=== PATIENT | male | born 1945 | race Caucasian/White ===

== ENCOUNTER 2017-09-02 21:41 | Emergency (ER) | payer MEDICARE ==
[2017-09-02] MEDS ORDERED: NS 0.9% 1000 ML* 1,000 ML IV ONE (22:28)
[2017-09-02 23:07] LABS: Hematocrit 26 % (42-52); Hemoglobin 8.5 g/dl (14.0-18.0); Mean Corpuscular HGB Conc 33 g/dl (31-36); Mean Corpuscular Hemoglobin 30 pg (27-31); Mean Corpuscular Volume 89 fL (80-94); Mean Platelet Volume 7 um3 (7.4-10.4); Platelet Count 274 10^3/ul (150-450); Red Blood Count 2.88 10^6/ul (4.0-5.4); Red Cell Distribution Width 15 % (10.5-15); White Blood Count 11.2 10^3/ul (3.5-10.8)
[2017-09-02 23:21] LABS: EGFR Non-African American 50.1 (>60)
[2017-09-02 23:23] LABS: INR 0.96 (0.77-1.02)
[2017-09-02 23:31] LABS: Monocytes % 7 % (0-13)
--- NOTE | 2017-09-03 01:26 | ED ---
Ghanshyam Smith Nilda, scribed for Augustus King MD on 09/02/17 at 2218 . Adult Trauma - HPI Summary HPI Summary: This patient is a 72 year old M BIBA accompanied by family s/p unwitnessed episode of syncope in bathtub at about 2130. Pt states he was sitting on bathtub ledge, soaking his feet when he fell. Per , pt was unresponsive for a few seconds. Patient reports chronic back pain, rectal bleeding (before fall) , and chronic edema bilat. Pt denies constipation, dizziness, pain (besides back pain), and N/V. Patient denies previous similar episode and overheating in bath. Pain rated 2/10 in severity. PMHx includes hemorrhoids, asthma, and prostate issue. - History of Current Complaint Stated Complaint: FALL/RECTAL BLEEDING Time Seen by Provider: 09/02/17 21:54 Hx Obtained From: Patient, Family/Funeral Service Manager - Mechanism of Injury: Fall Ambulatory at the Scene: N/A Loss of Consciousness: brief (seconds) Onset/Duration: Started Minutes Ago, Still Present Current Severity: Mild Pain Intensity: 2 Pain Scale Used: 0-10 Numeric Location: Back Associated Signs & Symptoms: Positive: Other: - chronic back pain, rectal bleeding (before fall), and chronic edema bilat. Pt denies constipation, dizziness, pain (besides back pain), and N/V. - Allergy/Home Medications Allergies/Adverse Reactions: Allergies Allergy/AdvReac Type Severity Reaction Status Date / Time Erythromycin Allergy Diarrhea Verified 09/02/17 22:14 PMH/Surg Hx/FS Hx/Imm Hx Respiratory History: Reports: Hx Asthma GI History: Reports: Other GI Disorders - hemorrhoid Sensory History: Denies: Hx Legally Blind EENT History: Denies: Hx Deafness Infectious Disease History: Denies: Traveled Outside the [place] in Last 30 Days - Family History Known Family History: Positive: Hypertension, Diabetes - Social History Lives: With Family Review of Systems Positive: Other - unwitnessed fall Positive: Palpitations Positive: Other - rectal bleeding; negative constipation. Negative: Vomiting, Nausea Positive: Edema, Other - chronic back pain; denies other pain Neurological: Other - negative dizziness Positive: Syncope All Other Systems Reviewed And Are Negative: Yes Physical Exam - Summary Physical Exam Summary: VITAL SIGNS: Reviewed. GENERAL: Patient is a morbidly obese male who is lying comfortable in the stretcher. Patient is not in any acute respiratory distress. HEAD AND FACE: No signs of trauma. No ecchymosis, hematomas or skull depressions. No sinus tenderness. EYES: PERRLA, EOMI x 2, No injected conjunctiva, no nystagmus. EARS: Hearing grossly intact. Ear canals and tympanic membranes are within normal limits. MOUTH: Oropharynx within normal limits. NECK: Supple, trachea is midline, no adenopathy, no JVD, no carotid bruit, no c- spine tenderness, neck with full ROM. CHEST: Symmetric, no tenderness at palpation LUNGS: Clear to auscultation bilaterally. No wheezing or crackles. CVS: Regular rate and rhythm, S1 and S2 present, no murmurs or gallops appreciated. ABDOMEN: Soft, non-tender. Distended. No rebound no guarding, and no masses palpated. Bowel sounds are normal. RECTAL: external hemorrhoids; Dark blood out of his rectum consistent with hematochezia EXTREMITIES: FROM in all major joints, no cyanosis or clubbing. Edema 2+ bilat LE with chronic venous changes. NEURO: Alert and oriented x 3. No acute neurological deficits. Speech is normal and follows commands. SKIN: Dry and warm, somewhat pale Triage Information Reviewed: Yes Vital Signs Reviewed: Yes Diagnostics - Laboratory Result Diagrams: 09/02/17 22:55 09/02/17 22:55 Lab Statement: Any lab studies that have been ordered have been reviewed, and results considered in the medical decision making process. - CT Brain CT Interpretation Completed By: Radiologist - Old lacunar infarction and chronic appearing microangiopathic change. Dr. King reviewed this report. - EKG 2238 Cardiac Rate: NL EKG Rhythm: Sinus Rhythm - 84 bpm EKG Interpretation: Normal axis. Normal interval. No ischemic change. Re-Evaluation - Re-Evaluation First Eval Re-Evaluation Time: 23:20 Comment: Reviewed labs with pt. Second Eval Re-Evaluation Time: 00:30 Comment: On re-eval, pt was very reluctant and resistant to be transferred. Had to explain risk of leaving. Pt walked in ED with support of staff. Pt became symptomic, orthostatic, and almost passed out. Adult Trauma Course/Dx - Course Assessment/Plan: This pt is 72 y/o BIBA after syncopal episode and rectal bleed at home. On exam, hematochezia. No active bleeding. Pt found to have low H&H. Pt is hemodynamically stable. No gastro service at this time. Pt transfer to [facility]. [id number] Dr[address] Lopes (hospitalist [facility]) accepts pt for transfer to [facility]. Dx lower GI bleed. On re-eval, pt was very reluctant and resistant to be transferred. Had to explain risk of leaving. Pt walked in ED with support of staff. Pt became symptomic, orthostatic, and almost passed out. Pt ultimately agrees to transfer. - Diagnoses Provider Diagnoses: Lower GI bleed - Physician Notifications Discussed Care Of Patient With: Dr. Lopes - [facility] Physician Time Discussed With Above Provider: 23:50 Instructed by Provider To: Other - agrees to admit pt to [facility] Discharge - Discharge Plan Condition: Stable Disposition: TRANS HIGHER LVL OF CARE FAC Discharge Disposition Comment: Transfer to [facility] Referrals: Donte Hess MD [Primary Care Provider] - The documentation as recorded by the Ghanshyam langston Nilda accurately reflects the service I personally performed and the decisions made by me, Augustus King MD.
[2017-09-03 03:16] VITALS: BP 137/73
--- NOTE | 2017-09-03 08:18 | RAD ---
HISTORY: Head injury COMPARISONS: None TECHNIQUE: Multiple contiguous axial CT scans were obtained of the head without intravenous contrast. FINDINGS: HEMORRHAGE/INFARCT: There is no hemorrhage or acute infarct. MASSES/SHIFT: There is no mass or shift. EXTRA-AXIAL SPACES: There are no extra-axial fluid collections. SULCI AND VENTRICLES: The sulci and ventricles are normal in size and position for the patient's stated age. CEREBRUM: There is hypoattenuation of the periventricular and subcortical white matter. There are chronic lacunar infarcts of the quintero radiata bilaterally. BRAINSTEM: There are no focal parenchymal abnormalities. CEREBELLUM: There are no focal parenchymal abnormalities. VESSELS: The vessels are grossly normal. PARANASAL SINUSES: The paranasal sinuses are clear. ORBITS: The orbits are unremarkable. BONES AND SOFT TISSUE: Epidural inclusion cysts are noted along the scalp. OTHER: None IMPRESSION: NO ACUTE INTRACRANIAL PATHOLOGY. 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
== END 2017-09-03 03:18 | disposition short-term general hospital (02) ==
LOC: ED 21:41
DX: K92.2 Gastrointestinal hemorrhage, unspecified (principal); M54.9 Dorsalgia, unspecified; R00.2 Palpitations; R55 Syncope and collapse
CPT/HCPCS: 36415; 70450; 80053; 85025; 85610; 85730; 86850; 86900; 86901; 93005; 96360; 99285

== ENCOUNTER 2018-02-01 20:08 | Emergency (ER) | payer MEDICARE ==
[2018-02-01 21:36] LABS: ABS Basophils 0.1 10^3/ul (0-0.2); ABS Eosinophils 0.3 10^3/ul (0-0.6); ABS Lymphocytes 0.8 10^3/ul (1.0-4.8); ABS Monocytes 0.7 10^3/ul (0-0.8); ABS Neutrophils 3.5 10^3/ul (1.5-7.7); ABS Nucleated RBC 0 10^3/ul; Eosinophil % 5.4 % (0-6); Hematocrit 32 % (42-52); Hemoglobin 10.5 g/dl (14.0-18.0); Lymphocyte % 14.3 % (25-47); Mean Corpuscular HGB Conc 33 g/dl (31-36); Mean Corpuscular Hemoglobin 26 pg (27-31); Mean Corpuscular Volume 79 fL (80-94); Mean Platelet Volume 7.3 um3 (7.4-10.4); Nucleated Red Blood Cells % 0; Platelet Count 207 10^3/ul (150-450); Red Blood Count 4.01 10^6/ul (4.00-5.40); Red Cell Distribution Width 22 % (10.5-15); White Blood Count 5.4 10^3/ul (3.5-10.8)
[2018-02-01 21:43] LABS: INR 1.01 (0.77-1.02)
[2018-02-01] MEDS ORDERED: Hydrocortisone SUPP* 25 MG SUPP (2.5%) PR ONE (21:45)
[2018-02-01 22:58] VITALS: BP 112/72
--- NOTE | 2018-02-01 23:40 | ED ---
Raven Smith Gabriel, scribed for Moustapha Emanuel MD on 02/01/18 at 2118 . GI/ HPI - HPI Summary HPI Summary: This patient is a 72 year old M presenting [place] [facility] c/o rectal bleeding that occurred a few hours ago. Pt states he passed some stool and there was a small amount of blood in the toilet described as drops next to regular brown stool. This occurred 3 times today. The patient rates the pain 0/10 in severity. Patient denies weakness, fatigue, dizziness, rectal pain, and increased LE edema. Pts states he only has short term memory. There is brown stool on the LEs that may have dripped from the rectum but they are unsure if he has diarrhea. Hx diverticulosis w/ bleeding. Seen at [facility] given 11 pints of blood and had surgery to repair intestinal bleeding. Not on blood thinners. - History of Current Complaint Chief Complaint: EDGIBleed Time Seen by Provider: 02/01/18 21:15 Stated Complaint: RECTAL BLEEDING Hx Obtained From: Patient Onset/Duration: Started Hours Ago, Still Present Timing: Constant Severity: Moderate Current Severity: Moderate Pain Intensity: 0 Associated Signs and Symptoms: Positive: Negative - weakness, fatigue, dizziness , rectal pain, increased LE edema, - Allergy/Home Medications Allergies/Adverse Reactions: Allergies Allergy/AdvReac Type Severity Reaction Status Date / Time erythromycin base AdvReac Diarrhea Verified 02/01/18 20:26 PMH/Surg Hx/FS Hx/Imm Hx Endocrine/Hematology History: Denies: Hx Anticoagulant Therapy Cardiovascular History: Denies: Hx Deep Vein Thrombosis, Hx Myocardial Infarction Respiratory History: Reports: Hx Asthma Denies: Hx Chronic Bronchitis GI History: Reports: Hx Diverticulosis, Other GI Disorders - hemorrhoid Sensory History: Denies: Hx Legally Blind, Hx Deafness Opthamlomology History: Denies: Hx Legally Blind Neurological History: Denies: Hx Developmental Delay - Immunization History Date of Tetanus Vaccine: 2012 Date of Influenza Vaccine: unk Infectious Disease History: No Infectious Disease History: Denies: Traveled Outside the [place] in Last 30 Days - Family History Known Family History: Positive: Hypertension, Diabetes - Social History Alcohol Use: None Substance Use Type: Reports: None Smoking Status (MU): Never Smoked Tobacco Review of Systems Negative: Fatigue Positive: Diarrhea - possible , Other - rectal bleeding Musculoskeletal: Negative - rectal pain Negative: Edema - not increased from baseline Neurological: Negative - dizziness Negative: Weakness All Other Systems Reviewed And Are Negative: Yes Physical Exam - Summary Physical Exam Summary: Appearance: Well appearing, no pain distress Skin: chronic venous stasis changes that are warm to the touch in bilateral LE, states this is his baseline Head/face: normal Eyes: EOMI, LINDA, no conjunctival pallor ENT: normal Neck: supple, non-tender Respiratory: CTA, breath sounds present Cardiovascular: RRR, pulses symmetrical Abdomen: non-tender, soft Bowel Sounds: present Musculoskeletal: strength/ROM intact, bilateral LE edema Neuro: normal, sensory motor intact, A&Ox2, hx dementia Rectal: there is brown stool, there are 2 large inflamed areas of external hemorrhoids. Triage Information Reviewed: Yes Vital Signs On Initial Exam: Initial Vitals Temp Pulse Resp BP Pulse Ox 97.5 F 65 18 168/95 98 02/01/18 20:23 02/01/18 20:23 02/01/18 20:23 02/01/18 20:23 02/01/18 20:23 Vital Signs Reviewed: Yes Diagnostics - Vital Signs Vital Signs Temp Pulse Resp BP Pulse Ox 02/01/18 20:23 97.5 F 65 18 168/95 98 - Laboratory Lab Results: Lab Results 02/01/18 02/01/18 02/01/18 Range/Units 21:27 21:27 21:27 WBC 5.4 (3.5-10.8) 10^3/ul RBC 4.01 (4.00-5.40) 10^6/ul Hgb 10.5 L (14.0-18.0) g/dl Hct 32 L (42-52) % MCV 79 L (80-94) fL MCH 26 L (27-31) pg MCHC 33 (31-36) g/dl RDW 22 H (10.5-15) % Plt Count 207 (150-450) 10^3/ul MPV 7.3 L (7.4-10.4) um3 Neut % (Auto) 65.5 (38-83) % Lymph % (Auto) 14.3 L (25-47) % [place] % (Auto) 13.8 H (0-7) % Eos % (Auto) 5.4 (0-6) % Baso % (Auto) 1.0 (0-2) % Absolute Neuts (auto) 3.5 (1.5-7.7) 10^3/ul Absolute Lymphs (auto) 0.8 L (1.0-4.8) 10^3/ul Absolute Monos (auto) 0.7 (0-0.8) 10^3/ul Absolute Eos (auto) 0.3 (0-0.6) 10^3/ul Absolute Basos (auto) 0.1 (0-0.2) 10^3/ul Absolute Nucleated RBC 0 10^3/ul Nucleated RBC % 0 INR (Anticoag Therapy) 1.01 (0.77-1.02) APTT 34.6 (26.0-36.3) seconds Sodium 142 (135-145) mmol/L Potassium 4.2 (3.5-5.0) mmol/L Chloride 108 (101-111) mmol/L Carbon Dioxide 30 (22-32) mmol/L Anion Gap 4 (2-11) mmol/L BUN 34 H (6-24) mg/dL Creatinine 1.63 H (0.67-1.17) mg/dL Est GFR ( Amer) 54.1 (>60) Est GFR (Non-Af Amer) 42.0 (>60) BUN/Creatinine Ratio 20.9 H (8-20) Glucose 102 H (70-100) mg/dL Calcium 9.0 (8.6-10.3) mg/dL Total Bilirubin 0.30 (0.2-1.0) mg/dL AST 15 (13-39) U/L ALT 20 (7-52) U/L Alkaline Phosphatase 87 (34-104) U/L Total Protein 6.8 (6.4-8.9) g/dL Albumin 3.2 (3.2-5.2) g/dL Globulin 3.6 (2-4) g/dL Albumin/Globulin Ratio 0.9 L (1-3) Blood Type Antibody Screen 02/01/18 Range/Units 21:27 WBC (3.5-10.8) 10^3/ul RBC (4.00-5.40) 10^6/ul Hgb (14.0-18.0) g/dl Hct (42-52) % MCV (80-94) fL MCH (27-31) pg MCHC (31-36) g/dl RDW (10.5-15) % Plt Count (150-450) 10^3/ul MPV (7.4-10.4) um3 Neut % (Auto) (38-83) % Lymph % (Auto) (25-47) % [place] % (Auto) (0-7) % Eos % (Auto) (0-6) % Baso % (Auto) (0-2) % Absolute Neuts (auto) (1.5-7.7) 10^3/ul Absolute Lymphs (auto) (1.0-4.8) 10^3/ul Absolute Monos (auto) (0-0.8) 10^3/ul Absolute Eos (auto) (0-0.6) 10^3/ul Absolute Basos (auto) (0-0.2) 10^3/ul Absolute Nucleated RBC 10^3/ul Nucleated RBC % INR (Anticoag Therapy) (0.77-1.02) APTT (26.0-36.3) seconds Sodium (135-145) mmol/L Potassium (3.5-5.0) mmol/L Chloride (101-111) mmol/L Carbon Dioxide (22-32) mmol/L Anion Gap (2-11) mmol/L BUN (6-24) mg/dL Creatinine (0.67-1.17) mg/dL Est GFR ( Amer) (>60) Est GFR (Non-Af Amer) (>60) BUN/Creatinine Ratio (8-20) Glucose (70-100) mg/dL Calcium (8.6-10.3) mg/dL Total Bilirubin (0.2-1.0) mg/dL AST (13-39) U/L ALT (7-52) U/L Alkaline Phosphatase (34-104) U/L Total Protein (6.4-8.9) g/dL Albumin (3.2-5.2) g/dL Globulin (2-4) g/dL Albumin/Globulin Ratio (1-3) Blood Type O Positive Antibody Screen Negative Result Diagrams: 02/01/18 21:27 02/01/18 21:27 Lab Statement: Any lab studies that have been ordered have been reviewed, and results considered in the medical decision making process. - EKG 2102 Cardiac Rate: NL EKG Rhythm: Sinus Rhythm - at 68 BPM EKG Interpretation: nml axis, nml intervals, nml ST, GIGU Course/Dx - Course Course Of Treatment: Patient with a history of severe GI bleed from diverticulosis in the past. Today he has normal brown stool above a grossly inflamed, macerated external hemorrhoid. He has chronically uncontrolled hypertension and renal insufficiency. He is not actively bleeding here. A rectal suppository Anusol was placed. I gave them Proctofoam and Anusol suppositories to use at home as it may be difficult for the patient to self administer suppository. They will follow up closely with the primary care physician and GI if needed. They will return with significant bleeding. - Diagnoses Differential Diagnoses - Male: Other - Diverticular bleeding, external source bleeding like hemorrhoid, fissure Provider Diagnoses: Bleeding external hemorrhoids, Renal insufficiency Discharge - Sign-Out/Discharge Documenting (check all that apply): Discharge/Admit/Transfer - Discharge Plan Condition: Improved Disposition: HOME Prescriptions: Hydrocortisone/Pramoxine [Proctofoam Hc 1-1 %] 1 aer SC TID PRN #1 aer PRN Reason: hemorrhoid pain/bleeding Patient Education Materials: Hemorrhoids (ED) Referrals: Michael Webster MD [Primary Care Provider] - Additional Instructions: Return with heavy bleeding, uncontrolled pain, worse or other concerns as discussed. Call your doctor first thing in the morning to follow-up. - Billing Disposition and Condition Condition: STABLE Disposition: Home The documentation as recorded by the Raven langston Gabriel accurately reflects the service I personally performed and the decisions made by , Moustapha Emanuel MD.
== END 2018-02-01 22:57 | disposition home or self-care (01) ==
LOC: ED 20:08
DX: K64.4 Residual hemorrhoidal skin tags (principal); N28.9 Disorder of kidney and ureter, unspecified; I10 Essential (primary) hypertension; F03.90 Unspecified dementia, unspecified severity, without behavioral disturbance, psychotic disturbance, mood disturbance, and anxiety; Z87.19 Personal history of other diseases of the digestive system; Z88.3 Allergy status to other anti-infective agents
CPT/HCPCS: 36415; 80053; 85025; 85610; 85730; 86850; 86900; 86901; 93005; 99283; A9270-GY

== ENCOUNTER 2018-04-14 14:15 | Inpatient (IN) | payer MEDICARE ==
[2018-04-14] MEDS ORDERED: NS 0.9% 1000 ML* 1,000 ML IV ONE ×3 (14:23→16:48)
--- OUTSIDE RECORDS SUMMARY | 2018-04-14 14:23 | XMS REPORT ---
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 ([facility]) Isaiah Lopez PayID: [id number] [address] [place] [address] Commercial Expires: 2018 Policy Number: Today's Option Of Isaiah Lopez [id number] [place] PayID: [id number] [address] [address] [place] [address] Problems Date Description Provider Status Onset: 07/08/2007 Extrinsic asthma without status Margoth Thomason asthmaticus Jose,FACP Onset: 07/08/2007 Hyperlipidemia Margoth Thomason M.D.,FACP Onset: 07/08/2007 Benign essential hypertension Margoth Thomason M.D.,FACP Onset: 07/08/2007 Central sleep apnea syndrome Margoth Thomason M.D.,FACP Onset: 07/08/2007 Atopic dermatitis Margoth Thomason M.D.,FACP Onset: 10/06/2007 Mixed hyperlipidemia Margoth Thomason M.D.,FACP Onset: 04/12/2009 Impotence of organic origin Margoth Thomason.Juan Ramon,[facility] Family History Date Family Member(s) Problem(s) Comments Father Diabetes, Non Insulin Dependent Father due to Diabetes () - complications Father Depression Mother Arthritis, Rheumatoid Mother due to Heart Disease () First Sister Arthritis, Osteo Second Sister Arthritis, Osteo Social History Type Date Description Comments Marital Status Lives With Spouse 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 Cigarette Use Former Cigarette Smoker 1 Pack Daily for 3 yrs Cigarette Use Pack Years - 03 ETOH Use Rarely consumes alcohol Recreational Drug Use Denies Drug Use Smoking Patient is a former smoker Exercise Type/Frequency Exercises regularly Body blade Allergies, Adverse Reactions, Alerts Date Description Reaction Status Severity Comments 07/08/2007 Singulair active 07/08/2007 Foradil Aerolizer active 07/08/2007 Lisinopril active 02/13/2018 Erythromycin diarheea active 02/13/2018 Irbesartan active 02/13/2018 Amlodipine active Medications Medication Date Status Form Strength Qnty SIG Indications Ordering Provider Losartan 03/03/ Active Tablets 50mg 90tab 1 by mouth Wayne Ferguson Potassium 2018 s every day Estes, DO [facility] Chlorthalidone 02/13/ Active Tablets 25mg 30tab take 1 I10 Wayne Marty 2018 s tablet by Estes, mouth every DO [facility] day Metoprolol / Active Tablets ER 50mg take 2 Unknown Succinate ER 0000 24HR tablet po daily Tamsulosin HCL / Active Capsules 0.4mg 1 cap po Darlow, 0000 daily Michael Patricio MD Free And Easy / Active tamazight Unknown Wander Plus 0000 herbal 1 po daily Nan Bulverde / Active tamazight Unknown 0000 Herbal 1 po daily Vitamin C / Active Tablets 1000mg 1 by mouth Unknown 0000 every day Avapro 07/28/ Hx Tablets 300mg 90tab 1 po qam 401.1 Stephen 2008 Carolyn Mercer, 02/12/ M.D.,FACP 2017 Avapro 04/12/ Hx Tablets 150mg 90tab 1 po qd 401.1 Stephen 2008 Carolyn Mercer, 07/28/ MJayleen,FACP 2008 Kelly 10/06/ Hx Tablets 180mg 90tab qd prn 493.00 Stephen 2007 Carolyn Mercer, 02/12/ Jose,FACP 2018 Advair Diskus 07/08/ Hx Misc 250/50 3mon 1 puff bid Stephen Mercer, 02/12/ Jose,FACP 2018 Proventil HFA 07/08/ Hx Aerosol 108mcg/Ac 3mon 2 puff(S) Stephen Mercer, 02/12/ qid prn M.D.,FACP 2018 Niaspan 07/08/ Hx Tablets ER 500mg 90tab 1 qpm 272.4 Stephen Mercer, Jose,FACP 2008 Triamcinolone 07/08/ Hx Ointment 0.1% 60G qd prn 691.8 Stephen Acetonide Tori Mercer, 02/12/ Jose,FACP 2018 Zyrtec 06/16/ Hx Tablets 10mg 90tab qpm 493.00 Stephen Mercer, Jose,FACP 2007 Valsartan / Hx Tablets 160mg take 1 Unknown 0000 - tablet by 03/03/ once 2018 daily Vital Signs Date Vital Result Comment 03/16/2018 Height 74 inches 6'2" Weight 227.00 lb Heart Rate 54 /min BP Systolic Sitting 126 mmHg rue lg cuff BP Diastolic Sitting 70 mmHg rue lg cuff BP Systolic Standing 124 mmHg BP Diastolic Standing 70 mmHg Respiratory Rate 16 /min BMI (Body Mass Index) 29.1 kg/m2 Ejection Fraction 65% 01/23/2016 echo 02/13/2018 Height 74 inches 6'2" Weight 225.00 lb Heart Rate 64 /min BP Systolic 170 mmHg Rue reg cuff BP Diastolic 100 mmHg Rue reg cuff BP Systolic Sitting 190 mmHg Lue reg cuff BP Diastolic Sitting 110 mmHg Lue reg cuff BP Systolic Standing 180 mmHg Lue reg cuff BP Diastolic Standing 110 mmHg Lue reg cuff Respiratory Rate 16 /min BMI (Body Mass Index) 28.9 kg/m2 Ejection Fraction 65% date 01/23/16 ECHO 07/28/2009 Height 74 inches 6'2" Weight 283.00 lb Heart Rate 85 /min BP Systolic Sitting 161 mmHg BP Diastolic Sitting 95 mmHg Body Temperature 98.7 F BMI (Body Mass Index) 36.3 kg/m2 04/12/2009 Height 74 inches 6'2" Weight 282.00 lb Heart Rate 88 /min BP Systolic Sitting 168 mmHg BP Diastolic Sitting 84 mmHg BMI (Body Mass Index) 36.2 kg/m2 10/06/2007 Height 74 inches 6'2" Weight 271.00 lb Heart Rate 70 /min BP Systolic Sitting 160 mmHg BP Diastolic Sitting 96 mmHg Respiratory Rate 20 /min Body Temperature 98.0 F BMI (Body Mass Index) 34.8 kg/m2 07/08/2007 Height 74 inches 6'2" Weight 269.00 lb Heart Rate 80 /min BP Systolic Sitting 150 mmHg BP Diastolic Sitting 90 mmHg Respiratory Rate 20 /min BMI (Body Mass Index) 34.5 kg/m2 Results Test Date Test Result H/L Range Note Basic Metabolic Panel 03/02/2018 Sodium 140 mmol/L 135-145 Potassium 3.7 mmol/L 3.5-5.0 Chloride 104 mmol/L 101-111 Co2 Carbon Dioxide 30 mmol/L 22-32 Anion Gap 6 mmol/L 2-11 Glucose 86 mg/dL 70-100 Blood Urea Nitrogen 36 mg/dL High 6-24 Creatinine 1.25 mg/dL High 0.67-1.17 BUN/Creatinine Ratio 28.8 High 8-20 Calcium 9.1 mg/dL 8.6-10.3 Egfr Non- 57.1 >60 Egfr 69.1 >60 1 Throat-Beta Strept 08/25/2010 Throat-Beta Strep NF 2 Culture Lipid Profile 10/06/2007 Cholesterol/HDL Ratio 5.50 AVERAGE High 1-4.97 3 (Trig/Chol/HDL) Cholesterol 187 mg/dL Less Than 200 3, 4 Triglyceride 214 mg/dL High 40-200 3 High Density Lipoprotein 34 mg/dL Low 40-60 3, 5 Low Density Lipoprotein 110 mg/dL High Less Than 100 3, 6 Basic Metabolic Panel 10/06/2007 One Over Creatinine 0.83 3 Anion Gap 5.0 mmol/L 2-11 3, 7 BUN 23 mg/dL 6-24 3 Calcium 8.8 mg/dL 8.7-10.2 3 Chloride 106 mmol/L 101-111 3 Co2 (Carbon Dioxide) 28.0 mmol/L 22-32 3 Glucose 104 mg/dL 70-105 3 Potassium 3.9 mmol/L 3.5-5.0 3 Sodium 139 mmol/L 135-145 3 BUN/Creatinine Ratio 19.2 8-20 3 Creatinine 1.2 mg/dL 0.5-1.4 3 Liver Function Panel 10/06/2007 Albumin/Globulin Ratio 1.2 1-3 3 Albumin 3.9 GM/DL 3.2-5.2 3 Alkaline Phosphatase 72 U/L 39-117 3 Alt (SGPT) 25 U/L 17-63 3 Ast (Sgot) 29 U/L 12-42 3 Bilirubin Direct 0.1 mg/dL 0.1-0.5 3 Globulin 3.2 GM/DL 2-4 3 Indirect Bilirubin 0.7 mg/dL 0.1-0.75 3 Bilirubin Total 0.8 mg/dL 0.4-1.5 3 Total Protein 7.1 GM/DL 6.2-8.1 3 Laboratory test finding 10/06/2007 CPK (Creatine Kinase) 299 U/L High 0- 200 3 Basic Metabolic Panel 07/01/2007 One Over Creatinine 0.76 Anion Gap 4.0 mmol/L 2-11 8 BUN 20 mg/dL 6-24 Calcium 8.3 mg/dL Low 8.7-10.2 Chloride 104 mmol/L 101-111 Co2 (Carbon Dioxide) 28.0 mmol/L 22-32 Glucose 97 mg/dL 70-105 Potassium 4.0 mmol/L 3.5-5.0 Sodium 136 mmol/L 135-145 BUN/Creatinine Ratio 15.4 8-20 Creatinine 1.3 mg/dL 0.5-1.4 Laboratory test finding 07/01/2007 PSA Screening 2.26 NG/ML 0-4 9 Lipid Profile 07/01/2007 Cholesterol/HDL Ratio 5.56 AVERAGE High 1-4.97 (Trig/Chol/HDL) Cholesterol 200 mg/dL Less Than 200 10 Triglyceride 229 mg/dL High 40-200 High Density Lipoprotein 36 mg/dL Low 40-60 11 Low Density Lipoprotein 118 mg/dL High Less Than 100 12 1 Because ethnic data is not always readily available, this report includes an eGFR for both -Americans and non- Americans. The National Kidney Disease Education Program (NKDEP) does not endorse the use of the MDRD equation for patients that are not between the ages of 18 and 70, are , have extremes of body size, muscle mass, or nutritional status, or are non- or non-. According to the National Kidney Foundation, irrespective of diagnosis, the stage of the disease is based on the level of kidney function: Stage Description GFR(mL/min/1.73 m(2)) 1 Kidney damage with normal or decreased GFR 90 2 Kidney damage with mild decrease in GFR 60-89 3 Moderate decrease in GFR 30-59 4 Severe decrease in GFR 15-29 5 Kidney failure <15 (or dialysis) 2 NEGATIVE FOR GROUP A BETA STREPTOCOCCUS 3 PSA done in Jun. normal limitsPATIENT MAY HAVE RESULTS PER DOCTOR'S AUTHORIZATION. Questions regarding this report should be directed to your doctor. 4 Classification: Desirable . 5 Classification: Low . 6 CALCULATED LDL APPROXIMATES THE VALUE OF A DIRECT LDL MEASUREMENT. Classification: Near or above optimal . 7 Anion gap measurement may be of limited value in the presence of any alkalosis, especially in a combined acid base disorder. . 8 Anion gap measurement may be of limited value in the presence of any alkalosis, especially in a combined acid base disorder. . 9 * SERUM LEVELS OF PSA MEASURED USING THE [facility] [facility] ACCESS HYBRITECH IMMUNOASSAY SHOULD NOT BE INTERPRETED ABSOLUTE EVIDENCE OF THE PRESENCE OR ABSENCE OF DISEASE. THE PSA VALUE SHOULD BE USED IN CONJUNCTION WITH OTHER PERTINENT CLINICAL DIAGNOSTIC PROCEDURES. 10 Classification: Borderline High . 11 Classification: Low . 12 CALCULATED LDL APPROXIMATES THE VALUE OF A DIRECT LDL MEASUREMENT. Classification: Near or above optimal . 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 G47.30 I12.9 E66.8 I27.20 I11.9 Z91.14 R60.0 I35.0 Office Visit 10/04/2014 12:57p [facility] [place], [address] 707.19 [facility] Jose Office Visit 07/28/2009 9:20a DO Not Use Coverstitch Machine Operator AT Stephen Mercer, [address] 401.1 [place] Garcia,FACP 493.00 Office Visit 04/12/2009 2:00p DO Not Use Coverstitch Machine Operator AT [facility], [address] V70.0 [facility],FACP 493.00 272.2 401.1 V76.51 607.84 Office Visit 10/06/2007 8:40a DO Not Use Coverstitch Machine Operator AT [facility], [address] V70.0 [facility],FACP 272.2 493.00 Office Visit 07/08/2007 8:30a DO Not Use Coverstitch Machine Operator AT [facility], [address] 493.00 [facility],FACP 272.4 401.1 327.21 691.8 Plan of Care 03/16/2018 - Wayne Estes, DO FACCI11.9 Hypertensive heart disease without heart failureComments:Your blood pressure is great today and your home cuff correlates with ours. Continue your current regimen and please let Dr. Webster's office know if you need any refillsFollow up:PRNI10 Essential (primary) [id number] Chronic kidney disease, [id number] Sleep apnea, [id number] Nonrheumatic aortic (valve) stenosis
[2018-04-14 15:05] LABS: ABS Basophils 0 10^3/ul (0-0.2); ABS Eosinophils 0 10^3/ul (0-0.6); ABS Lymphocytes 0.4 10^3/ul (1.0-4.8); ABS Monocytes 0.7 10^3/ul (0-0.8); ABS Neutrophils 4.7 10^3/ul (1.5-7.7); ABS Nucleated RBC 0 10^3/ul; Eosinophil % 0.1 % (0-6); Hematocrit 35 % (42-52); Hemoglobin 11.7 g/dl (14.0-18.0); Lymphocyte % 6.3 % (25-47); Mean Corpuscular HGB Conc 34 g/dl (31-36); Mean Corpuscular Hemoglobin 29 pg (27-31); Mean Corpuscular Volume 86 fL (80-94); Mean Platelet Volume 7.1 um3 (7.4-10.4); Nucleated Red Blood Cells % 0; Platelet Count 139 10^3/ul (150-450); Red Blood Count 4.04 10^6/ul (4.00-5.40); Red Cell Distribution Width 18 % (10.5-15); White Blood Count 5.9 10^3/ul (3.5-10.8)
[2018-04-14 15:12] LABS: INR 1.03 (0.77-1.02)
--- NOTE | 2018-04-14 15:39 | RAD ---
INDICATION: Weakness COMPARISON: None TECHNIQUE: An AP portable view obtained at 1512 hours is submitted. FINDINGS: Bones/Soft Tissues: There are no acute bony findings. Cardiomediastinal: The cardiomediastinal silhouette is normal in size. There is uncoiling and tortuosity of the thoracic aorta. Lungs: There are no infiltrates. Pleura: There are no pleural effusions. Other: None IMPRESSION: NO ACTIVE DISEASE.
--- NOTE | 2018-04-14 15:41 | RAD ---
INDICATION: Weakness COMPARISON: CT brain 3 2017 TECHNIQUE: Noncontrast axial source images were acquired from the skull base to the vertex. FINDINGS: Ventricles/sulci: The ventricles and cisterns are normal in size and configuration for age. Brain parenchyma: There is no acute focal parenchymal finding, evidence of intracranial mass, or intracranial mass effect. There are microvascular ischemic changes involving the quintero radiata bilaterally appearing unchanged. There is mild diffuse decrease in attenuation the periventricular white matter consistent with chronic ischemia. Intracranial hemorrhage:None. Extra-axial spaces: There are no abnormal extra axial fluid collections or evidence of extra-axial mass. Calvarium: There is no calvarial fracture or other calvarial abnormality. Scalp: There are multiple scalp cutaneous nodules appearing unchanged. These can be managed evaluated clinically Paranasal sinuses/mastoid: The paranasal sinuses and mastoid air cells are clear. Other: None. IMPRESSION: CHRONIC MICROVASCULAR ISCHEMIC CHANGES. NO ACUTE FINDINGS. SCALP LESIONS, UNCHANGED. NO ACUTE INTRACRANIAL FINDINGS
[2018-04-14 16:48] LABS: Urine Appearance Cloudy; Urine Blood 3+ (Negative); Urine Color Yellow; Urine Ketones Trace (Negative); Urine Protein 1+(30 mg/dL) (Negative); Urine Red Blood Cell 3+(>10/hpf) (Absent); Urine Specific Gravity 1.019 (1.010-1.030); Urine Urobilinogen Negative (Negative); Urine White Blood Cell 1+(6-10/hpf) (Absent)
[2018-04-14] MEDS ORDERED: PROCHLORPERAZINE INJ 5 MG/ML 2 ML VIAL IV PRN (16:49)
--- NOTE | 2018-04-14 16:52 | ED ---
Complex/Multi-Sys Presentation - HPI Summary HPI Summary: Patient is a 73 y/o M w/ c/o general weakness and "overheating" onsetting last night and continued into this morning. Patient was going to eat breakfast when he collapsed. However, he did not experience LOC. Patient denies fever, chills, SOB, dizziness, light-headedness, any pain, palpitations, diarrhea, and blood in stool. He reports some increased frequency of urination. PMHx of HTN and lymphedema. Patient denies any changes in medication recently. On triage, nothing is noted to aggravate/alleviate Sx. Home medications and allergies reviewed. - History Of Current Complaint Chief Complaint: EDWeakness Time Seen by Provider: 04/14/18 14:23 Hx Obtained From: Patient Onset/Duration: Lasting Days - onset last night, Still Present Timing: Constant Severity Currently: None - pain is denied Aggravating Factor(s): nothing Alleviating Factor(s): nothing Associated Signs And Symptoms: Positive: Other - NEGATIVE: chills, light- headedness, palpitations, blood in stool POSITIVE: "overheating", fatigue, increased frequency of urination. Negative: Dizziness, SOB, Diarrhea, Fever - Allergies/Home Medications Allergies/Adverse Reactions: Allergies Allergy/AdvReac Type Severity Reaction Status Date / Time erythromycin base AdvReac Diarrhea Verified 04/14/18 14:23 Home Medications: Home Medications Chlorthalidone 25 mg PO DAILY 04/14/18 [History Confirmed 04/14/18] Losartan Potassium [Cozaar] 50 mg PO DAILY 04/14/18 [History Confirmed 04/14/18] Metoprolol Succinate 100 mg PO DAILY 04/14/18 [History Confirmed 04/14/18] Tamsulosin CAP* [Flomax CAP*] 1 cap PO DAILY 04/14/18 [History Confirmed ] PMH/Surg Hx/FS Hx/Imm Hx Endocrine/Hematology History: Denies: Hx Anticoagulant Therapy Cardiovascular History: Denies: Hx Deep Vein Thrombosis, Hx Myocardial Infarction Respiratory History: Reports: Hx Asthma Denies: Hx Chronic Bronchitis GI History: Reports: Hx Diverticulosis, Other GI Disorders - hemorrhoid Sensory History: Denies: Hx Legally Blind, Hx Deafness Opthamlomology History: Denies: Hx Legally Blind Neurological History: Denies: Hx Developmental Delay - Immunization History Date of Tetanus Vaccine: 2012 Date of Influenza Vaccine: unk Infectious Disease History: No Infectious Disease History: Denies: Traveled Outside the [place] in Last 30 Days - Family History Known Family History: Positive: Hypertension, Diabetes - Social History Alcohol Use: None Substance Use Type: Reports: None Smoking Status (MU): Former Smoker Review of Systems Positive: Fatigue - POSITIVE: "overheating", generalized weakness, , Other. Negative: Fever, Chills Negative: Palpitations Negative: Shortness Of Breath Negative: Diarrhea Positive: frequency - increased frequency of urination Neurological: Other - NEGATIVE: dizziness, light-headedness Negative: Syncope All Other Systems Reviewed And Are Negative: Yes Physical Exam - Summary Physical Exam Summary: Appearance: Well appearing, no pain distress; flat/detached affect Skin: warm, dry, reflects adequate perfusion; Static dermatitis. Head/face: normal Eyes: EOMI, LINDA ENT: normal Neck: supple, non-tender Respiratory: CTA, breath sounds present Cardiovascular: RRR, pulses symmetrical Abdomen: non-tender, soft Bowel Sounds: present Musculoskeletal: ROM intact; weakness in both legs, left greater than right with some effort against gravity; chronic edema in both legs. Neuro: normal, sensory motor intact, A&Ox3 Triage Information Reviewed: Yes Vital Signs On Initial Exam: Initial Vitals Temp Pulse Resp BP Pulse Ox 98.2 F 94 19 126/81 96 04/14/18 14:20 04/14/18 14:20 04/14/18 14:20 04/14/18 14:20 04/14/18 14:20 Vital Signs Reviewed: Yes Diagnostics - Vital Signs Vital Signs Temp Pulse Resp BP Pulse Ox 04/14/18 16:28 87 95 04/14/18 16:09 149/86 04/14/18 15:39 83 153/82 97 04/14/18 15:09 90 153/87 96 04/14/18 14:29 92 96 04/14/18 14:20 98.2 F 94 19 126/81 96 - Laboratory Lab Results: Lab Results 04/14/18 04/14/18 04/14/18 Range/Units 14:55 14:55 14:55 WBC 5.9 (3.5-10.8) 10^3/ul RBC 4.04 (4.00-5.40) 10^6/ul Hgb 11.7 L (14.0-18.0) g/dl Hct 35 L (42-52) % MCV 86 (80-94) fL MCH 29 (27-31) pg MCHC 34 (31-36) g/dl RDW 18 H (10.5-15) % Plt Count 139 L (150-450) 10^3/ul MPV 7.1 L (7.4-10.4) um3 Neut % (Auto) 80.6 (38-83) % Lymph % (Auto) 6.3 L (25-47) % [place] % (Auto) 12.3 H (0-7) % Eos % (Auto) 0.1 (0-6) % Baso % (Auto) 0.7 (0-2) % Absolute Neuts (auto) 4.7 (1.5-7.7) 10^3/ul Absolute Lymphs (auto) 0.4 L (1.0-4.8) 10^3/ul Absolute Monos (auto) 0.7 (0-0.8) 10^3/ul Absolute Eos (auto) 0 (0-0.6) 10^3/ul Absolute Basos (auto) 0 (0-0.2) 10^3/ul Absolute Nucleated RBC 0 10^3/ul Nucleated RBC % 0 INR (Anticoag Therapy) (0.77-1.02) Sodium 137 (135-145) mmol/L Potassium 3.3 L (3.5-5.0) mmol/L Chloride 101 (101-111) mmol/L Carbon Dioxide 29 (22-32) mmol/L Anion Gap 7 (2-11) mmol/L BUN 35 H (6-24) mg/dL Creatinine 1.40 H (0.67-1.17) mg/dL Est GFR ( Amer) 60.4 (>60) Est GFR (Non-Af Amer) 50.0 (>60) BUN/Creatinine Ratio 25.0 H (8-20) Glucose 113 H (70-100) mg/dL Lactic Acid 0.9 (0.5-2.0) mmol/L Calcium 8.8 (8.6-10.3) mg/dL Magnesium 1.8 L (1.9-2.7) mg/dL Total Bilirubin 1.10 H (0.2-1.0) mg/dL AST 145 H (13-39) U/L ALT 116 H (7-52) U/L Alkaline Phosphatase 76 (34-104) U/L Total Creatine Kinase 3472 H (10-223) U/L Troponin I 0.04 H* (<0.04) ng/mL C-Reactive Protein 43.03 H (<8.01) mg/L B-Natriuretic Peptide ( - 100) pg/mL Total Protein 7.2 (6.4-8.9) g/dL Albumin 3.5 (3.2-5.2) g/dL Globulin 3.7 (2-4) g/dL Albumin/Globulin Ratio 0.9 L (1-3) TSH 2.27 (0.34-5.60) mcIU/mL 04/14/18 04/14/18 Range/Units 14:55 14:55 WBC (3.5-10.8) 10^3/ul RBC (4.00-5.40) 10^6/ul Hgb (14.0-18.0) g/dl Hct (42-52) % MCV (80-94) fL MCH (27-31) pg MCHC (31-36) g/dl RDW (10.5-15) % Plt Count (150-450) 10^3/ul MPV (7.4-10.4) um3 Neut % (Auto) (38-83) % Lymph % (Auto) (25-47) % [place] % (Auto) (0-7) % Eos % (Auto) (0-6) % Baso % (Auto) (0-2) % Absolute Neuts (auto) (1.5-7.7) 10^3/ul Absolute Lymphs (auto) (1.0-4.8) 10^3/ul Absolute Monos (auto) (0-0.8) 10^3/ul Absolute Eos (auto) (0-0.6) 10^3/ul Absolute Basos (auto) (0-0.2) 10^3/ul Absolute Nucleated RBC 10^3/ul Nucleated RBC % INR (Anticoag Therapy) 1.03 H (0.77-1.02) Sodium (135-145) mmol/L Potassium (3.5-5.0) mmol/L Chloride (101-111) mmol/L Carbon Dioxide (22-32) mmol/L Anion Gap (2-11) mmol/L BUN (6-24) mg/dL Creatinine (0.67-1.17) mg/dL Est GFR ( Amer) (>60) Est GFR (Non-Af Amer) (>60) BUN/Creatinine Ratio (8-20) Glucose (70-100) mg/dL Lactic Acid (0.5-2.0) mmol/L Calcium (8.6-10.3) mg/dL Magnesium (1.9-2.7) mg/dL Total Bilirubin (0.2-1.0) mg/dL AST (13-39) U/L ALT (7-52) U/L Alkaline Phosphatase (34-104) U/L Total Creatine Kinase (10-223) U/L Troponin I (<0.04) ng/mL C-Reactive Protein (<8.01) mg/L B-Natriuretic Peptide 151 H ( - 100) pg/mL Total Protein (6.4-8.9) g/dL Albumin (3.2-5.2) g/dL Globulin (2-4) g/dL Albumin/Globulin Ratio (1-3) TSH (0.34-5.60) mcIU/mL Result Diagrams: 04/14/18 14:55 04/14/18 14:55 Lab Statement: Any lab studies that have been ordered have been reviewed, and results considered in the medical decision making process. - Radiology CXR Xray Interpretation: No Acute Changes Radiology Interpretation Completed By: Radiologist - no active disease; this report was reviewed by ED physician. - CT CT Head CT Interpretation: No Acute Changes CT Interpretation Completed By: Radiologist - chronic microvascular ischemic changes. no acute findings. scalp lesions, unchanged. no acute intracranial findings. this repotr was reviewed by ED physician. - EKG 1454 Cardiac Rate: NL - rate of 87 bpm EKG Rhythm: Sinus Rhythm ST Segment: Normal EKG Interpretation: normal axis Re-Evaluation - Re-Evaluation First Eval Re-Evaluation Time: 15:15 Comment: Discussed results of labs and tests with patient. He will be admitted to [facility] [place] further workup. Patient is agreeable with this plan. Complex Multi-Symp Course/Dx Course Of Treatment: Patient presents with generalized weakness largely in the legs without focal deficit. He has felt that he is "overheated". His legs will not support his weight at present. Patient has chronic renal insufficiency without change in the baseline creatinine today. He is hydrated here with some improvement. He was unable to urinate and a straight catheter specimen was obtained. His CPK is grossly elevated without him being on medications that could cause this. Large-volume IV fluids will be continued to be infused. He will be admitted through the hospitalist service. - Diagnoses Provider Diagnoses: Generalized weakness, Rhabdomyolysis, Chronic renal insufficiency - Physician Notifications Discussed Care Of Patient With: Marci Skinner Time Discussed With Above Provider: 15:17 Instructed by Provider To: Other - Discussed patient's case with Dr. Becerra at [phone]. Dr. Becerra agrees to admit to [facility]. - Critical Care Time Critical Care Time: 30-74 min - 30 minutes; CCT is EXCLUSIVE of separately billable procedures. Discharge - Sign-Out/Discharge Documenting (check all that apply): Patient Departure - admit - Discharge Plan Condition: Fair Disposition: ADMITTED TO [facility] - Billing Disposition and Condition Condition: FAIR Disposition: Admitted to [facility] - Attestation Statements Document Initiated by Scribe: Yes Documenting Scribe: Joon Crabtree Provider For Whom Yang is Documenting (Include Credential): Moustapha Emanuel MD Scribe Attestation: Joon Smith, scribed for Moustapha Emanuel MD on 04/14/18 at 1758. Scribe Documentation Reviewed: Yes Provider Attestation: The documentation as recorded by the Joon langston accurately reflects the service I personally performed and the decisions made by me, Moustapha Emanuel MD
[2018-04-14] MEDS ORDERED: NS 0.9% 1000 ML* 1,000 ML IV SCH (17:00)
[2018-04-14] MEDS ORDERED: Potassium Chlor TAB* 20 MEQ TAB.ER PO ONE (17:19)
[2018-04-14] MEDS ORDERED: Magnesium Sulfate 1 GM IV* 1 GM/100 ML BAG IV ONE (17:19)
--- NOTE | 2018-04-14 21:07 | HP ---
CC: Dr. Webster * HISTORY AND PHYSICAL: DATE OF ADMISSION: 04/14/18 TIME OF EVALUATION: 4:30 p.m. PRIMARY CARE PROVIDER: Dr. Webster. CHIEF COMPLAINT: "I am weak." HISTORY OF PRESENT ILLNESS: Mr. Lopez is a 73-year-old male with a past medical history of asthma, hypertension, hyperlipidemia, sleep apnea who presented to the emergency room with complaints of weakness. Of note is the fact that the patient is a very poor historian. He states he was in his usual state of health until yesterday. As per , during the day he was "fine." Last night, he started to feel weaker and have more difficulty walking, and this morning he was preparing breakfast and felt that his legs were very weak and he was able to sit down because he felt like his legs would give out on him. He denies fever, chills, cough, shortness of breath, chest pain, palpitations, nausea, vomiting, diarrhea, abdominal pain, or urinary symptoms. When asked if he had these symptoms before, the answers are not precise as the patient thinks he did not. The is not sure and the daughter thinks he did. PAST MEDICAL HISTORY: 1. Hyperlipidemia. 2. Hypertension. 3. Asthma. 4. Sleep apnea. 5. Aortic sclerosis. 6. Moderate to severe pulmonary hypertension. 7. CKD, stage 2 to 3. MEDICATIONS: His medication list includes: 1. Metoprolol succinate 100 mg p.o. daily. 2. Chlorthalidone 25 mg p.o. daily. 3. Tamsulosin 0.4 mg p.o. daily. 4. Losartan 50 mg p.o. daily. ALLERGIES: 1. SINGULAIR. 2. FORADIL. 3. LISINOPRIL. 4. ERYTHROMYCIN. 5. IRBESARTAN. 6. AMLODIPINE. FAMILY HISTORY: His father had diabetes and depression. Mother had rheumatoid arthritis and heart disease. SOCIAL HISTORY: The patient has a remote history of smoking for 3 years only. No history of alcohol or drug use. Surrogate decision maker is his daughter, Caroline Lopez; phone number is [phone]. REVIEW OF SYSTEMS: A 14-point review of systems was performed and all the pertinent negative and positive findings are in the HPI. PHYSICAL EXAMINATION GENERAL: The patient is a pleasant elderly male lying in the ED stretcher, in no acute distress. VITAL SIGNS: Temperature 98.2, heart rate is 93, respiratory rate is 19, oxygen saturation 98% on room air, blood pressure is 166/84. HEENT: Pupils are equal. Moist mucous membranes. CHEST: Breath sounds present bilaterally. No added sounds. CVS: Normal S1 and S2. Regular rate and rhythm with systolic murmur. ABDOMEN: Soft. Bowel sounds are present. EXTREMITIES: The patient has lower extremity lymphedema with chronic skin changes. NEURO: He is alert and oriented x3. He is able to move all 4 extremities but he has significant proximal weakness in bilateral lower extremities. He can lift his leg against gravity but with difficulty. He also has some degree of proximal weakness in his upper extremities, but not as marked as the lower extremities. LABORATORY AND IMAGING DATA: The patient had a CBC that showed WBC of 5.9, hemoglobin of 11.7, hematocrit of 35, platelets of 139,000 with 80% neutrophils. INR is 1.03. Chemistry showed a sodium of 137, potassium of 3.3, chloride of 101, bicarb of 29, BUN of 35, creatinine of 1.4, glucose of 113. Lactic acid of 0.9. Calcium 8.8. Magnesium of 1.8. LFTs show total bilirubin of 1.1, AST of 145, ALT of 116, alk phos of 76. CPK 3472. Troponin 0.04. CRP 43. BNP 151. TSH is 2.2. Chest x-ray showed no active disease. CT of the brain showed chronic microvascular ischemic changes with no acute findings. EKG done on 04/14/18 at 2:54 p.m. showed sinus rhythm at 87 beats per minute with no ST-T changes, no significant change when compared to his prior EKG from January 2018. ASSESSMENT AND PLAN: Mr. Lopez is a 73-year-old male with a past medical history of hypertension, hyperlipidemia, asthma, obstructive sleep apnea, aortic sclerosis, pulmonary hypertension that presented to the emergency room with complaints of weakness, found to have elevation of CPK suggestive of myositis. 1. Weakness. As described above, the patient is a poor historian but in discussing his case with Neurology, the patient apparently had an elevation of CPK many years ago. His proximal weakness with elevation of CPK suggests polymyositis but the story that he is giving of the sudden onset of weakness last night is not compatible with it. I am going to check an ESR, KEMI, Rosy-1 and acetylcholine receptor antibody. Consultation was requested with Dr. Patel for a possible EMG. The patient will also be seen in consultation by Physical Therapy. 2. Transaminitis. Etiology is unclear. The patient is not on statins. I am going to check a right upper quadrant ultrasound, hepatitis serology. As per daughter, the patient is taking some [place] herbal supplements and they will bring the medication, so we can check side effects and see if the transaminitis is related to it. 3. Hypertension. We will continue his metoprolol. Due to his creatinine elevation, I am going to hold his losartan and chlorthalidone. 4. Chronic kidney disease, stage 2 to 3. The patient's creatinine is 1.4, a little higher than it was in February but not that far from his baseline. We are going to monitor his renal function. 5. Hypokalemia/hypomagnesemia. We will replete. 6. DVT prophylaxis. The patient has a score of 3 on the DVT Prophylaxis Assessment Guide and he will be started on subcutaneous heparin. 7. Code status. The patient wishes to be a do not resuscitate and a MOLST form was filled up. TIME SPENT: Approximately 55 minutes were spent with patient and family interview, medical records review, physical examination to complete this admission; more than half of this time was spent [id number] with the patient and coordination of care. [id number] #: [id number] MTDD
[2018-04-14] MEDS: Heparin VIAL(*) 5000 UNITS/ML VIAL (FIVE THOUSAND) SUBCUT SCH (21:10)
[2018-04-15] MEDS: Acetaminophen TAB* 325 MG PO PRN ×2 (00:18→15:20)
[2018-04-15] MEDS: Heparin VIAL(*) 5000 UNITS/ML VIAL (FIVE THOUSAND) SUBCUT SCH ×3 (06:18→21:15)
[2018-04-15 06:41] LABS: ABS Basophils 0 10^3/ul (0-0.2); ABS Eosinophils 0.1 10^3/ul (0-0.6); ABS Lymphocytes 0.5 10^3/ul (1.0-4.8); ABS Monocytes 0.9 10^3/ul (0-0.8); ABS Neutrophils 3.8 10^3/ul (1.5-7.7); ABS Nucleated RBC 0 10^3/ul; Eosinophil % 2.3 % (0-6); Hematocrit 33 % (42-52); Lymphocyte % 9.3 % (25-47); Mean Corpuscular HGB Conc 34 g/dl (31-36); Mean Corpuscular Hemoglobin 29 pg (27-31); Mean Corpuscular Volume 87 fL (80-94); Mean Platelet Volume 7.6 um3 (7.4-10.4); Nucleated Red Blood Cells % 0; Platelet Count 125 10^3/ul (150-450); Red Blood Count 3.75 10^6/ul (4.00-5.40); Red Cell Distribution Width 18 % (10.5-15); White Blood Count 5.3 10^3/ul (3.5-10.8)
[2018-04-15 07:01] LABS: EGFR Non-African American 61.5 (>60)
--- NOTE | 2018-04-15 08:16 | RAD ---
INDICATION: Elevated liver enzymes COMPARISON: None TECHNIQUE: Longitudinal and transverse scans of the right upper quadrant were obtained. Doppler interrogation of the hepatic and portal venous system was performed. FINDINGS: Liver: There is hepatomegaly with hepatic steatosis. There are no masses . The liver measures 22 cm in cephalocaudal dimension. Vessels: There is normal hepatic and portal venous flow. Bile ducts: There is no evidence of intrahepatic or extrahepatic ductal dilatation. The common duct measures 0.5 cm. Gallbladder: There are multiple gallstones. There is no thickening gallbladder wall or pericholecystic fluid. Pancreas: Obscured by bowel gas Right kidney: The right kidney is normal in size and echogenicity. There are no masses or calculi. There is no evidence of hydronephrosis. The right kidney measures 10.2 x 6.2 x 5.2 cm. IVC and aorta: Obscured by bowel gas. Fluid: There is no ascites. Other: None. IMPRESSION: MILDLY LIMITED EXAMINATION DUE TO BOWEL GAS. CHOLELITHIASIS.
[2018-04-15] MEDS: Tamsulosin CAP* 0.4 MG PO SCH (09:21)
[2018-04-15] MEDS: Metoprolol Succinate XL TAB* 50 MG PO SCH (09:21)
[2018-04-15] MEDS ORDERED: Potassium Chlor TAB* 20 MEQ TAB.ER PO STA (09:46)
[2018-04-15] MEDS ORDERED: Perflutren Lipid Microsphere* 3 ML VIAL ONE (09:47)
[2018-04-15] MEDS ORDERED: Sodium Bicarbonate 8.4% IV* 150 MEQ in D5W 1000 ML BAG* 1,000 ML IVPB SCH (12:00)
--- NOTE | 2018-04-15 12:50 | RAD ---
INDICATION: Status post fall evaluate for deep venous thrombosis. COMPARISON: Comparison is made with a prior study from September 16, 2017. TECHNIQUE: Multiple real-time, color flow and Doppler tracings of both lower extremities were obtained. FINDINGS: The common femoral, femoral, profunda femoral and popliteal veins all demonstrate normal compressibility, augmentation with compression and phasic response with respiration. The posterior tibial and peroneal veins demonstrate normal compressibility and augmentation with compression. IMPRESSION: NO EVIDENCE FOR DEEP VENOUS THROMBOSIS.
--- NOTE | 2018-04-15 13:49 | ECHO ---
Patient: ROBERT SHELTON V [facility] Rec#: [id number] : 1945 Date: 04/15/2018 Age: 73y Height: 185 cm / 72.8 in Weight: 108 kg / 238.0 lbs Sex: M BSA: 2.31 Room#: 452 Admit Date#: 04/14/2018 Type: Inpatient Referring: Valdo Patel MD Reading: Oliva Garcia MD Radio Presenter: Miley Killian,RDCS,RDMS CC: Michael Webster MD Transthoracic Echocardiogram Indication: Cardiomyopathy BP: 119/68 HR: 77 Rhythm: NSR Findings History: HTN, HLD, AOV sclerosis, PHTN, CKD Technical Comments: The study quality is poor. Left Ventricle: The left ventricular chamber size is normal. Mild concentric left ventricular hypertrophy is observed. Global left ventricular wall motion and contractility are within normal limits. The left ventricle appears hyperdynamic. The estimated ejection fraction is 60-65%. There is no consistent Doppler evidence of clinically significant diastolic dysfunction. Left Atrium: The left atrium is mildly dilated.based on 2d chamber measurements, normal on volume index. Right Ventricle: The right ventricular chamber size and systolic function are within normal limits. Right Atrium: The right atrium is mildly dilated. Aortic Valve: The aortic valve structure is not well visualized. The aortic valve leaflets are mildly thickened. There is no evidence of aortic regurgitation. There is borderline aortic stenosis present. The mean gradient of the aortic valve is 9 mmHg. The aortic valve area, by peak velocities, is calculated at 2 cm2. Mitral Valve: The mitral valve leaflets are mildly thickened. There is no evidence of mitral regurgitation. There is no evidence of mitral stenosis. Tricuspid Valve: The tricuspid valve leaflets are normal. There is no evidence of tricuspid valve regurgitation. Unable to estimate the right ventricular systolic pressure. Pulmonic Valve: The pulmonic valve structure is not well visualized. Pericardium: There is no significant pericardial effusion. Aorta: There is mild dilatation of the ascending aorta. There is no dilatation of the aortic arch. The aortic root is not well visualized. Pulmonary Artery: The main pulmonary artery is not well visualized. Venous: The inferior vena cava is dilated. There is a greater than 50% respiratory change in the inferior vena cava dimension. Contrast: Definity was used to optimize study. Conclusions Mild concentric left ventricular hypertrophy is observed. Global left ventricular wall motion within normal limits and contractility appears hyperdynamic. The estimated ejection fraction is 60-65%. The right ventricular chamber size and systolic function are within normal limits. The aortic valve leaflets are mildly thickened. There is borderline aortic stenosis present. -The mean gradient of the aortic valve is 9 mmHg. -The aortic valve area, by peak velocities, is calculated at 2 cm2. -DI is 0.68 There is mild dilatation of the ascending aorta: 3.8 cm. Compared with prior study of 01/23/16, LV also described as hyperdynamic, mild LVOT obstuction noted, trace to mild MR and TR noted, PA pressure previously 60 mmHg. Measurements Name Value Normal Range RVIDd (AP) 2D 3 cm (0.9 - 2.6) RAd ISD 4CH 5.4 cm (3.4 - 4.9) RA (A4C)W 4.9 cm (2.9 - 4.6) IVSd (2D) 1.2 cm (0.6 - 1) LVPWd (2D) 1.2 cm (0.6 - 1) LVIDd (2D) 4.5 cm (3.6 - 5.4) LVIDs (2D) 3.3 cm - LV FS (2D) 25 % (25 - 45) Ascending Ao 3.8 cm (2.1 - 3.4) Aortic arch 3.3 cm (1.8 - 3.4) LAd ISD 4CH 6.2 cm (2.9 - 5.3) LA ISD 4CH W 4.3 cm (2.5 - 4.5) Name Value Normal Range LA ESV BP (A/L) index 23 ml/m2 - Name Value Normal Range MV E-wave Vmax 0.9 m/sec - MV deceleration time 243 msec - MV A-wave Vmax 0.7 m/sec - MV E:A ratio 1.2 ratio - LV septal e' Vmax 0.05 m/sec - LV lateral e' Vmax 0.06 m/sec - LV E:e' septal ratio 17 ratio - LV E:e' lateral ratio 13 ratio - Name Value Normal Range AV Vmax 2 m/sec - AV VTI 38 cm - AV peak gradient 16 mmHg - AV mean gradient 9 mmHg - LVOT diameter 2 cm - LVOT Vmax 1.3 m/sec - LVOT VTI 25 cm - LVOT peak gradient 7 mmHg - LVOT mean gradient 4 mmHg - DOI (VTI) 0.7 ratio - GALA (continuity Vmax) 2 cm2 - GALA (continuity VTI) 2.1 cm2 - Name Value Normal Range RAP 8 mmHg - IVC diameter 2.3 cm -
[2018-04-15] MEDS: Sodium Bicarbonate 8.4% IV* 150 MEQ in D5W 1000 ML BAG* 850 ML IVPB SCH (15:20)
--- NOTE | 2018-04-15 17:35 | CONS ---
NEUROLOGY CONSULTATION: DATE OF CONSULT: 04/15/18 LOCATION: He is an inpatient in room 452. REFERRING PROVIDER: Dr. Mcbride. PRIMARY CARE PROVIDER: Dr. Webster. CHIEF COMPLAINT: Fall, weakness, elevated creatine kinase. HISTORY OF PRESENT ILLNESS: Isaiah Lopez is a 73-year-old man, who presented to the emergency room yesterday after being unable to get up from the floor for about 6 hours. The history is from Mr. Lopez who has significant cognitive impairment, his who is present, and also one of the daughters who is present. I also spoke with Dr. Mcbride yesterday evening. His says that he has not had problems walking until yesterday. She said that he fell yesterday morning and was not able to get up. He refused to let her call an ambulance. He lay on the floor for about 6 hours. His called another daughter who is a nurse in another town apparently and she convinced her to call 911. When the ambulance got there, he had been on the floor about 6 hours. Most of this information comes from the daughter who is present. His tends to minimize any prior deficits. She says his walking was fine, but I spoke with the daughter outside the room and she says that she and her sister have felt that he might have Parkinson's disease because of his slow shuffling gait, which has been deteriorating for 6 months to a year. In addition, he clearly has memory impairment. His said that that has been since he was hospitalized with severe gastrointestinal bleeding last winter. He required multiple transfusions and abdominal surgery. He was in the intensive care unit , but was not on a respirator. She says since then his memory has been poor. In speaking with his daughter outside the room, she said that the memory has been declining even before that. She says it has probably been a couple of years. They are not aware of any falls prior to yesterday. He denies muscle pain. He has not noticed any rashes or itching. He said that he felt very hot yesterday and complained that to his which she corroborates. He did have a fever early this morning after he was admitted. He denies sore throat or cough. No recent sweats, but he has felt very hot the last day or so. He has not noticed any bug bites. PAST MEDICAL HISTORY: Notable for hypertension, hyperlipidemia, sleep apnea with refusal to use CPAP, chronic kidney disease, [id number] pulmonary hypertension, aortic sclerosis. He had lower GI bleeding from diverticular disease requiring surgery and transfusions less than a year ago. MEDICATIONS: At home consist of: 1. Metoprolol 100 mg p.o. daily. 2. Chlorthalidone 25 mg p.o. daily. 3. Tamsulosin 0.4 mg p.o. daily. 4. Losartan 50 mg p.o. daily. ALLERGIES: He is said to be allergic to AMLODIPINE, LISINOPRIL, ERYTHROMYCIN, IRBESARTAN, SINGULAIR. FAMILY HISTORY: There is no family history of muscular disorders. SOCIAL HISTORY: Lives with his . His daughter indicates that their mother has mental illness. He is an ex-smoker. He does not drink alcohol. REVIEW OF SYSTEMS: Negative for breathing problems, chest pain, or leg pain. He denies headaches or head injuries. He denies any change in vision. His weight has been stable to the best of his recollection. There is no history of diabetes. He has not been exposed to statins to the best of his or his 's knowledge. PHYSICAL EXAM: He is obese. 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 Heart rate varies between 80 to 100, blood pressure 119/68, respiratory rate 20. Oxygen saturation is 97% on room air. He has pretty severe distal lower extremity edema and chronic venous stasis changes. Heart is in a regular rhythm without murmurs. Lungs are clear bilaterally. I do not hear any cervical bruits. Oral mucosa is moist and atraumatic. I do not see any bruises on his back or buttocks. Head is atraumatic. Neurological Exam: Pupils react equally from 3 to 2 mm. Eye movements are normal. Facial musculature is notable for grade 2 hypomimia. Facial sensation to light touch is intact. Speech is soft, but clear. Palate and tongue appear normal. He is hard of hearing bilaterally. Fundi are normal bilaterally. Motor exam reveals paratonia, which is more severe in the legs than the arms. There is no cogwheeling or spasticity. Strength is notable for mild hip flexor weakness in the grade 4 to 4+ range. He has good strength otherwise proximally and distally in the upper extremities and distally in the lower extremities. There is no pain with pressure on his muscles. There are no skin rashes noted. Sensory exam is notable for stocking loss to light touch to the mid shins, loss of vibration in the toes as well. Reflexes are trace at the ankles, hyperactive at the knees particularly on the right. He has brisk biceps reflexes worse on the right than the left. Finger taps are clumsy bilaterally, worse on the right. There is no rest tremor. [id number] maneuver is clumsy bilaterally. Mental status finds him to be alert and oriented to person only. He is a very poor historian. Language is simple, but generally fluent. DIAGNOSTIC STUDIES/LAB DATA: Includes a CT scan of the brain, which I reviewed and reveals multiple hypodensities consistent with multiple small vessel infarctions. It is unchanged from a prior CAT scan, which was done here in October. Other laboratory data is notable for an elevated CPK at 3472 yesterday afternoon when he came in, 4084 early this morning. CRP elevated at 43.0, AST 145 and ALT 116. Creatinine was 1.4 yesterday when he came in, 1.17 this morning. His AST this morning is up a little at 183 and ALT at 120. CBC is notable for a normal white blood cell count at 5.3 this morning, absolute lymphocytes are down to 0.5, however. Sedimentation rate elevated to 56 on admission. Platelet count low at 139,000 when he came in, down to 125,000 this morning. Hemoglobin is stable at 11.0 this morning. TSH is normal at 2.27. Urinalysis is notable for 1+ protein, 3+ blood, 3+ red blood cells, 1+ white blood cells. Urine culture from yesterday has no growth. Influenza testing for A and B is negative. IMPRESSION AND PLAN: Impression is that of possible myositis, but I suspect more likely rhabdomyolysis from being on the ground for 6 hours. He seems to have a febrile illness of some form and a number of other laboratory abnormalities including a low platelet count and modestly elevated liver enzymes. The AST may be from muscle, but it seems a bit high and he did have an ultrasound of his liver, which showed enlargement of the liver and cholelithiasis. I went ahead and did EMG testing and nerve conduction testing earlier today. I did not find any evidence of active myopathy. 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 Recommend continuing hydration and monitoring renal function, which so far is improved since he came in. He may need further workup for infectious illness, particularly if he continues to spike temperatures. So far, there is no evidence of a urinary tract infection or pneumonia by chest x-ray. I have put in blood work for various etiologies that could be accompanied by myositis including Desmond-Madsen virus, influenza, and Cytomegalovirus. We will check a Lyme screen as well. I will discuss my impression with hospitalist service and may recommend Infectious Disease consultation as well if he continues to spike fevers. [id number]/[facility] #: [id number] RANDELL
--- NOTE | 2018-04-15 17:40 | PN ---
Subjective Date of Service: 04/15/18 Interval History: Pt seen and examined. Meds and labs reviewed. Daughter at bedside who clarified his history. She mentions that her sister is an RN and pt fell at home while ambulating from living room to the kitchen and fell down again in the kitchen and was down for about 5-6 hrs. CC: N/A ROS: Denied GONZALEZ/dizziness, F/C, N/V, CP, SOB, increased cough, sputum production , abd pain, diarrhea, constipation, dysuria, myalgias, arthralgias, throat pain , and new skin lesions. The rest of the 14 point ROS are unremarkable. PHYSICAL EXAM: GEN APPEARANCE: Awake, not in acute distress HEENT: NC/AT, PERRLA, moist oral mucosa, (-) throat erythema NECK: Soft, supple, (-) cervical LAD, (-)JVD HEART: S1S2 WNL, RRR, No MRG CHEST: CTA, BL, GAE, No W/R/R ABD: Soft, ND/NT, NABS 4x Q EXT: No C/C/BLLE edema +1 SKIN: Warm to touch PSYCH: No active psychosis, hallucinations, depression, SI/HI Objective Active Medications: Acetaminophen (Tylenol Tab*) 650 mg PO Q6H PRN PRN Reason: pain/fever Last Admin: 04/15/18 15:20 Dose: 650 mg Heparin Sodium (Porcine) (Heparin Vial(*)) 5,000 units SUBCUT Q8HR [facility] Last Admin: 04/15/18 15:20 Dose: 5,000 units Sodium Bicarbonate 150 meq/ (Dextrose) 1,000 mls @ 86.957 mls/hr IVPB .PER RATE [facility] Last Admin: 04/15/18 15:20 Dose: 86.957 mls/hr Metoprolol Succinate (Toprol Xl Tab*) 100 mg PO DAILY [facility] Last Admin: 04/15/18 09:21 Dose: 100 mg Prochlorperazine Edisylate (Compazine Inj*) 5 mg IV Q6H PRN PRN Reason: NAUSEA/VOMITING Tamsulosin HCl (Flomax Cap*) 0.4 mg PO DAILY [facility] Last Admin: 04/15/18 09:21 Dose: 0.4 mg Vital Signs - 8 hr 04/15/18 04/15/18 04/15/18 11:42 14:47 15:57 Temperature 98.4 F 100.0 F 98.2 F Pulse Rate 76 91 Respiratory 18 20 Rate Blood Pressure 126/78 116/60 (mmHg) O2 Sat by Pulse 94 97 Oximetry Oxygen Devices in Use Now: None Result Diagrams: 04/15/18 05:56 04/15/18 05:56 Additional Lab and Data: Lab Results 04/14/18 04/14/18 04/14/18 Range/Units 14:55 14:55 14:55 WBC 5.9 (3.5-10.8) 10^3/ul RBC 4.04 (4.00-5.40) 10^6/ul Hgb 11.7 L (14.0-18.0) g/dl Hct 35 L (42-52) % MCV 86 (80-94) fL MCH 29 (27-31) pg MCHC 34 (31-36) g/dl RDW 18 H (10.5-15) % Plt Count 139 L (150-450) 10^3/ul MPV 7.1 L (7.4-10.4) um3 Neut % (Auto) 80.6 (38-83) % Lymph % (Auto) 6.3 L (25-47) % [place]urel % (Auto) 12.3 H (0-7) % Eos % (Auto) 0.1 (0-6) % Baso % (Auto) 0.7 (0-2) % Absolute Neuts (auto) 4.7 (1.5-7.7) 10^3/ul Absolute Lymphs (auto) 0.4 L (1.0-4.8) 10^3/ul Absolute Monos (auto) 0.7 (0-0.8) 10^3/ul Absolute Eos (auto) 0 (0-0.6) 10^3/ul Absolute Basos (auto) 0 (0-0.2) 10^3/ul Absolute Nucleated RBC 0 10^3/ul Nucleated RBC % 0 INR (Anticoag Therapy) (0.77-1.02) Sodium 137 (135-145) mmol/L Potassium 3.3 L (3.5-5.0) mmol/L Chloride 101 (101-111) mmol/L Carbon Dioxide 29 (22-32) mmol/L Anion Gap 7 (2-11) mmol/L BUN 35 H (6-24) mg/dL Creatinine 1.40 H (0.67-1.17) mg/dL Est GFR ( Amer) 60.4 (>60) Est GFR (Non-Af Amer) 50.0 (>60) BUN/Creatinine Ratio 25.0 H (8-20) Glucose 113 H (70-100) mg/dL Lactic Acid 0.9 (0.5-2.0) mmol/L Calcium 8.8 (8.6-10.3) mg/dL Magnesium 1.8 L (1.9-2.7) mg/dL Total Bilirubin 1.10 H (0.2-1.0) mg/dL AST 145 H (13-39) U/L ALT 116 H (7-52) U/L Alkaline Phosphatase 76 (34-104) U/L Total Creatine Kinase 3472 H (10-223) U/L Troponin I 0.04 H* (<0.04) ng/mL C-Reactive Protein 43.03 H (<8.01) mg/L B-Natriuretic Peptide ( - 100) pg/mL Total Protein 7.2 (6.4-8.9) g/dL Albumin 3.5 (3.2-5.2) g/dL Globulin 3.7 (2-4) g/dL Albumin/Globulin Ratio 0.9 L (1-3) TSH 2.27 (0.34-5.60) mcIU/mL 04/14/18 04/14/18 Range/Units 14:55 14:55 WBC (3.5-10.8) 10^3/ul RBC (4.00-5.40) 10^6/ul Hgb (14.0-18.0) g/dl Hct (42-52) % MCV (80-94) fL MCH (27-31) pg MCHC (31-36) g/dl RDW (10.5-15) % Plt Count (150-450) 10^3/ul MPV (7.4-10.4) um3 Neut % (Auto) (38-83) % Lymph % (Auto) (25-47) % [place]urel % (Auto) (0-7) % Eos % (Auto) (0-6) % Baso % (Auto) (0-2) % Absolute Neuts (auto) (1.5-7.7) 10^3/ul Absolute Lymphs (auto) (1.0-4.8) 10^3/ul Absolute Monos (auto) (0-0.8) 10^3/ul Absolute Eos (auto) (0-0.6) 10^3/ul Absolute Basos (auto) (0-0.2) 10^3/ul Absolute Nucleated RBC 10^3/ul Nucleated RBC % INR (Anticoag Therapy) 1.03 H (0.77-1.02) Sodium (135-145) mmol/L Potassium (3.5-5.0) mmol/L Chloride (101-111) mmol/L Carbon Dioxide (22-32) mmol/L Anion Gap (2-11) mmol/L BUN (6-24) mg/dL Creatinine (0.67-1.17) mg/dL Est GFR ( Amer) (>60) Est GFR (Non-Af Amer) (>60) BUN/Creatinine Ratio (8-20) Glucose (70-100) mg/dL Lactic Acid (0.5-2.0) mmol/L Calcium (8.6-10.3) mg/dL Magnesium (1.9-2.7) mg/dL Total Bilirubin (0.2-1.0) mg/dL AST (13-39) U/L ALT (7-52) U/L Alkaline Phosphatase (34-104) U/L Total Creatine Kinase (10-223) U/L Troponin I (<0.04) ng/mL C-Reactive Protein (<8.01) mg/L B-Natriuretic Peptide 151 H ( - 100) pg/mL Total Protein (6.4-8.9) g/dL Albumin (3.2-5.2) g/dL Globulin (2-4) g/dL Albumin/Globulin Ratio (1-3) TSH (0.34-5.60) mcIU/mL Microbiology and Other Data: Microbiology 04/15/18 09:20 Influenza Types A,B Antigen - Final Nasal Specimen received for Influenza A/B Molecular testing 04/14/18 16:29 Urine Culture - Final Urine No Growth (<1,000 CFU/mL) Assess/Plan/Problems-Billing Assessment: - Patient Problems (1) Elevated CPK Current Visit: Yes Status: Acute Code(s): R74.8 - ABNORMAL LEVELS OF OTHER SERUM ENZYMES SNOMED Code(s): 315668648 Comment: -May be due to mild rhabdomyolysis given history provided by family -However, history of previous CPK elevation of unknown context prompted Neuro consultation for possible polymyositis---will await any further recommendations from Dr. aPtel (2) Elevated LFTs Current Visit: Yes Status: Acute Code(s): R94.5 - ABNORMAL RESULTS OF LIVER FUNCTION STUDIES SNOMED Code(s): 057108815 Comment: -Likely due to hepatic steatosis seen on imaging as well as myositis described above due to elevated CPKs -Will continue watchful waiting (3) HTN (hypertension) Current Visit: Yes Status: Acute Code(s): I10 - ESSENTIAL (PRIMARY) HYPERTENSION SNOMED Code(s): 33623654 Comment: -Well-controlled -Continue Metoprolol (4) CKD (chronic kidney disease) stage 2, GFR 60-89 ml/min Current Visit: Yes Status: Acute Code(s): N18.2 - CHRONIC KIDNEY DISEASE, STAGE 2 (MILD) SNOMED Code(s): 441739541 Comment: -Stable, TESHA improving -Continue watchful waiting (5) DVT prophylaxis Current Visit: Yes Status: Acute Code(s): FQO9453 - SNOMED Code(s): 092066094 Comment: -Continue Heparin SQ Status and Disposition: -Appreciate PT eval---will await if pt will have needs on D/C
--- NOTE | 2018-04-15 18:20 | RAD ---
INDICATION: Dementia. COMPARISON: Comparison is made with a prior CT of the brain from April 14, 2018. TECHNIQUE: Sagittal T1, axial T1, T2, susceptibility, FLAIR and diffusion weighted images were obtained. FINDINGS: The ventricles, cisterns and sulci are prominent consistent with diffuse atrophy. There are prominent areas of increased signal intensity on T2-weighted images present within the subcortical and periventricular white matter most consistent with severe chronic small vessel ischemic changes. In addition there appear to be old lacunar infarcts in the tripp on the right side and in the periventricular white matter bilaterally. There is a small area of restricted diffusion present in the subcortical white matter in the right parietal lobe most consistent with a acute to subacute infarct which measures 5 mm in size. There is a second small 5 mm area of restricted diffusion present in the posterior left parietal lobe in the subcortical white matter also most consistent with an acute to subacute infarct.. There is no evidence for acute hemorrhage. There are multiple areas of decreased signal intensity on the susceptibility weighted images likely representing old hemosiderin deposition. The paranasal sinuses appear clear. IMPRESSION: 1. SMALL BILATERAL ACUTE TO SUBACUTE INFARCTS SUGGESTIVE OF EMBOLIC INFARCTS. 2. ATROPHY AND FINDINGS CONSISTENT WITH SEVERE CHRONIC SMALL VESSEL ISCHEMIC CHANGES. 3. MULTIPLE OLD LACUNAR INFARCTS.
[2018-04-16 06:05] LABS: ABS Basophils 0 10^3/ul (0-0.2); ABS Eosinophils 0.2 10^3/ul (0-0.6); ABS Lymphocytes 0.5 10^3/ul (1.0-4.8); ABS Monocytes 0.7 10^3/ul (0-0.8); ABS Neutrophils 3.1 10^3/ul (1.5-7.7); ABS Nucleated RBC 0 10^3/ul; Eosinophil % 4.6 % (0-6); Hematocrit 33 % (42-52); Hemoglobin 11.2 g/dl (14.0-18.0); Lymphocyte % 11.2 % (25-47); Mean Corpuscular HGB Conc 34 g/dl (31-36); Mean Corpuscular Hemoglobin 29 pg (27-31); Mean Corpuscular Volume 86 fL (80-94); Mean Platelet Volume 7.5 um3 (7.4-10.4); Nucleated Red Blood Cells % 0.1; Platelet Count 121 10^3/ul (150-450); Red Blood Count 3.82 10^6/ul (4.00-5.40); Red Cell Distribution Width 17 % (10.5-15); White Blood Count 4.5 10^3/ul (3.5-10.8)
[2018-04-16] MEDS: Heparin VIAL(*) 5000 UNITS/ML VIAL (FIVE THOUSAND) SUBCUT SCH ×3 (06:19→21:13)
[2018-04-16 06:24] LABS: EGFR Non-African American 66.7 (>60)
[2018-04-16] MEDS: Metoprolol Succinate XL TAB* 50 MG PO SCH (07:38)
[2018-04-16] MEDS: Tamsulosin CAP* 0.4 MG PO SCH (07:39)
[2018-04-16] MEDS: Sodium Bicarbonate 8.4% IV* 150 MEQ in D5W 1000 ML BAG* 850 ML IVPB SCH (08:14)
--- NOTE | 2018-04-16 10:10 | PN ---
Subjective Date of Service: 04/16/18 Interval History: Patient reports he feels better today, continues to complain of fatigue. Per and daughter at the bedside they report he seem but better today. Discussed the MRI results and will await for neurology to confirm reading. The patient denies any weakness, speak difficulties, or numbness. No hx of afib. hx of prior stroke noted on CT scan this admission which patient was not aware of. he denies any rhinorrhea, nasal congestion, denies body aches, GONZALEZ. No abdominal pain, N/V/D. Reports good appetite. No fever or chills today Per the daughter her father has been declining the last few years and has had multiple falls at home. Objective Active Medications: Acetaminophen (Tylenol Tab*) 650 mg PO Q6H PRN PRN Reason: pain/fever Last Admin: 04/15/18 15:20 Dose: 650 mg Heparin Sodium (Porcine) (Heparin Vial(*)) 5,000 units SUBCUT Q8HR [facility] Last Admin: 04/16/18 06:19 Dose: 5,000 units Metoprolol Succinate (Toprol Xl Tab*) 100 mg PO DAILY [facility] Last Admin: 04/16/18 07:38 Dose: 100 mg Prochlorperazine Edisylate (Compazine Inj*) 5 mg IV Q6H PRN PRN Reason: NAUSEA/VOMITING Tamsulosin HCl (Flomax Cap*) 0.4 mg PO DAILY [facility] Last Admin: 04/16/18 07:39 Dose: 0.4 mg Vital Signs - 8 hr 04/16/18 04/16/18 03:55 07:21 Temperature 99.4 F 98.8 F Pulse Rate 82 85 Respiratory 20 18 Rate Blood Pressure 154/83 161/90 (mmHg) O2 Sat by Pulse 98 97 Oximetry Oxygen Devices in Use Now: None Appearance: A+O x3 in NAD Eyes: No Scleral Icterus, PERRLA Ears/Nose/Mouth/Throat: NL Teeth, Lips, Gums, Mucous Membranes Moist Neck: NL Appearance and Movements; NL JVP Respiratory: Symmetrical Chest Expansion and Respiratory Effort, Clear to Auscultation Cardiovascular: NL Sounds; No Murmurs; No JVD, RRR Abdominal: NL Sounds; No Tenderness; No Distention, - - obese Extremities: No Clubbing, Cyanosis, - - 1-2+ LE edema with vascular skin changes to LE's b/l Neurological: Alert and Oriented x 3, NL Sensation, NL Gait, NL Muscle Strength and Tone Lines/Tubes/Other Access: Clean, Dry and Intact Peripheral IV Nutrition: Taking PO's Result Diagrams: 04/16/18 05:45 04/16/18 05:45 Additional Lab and Data: Lab Results 04/14/18 04/14/18 04/14/18 Range/Units 14:55 14:55 14:55 WBC 5.9 (3.5-10.8) 10^3/ul RBC 4.04 (4.00-5.40) 10^6/ul Hgb 11.7 L (14.0-18.0) g/dl Hct 35 L (42-52) % MCV 86 (80-94) fL MCH 29 (27-31) pg MCHC 34 (31-36) g/dl RDW 18 H (10.5-15) % Plt Count 139 L (150-450) 10^3/ul MPV 7.1 L (7.4-10.4) um3 Neut % (Auto) 80.6 (38-83) % Lymph % (Auto) 6.3 L (25-47) % [place] % (Auto) 12.3 H (0-7) % Eos % (Auto) 0.1 (0-6) % Baso % (Auto) 0.7 (0-2) % Absolute Neuts (auto) 4.7 (1.5-7.7) 10^3/ul Absolute Lymphs (auto) 0.4 L (1.0-4.8) 10^3/ul Absolute Monos (auto) 0.7 (0-0.8) 10^3/ul Absolute Eos (auto) 0 (0-0.6) 10^3/ul Absolute Basos (auto) 0 (0-0.2) 10^3/ul Absolute Nucleated RBC 0 10^3/ul Nucleated RBC % 0 INR (Anticoag Therapy) (0.77-1.02) Sodium 137 (135-145) mmol/L Potassium 3.3 L (3.5-5.0) mmol/L Chloride 101 (101-111) mmol/L Carbon Dioxide 29 (22-32) mmol/L Anion Gap 7 (2-11) mmol/L BUN 35 H (6-24) mg/dL Creatinine 1.40 H (0.67-1.17) mg/dL Est GFR ( Amer) 60.4 (>60) Est GFR (Non-Af Amer) 50.0 (>60) BUN/Creatinine Ratio 25.0 H (8-20) Glucose 113 H (70-100) mg/dL Lactic Acid 0.9 (0.5-2.0) mmol/L Calcium 8.8 (8.6-10.3) mg/dL Magnesium 1.8 L (1.9-2.7) mg/dL Total Bilirubin 1.10 H (0.2-1.0) mg/dL AST 145 H (13-39) U/L ALT 116 H (7-52) U/L Alkaline Phosphatase 76 (34-104) U/L Total Creatine Kinase 3472 H (10-223) U/L Troponin I 0.04 H* (<0.04) ng/mL C-Reactive Protein 43.03 H (<8.01) mg/L B-Natriuretic Peptide ( - 100) pg/mL Total Protein 7.2 (6.4-8.9) g/dL Albumin 3.5 (3.2-5.2) g/dL Globulin 3.7 (2-4) g/dL Albumin/Globulin Ratio 0.9 L (1-3) TSH 2.27 (0.34-5.60) mcIU/mL 04/14/18 04/14/18 Range/Units 14:55 14:55 WBC (3.5-10.8) 10^3/ul RBC (4.00-5.40) 10^6/ul Hgb (14.0-18.0) g/dl Hct (42-52) % MCV (80-94) fL MCH (27-31) pg MCHC (31-36) g/dl RDW (10.5-15) % Plt Count (150-450) 10^3/ul MPV (7.4-10.4) um3 Neut % (Auto) (38-83) % Lymph % (Auto) (25-47) % [place] % (Auto) (0-7) % Eos % (Auto) (0-6) % Baso % (Auto) (0-2) % Absolute Neuts (auto) (1.5-7.7) 10^3/ul Absolute Lymphs (auto) (1.0-4.8) 10^3/ul Absolute Monos (auto) (0-0.8) 10^3/ul Absolute Eos (auto) (0-0.6) 10^3/ul Absolute Basos (auto) (0-0.2) 10^3/ul Absolute Nucleated RBC 10^3/ul Nucleated RBC % INR (Anticoag Therapy) 1.03 H (0.77-1.02) Sodium (135-145) mmol/L Potassium (3.5-5.0) mmol/L Chloride (101-111) mmol/L Carbon Dioxide (22-32) mmol/L Anion Gap (2-11) mmol/L BUN (6-24) mg/dL Creatinine (0.67-1.17) mg/dL Est GFR ( Amer) (>60) Est GFR (Non-Af Amer) (>60) BUN/Creatinine Ratio (8-20) Glucose (70-100) mg/dL Lactic Acid (0.5-2.0) mmol/L Calcium (8.6-10.3) mg/dL Magnesium (1.9-2.7) mg/dL Total Bilirubin (0.2-1.0) mg/dL AST (13-39) U/L ALT (7-52) U/L Alkaline Phosphatase (34-104) U/L Total Creatine Kinase (10-223) U/L Troponin I (<0.04) ng/mL C-Reactive Protein (<8.01) mg/L B-Natriuretic Peptide 151 H ( - 100) pg/mL Total Protein (6.4-8.9) g/dL Albumin (3.2-5.2) g/dL Globulin (2-4) g/dL Albumin/Globulin Ratio (1-3) TSH (0.34-5.60) mcIU/mL Microbiology and Other Data: Microbiology 04/15/18 09:20 Influenza Types A,B Antigen - Final Nasal Specimen received for Influenza A/B Molecular testing 04/14/18 16:29 Urine Culture - Final Urine No Growth (<1,000 CFU/mL) Assess/Plan/Problems-Billing Assessment: - Patient Problems (1) Weakness Comment: - fever of 102 on admission, some low grade temps the last 24 hours. Unclear etiology. Urine and blood cx no growth. Chest xray normal. No obvious signs of infection. Possible viral illness vs Rhabdo - MRI brain is showing possible acute to subacute suggestive of bilateral embolic infarcts with old lucunar infarcts - No noted ofcal deficits on exam. No noted afib on miriam monitoring. will discuss with neurology. (2) Elevated CPK Comment: -suspect secondary to rhabdomyolysis with family report of being down on the ground for many hours. -However, history of previous CPK elevation of unknown context prompted Neuro consultation for possible polymyositis--appreciate neurology consult Dr. Patel who thinks most likely this is rhabdo from being on the ground. EMG and nerve conduction testing was negative. (3) CKD (chronic kidney disease) stage 2, GFR 60-89 ml/min Comment: -Resolved with IVFs (4) Elevated LFTs Comment: - normal LFTS in January 2018. Per daughter he has been taking yi herbal supplements ? -Hepatic steatosis seen on imaging -Continue to monitor LFTs - stable - no change today (5) HTN (hypertension) Comment: -Well-controlled -Continue Metoprolol. Ok to restart losartan. Hold chlorthalidone (6) DVT prophylaxis Comment: -Continue Heparin SQ Status and Disposition: -Appreciate PT eval---will await if pt will have needs on D/C
[2018-04-16] MEDS: NS 0.9% 1000 ML* 1,000 ML IV SCH (14:56)
[2018-04-16] MEDS: Aspirin TAB* 325 MG PO SCH (16:51)
--- NOTE | 2018-04-16 17:29 | RAD ---
CPT II Codes: 3100F INDICATION: Cerebrovascular accident COMPARISON: None TECHNIQUE: Multiple lantigua scale, color and doppler tracings of the common, internal and external carotid and vertebral arteries were obtained. Stenosis estimations reflect velocity criteria that have been correlated to angiographic stenosis calculations based on the distal internal carotid diameter. Right carotid: There is no significant plaque within the right carotid bulb. The peak systolic velocity in the proximal right internal carotid artery is 73 cm/s and the maximum end-diastolic velocity is 25 cm/s. The peak systolic velocity in the distal common carotid artery is 86 cm/s and the maximum end-diastolic velocity is 19 cm/s. The internal to common carotid ratio is 0.85. This would be consistent with a less than 50% stenosis. Left carotid: There is mild intimal wall thickening of the common carotid artery and very mild plaque formation at the left carotid bulb. The peak systolic velocity in the proximal right internal carotid artery is 52cm/s and the maximum end-diastolic velocity is 21 cm/s. The peak systolic velocity in the distal common carotid artery is 81 cm/s and the maximum end-diastolic velocity is 24 cm/s. The internal to common carotid ratio is 0.63. This would be consistent with a less than 50% stenosis. Vertebrals: There is antegrade flow in both vertebral arteries. IMPRESSION: There is no sonographic evidence of hemodynamically significant stenosis in the bilateral carotid arteries.
--- NOTE | 2018-04-16 17:35 | CONS ---
NEUROLOGY FOLLOWUP NOTE: DATE OF FOLLOWUP: 04/16/18 LOCATION: He is an inpatient in room 452. HOSPITALIST: Nancy Elizabeth NP CHIEF COMPLAINT: Fall, elevated CPK. INTERVAL HISTORY: Since yesterday, Mr. Lopez is doing reasonably well according to his family. He feels he is doing well. He has not had any problems with abdominal pain. He ambulated with assistance today. Physical Therapy note indicates that he was able to ambulate with minimal assistance in a rolling walker 50 feet twice. Ambulation was described with short shuffling strides and increased lateral sway. MEDICATIONS: Reviewed and he is on: 1. Cozaar 50 mg p.o. q. day. 2. Heparin subcutaneous 5000 units q.8 hours. 3. Metoprolol XL 100 mg p.o. q. day. 4. Tamsulosin 0.4 mg p.o. q. day. PHYSICAL EXAM: He is well nourished and well hydrated. Temperature most recently 99.1, T-max was 100.0 yesterday afternoon. Blood pressure most recently 123/72, heart rate in the 80s and regular. Respiratory rate is 20, oxygen saturation is 97% on room air. He is alert and oriented to person and place. He has difficulty coming up with words at times. There is no asterixis. I did not attempt to walk him. DIAGNOSTIC STUDIES/LAB DATA: From today notable for CPK down to 2456, AST and ALT are both up at 188 and 140 respectively. Cytomegalovirus IgG and IgM are negative; Desmond-Madsen virus early antigen negative; hepatitis A, B and C studies are negative. MRI of the brain is reviewed. There is a fairly extensive subcortical chronic ischemic disease with multiple lacunar infarctions including both hemispheres and the tripp. There are 2 areas of increased diffusion, which are very tiny in the right parietal area. These are interpreted as showing acute to subacute infarcts suggestive of embolic infarcts. I reviewed the images and they seemed too tiny to be embolic and there is a questionable change on ADC mapping, but there certainly is extensive cerebrovascular disease. There is also a fairly extensive punctate hemosiderin deposition throughout the brain. 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 Given the hemosiderin deposits on his MRI, I think we should avoid anything stronger than aspirin for antiplatelet therapy. I would recommend getting a carotid ultrasound to see if there is any embolic source. Transthoracic echocardiogram did show any embolic source. I recommend the patient treating with aspirin and I explained the risks of bleeding as one possible adverse effect. I am not sure why his liver enzymes remain elevated. He may need a GI consultation. This I think would need to be considered particularly if they continued to rise. His CPK is coming down further supporting that he likely had rhabdomyolysis rather than myositis. He is going to need physical therapy and discharge planning to look at his ability and his 's ability to care for himself given his cognitive and mobility issues. His does not seem to have a good grasp on his disabilities in regards to his cognitive problems and risk of falling as she tends to minimize these symptoms during our discussions. [id number]/CPS #: [id number] RANDELL
[2018-04-17 03:41] LABS: Urine Appearance Clear; Urine Blood Negative (Negative); Urine Color Yellow; Urine Ketones Negative (Negative); Urine Protein Negative (Negative); Urine Specific Gravity 1.009 (1.010-1.030); Urine Urobilinogen Negative (Negative)
[2018-04-17] MEDS: NS 0.9% 1000 ML* 1,000 ML IV SCH (04:53)
[2018-04-17] MEDS: Heparin VIAL(*) 5000 UNITS/ML VIAL (FIVE THOUSAND) SUBCUT SCH ×3 (05:03→21:18)
[2018-04-17 07:22] LABS: ABS Basophils 0 10^3/ul (0-0.2); ABS Eosinophils 0.2 10^3/ul (0-0.6); ABS Lymphocytes 0.4 10^3/ul (1.0-4.8); ABS Monocytes 0.5 10^3/ul (0-0.8); ABS Neutrophils 2.5 10^3/ul (1.5-7.7); ABS Nucleated RBC 0 10^3/ul; Hematocrit 32 % (42-52); Hemoglobin 10.9 g/dl (14.0-18.0); Lymphocyte % 10.4 % (25-47); Mean Corpuscular HGB Conc 34 g/dl (31-36); Mean Corpuscular Hemoglobin 29 pg (27-31); Mean Corpuscular Volume 87 fL (80-94); Mean Platelet Volume 7.6 um3 (7.4-10.4); Nucleated Red Blood Cells % 0; Platelet Count 130 10^3/ul (150-450); Red Blood Count 3.73 10^6/ul (4.00-5.40); Red Cell Distribution Width 17 % (10.5-15); White Blood Count 3.6 10^3/ul (3.5-10.8)
[2018-04-17] MEDS: Tamsulosin CAP* 0.4 MG PO SCH (08:51)
[2018-04-17] MEDS: Metoprolol Succinate XL TAB* 50 MG PO SCH (08:51)
[2018-04-17] MEDS: Aspirin TAB* 325 MG PO SCH (08:51)
[2018-04-17] MEDS: Losartan TAB* 25 MG PO SCH (08:51)
--- NOTE | 2018-04-17 10:12 | PN ---
Subjective Date of Service: 04/17/18 Interval History: Patient reports he "wants to go home" - he ambulated around the unit with a walker today and reports he did well but felt "very winded". Per daughter at the bedside she reports he has not attempted stairs yet and will need to be able to do stairs prior to going home as there are stairs going into the home. He denies fever/chills. Reports good appetite. No abdominal pain/N/V/D. reports the pashto herb he has been taking for many years is astragulus. Denies any other new medications besides blood pressure meds. Objective Active Medications: Acetaminophen (Tylenol Tab*) 650 mg PO Q6H PRN PRN Reason: pain/fever Last Admin: 04/15/18 15:20 Dose: 650 mg Aspirin (Aspirin Tab*) 325 mg PO DAILY [facility] Last Admin: 04/17/18 08:51 Dose: 325 mg Heparin Sodium (Porcine) (Heparin Vial(*)) 5,000 units SUBCUT Q8HR [facility] Last Admin: 04/17/18 05:03 Dose: 5,000 units Sodium Chloride (Ns 0.9% 1000 Ml*) 1,000 mls @ 75 mls/hr IV PER RATE [facility] Last Admin: 04/17/18 04:53 Dose: 75 mls/hr Losartan Potassium (Cozaar Tab*) 50 mg PO DAILY [facility] Last Admin: 04/17/18 08:51 Dose: 50 mg Metoprolol Succinate (Toprol Xl Tab*) 100 mg PO DAILY [facility] Last Admin: 04/17/18 08:51 Dose: 100 mg Prochlorperazine Edisylate (Compazine Inj*) 5 mg IV Q6H PRN PRN Reason: NAUSEA/VOMITING Tamsulosin HCl (Flomax Cap*) 0.4 mg PO DAILY [facility] Last Admin: 04/17/18 08:51 Dose: 0.4 mg Vital Signs - 8 hr 04/17/18 04/17/18 04/17/18 03:32 07:45 08:00 Temperature 98.3 F 98.7 F Pulse Rate 76 75 Respiratory 20 18 18 Rate Blood Pressure 143/87 142/88 (mmHg) O2 Sat by Pulse 99 Oximetry Oxygen Devices in Use Now: None Appearance: 73 yo male A+O x3 in NAD Eyes: No Scleral Icterus, PERRLA Ears/Nose/Mouth/Throat: NL Teeth, Lips, Gums, Mucous Membranes Moist Respiratory: Symmetrical Chest Expansion and Respiratory Effort, Clear to Auscultation Cardiovascular: NL Sounds; No Murmurs; No JVD, RRR, - - 1-2+ LE edema with vascular skin color changes Abdominal: NL Sounds; No Tenderness; No Distention, - - obese Extremities: No Clubbing, Cyanosis Skin: No Nodules or Sclerosis Neurological: Alert and Oriented x 3, NL Sensation, NL Muscle Strength and Tone Lines/Tubes/Other Access: Clean, Dry and Intact Peripheral IV Nutrition: Taking PO's Result Diagrams: 04/17/18 06:59 04/17/18 06:59 Additional Lab and Data: Lab Results 04/14/18 04/14/18 04/14/18 Range/Units 14:55 14:55 14:55 WBC 5.9 (3.5-10.8) 10^3/ul RBC 4.04 (4.00-5.40) 10^6/ul Hgb 11.7 L (14.0-18.0) g/dl Hct 35 L (42-52) % MCV 86 (80-94) fL MCH 29 (27-31) pg MCHC 34 (31-36) g/dl RDW 18 H (10.5-15) % Plt Count 139 L (150-450) 10^3/ul MPV 7.1 L (7.4-10.4) um3 Neut % (Auto) 80.6 (38-83) % Lymph % (Auto) 6.3 L (25-47) % [place] % (Auto) 12.3 H (0-7) % Eos % (Auto) 0.1 (0-6) % Baso % (Auto) 0.7 (0-2) % Absolute Neuts (auto) 4.7 (1.5-7.7) 10^3/ul Absolute Lymphs (auto) 0.4 L (1.0-4.8) 10^3/ul Absolute Monos (auto) 0.7 (0-0.8) 10^3/ul Absolute Eos (auto) 0 (0-0.6) 10^3/ul Absolute Basos (auto) 0 (0-0.2) 10^3/ul Absolute Nucleated RBC 0 10^3/ul Nucleated RBC % 0 INR (Anticoag Therapy) (0.77-1.02) Sodium 137 (135-145) mmol/L Potassium 3.3 L (3.5-5.0) mmol/L Chloride 101 (101-111) mmol/L Carbon Dioxide 29 (22-32) mmol/L Anion Gap 7 (2-11) mmol/L BUN 35 H (6-24) mg/dL Creatinine 1.40 H (0.67-1.17) mg/dL Est GFR ( Amer) 60.4 (>60) Est GFR (Non-Af Amer) 50.0 (>60) BUN/Creatinine Ratio 25.0 H (8-20) Glucose 113 H (70-100) mg/dL Lactic Acid 0.9 (0.5-2.0) mmol/L Calcium 8.8 (8.6-10.3) mg/dL Magnesium 1.8 L (1.9-2.7) mg/dL Total Bilirubin 1.10 H (0.2-1.0) mg/dL AST 145 H (13-39) U/L ALT 116 H (7-52) U/L Alkaline Phosphatase 76 (34-104) U/L Total Creatine Kinase 3472 H (10-223) U/L Troponin I 0.04 H* (<0.04) ng/mL C-Reactive Protein 43.03 H (<8.01) mg/L B-Natriuretic Peptide ( - 100) pg/mL Total Protein 7.2 (6.4-8.9) g/dL Albumin 3.5 (3.2-5.2) g/dL Globulin 3.7 (2-4) g/dL Albumin/Globulin Ratio 0.9 L (1-3) TSH 2.27 (0.34-5.60) mcIU/mL 04/14/18 04/14/18 Range/Units 14:55 14:55 WBC (3.5-10.8) 10^3/ul RBC (4.00-5.40) 10^6/ul Hgb (14.0-18.0) g/dl Hct (42-52) % MCV (80-94) fL MCH (27-31) pg MCHC (31-36) g/dl RDW (10.5-15) % Plt Count (150-450) 10^3/ul MPV (7.4-10.4) um3 Neut % (Auto) (38-83) % Lymph % (Auto) (25-47) % [place] % (Auto) (0-7) % Eos % (Auto) (0-6) % Baso % (Auto) (0-2) % Absolute Neuts (auto) (1.5-7.7) 10^3/ul Absolute Lymphs (auto) (1.0-4.8) 10^3/ul Absolute Monos (auto) (0-0.8) 10^3/ul Absolute Eos (auto) (0-0.6) 10^3/ul Absolute Basos (auto) (0-0.2) 10^3/ul Absolute Nucleated RBC 10^3/ul Nucleated RBC % INR (Anticoag Therapy) 1.03 H (0.77-1.02) Sodium (135-145) mmol/L Potassium (3.5-5.0) mmol/L Chloride (101-111) mmol/L Carbon Dioxide (22-32) mmol/L Anion Gap (2-11) mmol/L BUN (6-24) mg/dL Creatinine (0.67-1.17) mg/dL Est GFR ( Amer) (>60) Est GFR (Non-Af Amer) (>60) BUN/Creatinine Ratio (8-20) Glucose (70-100) mg/dL Lactic Acid (0.5-2.0) mmol/L Calcium (8.6-10.3) mg/dL Magnesium (1.9-2.7) mg/dL Total Bilirubin (0.2-1.0) mg/dL AST (13-39) U/L ALT (7-52) U/L Alkaline Phosphatase (34-104) U/L Total Creatine Kinase (10-223) U/L Troponin I (<0.04) ng/mL C-Reactive Protein (<8.01) mg/L B-Natriuretic Peptide 151 H ( - 100) pg/mL Total Protein (6.4-8.9) g/dL Albumin (3.2-5.2) g/dL Globulin (2-4) g/dL Albumin/Globulin Ratio (1-3) TSH (0.34-5.60) mcIU/mL Microbiology and Other Data: Microbiology 04/15/18 09:20 Influenza Types A,B Antigen - Final Nasal Specimen received for Influenza A/B Molecular testing 04/14/18 16:29 Urine Culture - Final Urine No Growth (<1,000 CFU/mL) Assess/Plan/Problems-Billing Assessment: 73 yo male with PMH of asthma, HTN, HLD, sleep apnea, CKD stage 2-3 , moderate - severe pulmonary HTN and cognitive decline who presented to the ER on 04/14 with c/o weakness with the repot of not being able to ambulate down on the ground for 6 hours prior to hospitalization. - Patient Problems (1) Weakness Comment: - fever of 102 on admission, now afebrile. Unclear etiology. Urine and blood cx no growth. Chest xray normal. No obvious signs of infection. Possible viral illness vs Rhabdo Per daughter - he has been falling more frequently at home EBV, CMV, HIV, Hepatitis, Influenza negative Doing well with PT per patient- - pt will need to be successful with stairs prior to going home - awaiting PT eval from today (2) Elevated CPK Comment: - trending down -suspect secondary to rhabdomyolysis with family report of being down on the ground for many hours. -However, history of previous CPK elevation of unknown context prompted Neuro consultation for possible polymyositis--appreciate neurology consult Dr. Patel who thinks most likely this is rhabdo from being on the ground. EMG and nerve conduction testing was negative. (3) History of CVA (cerebrovascular accident) Comment: - pt was not aware of previous stroke that was found on imaging. MRI showing multiple cerebral infarctions whoih per neurology appear to be old. Neurology suspects possible alzheimers disease with amyloid angiopathy and possible vascular parkinsonism. Carotid U/S showing no significant stenosis. TTE showed no embolic source Neuro recommends treating with ASA only Continue to monitor on Tele - possible one isolated short burst of afib vs SVT? with HR of 160 on 04/16. WIll discuss with neurology. (4) CKD (chronic kidney disease) stage 2, GFR 60-89 ml/min Comment: -Resolved with IVFs (5) Elevated LFTs Comment: - normal LFTS in January 2018. Per daughter he has been taking pashto herbal supplements astragulus - but has been taking this for many years - possible reaction with new BP meds? -Hepatic steatosis seen on imaging -Continue to monitor LFTs - stable - no change today - Will ask for GI to consult - Hepatits panel negative (6) HTN (hypertension) Comment: -Well-controlled -Continue Metoprolol. Restart losartan and chlorthalidone (7) DVT prophylaxis Comment: -Continue Heparin SQ Status and Disposition: -Appreciate PT eval---will await if pt will have needs on D/C. If patient is going home will have to be successful with stairs
[2018-04-17 10:37] LABS: INR 0.95 (0.77-1.02)
[2018-04-17] MEDS ORDERED: Albuterol 2.5 MG/3 ML NEB.SOL* (0.083%) INH PRN (18:00)
[2018-04-18] MEDS: NS 0.9% 1000 ML* 1,000 ML IV SCH ×2 (02:21→15:19)
[2018-04-18 05:45] LABS: Hematocrit 33 % (42-52); Hemoglobin 10.9 g/dl (14.0-18.0); Mean Corpuscular HGB Conc 33 g/dl (31-36); Mean Corpuscular Hemoglobin 29 pg (27-31); Mean Corpuscular Volume 87 fL (80-94); Mean Platelet Volume 7.3 um3 (7.4-10.4); Platelet Count 146 10^3/ul (150-450); Red Blood Count 3.78 10^6/ul (4.00-5.40); Red Cell Distribution Width 17 % (10.5-15); White Blood Count 4.6 10^3/ul (3.5-10.8)
[2018-04-18 05:55] LABS: ABS Basophils 0 10^3/ul (0-0.2); ABS Eosinophils 0.3 10^3/ul (0-0.6); ABS Lymphocytes 0.5 10^3/ul (1.0-4.8); ABS Monocytes 0.8 10^3/ul (0-0.8); ABS Nucleated RBC 0 10^3/ul; Eosinophil % 6.4 % (0-6); Lymphocyte % 11.5 % (25-47); Nucleated Red Blood Cells % 0.2
[2018-04-18] MEDS: Heparin VIAL(*) 5000 UNITS/ML VIAL (FIVE THOUSAND) SUBCUT SCH ×3 (05:59→20:20)
[2018-04-18 06:16] LABS: EGFR Non-African American 64.6 (>60)
[2018-04-18] MEDS: Metoprolol Succinate XL TAB* 50 MG PO SCH (09:06)
[2018-04-18] MEDS: Aspirin TAB* 325 MG PO SCH (09:06)
[2018-04-18] MEDS: Losartan TAB* 25 MG PO SCH (09:06)
[2018-04-18] MEDS: Tamsulosin CAP* 0.4 MG PO SCH (09:07)
[2018-04-18] MEDS: Chlorthalidone TAB* 50 MG PO SCH (09:07)
--- NOTE | 2018-04-18 16:47 | PN ---
Subjective Date of Service: 04/18/18 Interval History: Patient seen and examined. Appears to be forgetful and cannot remember his medications - now states it's 4 German herbs that he takes but cannot tell me the names. States he feels very tired, denies SOB, no chest pain, no headache. Concerned for the edema in his legs which is his baseline. Objective Active Medications: Acetaminophen (Tylenol Tab*) 650 mg PO Q6H PRN PRN Reason: pain/fever Last Admin: 04/15/18 15:20 Dose: 650 mg Albuterol (Ventolin 2.5 Mg/3 Ml Neb.Renetta*) 2.5 mg INH Q4H PRN PRN Reason: SOB/WHEEZING Aspirin (Aspirin Tab*) 325 mg PO DAILY [facility] Last Admin: 04/18/18 09:06 Dose: 325 mg Chlorthalidone (Hygroton Tab*) 25 mg PO DAILY [facility] Last Admin: 04/18/18 09:07 Dose: 25 mg Heparin Sodium (Porcine) (Heparin Vial(*)) 5,000 units SUBCUT Q8HR [facility] Last Admin: 04/18/18 13:14 Dose: 5,000 units Sodium Chloride (Ns 0.9% 1000 Ml*) 1,000 mls @ 75 mls/hr IV PER RATE [facility] Last Admin: 04/18/18 15:19 Dose: 75 mls/hr Losartan Potassium (Cozaar Tab*) 50 mg PO DAILY [facility] Last Admin: 04/18/18 09:06 Dose: 50 mg Metoprolol Succinate (Toprol Xl Tab*) 100 mg PO DAILY [facility] Last Admin: 04/18/18 09:06 Dose: 100 mg Prochlorperazine Edisylate (Compazine Inj*) 5 mg IV Q6H PRN PRN Reason: NAUSEA/VOMITING Tamsulosin HCl (Flomax Cap*) 0.4 mg PO DAILY [facility] Last Admin: 04/18/18 09:07 Dose: 0.4 mg Vital Signs - 8 hr 04/18/18 15:47 Temperature 98.4 F Pulse Rate 70 Respiratory 20 Rate Blood Pressure 121/63 (mmHg) O2 Sat by Pulse 99 Oximetry Oxygen Devices in Use Now: None Appearance: Alert, tired appearing, NAD Eyes: No Scleral Icterus, PERRLA Ears/Nose/Mouth/Throat: Clear Oropharnyx, Mucous Membranes Moist Neck: NL Appearance and Movements; NL JVP, Trachea Midline Respiratory: Symmetrical Chest Expansion and Respiratory Effort, - - bilateral mild expiratory wheeze, good air entry Cardiovascular: NL Sounds; No Murmurs; No JVD, RRR, - - bilateral LE edema with some discoloration of the skin, +2 pulses Abdominal: NL Sounds; No Tenderness; No Distention Extremities: No Clubbing, Cyanosis - A&Ox2, appears forgetful Nutrition: Taking PO's Result Diagrams: 04/18/18 05:39 04/18/18 05:39 Additional Lab and Data: Lab Results 04/14/18 04/14/18 04/14/18 Range/Units 14:55 14:55 14:55 WBC 5.9 (3.5-10.8) 10^3/ul RBC 4.04 (4.00-5.40) 10^6/ul Hgb 11.7 L (14.0-18.0) g/dl Hct 35 L (42-52) % MCV 86 (80-94) fL MCH 29 (27-31) pg MCHC 34 (31-36) g/dl RDW 18 H (10.5-15) % Plt Count 139 L (150-450) 10^3/ul MPV 7.1 L (7.4-10.4) um3 Neut % (Auto) 80.6 (38-83) % Lymph % (Auto) 6.3 L (25-47) % [place] % (Auto) 12.3 H (0-7) % Eos % (Auto) 0.1 (0-6) % Baso % (Auto) 0.7 (0-2) % Absolute Neuts (auto) 4.7 (1.5-7.7) 10^3/ul Absolute Lymphs (auto) 0.4 L (1.0-4.8) 10^3/ul Absolute Monos (auto) 0.7 (0-0.8) 10^3/ul Absolute Eos (auto) 0 (0-0.6) 10^3/ul Absolute Basos (auto) 0 (0-0.2) 10^3/ul Absolute Nucleated RBC 0 10^3/ul Nucleated RBC % 0 INR (Anticoag Therapy) (0.77-1.02) Sodium 137 (135-145) mmol/L Potassium 3.3 L (3.5-5.0) mmol/L Chloride 101 (101-111) mmol/L Carbon Dioxide 29 (22-32) mmol/L Anion Gap 7 (2-11) mmol/L BUN 35 H (6-24) mg/dL Creatinine 1.40 H (0.67-1.17) mg/dL Est GFR ( Amer) 60.4 (>60) Est GFR (Non-Af Amer) 50.0 (>60) BUN/Creatinine Ratio 25.0 H (8-20) Glucose 113 H (70-100) mg/dL Lactic Acid 0.9 (0.5-2.0) mmol/L Calcium 8.8 (8.6-10.3) mg/dL Magnesium 1.8 L (1.9-2.7) mg/dL Total Bilirubin 1.10 H (0.2-1.0) mg/dL AST 145 H (13-39) U/L ALT 116 H (7-52) U/L Alkaline Phosphatase 76 (34-104) U/L Total Creatine Kinase 3472 H (10-223) U/L Troponin I 0.04 H* (<0.04) ng/mL C-Reactive Protein 43.03 H (<8.01) mg/L B-Natriuretic Peptide ( - 100) pg/mL Total Protein 7.2 (6.4-8.9) g/dL Albumin 3.5 (3.2-5.2) g/dL Globulin 3.7 (2-4) g/dL Albumin/Globulin Ratio 0.9 L (1-3) TSH 2.27 (0.34-5.60) mcIU/mL 04/14/18 04/14/18 Range/Units 14:55 14:55 WBC (3.5-10.8) 10^3/ul RBC (4.00-5.40) 10^6/ul Hgb (14.0-18.0) g/dl Hct (42-52) % MCV (80-94) fL MCH (27-31) pg MCHC (31-36) g/dl RDW (10.5-15) % Plt Count (150-450) 10^3/ul MPV (7.4-10.4) um3 Neut % (Auto) (38-83) % Lymph % (Auto) (25-47) % [place] % (Auto) (0-7) % Eos % (Auto) (0-6) % Baso % (Auto) (0-2) % Absolute Neuts (auto) (1.5-7.7) 10^3/ul Absolute Lymphs (auto) (1.0-4.8) 10^3/ul Absolute Monos (auto) (0-0.8) 10^3/ul Absolute Eos (auto) (0-0.6) 10^3/ul Absolute Basos (auto) (0-0.2) 10^3/ul Absolute Nucleated RBC 10^3/ul Nucleated RBC % INR (Anticoag Therapy) 1.03 H (0.77-1.02) Sodium (135-145) mmol/L Potassium (3.5-5.0) mmol/L Chloride (101-111) mmol/L Carbon Dioxide (22-32) mmol/L Anion Gap (2-11) mmol/L BUN (6-24) mg/dL Creatinine (0.67-1.17) mg/dL Est GFR ( Amer) (>60) Est GFR (Non-Af Amer) (>60) BUN/Creatinine Ratio (8-20) Glucose (70-100) mg/dL Lactic Acid (0.5-2.0) mmol/L Calcium (8.6-10.3) mg/dL Magnesium (1.9-2.7) mg/dL Total Bilirubin (0.2-1.0) mg/dL AST (13-39) U/L ALT (7-52) U/L Alkaline Phosphatase (34-104) U/L Total Creatine Kinase (10-223) U/L Troponin I (<0.04) ng/mL C-Reactive Protein (<8.01) mg/L B-Natriuretic Peptide 151 H ( - 100) pg/mL Total Protein (6.4-8.9) g/dL Albumin (3.2-5.2) g/dL Globulin (2-4) g/dL Albumin/Globulin Ratio (1-3) TSH (0.34-5.60) mcIU/mL Microbiology and Other Data: Microbiology 04/15/18 09:20 Influenza Types A,B Antigen - Final Nasal Specimen received for Influenza A/B Molecular testing 04/14/18 16:29 Urine Culture - Final Urine No Growth (<1,000 CFU/mL) Assess/Plan/Problems-Billing Assessment: This is a 73 y/o male with PMH of asthma, HTN, HLD, sleep apnea, CKD stage 2-3, moderate - severe pulmonary HTN and cognitive decline who presented to the ER on 04/14 with c/o weakness and being on the floor for >6hours. Unclear as to why. - Patient Problems (1) Weakness Code(s): R53.1 - WEAKNESS SNOMED Code(s): 05035929 Comment: - Fever of 102 on admission, now afebrile. - Etiology unclear, as urine and blood cx NTD - CXR clear - Possible viral, but more likely 2/2 rhabdo - PT eval, as family states he's been progressively weaker and falling at home (2) Elevated CPK Code(s): R74.8 - ABNORMAL LEVELS OF OTHER SERUM ENZYMES SNOMED Code(s): 150696974 Comment: - 2/2 being on the floor with subsequent rhabdo, no reported fall - CPK trending down, responding to IVF - Less likely polymyositis as per neuro (3) CKD (chronic kidney disease) stage 2, GFR 60-89 ml/min Code(s): N18.2 - CHRONIC KIDNEY DISEASE, STAGE 2 (MILD) SNOMED Code(s): 452106990 Comment: - TESHA on CKD, improved after IVF (4) Elevated LFTs Code(s): R94.5 - ABNORMAL RESULTS OF LIVER FUNCTION STUDIES SNOMED Code(s): 363200391 Comment: - Normal LFTS in January 2018 - Per daughter he has been taking upper sorbian herbal supplements astragulus - but has been taking this for many years, requested family to bring his meds from home, as he is a poor historian. Concern that herbal supplements may be interacting with Rx meds - GI consult appreciated, hep panel negative but has hepatic steatosis seen on US - LFTs continuing to rise (5) HTN (hypertension) Code(s): I10 - ESSENTIAL (PRIMARY) HYPERTENSION SNOMED Code(s): 08664628 Comment: - Well-controlled on metoprolol, losartan and chlorthalidone (6) History of CVA (cerebrovascular accident) Code(s): Z86.73 - PRSNL HX OF TIA (TIA), AND CEREB INFRC W/O RESID DEFICITS SNOMED Code(s): 147478182 Comment: - Patient was not aware of previous stroke that was found on imaging - MRI showing multiple cerebral infarctions, per neurology appear to be old - Concern for alzheimers disease with amyloid angiopathy or possible vascular parkinsonism, as patient does seem to be forgetful and slow to respond - Carotid U/S showing no significant stenosis - TTE showed no embolic source with no ectopy on tele last 24 hours - cotninue ASA daily (7) DVT prophylaxis Current Visit: Yes Status: Acute Code(s): JEI6011 - SNOMED Code(s): 081839999 Comment: - HSQ (8) DNR (do not resuscitate) Status and Disposition: Pending PT eval for dispo, appreicate any further input from neuro and GI
[2018-04-19] MEDS: Heparin VIAL(*) 5000 UNITS/ML VIAL (FIVE THOUSAND) SUBCUT SCH ×3 (06:03→20:55)
[2018-04-19] MEDS: Tamsulosin CAP* 0.4 MG PO SCH (08:07)
[2018-04-19] MEDS: Losartan TAB* 25 MG PO SCH (08:08)
[2018-04-19] MEDS: Aspirin TAB* 325 MG PO SCH (08:08)
[2018-04-19] MEDS: Chlorthalidone TAB* 50 MG PO SCH (08:08)
[2018-04-19] MEDS: Metoprolol Succinate XL TAB* 50 MG PO SCH (08:23)
--- NOTE | 2018-04-19 13:26 | CONS ---
GASTROENTEROLOGY CONSULTATION DATE OF CONSULT: 04/18/18 CONSULTING PRACTITIONERs: Nancy Elizabeth NP; Michael Webster MD REASON FOR CONSULTATION: Persisting elevation in liver function tests most strikingly ALT first noted 04/14/18 at 116 and rising to 201 today. HISTORY: This 73-year-old man was admitted 4 days ago with signs of rhabdomyolysis after spending many hours on the floor. He had refused to summon help. His with a mental impairment (confirmed by dtr who is RN) apparently allowed that to proceed. The history today is assisted by his daughter (Alhaji Boothe, an RN in [place]) as he is a very poor historian as noted by Dr Mcbride in her admission note. While in the hospital here, he has been undergoing assessment for his mental impairment and mobility issues with Dr. Patel consulting. Physical therapy is working with him and he walked stairs today. He has been, from a gastrointestinal point of view stable, but no fever and no vomiting. He states that he has never been told he had any liver problems. He does not drink any alcohol and his daughter corroborates that. He might have a drink twice a year. The laboratory history shows that liver function tests were normal in April 2016, and August, and January of this year with no abnormality whatsoever with ALT 12, 23, and 20 sequentially. His ALT was 116 on admission here 04/15. In the intervening 2-1/2 months, he had seen Dr. Wayne Estes because of difficult to control hypertension. Chlorthalidone had been started. He is also on metoprolol and losartan apparently dating back more than a year, though that cannot be independently verified today. His emergency room note from August list ERYTHROMYCIN as an allergy and the patient interestingly is able to point out that it may not be an allergy, but just diarrhea. Allergies now listed show multiple blood pressure medicines and to his daughter I voiced the suspicion that many of those may not be true sensitivities. None of them were listed in the August 2017 note. PAST MEDICAL HISTORY: 1. Neurologic disorder with cognitive impairment-also a movement disorder undergoing evaluation. 2. Hypertension. 3. History of gastrointestinal bleed-transferred to [facility] August 2017 when there was no GI coverage here. 4. Rhabdomyolysis-this admission resolving with CPK, highest the day after admission at 4084 and today 448. Apparently, he was on the floor and prohibited his from summoning assistance. His creatinine is improving and today is 1.12. 5. Anemia-noted that his hemoglobin January 2018 was 10.5 with MCV 79. No further information is available except that back in April 2016, hemoglobin was 13.5, MCV 87. 6. Cholelithiasis-seen on ultrasound this admission. 7. Hypertension-Dr. Donte Hess is working this up. 8. Bilateral lymphedema-Dr Rodriguez has been consulted. MEDICATIONS AT HOME: Metoprolol 100. Losartan 50. Chlorthalidone 25. Tamsulosin 0.4. He takes "Kinyarwanda Herbs" saying it has been "a very long time" though that cannot be pinned down and his dtr from [place] does not know. FAMILY HISTORY: His father had diabetes. His mother had rheumatoid arthritis. There is no history of liver disease in the family. 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 His has an unspecified mental illness, which his daughter, the nurse confirms is present, though she does not know the details or wish to discuss them in her father's presence. Contrary to other listings in the chart , the healthcare proxy is the patient's son, who lives in [place], [place]. A daughter, Caroline (according to the other daughter, Alhaji) is disabled from fibromyalgia and lives in [place] and is not the proxy. REVIEW OF SYSTEMS: No history of TIA, CVA, hemoptysis, lung mass, cardiac arrhythmias, acute hepatitis, chronic liver disease, gross hematuria. He had a colonoscopy [place] [address] Pearce on request. He is said to have sleep apnea, but does not have any appliances at home. EXAM: He is a middle-aged man, mild to moderately overweight with symmetric peripheral edema and in no overt distress. He is sitting up. He has 2+ symmetric edema. He is afebrile. Blood pressure 156/85. HEENT exam is unremarkable. There is no icterus. Mucous membranes are normal. His lungs are clear. Heart sounds are normal. His abdomen is obese, symmetric with no palpable organomegaly and no scars. Rectal deferred. Extremities show the edema. There is no deformity. Neurologic is grossly nonfocal. He seems confused and very vague and yet as noted well periodically make perceptive comments as in the erythromycin reaction or in joking that surgeons at [facility] did not remove anything from him "other than my sense of humor." IMPRESSION: This 73-year-old man with a neurologic chronic disorder affecting his cognition has a movement disorder currently under evaluation. He is recovering from rhabdomyolysis. The elevation in ALT would not appear to be related to any of those directly as it is climbing serially over 4 days when clearly the CPK is falling. The lab history clearly indicates that something occurred between late January and this admission and the on paper the most likely suspect would be a new medication started after his cardiac consultation. The other possibility is a new supplement or a change in dose of an old supplement. He does take a supplement at home and though he seems to indicate that he has been on it quite some time that is quiet uncertain. His daughter, the nurse will investigate that. She was also provided with a listing of the ALT sequence , so that, that can be present when she or her brother attend followup appointments to make sure that all plans and theories keep this date set in mind. It does not appear that his overall liver function is significantly impaired as regard to recovering from this current illness or undergoing any other evaluation in the short term. He also has an anemia and once he has recovered from this, a stool Hemoccult can be assessed and an iron panel obtained when he is metabolically at equilibrium more focused evaluation might take place. [id number]/[facility] #: [id number] RANDELL
--- NOTE | 2018-04-19 13:31 | PN ---
Subjective Date of Service: 04/19/18 Interval History: Patient seen and examined. Appears less confused today and more alert, daughters at bedside. Discussed in detail the [place] medicine combinations the patient was taking and his liver function. States he still feels weak, but wheezing has resolved. Denies abdominal pain, no chest pain and no SOB. Objective Active Medications: Acetaminophen (Tylenol Tab*) 650 mg PO Q6H PRN PRN Reason: pain/fever Last Admin: 04/15/18 15:20 Dose: 650 mg Albuterol (Ventolin 2.5 Mg/3 Ml Neb.Renetta*) 2.5 mg INH Q4H PRN PRN Reason: SOB/WHEEZING Aspirin (Aspirin Tab*) 325 mg PO DAILY [facility] Last Admin: 04/19/18 08:08 Dose: 325 mg Chlorthalidone (Hygroton Tab*) 25 mg PO DAILY [facility] Last Admin: 04/19/18 08:08 Dose: 25 mg Heparin Sodium (Porcine) (Heparin Vial(*)) 5,000 units SUBCUT Q8HR [facility] Last Admin: 04/19/18 06:03 Dose: 5,000 units Losartan Potassium (Cozaar Tab*) 50 mg PO DAILY [facility] Last Admin: 04/19/18 08:08 Dose: 50 mg Metoprolol Succinate (Toprol Xl Tab*) 100 mg PO DAILY [facility] Last Admin: 04/19/18 08:23 Dose: 100 mg Prochlorperazine Edisylate (Compazine Inj*) 5 mg IV Q6H PRN PRN Reason: NAUSEA/VOMITING Tamsulosin HCl (Flomax Cap*) 0.4 mg PO DAILY [facility] Last Admin: 04/19/18 08:07 Dose: 0.4 mg Vital Signs - 8 hr 04/19/18 04/19/18 04/19/18 07:13 08:05 10:25 Temperature 98.2 F Pulse Rate 78 77 Respiratory 20 20 Rate Blood Pressure 169/90 121/66 (mmHg) O2 Sat by Pulse 100 97 Oximetry 04/19/18 11:04 Temperature 98.3 F Pulse Rate 70 Respiratory 20 Rate Blood Pressure 117/70 (mmHg) O2 Sat by Pulse Oximetry Oxygen Devices in Use Now: None Appearance: Alert, NAD Eyes: No Scleral Icterus, PERRLA Ears/Nose/Mouth/Throat: NL Teeth, Lips, Gums, Mucous Membranes Moist Neck: NL Appearance and Movements; NL JVP, Trachea Midline Respiratory: Symmetrical Chest Expansion and Respiratory Effort, - - diminished half up bases, no wheeze, no rales or rhonchi Cardiovascular: NL Sounds; No Murmurs; No JVD, RRR, - Abdominal: NL Sounds; No Tenderness; No Distention, No Hepatosplenomegaly Extremities: No Clubbing, Cyanosis, - - bilateral LE edema, at baseline Skin: No Rash or Ulcers Neurological: Alert and Oriented x 3, - - general weakness Nutrition: Taking PO's Result Diagrams: 04/18/18 05:39 04/18/18 05:39 Additional Lab and Data: Lab Results 04/14/18 04/14/18 04/14/18 Range/Units 14:55 14:55 14:55 WBC 5.9 (3.5-10.8) 10^3/ul RBC 4.04 (4.00-5.40) 10^6/ul Hgb 11.7 L (14.0-18.0) g/dl Hct 35 L (42-52) % MCV 86 (80-94) fL MCH 29 (27-31) pg MCHC 34 (31-36) g/dl RDW 18 H (10.5-15) % Plt Count 139 L (150-450) 10^3/ul MPV 7.1 L (7.4-10.4) um3 Neut % (Auto) 80.6 (38-83) % Lymph % (Auto) 6.3 L (25-47) % [place] % (Auto) 12.3 H (0-7) % Eos % (Auto) 0.1 (0-6) % Baso % (Auto) 0.7 (0-2) % Absolute Neuts (auto) 4.7 (1.5-7.7) 10^3/ul Absolute Lymphs (auto) 0.4 L (1.0-4.8) 10^3/ul Absolute Monos (auto) 0.7 (0-0.8) 10^3/ul Absolute Eos (auto) 0 (0-0.6) 10^3/ul Absolute Basos (auto) 0 (0-0.2) 10^3/ul Absolute Nucleated RBC 0 10^3/ul Nucleated RBC % 0 INR (Anticoag Therapy) (0.77-1.02) Sodium 137 (135-145) mmol/L Potassium 3.3 L (3.5-5.0) mmol/L Chloride 101 (101-111) mmol/L Carbon Dioxide 29 (22-32) mmol/L Anion Gap 7 (2-11) mmol/L BUN 35 H (6-24) mg/dL Creatinine 1.40 H (0.67-1.17) mg/dL Est GFR ( Amer) 60.4 (>60) Est GFR (Non-Af Amer) 50.0 (>60) BUN/Creatinine Ratio 25.0 H (8-20) Glucose 113 H (70-100) mg/dL Lactic Acid 0.9 (0.5-2.0) mmol/L Calcium 8.8 (8.6-10.3) mg/dL Magnesium 1.8 L (1.9-2.7) mg/dL Total Bilirubin 1.10 H (0.2-1.0) mg/dL AST 145 H (13-39) U/L ALT 116 H (7-52) U/L Alkaline Phosphatase 76 (34-104) U/L Total Creatine Kinase 3472 H (10-223) U/L Troponin I 0.04 H* (<0.04) ng/mL C-Reactive Protein 43.03 H (<8.01) mg/L B-Natriuretic Peptide ( - 100) pg/mL Total Protein 7.2 (6.4-8.9) g/dL Albumin 3.5 (3.2-5.2) g/dL Globulin 3.7 (2-4) g/dL Albumin/Globulin Ratio 0.9 L (1-3) TSH 2.27 (0.34-5.60) mcIU/mL 04/14/18 04/14/18 Range/Units 14:55 14:55 WBC (3.5-10.8) 10^3/ul RBC (4.00-5.40) 10^6/ul Hgb (14.0-18.0) g/dl Hct (42-52) % MCV (80-94) fL MCH (27-31) pg MCHC (31-36) g/dl RDW (10.5-15) % Plt Count (150-450) 10^3/ul MPV (7.4-10.4) um3 Neut % (Auto) (38-83) % Lymph % (Auto) (25-47) % [place] % (Auto) (0-7) % Eos % (Auto) (0-6) % Baso % (Auto) (0-2) % Absolute Neuts (auto) (1.5-7.7) 10^3/ul Absolute Lymphs (auto) (1.0-4.8) 10^3/ul Absolute Monos (auto) (0-0.8) 10^3/ul Absolute Eos (auto) (0-0.6) 10^3/ul Absolute Basos (auto) (0-0.2) 10^3/ul Absolute Nucleated RBC 10^3/ul Nucleated RBC % INR (Anticoag Therapy) 1.03 H (0.77-1.02) Sodium (135-145) mmol/L Potassium (3.5-5.0) mmol/L Chloride (101-111) mmol/L Carbon Dioxide (22-32) mmol/L Anion Gap (2-11) mmol/L BUN (6-24) mg/dL Creatinine (0.67-1.17) mg/dL Est GFR ( Amer) (>60) Est GFR (Non-Af Amer) (>60) BUN/Creatinine Ratio (8-20) Glucose (70-100) mg/dL Lactic Acid (0.5-2.0) mmol/L Calcium (8.6-10.3) mg/dL Magnesium (1.9-2.7) mg/dL Total Bilirubin (0.2-1.0) mg/dL AST (13-39) U/L ALT (7-52) U/L Alkaline Phosphatase (34-104) U/L Total Creatine Kinase (10-223) U/L Troponin I (<0.04) ng/mL C-Reactive Protein (<8.01) mg/L B-Natriuretic Peptide 151 H ( - 100) pg/mL Total Protein (6.4-8.9) g/dL Albumin (3.2-5.2) g/dL Globulin (2-4) g/dL Albumin/Globulin Ratio (1-3) TSH (0.34-5.60) mcIU/mL Microbiology and Other Data: Microbiology 04/15/18 09:20 Influenza Types A,B Antigen - Final Nasal Specimen received for Influenza A/B Molecular testing 04/14/18 16:29 Urine Culture - Final Urine No Growth (<1,000 CFU/mL) Assess/Plan/Problems-Billing Assessment: This is a 73 y/o male with PMH of asthma, HTN, HLD, sleep apnea, CKD stage 2-3, moderate - severe pulmonary HTN and cognitive decline who presented to the ER on 04/14 with c/o weakness and being on the floor for >6hours. Unclear as to why. - Patient Problems (1) Weakness Code(s): R53.1 - WEAKNESS SNOMED Code(s): 06195727 Comment: - Fever of 102 on admission, now afebrile/resolved - Etiology unclear, as urine and blood cx NTD - CXR clear - Possible viral, but more likely 2/2 rhabdo - PT eval, as family states he's been progressively weaker and falling at home , discussed STR to which patient is agreeable if needed (2) Elevated CPK Code(s): R74.8 - ABNORMAL LEVELS OF OTHER SERUM ENZYMES SNOMED Code(s): 910330166 Comment: - 2/2 being on the floor with subsequent rhabdo, no reported fall - CPK trending down, responding to IVF - Less likely polymyositis as per neuro - Resolving (3) CKD (chronic kidney disease) stage 2, GFR 60-89 ml/min Code(s): N18.2 - CHRONIC KIDNEY DISEASE, STAGE 2 (MILD) SNOMED Code(s): 948251334 Comment: - TESHA on CKD, improved after IVF (4) Elevated LFTs Code(s): R94.5 - ABNORMAL RESULTS OF LIVER FUNCTION STUDIES SNOMED Code(s): 159551141 Comment: - Normal LFTS in January 2018 - "Fo-ti" noted in one of his [place] herbal supplement combinations which is highly liver toxic and can cause hepatitis with transaminitis. Per the literature, should resolve in approx 1 month - LFTs essentially flat today, continue to hold herbal supplements - Gave patient's daughter (she is a nurse) the list that Pharmacy prepared with the side effects and interactions that may be a result of [place] herb stated above - Highly recommend patient takes no herbal supplements until clear by his PCP and GI. (5) HTN (hypertension) Code(s): I10 - ESSENTIAL (PRIMARY) HYPERTENSION SNOMED Code(s): 72172074 Comment: - Well-controlled on metoprolol, losartan and chlorthalidone (6) History of CVA (cerebrovascular accident) Code(s): Z86.73 - PRSNL HX OF TIA (TIA), AND CEREB INFRC W/O RESID DEFICITS SNOMED Code(s): 014166162 Comment: - Patient was not aware of previous stroke that was found on imaging - MRI showing multiple cerebral infarctions, per neurology appear to be old - Concern for alzheimers disease with amyloid angiopathy or possible vascular parkinsonism, as patient does seem to be forgetful and slow to respond - Carotid U/S showing no significant stenosis - TTE showed no embolic source with no ectopy on tele last 24 hours - cotninue ASA daily (7) Chronic edema Code(s): R60.9 - EDEMA, UNSPECIFIED SNOMED Code(s): 027556415 Comment: - Wears compression socks at home - TEDs ordered (8) DVT prophylaxis Current Visit: Yes Status: Acute Code(s): [id number] - SNOMED Code(s): 787530880 Comment: - HSQ (9) DNR (do not resuscitate) Status and Disposition: Pending PT eval for dispo,likely STR
[2018-04-20] MEDS: Heparin VIAL(*) 5000 UNITS/ML VIAL (FIVE THOUSAND) SUBCUT SCH ×3 (05:44→21:32)
[2018-04-20] MEDS: Chlorthalidone TAB* 50 MG PO SCH (08:33)
[2018-04-20] MEDS: Aspirin TAB* 325 MG PO SCH (08:33)
[2018-04-20] MEDS: Losartan TAB* 25 MG PO SCH (08:33)
[2018-04-20] MEDS: Metoprolol Succinate XL TAB* 50 MG PO SCH (08:33)
[2018-04-20] MEDS: Tamsulosin CAP* 0.4 MG PO SCH (08:33)
--- NOTE | 2018-04-20 09:58 | PN ---
Subjective Date of Service: 04/20/18 Interval History: Patient seen and examined. No acute overnight events. States weakness has improved, but has not ambulated much. Denies SOB, no wheeze, no further complaints. Objective Active Medications: Acetaminophen (Tylenol Tab*) 650 mg PO Q6H PRN PRN Reason: pain/fever Last Admin: 04/15/18 15:20 Dose: 650 mg Albuterol (Ventolin 2.5 Mg/3 Ml Neb.Renetta*) 2.5 mg INH Q4H PRN PRN Reason: SOB/WHEEZING Aspirin (Aspirin Tab*) 325 mg PO DAILY [facility] Last Admin: 04/20/18 08:33 Dose: 325 mg Chlorthalidone (Hygroton Tab*) 25 mg PO DAILY [facility] Last Admin: 04/20/18 08:33 Dose: 25 mg Heparin Sodium (Porcine) (Heparin Vial(*)) 5,000 units SUBCUT Q8HR [facility] Last Admin: 04/20/18 05:44 Dose: 5,000 units Losartan Potassium (Cozaar Tab*) 50 mg PO DAILY [facility] Last Admin: 04/20/18 08:33 Dose: 50 mg Metoprolol Succinate (Toprol Xl Tab*) 100 mg PO DAILY [facility] Last Admin: 04/20/18 08:33 Dose: 100 mg Prochlorperazine Edisylate (Compazine Inj*) 5 mg IV Q6H PRN PRN Reason: NAUSEA/VOMITING Tamsulosin HCl (Flomax Cap*) 0.4 mg PO DAILY [facility] Last Admin: 04/20/18 08:33 Dose: 0.4 mg Vital Signs - 8 hr 04/20/18 04/20/18 04/20/18 02:57 07:28 08:00 Temperature 98.1 F 97.7 F Pulse Rate 70 66 Respiratory 20 16 17 Rate Blood Pressure 131/76 143/80 (mmHg) O2 Sat by Pulse 96 98 Oximetry Oxygen Devices in Use Now: None Appearance: alert, NAD Ears/Nose/Mouth/Throat: NL Teeth, Lips, Gums, Clear Oropharnyx, Mucous Membranes Moist Neck: NL Appearance and Movements; NL JVP, Trachea Midline Respiratory: Symmetrical Chest Expansion and Respiratory Effort, Clear to Auscultation, - - diminished bases Cardiovascular: NL Sounds; No Murmurs; No JVD, RRR Abdominal: NL Sounds; No Tenderness; No Distention, No Hepatosplenomegaly Extremities: No Clubbing, Cyanosis, - - LE bilateral edema at baseline with skin discoloration Neurological: Alert and Oriented x 3, NL Sensation, - - forgetful at times Result Diagrams: 04/18/18 05:39 04/18/18 05:39 Additional Lab and Data: Lab Results 04/14/18 04/14/18 04/14/18 Range/Units 14:55 14:55 14:55 WBC 5.9 (3.5-10.8) 10^3/ul RBC 4.04 (4.00-5.40) 10^6/ul Hgb 11.7 L (14.0-18.0) g/dl Hct 35 L (42-52) % MCV 86 (80-94) fL MCH 29 (27-31) pg MCHC 34 (31-36) g/dl RDW 18 H (10.5-15) % Plt Count 139 L (150-450) 10^3/ul MPV 7.1 L (7.4-10.4) um3 Neut % (Auto) 80.6 (38-83) % Lymph % (Auto) 6.3 L (25-47) % [place] % (Auto) 12.3 H (0-7) % Eos % (Auto) 0.1 (0-6) % Baso % (Auto) 0.7 (0-2) % Absolute Neuts (auto) 4.7 (1.5-7.7) 10^3/ul Absolute Lymphs (auto) 0.4 L (1.0-4.8) 10^3/ul Absolute Monos (auto) 0.7 (0-0.8) 10^3/ul Absolute Eos (auto) 0 (0-0.6) 10^3/ul Absolute Basos (auto) 0 (0-0.2) 10^3/ul Absolute Nucleated RBC 0 10^3/ul Nucleated RBC % 0 INR (Anticoag Therapy) (0.77-1.02) Sodium 137 (135-145) mmol/L Potassium 3.3 L (3.5-5.0) mmol/L Chloride 101 (101-111) mmol/L Carbon Dioxide 29 (22-32) mmol/L Anion Gap 7 (2-11) mmol/L BUN 35 H (6-24) mg/dL Creatinine 1.40 H (0.67-1.17) mg/dL Est GFR ( Amer) 60.4 (>60) Est GFR (Non-Af Amer) 50.0 (>60) BUN/Creatinine Ratio 25.0 H (8-20) Glucose 113 H (70-100) mg/dL Lactic Acid 0.9 (0.5-2.0) mmol/L Calcium 8.8 (8.6-10.3) mg/dL Magnesium 1.8 L (1.9-2.7) mg/dL Total Bilirubin 1.10 H (0.2-1.0) mg/dL AST 145 H (13-39) U/L ALT 116 H (7-52) U/L Alkaline Phosphatase 76 (34-104) U/L Total Creatine Kinase 3472 H (10-223) U/L Troponin I 0.04 H* (<0.04) ng/mL C-Reactive Protein 43.03 H (<8.01) mg/L B-Natriuretic Peptide ( - 100) pg/mL Total Protein 7.2 (6.4-8.9) g/dL Albumin 3.5 (3.2-5.2) g/dL Globulin 3.7 (2-4) g/dL Albumin/Globulin Ratio 0.9 L (1-3) TSH 2.27 (0.34-5.60) mcIU/mL 04/14/18 04/14/18 Range/Units 14:55 14:55 WBC (3.5-10.8) 10^3/ul RBC (4.00-5.40) 10^6/ul Hgb (14.0-18.0) g/dl Hct (42-52) % MCV (80-94) fL MCH (27-31) pg MCHC (31-36) g/dl RDW (10.5-15) % Plt Count (150-450) 10^3/ul MPV (7.4-10.4) um3 Neut % (Auto) (38-83) % Lymph % (Auto) (25-47) % [place] % (Auto) (0-7) % Eos % (Auto) (0-6) % Baso % (Auto) (0-2) % Absolute Neuts (auto) (1.5-7.7) 10^3/ul Absolute Lymphs (auto) (1.0-4.8) 10^3/ul Absolute Monos (auto) (0-0.8) 10^3/ul Absolute Eos (auto) (0-0.6) 10^3/ul Absolute Basos (auto) (0-0.2) 10^3/ul Absolute Nucleated RBC 10^3/ul Nucleated RBC % INR (Anticoag Therapy) 1.03 H (0.77-1.02) Sodium (135-145) mmol/L Potassium (3.5-5.0) mmol/L Chloride (101-111) mmol/L Carbon Dioxide (22-32) mmol/L Anion Gap (2-11) mmol/L BUN (6-24) mg/dL Creatinine (0.67-1.17) mg/dL Est GFR ( Amer) (>60) Est GFR (Non-Af Amer) (>60) BUN/Creatinine Ratio (8-20) Glucose (70-100) mg/dL Lactic Acid (0.5-2.0) mmol/L Calcium (8.6-10.3) mg/dL Magnesium (1.9-2.7) mg/dL Total Bilirubin (0.2-1.0) mg/dL AST (13-39) U/L ALT (7-52) U/L Alkaline Phosphatase (34-104) U/L Total Creatine Kinase (10-223) U/L Troponin I (<0.04) ng/mL C-Reactive Protein (<8.01) mg/L B-Natriuretic Peptide 151 H ( - 100) pg/mL Total Protein (6.4-8.9) g/dL Albumin (3.2-5.2) g/dL Globulin (2-4) g/dL Albumin/Globulin Ratio (1-3) TSH (0.34-5.60) mcIU/mL Microbiology and Other Data: Microbiology 04/15/18 09:20 Influenza Types A,B Antigen - Final Nasal Specimen received for Influenza A/B Molecular testing 04/14/18 16:29 Urine Culture - Final Urine No Growth (<1,000 CFU/mL) Assess/Plan/Problems-Billing Assessment: This is a 73 y/o male with PMH of asthma, HTN, HLD, sleep apnea, CKD stage 2-3, moderate - severe pulmonary HTN and cognitive decline who presented to the ER on 04/14 with c/o weakness and being on the floor for >6hours. Unclear as to why. Found to have transaminitis of unclear etiology. - Patient Problems (1) Weakness Code(s): R53.1 - WEAKNESS SNOMED Code(s): 65130638 Comment: - Had fever at admission, less likely viral, no infectious process, appears to be 2/2 rhabdomyolysis - Initial PT evals noted, when re-evaluated tomorrow, will recommend STR vs home (2) Elevated CPK Code(s): R74.8 - ABNORMAL LEVELS OF OTHER SERUM ENZYMES SNOMED Code(s): 062763963 Comment: - 2/2 being on the floor with subsequent rhabdo, no reported fall - CPK trending down, responding to IVF - Less likely polymyositis as per neuro - Resolved (3) CKD (chronic kidney disease) stage 2, GFR 60-89 ml/min Code(s): N18.2 - CHRONIC KIDNEY DISEASE, STAGE 2 (MILD) SNOMED Code(s): 009386228 Comment: - TESHA on CKD resolved with IVF (4) Elevated LFTs Code(s): R94.5 - ABNORMAL RESULTS OF LIVER FUNCTION STUDIES SNOMED Code(s): 420880514 Comment: - Normal LFTS in January 2018 - "Fo-ti" noted in one of his [place] herbal supplement combinations which is highly liver toxic and can cause hepatitis with transaminitis. Per the literature, should resolve in approx 1 month - AST 192 which is slightly improved - Gave patient's daughter (she is a nurse) the list that Pharmacy prepared with the side effects and interactions that may be a result of Greek herb stated above - Highly recommend patient takes no herbal supplements until clear by his PCP and GI. (5) HTN (hypertension) Code(s): I10 - ESSENTIAL (PRIMARY) HYPERTENSION SNOMED Code(s): 63570612 Comment: - Well-controlled on metoprolol, losartan and chlorthalidone (6) History of CVA (cerebrovascular accident) Code(s): Z86.73 - PRSNL HX OF TIA (TIA), AND CEREB INFRC W/O RESID DEFICITS SNOMED Code(s): 045472600 Comment: - Patient was not initially aware of previous stroke that was found on imaging - MRI showing multiple cerebral infarctions, per neurology appear to be old - Concern for alzheimers disease with amyloid angiopathy or possible vascular parkinsonism, as patient does seem to be forgetful and slow to respond at times - Carotid U/S showing no significant stenosis - TTE showed no embolic source with no ectopy on tele last 24 hours - Continue ASA daily with outpatient follow up - Stroke education provided to patient and family (7) Chronic edema Code(s): R60.9 - EDEMA, UNSPECIFIED SNOMED Code(s): 036928993 Comment: - Wears compression socks at home - TEDs ordered (8) DVT prophylaxis Code(s): XCD4689 - SNOMED Code(s): 949346938 Comment: - HSQ (9) DNR (do not resuscitate) Status and Disposition: Pending PT eval for dispo,likely STR, may be option for home with outpatient PT and VNS.
[2018-04-21] MEDS: Heparin VIAL(*) 5000 UNITS/ML VIAL (FIVE THOUSAND) SUBCUT SCH ×2 (04:55→14:45)
[2018-04-21 06:20] LABS: ABS Basophils 0 10^3/ul (0-0.2); ABS Eosinophils 0.3 10^3/ul (0-0.6); ABS Lymphocytes 0.8 10^3/ul (1.0-4.8); ABS Monocytes 0.8 10^3/ul (0-0.8); ABS Neutrophils 3.6 10^3/ul (1.5-7.7); ABS Nucleated RBC 0 10^3/ul; Eosinophil % 5.3 % (0-6); Hematocrit 34 % (42-52); Hemoglobin 11.4 g/dl (14.0-18.0); Lymphocyte % 13.8 % (25-47); Mean Corpuscular HGB Conc 34 g/dl (31-36); Mean Corpuscular Hemoglobin 29 pg (27-31); Mean Corpuscular Volume 87 fL (80-94); Mean Platelet Volume 7.2 um3 (7.4-10.4); Nucleated Red Blood Cells % 0.4; Platelet Count 200 10^3/ul (150-450); Red Blood Count 3.88 10^6/ul (4.00-5.40); Red Cell Distribution Width 17 % (10.5-15); White Blood Count 5.6 10^3/ul (3.5-10.8)
[2018-04-21] MEDS: Losartan TAB* 25 MG PO SCH (09:28)
[2018-04-21] MEDS: Metoprolol Succinate XL TAB* 50 MG PO SCH (09:29)
[2018-04-21] MEDS: Aspirin TAB* 325 MG PO SCH (09:30)
[2018-04-21] MEDS: Tamsulosin CAP* 0.4 MG PO SCH (09:30)
[2018-04-21] MEDS: Chlorthalidone TAB* 50 MG PO SCH (09:30)
[2018-04-21 14:48] VITALS: BP 112/71
--- NOTE | 2018-04-21 22:50 | DS ---
CC: Dr. Webster; Dr. Jones; Dr. Qiana Ponce * DISCHARGE SUMMARY: DATE OF ADMISSION: 04/15/18 DATE OF DISCHARGE: 04/21/18 ATTENDING: Marci Mcbride MD MY ATTENDING FOR TODAY: Qiana Ponce DO PRIMARY CARE PROVIDER: Dr. Webster [facility]: This is a 73-year-old male patient with some baseline cognitive deficit who presented to the emergency department with family after complaining of being weak. Apparently, the patient had lost his balance and has been falling quite a bit at home. The patient had been on the floor for some time and was refusing to let his family pick him up off the floor. They finally managed to get him to the emergency department for evaluation. He appeared to be continually confused and unable to account for his reason for being in the emergency department. He is a very poor historian. The patient was found to have an elevated CPK and also was screened by Neurology for his cognitive deficit. The concern at that time was that he had neuro condition that was causing his falls. Also, he was found to have a transaminitis that was very unclear. The patient did not have any history of any liver dysfunction or hepatitis or infectious disease in the past; however, his LFTs were quite elevated. Otherwise, the patient's chronic diseases, hypertension, chronic kidney disease were around the patient's baseline. He was a little bit dry. His renal function is mildly elevated over his baseline, which was treated with IV fluids. Dr. Patel saw the patient in the emergency department to evaluate for a polymyositis. However, the patient's story was not really consistent with polymyositis. In either case, sed rate, KEMI, acetylcholine receptor antibodies were checked as well as hepatitis panel and other infectious disease panels to evaluate his liver. He also went for liver ultrasound. The patient also had MRI of the brain, carotid Dopplers, transthoracic echocardiogram, and Dopplers of the lower extremities given some lower extremity edema. Essentially , the patient's workup was negative with the exception of the elevated CPK for which he received fluids and physical therapy evaluation. Neurology aired on the side of rhabdomyolysis rather than polymyositis, which again appeared more consistent with the patient's story. Neurology subsequently signed off. There were no acute findings on the MRI of his brain; however, it did appear that he had some old infarcts, subacute in nature and chronic that the patient and family were unaware of. We explained to the patient that it appeared that he had old strokes in the past to which again because he is a poor historian was unable to account for when that happened and states that he was unaware that he had any kind of neurologic issues. The patient was seen also by Dr. Jones of Gastroenterology to evaluate his liver function. The workup on the infectious side was negative. The patient did have a mild fever on the way in; however, that appeared to be related more to the rhabdomyolysis and infectious process. The only identifiable outlier in this case is that the patient states he takes [place] herbs. We requested the family to bring in the herbs and any other medications he had at home to look for anything that was hepatotoxic. As it turns out, the patient was taking something called fo-ti, which is apparently very toxic to the liver and can cause hepatitis. Because of the patient's cognitive deficit at baseline, we were concerned that the patient had multiple types of [place] herbal supplements, many with the same ingredients in them so we are unsure if the patient was actually overdosing himself on these [place] herbal supplements. We explained to the family the patient was no longer allowed to take those herbs anymore and he should discuss that with his accounts executive and election watcher who is prescribing them. Given this stigmata of findings with his neurologic deficit and now elevated liver function, it would not be safe for him to continue on those naturopathic medications. The patient' s liver function slowly began to drift down. At admission, the AST was 182, topped at 226, today it is 155. The ALT started at 152, topped at 227 and today is 208. Alk phos is at 99 within normal range. Total creatinine kinase at admission was 3472 and trended down, it was 448. Rest of his labs were essentially unremarkable. DISCHARGE DIAGNOSES: 1. Weakness with prolonged downtime on floor, etiology unclear, with subsequent rhabdomyolysis, which is now resolved with fluids. 2. Chronic kidney disease with acute kidney injury, likely related to his rhabdomyolysis, again resolved with fluids. 3. Transaminitis. Likely related to consumption of fo-ti, telugu herbs, which the patient has been instructed to no longer take. 4. History of hypertension, stable on metoprolol, losartan, and chlorthalidone. 5. History of CVA. Carotid ultrasound showed no stenosis. Echo showed no embolic source. The patient was started on aspirin daily and outpatient followup. 6. History of chronic edema. Ultrasound Dopplers of the lower extremities were negative for DVT. The patient should continue his compression stockings. DISCHARGE MEDICATIONS: Include, 1. Aspirin 325 mg daily. 2. Chlorthalidone 25 mg daily. 3. Losartan 50 mg daily. 4. Metoprolol succinate XL 100 mg daily. 5. Flomax 0.4 mg daily. REVIEW OF SYSTEMS: Ten point review of systems is negative today as noted above. PHYSICAL EXAMINATION: General: The patient is alert, in no acute distress. Vital Signs: Blood pressure is 112/71, heart rate 70, respiratory rate 19, O2 saturation 98% on room air, temperature of 98.3. HEENT: The patient is atraumatic/normocephalic. PERRLA with nonicteric sclerae. Neck: Supple, nontender. No JVD noted. No carotid bruit auscultated. Cardiovascular: S1, S2 present. No murmurs, gallops, or rubs noted. Lungs are clear bilaterally at the apices and somewhat diminished at the bases. Expiratory wheeze has completely resolved. No rhonchi or rales noted. Abdomen: Soft, nontender, nondistended. Positive bowel sounds in all 4 quadrants. is deferred although the patient does have some incontinence at times. Musculoskeletal: There is no clubbing and no cyanosis. He does have bilateral lower extremity edema from mid hernandez down with some discoloration at baseline, responsive to compression stockings. Neurologic: The patient can be forgetful at times, but is otherwise appropriate and able to reoriented. He is showing no acute focal deficits. He is ambulatory, steady gait with assistance. Psychiatric: He is cooperative and appropriate. LABORATORY/IMAGING DATA: His liver function as stated above. Imaging also stated as above. No acute pathology found on the carotids. No DVT noted. Echo was within normal limits. MRI with old infracts. DISPOSITION: The patient was cleared by physical therapy to return to home today as opposed to short term rehab. The patient should follow up with his primary care provider, Dr. Michael Webster and also [facility] who he will follow up as needed. The patient was discharged in stable condition. All questions were answered. The patient's family stated their understanding of his discharge instructions and followup today. PARISH CANALES, WILDLIFE REFUGE MANAGER [id number] #: [id number] [facility]
== END 2018-04-21 15:56 | disposition home or self-care (01) | DRG 558 ==
LOC: ED 14:15 → MEDTELE 16:37 → OBSVTOIN 04-15 18:06
PROVIDERS: ADMIT Internal Medicine; ATTEND Hospitalist
DX: M62.82 Rhabdomyolysis (principal); N17.9 Acute kidney failure, unspecified; I27.20 Pulmonary hypertension, unspecified; I35.0 Nonrheumatic aortic (valve) stenosis; I12.9 Hypertensive chronic kidney disease with stage 1 through stage 4 chronic kidney disease, or unspecified chronic kidney disease; N18.3 Chronic kidney disease, stage 3 (moderate); E83.42 Hypomagnesemia; R74.0 Nonspecific elevation of levels of transaminase and lactic acid dehydrogenase [LDH]; R60.0 Localized edema; Z66 Do not resuscitate; J45.909 Unspecified asthma, uncomplicated; E87.6 Hypokalemia; E78.5 Hyperlipidemia, unspecified; G47.33 Obstructive sleep apnea (adult) (pediatric); Z86.73 Personal history of transient ischemic attack (TIA), and cerebral infarction without residual deficits; Z79.899 Other long term (current) drug therapy; Z88.1 Allergy status to other antibiotic agents; Z88.8 Allergy status to other drugs, medicaments and biological substances; Z83.3 Family history of diabetes mellitus; Z81.8 Family history of other mental and behavioral disorders; Z82.61 Family history of arthritis; Z82.49 Family history of ischemic heart disease and other diseases of the circulatory system; Z87.891 Personal history of nicotine dependence; G31.84 Mild cognitive impairment of uncertain or unknown etiology; R29.90 Unspecified symptoms and signs involving the nervous system; D64.9 Anemia, unspecified
CPT/HCPCS: 36415; 70450; 70551; 71045; 76705; 80053; 80074; 80076; 81003; 81015; 82550; 83519; 83605; 83735; 83880; 84100; 84443; 84484; 85025; 85610; 85652; 86038; 86140; 86200; 86235; 86618; 86644; 86645; 86663; 86703; 87040; 87086; 93005; 93306; 93880; 93970; 95885; 95910; 99284; A9270-GY; C8929; G0378; G8978-GP-CJ; G8979-GP-CH; J1644; J3475; J7060

== ENCOUNTER 2018-08-28 20:45 | Inpatient (IN) | payer MEDICARE ==
--- OUTSIDE RECORDS SUMMARY | 2018-08-28 20:58 | XMS REPORT | Continuity of Care Document ---
:1945 External Reference #:[id number] Author Name Hanh Ornelas Care Team Providers Name Role Phone Michael Webster MD Primary Care Physician Unavailable Payers Type Date Identification Numbers Payment Provider Subscriber Policy Number: [id number] [facility] [employer] Options Isaiah Lopez PayID: [id number] [address] [address] Attn: [place] [address] Expires: 2017 Policy Number: [id number] [facility] Isaiah Lopez (Oon) PayID: [id number] [address] [place] [address] Expires: 2018 Policy Number: [id number] [employer] [place] Isaiah Lopez PayID: [id number] [address] [address] [place] [address] Advance Directives Description No Information Available Problems Date Description Provider Status Onset: 07/08/2007 Extrinsic asthma without status Margoth Thomason asthmaticus Jose,FACP Onset: 07/08/2007 Hyperlipidemia Margoth Thomason M.D.,FACP Onset: 07/08/2007 Benign essential hypertension Margoth Thomason M.D.,FACP Onset: 07/08/2007 Central sleep apnea syndrome Margoth Thomason M.D.,FACP Onset: 07/08/2007 Atopic dermatitis Margoth Thomason M.D.,FACP Onset: 10/06/2007 Mixed hyperlipidemia Margoth Thomason M.D.,FACP Onset: 04/12/2009 Impotence of organic origin Margoth Thomason M.D.,FACP Onset: 07/03/2018 Liver function tests abnormal Vinita Lozano NP Active Onset: 07/03/2018 History of polyp of colon Vinita Lozano NP Active Onset: 07/03/2018 Diverticulitis of colon Vinita Lozano NP Active Onset: 07/03/2018 Anemia Vinita Lozano NP Active Family History Date Family Member(s) Problem(s) Comments Father Diabetes, Non Insulin Dependent Father due to Diabetes () - complications Father Depression Mother Arthritis, Rheumatoid Mother due to Heart Disease () First Sister Arthritis, Osteo Second Sister Arthritis, Osteo Social History Type Date Description Comments Sex Unknown Marital Status Lives With Spouse 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 Tobacco Use Start: Unknown End: Former Cigarette Smoker 1 for 3 yrs Unknown Pack Daily Cigarette Use Pack Years - 03 ETOH Use Rarely consumes alcohol Recreational Drug Use Denies Drug Use Tobacco Use Start: Unknown End: Patient is a former smoker Unknown Smoking Status Reviewed: 08/24/18 Patient is a former smoker Exercise Type/Frequency Exercises regularly Body blade Allergies, Adverse Reactions, Alerts Date Description Reaction Status Severity Comments 07/08/2007 Singulair Active 07/08/2007 Foradil Aerolizer Active 07/08/2007 Lisinopril Active 02/13/2018 Erythromycin diarheea Active 02/13/2018 Irbesartan Active 02/13/2018 Amlodipine Active Medications Medication Date Status Form Strength Qnty SIG Indications Ordering Provider Suprep Bowel 07/24 Active Solution 17.5-3.13 354un Take Peter T. Prep -1.6GM/ its according to Robert, 7ML your MD physician's instructions the day before your procedure. Split the dose as directed. Losartan 03/03 Active Tablets 50mg 90tab 1 by mouth Wayne S. s every day Estes, DO FACC Chlorthalidone 02/13 Active Tablets 25mg 30tab take 1 tablet I10 Wayne S. s by mouth Setes, every day DO FACC Metoprolol Active Tablets 50mg take 2 tablet Unknown Succinate ER /0000 ER 24HR po daily Tamsulosin HCL Active Capsules 0.4mg 1 cap po Darlow, /0000 daily Michael Patricio MD Aspirin Active Tablets 325mg take 1 by Unknown /0000 DR mouth daily Fibercon Active Tablets 625mg take 2 Unknown /0000 tablets by mouth two times daily or as directed Avapro 07/28 Hx Tablets 300mg 90tab 1 po qam 401.1 Stephen /2008 Carolyn Pederson M.D.,[facility] 02/12 Avapro 04/12 Hx Tablets 150mg 90tab 1 po qd 401.1 Stephen /2008 Carolyn Pederson M.D.,[facility] 07/28 Kelly 10/06 Hx Tablets 180mg 90tab qd prn 493.00 Stephen /2007 Carolyn Pederson M.D.,[facility] 02/12 Advair Diskus 07/08 Hx Misc 250/50 3mon 1 puff bid Stephen /2006 Carolyn Ray M.D.,[facility] 02/12 Proventil HFA 07/08 Hx Aerosol 108mcg/Ac 3mon 2 puff(S) Carolyn Arteaga qid prn Jose,[facility] 02/12 Niaspan 07/08 Hx Tablets 500mg 90tab 1 qpm 272.4 Stephen /2006 ER Carolyn Pederson M.D.,[facility] 10/06 Triamcinolone 07/08 Hx Ointment 0.1% 60G qd prn 691.8 Stephen Acetkade /Carolyn Feliz M.D.,[facility] 02/12 Zyrtec 06/16 Hx Tablets 10mg 90tab qpm 493.00 Stephen /Carolyn Tee M.D.,[facility] 10/06 Valsartan Hx Tablets 160mg take 1 tablet Unknown /0000 by mouth once - daily 03/03 Free And Easy Hx turkmen Unknown Wander Plus /0000 herbal 1 po - daily 07/02 Nan Marlette Hx turkmen Unknown /0000 Herbal 1 po - daily 07/02 Vitamin C Hx Tablets 1000mg 1 by mouth Unknown /0000 every day - 07/02 Immunizations Description No Information Available Vital Signs Date Vital Result Comment 08/24/2018 1:14pm Height 74 inches 6'2" Weight 225.25 lb Heart Rate 54 /min BP Systolic 198 mmHg 178/100 rechecked. Pt states he is nervous BP Diastolic 101 mmHg 178/100 rechecked. Pt states he is nervous Respiratory Rate 16 /min Body Temperature 98.6 F O2 % BldC Oximetry 98 % BMI (Body Mass Index) 28.9 kg/m2 07/03/2018 3:11pm Height 74 inches 6'2" Weight 218.00 lb per pt report, has a difficult time ambulating Heart Rate 93 /min BP Systolic 123 mmHg BP Diastolic 78 mmHg Respiratory Rate 18 /min Pain Level 0 O2 % BldC Oximetry 97 % BMI (Body Mass Index) 28.0 kg/m2 03/16/2018 2:22pm Height 74 inches 6'2" Weight 227.00 lb Heart Rate 54 /min BP Systolic Sitting 126 mmHg rue lg cuff BP Diastolic Sitting 70 mmHg rue lg cuff BP Systolic Standing 124 mmHg BP Diastolic Standing 70 mmHg Respiratory Rate 16 /min BMI (Body Mass Index) 29.1 kg/m2 Ejection Fraction 65% 01/23/2016 echo 02/13/2018 8:44am Height 74 inches 6'2" Weight 225.00 lb [...] Ejection Fraction 65% date 01/23/16 ECHO 07/28/2009 9:13am Height 74 inches 6'2" Weight 283.00 lb Heart Rate 85 /min BP Systolic Sitting 161 mmHg BP Diastolic Sitting 95 mmHg Body Temperature 98.7 F BMI (Body Mass Index) 36.3 kg/m2 04/12/2009 1:56pm Height 74 inches 6'2" Weight 282.00 lb Heart Rate 88 /min BP Systolic Sitting 168 mmHg BP Diastolic Sitting 84 mmHg BMI (Body Mass Index) 36.2 kg/m2 10/06/2007 8:40am Height 74 inches 6'2" Weight 271.00 lb Heart Rate 70 /min BP Systolic Sitting 160 mmHg BP Diastolic Sitting 96 mmHg Respiratory Rate 20 /min Body Temperature 98.0 F BMI (Body Mass Index) 34.8 kg/m2 07/08/2007 8:35am Height 74 inches 6'2" Weight 269.00 lb Heart Rate 80 /min BP Systolic Sitting 150 mmHg BP Diastolic Sitting 90 mmHg Respiratory Rate 20 /min BMI (Body Mass Index) 34.5 kg/m2 Results Test Date Facility Test Result H/L Range Note Laboratory test 08/25/2018 [facility] Clotest SEE RESULT [address] [address] [phone] Laboratory test 07/27/2018 [facility] Erythrocyte Sed 44 mm/Hr High 0-[address] [place] [address] [phone] C Reactive Protein 3.25 mg/L N <8.01 CBC No Diff 07/27/2018 [facility] White Blood 6.1 10^3/uL N 3.5-10.[address] [place] [address] [phone] Red Blood Count 3.99 10^6/uL Low 4.00-5.40 Hemoglobin 12.0 g/dL Low 14.0-18.0 Hematocrit 36 % Low 42-52 Mean Corpuscular Volume 90 fL N 80-94 Mean Corpuscular Hemoglobin 30 pg N 27-31 Mean Corpuscular HGB Conc 34 g/dL N 31-36 Red Cell Distribution Width 14 % N 10.5-15 Platelet Count 198 10^3/uL N 150-450 Mean Platelet Volume 7.5 fL N 7.4-10.4 Comp Metabolic Panel 07/27/2018 [facility] Sodium 139 mmol/L N 135-[address] [place] [address] [phone] Potassium 3.6 mmol/L N 3.5-5.0 Chloride 104 mmol/L N 101-111 Co2 Carbon Dioxide 28 mmol/L N 22-32 Anion Gap 7 mmol/L N 2-11 Glucose 82 mg/dL N 70-100 Blood Urea Nitrogen 47 mg/dL High 6-24 Creatinine 1.27 mg/dL High 0.67-1.17 BUN/Creatinine Ratio 37.0 High 8-20 Calcium 9.5 mg/dL N 8.6-10.3 Total Protein 6.9 g/dL N 6.4-8.9 Albumin 3.8 g/dL N 3.2-5.2 Globulin 3.1 g/dL N 2-4 Albumin/Globulin Ratio 1.2 N 1-3 Total Bilirubin 0.50 mg/dL N 0.2-1.0 Alkaline Phosphatase 69 U/L N 34-104 Alt 35 U/L N 7-52 Ast 30 U/L N 13-39 Egfr Non- 55.9 >60 Egfr 67.6 >60 2 Laboratory test 07/27/2018 [facility] Iron 61 g/dL N 50-[address] [place], [place] [id number] [phone] Iron & Iron 07/27/2018 [facility] Unsaturated Iron < 380 Binding Capacity [address] Binding g/dL [place], [place] [address] [phone] Total Iron Binding Capacity 395 g/dL N 250-450 Transferrin 282 mg/dL N 203-362 % Iron Saturation 15 % N 15-55 Laboratory test 07/27/2018 [facility] Ferritin 46.0 ng/mL N 24 -336 finding [address] [place], [place] [id number] [phone] Vitamin B12 615 pg/mL N 180-914 3 LDH 189 U/L N 140-271 Protein 07/27/2018 [facility] Total 7.2 g/dL 6.3 - Electrophoresis [address] [facility] Protein(Pep) 7.9 [place], [place] [address] [phone] Albumin 3.2 g/dL Abnormal 3.4-4.7 Alpha-1 Globulin 0.3 g/dL 0.1-0.3 Alpha-2 Globulin 0.9 g/dL 0.6-1.0 Beta Globulin 1.0 g/dL 0.7-1.2 Gamma Globulin 1.9 g/dL Abnormal 0.6-1.6 Albumin/Globulin Ratio 0.78 Impression See Comment 4 Liver Function 07/03/2018 [facility] Total Protein 7.3 g/dL N 6.4-8.9 Panel [address] [place] [address] [phone] Albumin 3.8 g/dL N 3.2-5.2 Globulin 3.5 g/dL N 2-4 Albumin/Globulin Ratio 1.1 N 1-3 Total Bilirubin 0.60 mg/dL N 0.2-1.0 Direct Bilirubin 0.10 mg/dL N 0.03-0.18 Indirect Bilirubin 0.5 mg/dL N 0.3-1.0 Alkaline Phosphatase 83 U/L N 34-104 Alt 59 U/L High 7-52 Ast 53 U/L High 13-39 Basic Metabolic Panel 03/02/2018 [facility] Sodium 140 mmol/L N 135-[address] [place] [address] [phone] Potassium 3.7 mmol/L N 3.5-5.0 Chloride 104 mmol/L N 101-111 Co2 Carbon Dioxide 30 mmol/L N 22-32 Anion Gap 6 mmol/L N 2-11 Glucose 86 mg/dL N 70-100 Blood Urea Nitrogen 36 mg/dL High 6-24 Creatinine 1.25 mg/dL High 0.67-1.17 BUN/Creatinine Ratio 28.8 High 8-20 Calcium 9.1 mg/dL N 8.6-10.3 Egfr Non- 57.1 >60 Egfr 69.1 >60 5 Throat-Beta 08/25/2010 [facility] Throat-Beta NF [address] Strep [place] [address] [phone] Lipid Profile 10/06/2007 [facility] Cholesterol/HDL 5.50 AVERAGE High 1-4. 7 (Trig/Chol/HDL) [address] Ratio 97 [place] [address] [phone] Cholesterol 187 mg/dL Less Than 200 8 Triglyceride 214 mg/dL High 40-200 High Density Lipoprotein 34 mg/dL Low 40-60 9 Low Density Lipoprotein 110 mg/dL High Less Than 100 10 Basic Metabolic 10/06/2007 [facility] One Over Creatinine 0.[address] [place] [address] [phone] Anion Gap 5.0 mmol/L 2-11 11 BUN 23 mg/dL 6-24 Calcium 8.8 mg/dL 8.7-10.2 Chloride 106 mmol/L 101-111 Co2 (Carbon Dioxide) 28.0 mmol/L 22-32 Glucose 104 mg/dL 70-105 Potassium 3.9 mmol/L 3.5-5.0 Sodium 139 mmol/L 135-145 BUN/Creatinine Ratio 19.2 8-20 Creatinine 1.2 mg/dL 0.5-1.4 Liver Function 10/06/2007 [facility] Albumin/Globulin Ratio 1.2 1-[address] [place] [address] [phone] Albumin 3.9 GM/DL 3.2-5.2 Alkaline Phosphatase 72 U/L 39-117 Alt (SGPT) 25 U/L 17-63 Ast (Sgot) 29 U/L 12-42 Bilirubin Direct 0.1 mg/dL 0.1-0.5 Globulin 3.2 GM/DL 2-4 Indirect Bilirubin 0.7 mg/dL 0.1-0.75 Bilirubin Total 0.8 mg/dL 0.4-1.5 Total Protein 7.1 GM/DL 6.2-8.1 Laboratory test 10/06/2007 [facility] CPK (Creatine 299 U/L High 0-[address] Kinase) [place] [address] [phone] Basic Metabolic 07/01/2007 [facility] One Over 0.[address] [place] [address] [phone] Anion Gap 4.0 mmol/L 2-11 12 BUN 20 mg/dL 6-24 Calcium 8.3 mg/dL Low 8.7-10.2 Chloride 104 mmol/L 101-111 Co2 (Carbon Dioxide) 28.0 mmol/L 22-32 Glucose 97 mg/dL 70-105 Potassium 4.0 mmol/L 3.5-5.0 Sodium 136 mmol/L 135-145 BUN/Creatinine Ratio 15.4 8-20 Creatinine 1.3 mg/dL 0.5-1.4 Laboratory test 07/01/2007 [facility] PSA Screening 2.26 NG/ML 0-4 [address] [place] [address] [phone] Lipid Profile 07/01/2007 [facility] Cholesterol/HD 5.56 High 1 -4.97 (Trig/Chol/HDL) [address] L Ratio [place] [address] [phone] Cholesterol 200 mg/dL Less Than 200 14 Triglyceride 229 mg/dL High 40-200 High Density Lipoprotein 36 mg/dL Low 40-60 15 Low Density Lipoprotein 118 mg/dL High Less Than 100 16 1 SEE RESULT BELOW Name: CAT LANDERSISAIAH Quinonez : [address]: Fred Jones MD Acct: [id number] Unit: [id number] AGE: 73 Location: ENDO Re08/25/18 SEX: M Status: REG REF SPEC: [id number] YANETH: 08/25/18-[address]: Fred Jones MD REQ: [id number] RECD: 08/25/18 STATUS: ISABELL KNIGHT DR: Michael Webster MD _ S[facility]: Clotest Procedure Result Reported Site Clotest Final 08/26/18- 743 ML Clotest Negative * ML - Main Lab . END OF REPORT DEPARTMENT OF PATHOLOGY, [address] [place] [address] Emmett Wu M.D. 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 normal limitsPATIENT MAY HAVE RESULTS PER DOCTOR'S AUTHORIZATION. Questions regarding this report should be directed to your doctor. 8 Classification: Desirable . 9 Classification: Low . 10 CALCULATED LDL APPROXIMATES THE VALUE OF A DIRECT LDL MEASUREMENT. Classification: Near or above optimal . 11 Anion gap measurement may be of limited value in the presence of any alkalosis, especially in a combined acid base disorder. . 12 Anion gap measurement may be of limited value in the presence of any alkalosis, especially in a combined acid base disorder. . 13 * SERUM LEVELS OF PSA MEASURED USING THE [employer] ACCESS HYBRITECH IMMUNOASSAY SHOULD NOT BE INTERPRETED ABSOLUTE EVIDENCE OF THE PRESENCE OR ABSENCE OF DISEASE. THE PSA VALUE SHOULD BE USED IN CONJUNCTION WITH OTHER PERTINENT CLINICAL DIAGNOSTIC PROCEDURES. 14 Classification: Borderline High . 15 Classification: Low . 16 CALCULATED LDL APPROXIMATES THE VALUE OF A DIRECT LDL MEASUREMENT. Classification: Near or above optimal . Procedures Date Code Description Status 04/15/2018 21094 Nerve Conduction - Studies Completed 04/15/2018 57232 Needle Electromyography Each Extremity W/Related Completed Paraspinal Areas 04/15/2018 76332 ECHO Transthorasic Realtime 2D W Doppler & Color Flow Completed Hosp 02/13/2018 93316 EKG Tracing & Interpretation Completed 09/05/2017 [id number] Colonoscopy Completed 09/04/2017 [id number] Colonoscopy Completed 01/23/2016 29285 ECHO Transthorasic Realtime 2D W Doppler & Color Flow Completed Hosp 12/16/2003 [id number] Colonoscopy Completed Encounters Type Date Location Provider Dx Diagnosis Office Visit 07/03/[address] [facility] Gastroenterology Vinita Lozano NP R94.5 Abnormal results 2:45p of liver function studies Z86.010 Personal history of colonic polyps K57.93 Dvtrcli of intest, part unsp, w/o perf or abscess w bleeding D64.9 Anemia, unspecified Office Visit 04/21/2018 2:47p [facility] R53.1 [facility], Hospitalists ASHLEY Goff N18.2 Chronic kidney disease, stage 2 (mild) R74.0 Nonspec elev of levels of transamns & lactic acid dehydrgnse Z86.79 Personal history of other diseases of the circulatory system Z86.73 Prsnl hx of TIA (TIA), and cereb infrc w/o resid deficits Office Visit 04/20/[address] [facility] Gastroenterology Fred Burgos M62.82 Rhabdomyolysis 7:00a MD Robert R94.5 Abnormal results of liver function studies Office Visit 04/20/2018 2:46p [facility] R53.1 [facility]ness [facility]oc, Hospitalists ASHLEY Goff R74.8 Abnormal levels of other serum enzymes N18.2 Chronic kidney disease, stage 2 (mild) R94.5 Abnormal results of liver function studies I10 Essential (primary) hypertension R60.9 Edema, unspecified Z86.73 Prsnl hx of TIA (TIA), and cereb infrc w/o resid deficits Office Visit 04/19/[address] [facility] Gastroenterology Fred Burgos M62.82 Rhabdomyolysis 7:00a MD Robert D64.9 Anemia, unspecified R94.5 Abnormal results of liver function studies Office Visit 04/19/2018 2:46p [facility] R53.1 Weakness [facility] Hospitaldonal Goff NP R74.8 Abnormal levels of other serum enzymes N18.2 Chronic kidney disease, stage 2 (mild) R94.5 Abnormal results of liver function studies I10 Essential (primary) hypertension R60.9 Edema, unspecified Z86.73 Prsnl hx of TIA (TIA), and cereb infrc w/o resid deficits Office Visit 04/18/[address] 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 R74.8 Abnormal levels of other serum enzymes N18.2 Chronic kidney disease, stage 2 (mild) R94.5 Abnormal results of liver function studies I10 Essential (primary) hypertension Z86.73 Prsnl hx of TIA (TIA), and cereb infrc w/o resid deficits Office 04/16/2018 [facility] Valdo Ferguson I67.9 Cerebrovascular Visit 7:00a Clinic Jose Patel disease, unspecified M62.81 Muscle weakness (generalized) R74.8 Abnormal levels of other serum enzymes Office Visit 04/16/2018 2:43p [facility], R53.1 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 (generalized) R74.8 Abnormal levels of other serum enzymes G62.9 Polyneuropathy, unspecified Office Visit 04/15/2018 2:42p [facility] Red Lockett R74.8 Abnormal Assoc, MD Edy levels of Hospitalists other serum enzymes R94.5 Abnormal results of liver function studies I10 Essential (primary) hypertension N18.2 Chronic kidney disease, stage 2 (mild) Office Visit 04/14/2018 2:42p [facility] Marci Skinner, R53.1 Weakness Assoc, Brea Garcia R74.0 Nonspec elev of levels of transamns & lactic acid dehydrgnse I10 Essential (primary) hypertension N18.2 Chronic kidney disease, stage 2 (mild) E87.6 Hypokalemia Office Visit 03/16/2018 2:40p [facility] Wayne Ferguson I11.9 Hypertensive heart Of Brushing Machine Operator Estes, DO disease without FACC heart failure I10 Essential (primary) hypertension N18.9 Chronic kidney disease, unspecified G47.30 Sleep apnea, unspecified I35.0 Nonrheumatic aortic (valve) stenosis Office Visit 02/13/2018 9:00a [facility] Wayne SChristin N18.9 Chronic kidney Of Brushing Machine Operator Estes, DO disease, FAC unspecified G47.30 Sleep apnea, unspecified I12.9 Hypertensive chronic kidney disease w stg 1-4/unsp chr kdny E66.8 Other obesity I27.20 Pulmonary hypertension, unspecified I11.9 Hypertensive heart disease without heart failure Z91.14 Patient's other noncompliance with medication regimen R60.0 Localized edema I35.0 Nonrheumatic aortic (valve) stenosis Office Visit 10/04/2014 12:57p Wound Care Valdo [place]span[place] 707.19 Ulcer Of Other Center AT [facility] Jose Gomez Part Of Lower Limb Office Visit 07/28/2009 9:20a DO Not Use Brushing Machine Operator Stephen Delatorre 401.1 Hypertension AT Andrae Mercer M.D.,[facility] Benign 493.00 Asthma Extrinsic Unspecified Office Visit 04/12/2009 2:00p DO Not Use Brushing Machine Operator Stephen Delatorre V70.0 Examination AT Andrae Mercer M.D.,[facility] General Medical Routine AT Health Care Facility 493.00 Asthma Extrinsic Unspecified 272.2 Hyperlipidemia Mixed 401.1 Hypertension Benign V76.51 Special Screening For Malignant Neoplasms Colon 607.84 Impotence Organic Origin Office Visit 10/06/2007 8:40a DO Not Use Brushing Machine Operator Stephen Delatorre V70.0 Examination AT Andrae Mercer M.D.,[facility] General Medical Routine AT Health Care Facility 272.2 Hyperlipidemia Mixed 493.00 Asthma Extrinsic Unspecified Office Visit 07/08/2007 8:30a DO Not Use Brushing Machine Operator Stephen Delatorre 493.00 Asthma Extrinsic AT Andrae Mercer M.D.,[facility] Unspecified 272.4 Hyperlipidemia Other Unspec 401.1 Hypertension Benign 327.21 Primary Central Sleep Apnea 691.8 Dermatitis Atopic & Related Conditions Other Plan of Treatment No Information Available
--- NOTE | 2018-08-28 21:20 | ED ---
Neurological HPI - HPI Summary HPI Summary: A 73 y/o male brought in by ambulance presents to the ED c/o weakness. Patient denies any abdominal pain or pain whatsoever. In the ED room, the patient has a pulse of 66 BPM, O2 saturation of 95%, and blood pressure of 145/86. According to the patient's , the patient could not walk from the bathroom to the bedroom around 1800 today. She stated that the patient called for her as he was holding himself up on the door. She could not carry him so they went down to the floor. The patient attempted to get on the bed by himself but could not. Initially EMS was not called, but after some time, they decided to call. Patient never was able to get on the bed. Patient uses a walker to ambulance. 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 Since the CVA the patient was ambulating fine up to today. Patient's bleeding from rectum resolved. PMHx of recent colonoscopy. - History of Current Complaint Chief Complaint: EDWeakness Stated Complaint: POSS STROKE Time Seen by Provider: 08/28/18 20:54 Hx Obtained From: Patient, Family/Assistant Press Operator Onset/Duration: Sudden Onset, Started hours ago Timing: Constant Current Severity: None Number of Seizures: 0 Pain Intensity: 0 Pain Scale Used: 0-10 Numeric Character: Weak Aggravating: Nothing Alleviating: Nothing Associated Signs and Symptoms: Positive: Weakness - Additional Pertinent History Primary Care Physician: [id number] - Allergy/Home Medications Allergies/Adverse Reactions: Allergies Allergy/AdvReac Type Severity Reaction Status Date / Time erythromycin base AdvReac Diarrhea Verified 08/26/18 00:57 PMH/Surg Hx/FS Hx/Imm Hx Endocrine/Hematology History: Denies: Hx Anticoagulant Therapy, Hx Anemia, Hx Unexplained Bleeding Cardiovascular History: Denies: Hx Aneurysm, Hx Angina, Hx Angioplasty, Hx Auto Implanted Cardiovert Defib, Hx Cardiac Arrest, Hx Cardiomegaly, Hx Congenital Heart Disease, Hx Congestive Heart Failure, Hx Coronary Artery Disease, Hx Deep Vein Thrombosis, Hx Embolism, Hx Hypercholesterolemia, Hx Hypotension, Hx Hypertension, Hx Myocardial Infarction, Hx Pacemaker/ICD, Hx Peripheral Vascular Disease, Hx Rheumatic Fever, Hx Syncope, Hx Valvular Heart Disease Respiratory History: Reports: Hx Asthma Denies: Hx Chronic Bronchitis, Hx Chronic Obstructive Pulmonary Disease (COPD ), Hx Cystic Fibrosis, Hx Lung Cancer, Hx Pleural Effusion, Hx Pneumonia, Hx Pulmonary Edema, Hx Pulmonary Embolism, Hx Seasonal Allergies, Hx Sleep Apnea, Other Respiratory Problems/Disorders GI History: Reports: Hx Diverticulosis, Other GI Disorders - hemorrhoid Denies: Hx Cirrhosis, Hx Crohn's Disease, Hx Gall Bladder Disease, Hx Gastroesophageal Reflux Disease, Hx Gastrointestinal Bleed, Hx Hiatal Hernia, Hx Irritable Bowel, Hx Jaundice, Hx Ileostomy, Hx Pyloric Stenosis, Hx Ulcer History: Reports: Hx Chronic Renal Failure - stage 2-3 Sensory History: Reports: Hx Contacts or Glasses Denies: Hx Cataracts, Hx Eye Injury, Hx Eye Prosthesis, Hx Legally Blind, Hx Macular Degeneration, Hx Vision Problem, Hx Deafness, Hx Hearing Aid, Hx Hearing Problem Opthamlomology History: Reports: Hx Contacts or Glasses Denies: Hx Cataracts, Hx Eye Injury, Hx Eye Prosthesis, Hx Legally Blind, Hx Macular Degeneration, Hx Vision Problem Neurological History: Denies: Hx Dementia, Hx Developmental Delay, Hx Headaches, Hx Migraine, Hx Nerve Disease, Hx Seizures, Hx Spinal Cord Injury, Hx Transient Ischemic Attacks (TIA), Other Neuro Impairments/Disorders Psychiatric History: Denies: Hx Panic Disorder - Surgical History Surgery Procedure, Year, and Place: diverticulitis surgeries - Immunization History Date of Tetanus Vaccine: 2012 Date of Influenza Vaccine: unk Infectious Disease History: No Infectious Disease History: Denies: Hx Clostridium Difficile, Hx Hepatitis, Hx Human Immunodeficiency Virus (HIV), Hx of Known/Suspected MRSA, Hx Shingles, Hx Tuberculosis, Hx Known/ Suspected VRE, Hx Known/Suspected VRSA, History Other Infectious Disease, Traveled Outside the [place] in Last 30 Days - Family History Known Family History: Positive: Hypertension, Diabetes - Social History Alcohol Use: None Substance Use Type: Reports: None Smoking Status (MU): Former Smoker Have You Smoked in the Last Year: No Review of Systems Negative: Fever Negative: Abdominal Pain Positive: Weakness All Other Systems Reviewed And Are Negative: Yes Physical Exam - Summary Physical Exam Summary: VITAL SIGNS: Reviewed. GENERAL: Patient is a well-developed and nourished male who is lying comfortable in the stretcher. Patient is not in any acute respiratory distress. HEAD AND FACE: No signs of trauma. No ecchymosis, hematomas or skull depressions. No sinus tenderness. EYES: PERRLA, EOMI x 2, No injected conjunctiva, no nystagmus. EARS: Hearing grossly intact. Ear canals and tympanic membranes are within normal limits. MOUTH: Oropharynx within normal limits. NECK: Supple, trachea is midline, no adenopathy, no JVD, no carotid bruit, no c- spine tenderness, neck with full ROM. CHEST: Symmetric, no tenderness at palpation LUNGS: Clear to auscultation bilaterally. No wheezing or crackles. CVS: Regular rate and rhythm, S1 and S2 present, no murmurs or gallops appreciated. ABDOMEN: Soft, non-tender. No signs of distention. No rebound no guarding, and no masses palpated. Bowel sounds are normal. EXTREMITIES: FROM in all major joints, no cyanosis or clubbing. Bilateral edema NEURO: Alert and oriented x 3. No acute neurological deficits. Speech is normal and follows commands. Right hand ecstatic tremor SKIN: Dry and warm Triage Information Reviewed: Yes Vital Signs On Initial Exam: Initial Vitals Temp Pulse Resp BP Pulse Ox 98.3 F 84 18 145/86 95 08/28/18 20:50 08/28/18 20:50 08/28/18 20:50 08/28/18 20:50 08/28/18 20:50 Vital Signs Reviewed: Yes Diagnostics - Vital Signs Vital Signs Temp Pulse Resp BP Pulse Ox 08/28/18 20:51 70 145/86 97 08/28/18 20:50 98.3 F 70 18 145/86 94 - Laboratory Result Diagrams: 08/28/18 20:31 08/28/18 20:31 Lab Statement: Any lab studies that have been ordered have been reviewed, and results considered in the medical decision making process. - Radiology CXR Radiology Interpretation Completed By: ED Physician Summary of Radiographic Findings: NO ACUTE PROCESS. PENDING OFFICIAL REPORT. - EKG 2133 Cardiac Rate: NL - 71 BPM EKG Rhythm: Sinus Rhythm - 71 BPM Summary of EKG Findings: Normal axis. Normal interval. No ischemic changes Re-Evaluation - Re-Evaluation First Eval Re-Evaluation Time: 21:13 Change: Unchanged Comment: Patient ambulated with walker around the ED with no problems. Very good and fast pace. Course/Dx - Course Course Of Treatment: A 73 y/o male brought in by ambulance presents to the ED c/ o weakness. Patient denies any abdominal pain or pain whatsoever. Physical examination finding significant for Right hand ecstatic tremor and bilateral edema. A CXR revealed no acute process. An EKG revealed NSR of 71 BPM, normal axis, normal interval, no ischemic changes. No significant laboratory abnormalities were found. In the ED course, the patient received Klor-Con Liquid and IV fluids. Patient care was discussed with hospitalist, Dr. Qiana Ponce, who accepts patient for admission. Patient will be admitted with a diagnosis of acute entropic renal insufficiency and weakness. Patient is agreeable with this plan. - Diagnoses Provider Diagnoses: Weakness, Acute renal insufficiency - Physician Notifications Discussed Care Of Patient With: Qiana Ponce Time Discussed With Above Provider: 21:58 Instructed by Provider To: Other - Accepts patient for admission. Discharge - Sign-Out/Discharge Documenting (check all that apply): Patient Departure - ADMIT, Sign-Out Patient - YOANDY Signing out patient TO: Qiana Ponce Receiving patient FROM: Augustus King - Discharge Plan Condition: Stable Disposition: ADMITTED TO [facility] Referrals: Michael Webster MD [Primary Care Provider] - - Attestation Statements Document Initiated by Scribe: Yes Documenting Scribe: Satnam Monteiro Provider For Whom Scribe is Documenting (Include Credential): Augustus King MD Scribe Attestation: Satnam Smith, scribed for Augustus King MD on 08/28/18 at 2200. Status of Scribe Document: Ready
[2018-08-28 21:31] LABS: ABS Basophils 0.1 10^3/ul (0-0.2); ABS Eosinophils 0.2 10^3/ul (0-0.6); ABS Lymphocytes 0.5 10^3/ul (1.0-4.8); ABS Monocytes 0.9 10^3/ul (0-0.8); ABS Neutrophils 8.9 10^3/ul (1.5-7.7); ABS Nucleated RBC 0 10^3/ul; Eosinophil % 2.3 %; Hematocrit 37 % (42-52); Hemoglobin 12.5 g/dl (14.0-18.0); Lymphocyte % 4.7 %; Mean Corpuscular HGB Conc 34 g/dl (31-36); Mean Corpuscular Hemoglobin 30 pg (27-31); Mean Corpuscular Volume 89 fL (80-94); Nucleated Red Blood Cells % 0.1; Platelet Count 203 10^3/ul (150-450); Red Blood Count 4.15 10^6/ul (4.00-5.40); Red Cell Distribution Width 14 % (10.5-15); White Blood Count 10.6 10^3/ul (3.5-10.8)
[2018-08-28 21:38] LABS: Activated Partial Thrombo Time 32.7 seconds (26.0-36.3); INR 0.97 (0.77-1.02)
[2018-08-28 21:47] LABS: Albumin 3.9 g/dL (3.2-5.2); BUN/Creatinine Ratio 16.3 (8-20); Calcium 9.3 mg/dL (8.6-10.3); EGFR Non-African American 12.8 (>60); Globulin 3.8 g/dL (2-4); Magnesium 2.5 mg/dL (1.9-2.7); Potassium 3.1 mmol/L (3.5-5.0); Total Bilirubin 0.8 mg/dL (0.2-1.0); Total Protein 7.7 g/dL (6.4-8.9)
[2018-08-28] MEDS ORDERED: NS 0.9% 1000 ML* 1,000 ML IV ONE (21:54)
[2018-08-28] MEDS ORDERED: Potassium Chloride LIQUID* 20 MEQ PACKET PO ONE (21:54)
[2018-08-28 22:05] LABS: Urine Appearance Turbid; Urine Bacteria Absent (Absent); Urine Bilirubin Negative (Negative); Urine Blood 2+ (Negative); Urine Color Yellow; Urine Glucose Negative (Negative); Urine Ketones Negative (Negative); Urine Nitrite Negative (Negative); Urine Protein 1+(30 mg/dL) (Negative); Urine Red Blood Cell 3+(>10/hpf) (Absent); Urine Specific Gravity 1.012 (1.010-1.030); Urine Transitional Epithelial Present (Absent); Urine Urobilinogen Negative (Negative); Urine White Blood Cell 3+(>20/hpf) (Absent)
[2018-08-28 22:09] LABS: TSH (Thyroid Stimulating Horm) 0.96 mcIU/mL (0.34-5.60)
[2018-08-28 22:51] LABS: Urine Creatinine Concentration 174.04 mg/dL
[2018-08-29] MEDS: NS 0.9% 1000 ML* 1,000 ML IV SCH ×3 (00:10→17:51)
[2018-08-29] MEDS: Metoprolol Succinate XL TAB* 100 MG PO SCH (07:38)
[2018-08-29] MEDS: Tamsulosin CAP* 0.4 MG PO SCH (07:39)
[2018-08-29 09:24] LABS: BUN/Creatinine Ratio 18.9 (8-20); Calcium 8.7 mg/dL (8.6-10.3); EGFR Non-African American 16.2 (>60); Potassium 2.8 mmol/L (3.5-5.0)
[2018-08-29] MEDS ORDERED: Potassium Chlor TAB* 20 MEQ TAB.ER PO ONE ×3 (09:30→14:00)
[2018-08-29 09:31] LABS: Hematocrit 32 % (42-52); Hemoglobin 10.8 g/dl (14.0-18.0); Mean Corpuscular HGB Conc 34 g/dl (31-36); Mean Corpuscular Hemoglobin 30 pg (27-31); Mean Corpuscular Volume 90 fL (80-94); Mean Platelet Volume 8.5 fL (7.4-10.4); Platelet Count 176 10^3/ul (150-450); Red Blood Count 3.57 10^6/ul (4.00-5.40); Red Cell Distribution Width 14 % (10.5-15); White Blood Count 8.6 10^3/ul (3.5-10.8)
--- NOTE | 2018-08-29 11:13 | HP ---
CC: Dr. Webster * HISTORY AND PHYSICAL: DATE OF ADMISSION: 08/28/18 PRIMARY CARE PROVIDER: Dr. Webster. UROLOGIST: Dr. Cee. CHIEF COMPLAINT: Weakness. HISTORY OF PRESENT ILLNESS: Mr. Lopez is a 73-year-old male who was hospitalized from 08/26/18 through 08/26/18 where he was observed for rectal bleeding following colonoscopy and polypectomy. The patient's hemoglobin remained stable during the course of the hospitalization. He was discharged home on 08/26/18 in good condition. The patient and his both report that he had been in about his usual state up until approximately dinner time on the night of this admission when he was walking from the toilet out of the bathroom when he began to feel incredibly weak. He called for his . He subsequently began to fall and his with him slowly fell to the ground. At that point, 911 was called. There was concern for possible CVA due to his weakness, although there were no focal deficits. Of note, the patient on 08/25/18 was started on Protonix 40 mg twice daily due to an EGD showing moderate hiatal hernia with erosion of the gastroesophageal junction as well as gastritis and duodenitis. The patient reports no other concerning issues. He states that his amount of urination and frequency of urination has remained fairly stable. He had no other complaints over the last 2 days. PAST MEDICAL HISTORY: 1. Chronic anemia. 2. Diverticulosis. 3. GERD. 4. Asthma. 5. 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 6. Moderate to severe pulmonary hypertension. 7. Stage III chronic kidney disease. 8. Episode of rhabdomyolysis and LFT abnormalities in the setting of Nepali herbal supplements. 9. Lymphedema. MEDICATIONS: 1. Protonix 40 mg p.o. b.i.d. 2. Psyllium husk 1 mg p.o. daily. 3. Flomax 0.4 mg p.o. daily. 4. Metoprolol XL 100 mg p.o. daily. 5. Chlorthalidone 25 mg p.o. daily. ALLERGIES: ERYTHROMYCIN. FAMILY HISTORY: Mom was . She had a history of RA and coronary disease. Dad also is . He had a history of diabetes and depression. SOCIAL HISTORY: The patient is a remote short-time smoker of only 3 years. Denies any alcohol use. He is retired from [employer]. He is . His is his healthcare proxy. REVIEW OF SYSTEMS: A complete 11-systems review of systems was obtained. Pertinent positives and negatives are as per HPI, and otherwise negative. PHYSICAL EXAMINATION GENERAL: The patient is a well-developed elderly male seen sitting up in the stretcher, in no acute distress. VITAL SIGNS: Blood pressure 129/85, pulse 76, respirations 18, temp 98.3, O2 sat 96% on room air. HEENT: Pupils are equal and round. Extraocular muscles are intact. Oropharynx is clear. Oral mucosa is moist. There is no submandibular, cervical , or supraclavicular adenopathy. Thyroid is not enlarged. No thyroid nodules are noted. PULMONARY: Lungs are clear to auscultation bilaterally. CARDIAC: Normal S1 and S2. Regular rate and rhythm. I do not appreciate any murmurs. There is trace bilateral lower extremity pitting edema. ABDOMEN: Bowel sounds present. Abdomen is soft, nontender, and nondistended. MUSCULOSKELETAL: There is no cyanosis or clubbing of the digits. There is full active range of motion of all 4 extremities. SKIN: Warm and dry. There are no rashes. The patient's face is flushed. NEUROLOGIC: Cranial nerves II through XII are grossly intact. Sensation is intact to light touch throughout. Strength is 5/5 and symmetric in both upper and lower extremities bilaterally. PSYCH: The patient is alert. He is oriented x3. Affect appears appropriate. DIAGNOSTIC STUDIES/LAB DATA: WBC 10.6, hemoglobin 12.5, hematocrit 37, platelets 203. INR is 0.97. Sodium 139, potassium 3.1, chloride 103, CO2 of 25 , BUN 74, creatinine 4.55, glucose 117. Lactic acid 0.7. Calcium 9.3. Magnesium 2.5. Bilirubin 0.8. AST 24, ALT 20, alk phos 69. CPK 321. Albumin 3.9. TSH 0.96. Urinalysis revealed turbid yellow urine with specific gravity of 1.012, 1+ protein, 2+ blood, 3+ leukocyte esterase, 3+ wbc's, 3+ rbc's. Urine creatinine 174.04. Urine sodium 37. Chest x-ray to my interpretation appears clear. EKG reveals normal sinus rhythm with a very poor baseline but no obvious ST-T wave abnormalities. There is a prolonged QT interval with QTC of 487. ASSESSMENT AND PLAN: Mr. Lopez is a 73-year-old male who was recently hospitalized under observation status for rectal bleeding following polypectomy and colonoscopy, who now presents to the emergency room with complaints of generalized weakness and fall, was found to be in acute renal failure. 1. Acute renal failure. Differential diagnosis at this time is broad. Prerenal source is a possibility, especially as the patient's FENa is 0.7%; however, clinically the patient appears to be euvolemic. A Begum catheter was inserted at my request in the emergency room. Over 1 L of urine was drained immediately from the bladder. A post renal obstruction could be contributing to his renal failure. My biggest suspicion is that this could represent acute interstitial nephritis as the patient was initiated on Protonix 40 mg twice daily on 08/25/18. A low or prerenal appearing FENa can be seen in early acute interstitial nephritis. I have ordered follow-up urine creatinine and urine sodium levels to be obtained tomorrow at noon. The BMP will be obtained tomorrow morning. Urine eosinophil smear has been requested. The patient's Protonix has since been discontinued. If the patient's creatinine does not dramatically improve tomorrow with decompression of the bladder, perhaps nephrology consultation should be requested. Also of note, the patient's chlorthalidone will be held. 2. Hypertension. We will continue metoprolol succinate 100 mg p.o. daily. 3. Past cerebrovascular accident. The patient's aspirin is on hold due to the rectal bleeding and gastritis/duodenitis identified on EGD on 08/25/18. 4. Hyperlipidemia. The patient is not on any medication for this. 5. Benign prostatic hypertrophy. Currently, the patient has a Begum catheter in place. We will continue his Flomax. 6. DVT prophylaxis. According to the Adult Thrombosis Prophylaxis Risk Factor Assessment Guide, the patient has a total risk factor score of 4 making him high risk. SCDs alone will be utilized as DVT prophylaxis as the patient was recently here with lower GI bleeding. 7. Code status is DNR. TIME SPENT: Sixty five minutes was spent admitting this patient. [id number]/[facility] [place] #: [id number] RANDELL
--- NOTE | 2018-08-29 12:48 | PN ---
Objective Active Medications: Acetaminophen (Tylenol Tab*) 650 mg PO Q4H PRN PRN Reason: PAIN Sodium Chloride (Ns 0.9% 1000 Ml*) 1,000 mls @ 125 mls/hr IV PER RATE [facility] Last Admin: 08/29/18 07:42 Dose: 125 mls/hr Metoprolol Succinate (Toprol Xl Tab*) 100 mg PO DAILY [facility] Last Admin: 08/29/18 07:38 Dose: 100 mg Tamsulosin HCl (Flomax Cap*) 0.4 mg PO DAILY [facility] Last Admin: 08/29/18 07:39 Dose: 0.4 mg Vital Signs - 8 hr 08/29/18 08/29/18 08/29/18 04:03 07:21 07:45 Temperature 97.4 F 99.3 F Pulse Rate 76 73 Respiratory 17 16 17 Rate Blood Pressure 149/77 145/80 (mmHg) O2 Sat by Pulse 96 96 Oximetry Oxygen Devices in Use Now: None Result Diagrams: 08/29/18 08:44 08/29/18 08:44 Assess/Plan/Problems-Billing Assessment: - Patient Problems (1) Acute kidney injury Current Visit: Yes Status: Acute Code(s): N17.9 - ACUTE KIDNEY FAILURE, UNSPECIFIED SNOMED Code(s): 02643598 Comment: Acute on chronic kidney injury. could be due to retention vs. AIN. FeNa 0.7% Has improved, will get a renal ultrasound AIN vs. urinary retention Continue IV fluids. (2) Hypokalemia Current Visit: Yes Status: Acute Code(s): E87.6 - HYPOKALEMIA SNOMED Code( s): 96876940 Comment: accidentally ordered one time 40meq for now x 2- Discussed with pharmacy to cancel one of them as the computer system is not allowing me to cancel the order, the pharmacist says she cannot do it as the computer system is down with that. So I discussed this with the nurse, who will only give 40meQ now and disregard the second order. (3) History of GI bleed Current Visit: Yes Status: Acute Code(s): Z87.19 - PERSONAL HISTORY OF OTHER DISEASES OF THE DIGESTIVE SYSTEM SNOMED Code(s): 789953557 Comment: recent GI bleed, PPI has been held due to TESHA will monitor for now. (4) HTN (hypertension) Current Visit: No Status: Acute Code(s): I10 - ESSENTIAL (PRIMARY) HYPERTENSION SNOMED Code(s): 74220997 Comment: Continue home dose metoprolol (5) History of CVA (cerebrovascular accident) Current Visit: No Status: Acute Code(s): Z86.73 - PRSNL HX OF TIA (TIA), AND CEREB INFRC W/O RESID DEFICITS SNOMED Code(s): 887013623 (6) DVT prophylaxis Current Visit: No Status: Acute Code(s): IWX4222 - SNOMED Code(s): 578505680 Comment: SCD, no chemical prophylaxis due to recent GI bleed
--- NOTE | 2018-08-29 14:48 | PN ---
Hospitalist Progress Note Date of Service: 08/29/18 U/S showed 5 cm kidney stone on the left side. I called to get in touch w/ economic historian urologist, but we do not have a urologist economic historian today. I spoke to the patient regarding this and offer calling other hospitals to get their urologist and possible transfer. patient wanted to do [facility]. I spoke to the transfer center, and Dr. Santacruz-urologist economic historian at [facility], discussed the case, because of no hydronephrosis she felt that this was not a urgent thing, recommend continued follow up, CT scan, and no need for transfer.
--- NOTE | 2018-08-29 17:39 | CONS ---
GASTROENTEROLOGY CONSULT: DATE: 08/29/18 CONSULTING PHYSICIANS: Qiana Brian REASON FOR CONSULTATION: Complicated situation with recent diagnoses of peptic esophagitis and duodenitis and low volume rectal bleeding from rectal polypectomy now with renal failure HISTORY: This 73-year-old man is followed for hypertension, cerebrovascular disease / cognitive impairment, dyslipidemia, sleep apnea, and chronic kidney disease and also aortic sclerosis. Four days ago, he underwent colonoscopy to remove a large hepatic flexure polyp and another pedunculated polyp in the rectum that had been noted during a colonoscopy at [facility] in August 2017 when he had had an acute GI bleeding attributed to diverticulosis. The bleeding had stopped spontaneously. He had an interventional radiology arteriogram but no therapy was employed as no bleeding could be demonstrated during that study. The presence of the polyps, however, was kept on his active problem list and after he appeared to be stable, he had an enhanced prep (extensive constipation ) on 08/24/18. Procedures the next day, 08/25/18, showed extensive antral gastritis with scarring and multiple small large erosions or small ulcers in the duodenum without any active bleeding and his use of ASA 325 revealed (not on many lists) . He also had a moderate hiatal hernia and some focal esophagitis. Colonoscopy showed 2 larger polyps removed with cautery and a smaller polyp in the rectum was removed and non electrified as it was small. He appeared euvolemic. The prep was suboptimal. He appeared to tolerate the exams well. He was sent home with advice to obtain omeprazole 20 mg [id number] and discuss findings a few days later in followup. His did obtain the omeprazole and he had 1 dose in the afternoon on 08/25/18. That evening, however, he had some bleeding, bright red per rectum (probably from the cold snared small polyp). He came to the emergency room where his hemoglobin was 13.9 at 1:30 a.m. BUN 31, creatinine 1.61. Postpolypectomy bleed was suspected and he was admitted and observed. Later that afternoon, he was discharged home off of his adult aspirin and on pantoprazole 40 mg b.i.d. He had received couple of doses of pantoprazole while hospitalized. He did take a couple of doses at home. Two days postdischarge, yesterday evening, he felt weak and fell at home. For an hour and a half to 2 hours, he insisted to his that he would be able to get up, but when he ultimately could not, she summoned the squad and he was brought in and labs at that time showed hemoglobin 12.5, BUN 74 and creatinine 4.55. With the renal failure of unknown etiology, Begum catheter is placed draining over a liter per report. He was not given any further PPI doses and hydration was started and 10 hours, later his creatinine is down to 3.71, BUN 70. Per his , he has never had any signs of an ulcer, peptic condition and or internal bleeding in the past. He has never had any lower gastrointestinal bleeding other than Friday evening. He has not had any bleeding since then. He characteristically has a good appetite and indeed today is asking for double portions for lunch. He denies any abdominal pain. PAST MEDICAL HISTORY: 1. Diverticulosis - history of major bleed in August 2017, cared for at [facility]. 2. Rhabdomyolysis - admission in March 2018. 3. History of abnormal LFTs - attributed to alternative medicine doses discontinued and resolution through fall 2017. 4. Dyslipidemia. 5. Hypertension. 6. Sleep apnea. 7. Status post cerebrovascular accidents. 8. Lymphedema. MEDICATIONS: At home Aspirin 325 Metoprolol 100 Chlorthalidone 25 Flomax 1 capsule Psyllium husk 1 a day. SOCIAL HISTORY: He lives with his and is retired from [employer]. He has a daughter living in [place]. Another daughter lives in [place] and is nurse. REVIEW OF SYSTEMS: No history of HI, AFib, arrhythmia, cardiac syncope, TB, hemoptysis, viral hepatitis, abdominal surgery, recent fracture. PHYSICAL EXAM: He is an obese, middle-aged man in bed with greasy skin and a few days growth in no overt distress. He is smiling and states he has no pain. Blood pressure is 120/67, pulse 63, afebrile. HEENT exam shows no icterus. He has no adenopathy. Lungs are clear. Heart sounds are regular. The abdomen is obese with normal bowel sounds, soft and there is no tenderness whatsoever. Rectal: Deferred. Extremities show intact popliteal pulses. There is 1+ edema at the ankles. LAB DATA: Hemoglobin 10.8, hematocrit 32, MCV 90, platelets 176. Sodium 140, potassium 2.8, BUN 70, creatinine 3.71. LFTs normal. Albumin 3.9. Most recent iron panel on 07/27/18 showed ferritin 46, saturation 15%, iron 61, TIBC 395. B12 615. IMPRESSION: This is a 73-year-old man who 4 days ago had sizable polyps removed from the hepatic flexure and rectum (benign) and severe antral gastritis. Post procedure a low dose PPI was to be started and ASA to continue. Then he was admitted briefly and yesterday he had a fall. Whether this is related to acute neurologic event is unclear though he appears at his baseline to me. He was off aspirin for a couple of days only. That was because of his rectal bleeding. It was probably a localized bleed from the second smaller rectal polyp. A threat of that at this point should be gone and he can be maintained on aspirin or any other treatment. The larger polypectomy was prophylaxed with a clip. His peptic lesions in the EG junction area and duodenum have never shown propensities for acute bleeding, although they probably did contribute to negative iron balance. Both lesions had never been treated with a PPI. Thus, it is likely he could get away with a standard starter dose of omeprazole at 20 mg. Once everything is clearer, it would seem probably useful to have him on omeprazole 20 mg while taking whatever aspirin dose is felt to be appropriate. While the deferential diagnosis for his renal insufficiency now is broad and includes concern about PPI treatment with just 2 or 3 days dosing, seems very unlikely that interstitial nephritis is contributing and he likely has mostly mechanical renal impairment. He does appear rather frail and passive, so dehydration from these multiple events may have contributed. [id number]/[facility] #: [id number] [facility]
[2018-08-29] MEDS: cefTRIAXone(*) 1 GM in NS 0.9% 50 ML* 50 ML IVPB SCH (20:25)
[2018-08-29] MEDS: Nystatin TOP POWDER* 15 GM BTL TOPICAL SCH (20:25)
[2018-08-29] MEDS: Acetaminophen TAB* 325 MG PO PRN (20:27)
[2018-08-30] MEDS: NS 0.9% 1000 ML* 1,000 ML IV SCH ×3 (02:49→20:07)
[2018-08-30] MEDS: Acetaminophen TAB* 325 MG PO PRN (06:05)
[2018-08-30 06:52] LABS: ABS Basophils 0 10^3/ul (0-0.2); ABS Eosinophils 0.4 10^3/ul (0-0.6); ABS Lymphocytes 0.6 10^3/ul (1.0-4.8); ABS Monocytes 1.2 10^3/ul (0-0.8); ABS Neutrophils 6.2 10^3/ul (1.5-7.7); ABS Nucleated RBC 0 10^3/ul; Eosinophil % 4.2 %; Hematocrit 32 % (42-52); Hemoglobin 10.6 g/dl (14.0-18.0); Lymphocyte % 7.4 %; Mean Corpuscular HGB Conc 34 g/dl (31-36); Mean Corpuscular Hemoglobin 30 pg (27-31); Mean Corpuscular Volume 89 fL (80-94); Mean Platelet Volume 8.4 fL (7.4-10.4); Nucleated Red Blood Cells % 0; Platelet Count 163 10^3/ul (150-450); Red Blood Count 3.55 10^6/ul (4.00-5.40); Red Cell Distribution Width 14 % (10.5-15); White Blood Count 8.4 10^3/ul (3.5-10.8)
[2018-08-30 07:06] LABS: Calcium 8.5 mg/dL (8.6-10.3); EGFR Non-African American 28.5 (>60); Magnesium 1.9 mg/dL (1.9-2.7); Phosphorus 2.9 mg/dL (2.5-5.0); Potassium 3.2 mmol/L (3.5-5.0)
[2018-08-30] MEDS ORDERED: Potassium Chlor TAB* 20 MEQ TAB.ER PO ONE ×2 (08:14→16:00)
[2018-08-30] MEDS: Tamsulosin CAP* 0.4 MG PO SCH (08:38)
[2018-08-30] MEDS: Metoprolol Succinate XL TAB* 100 MG PO SCH (08:38)
[2018-08-30] MEDS: Nystatin TOP POWDER* 15 GM BTL TOPICAL SCH ×2 (08:39→20:02)
[2018-08-30 11:15] LABS: Urine Creatinine Concentration 64.23 mg/dL
[2018-08-30 15:46] LABS: C Reactive Protein 159.43 mg/L (<8.01)
--- NOTE | 2018-08-30 17:21 | PN ---
Subjective Date of Service: 08/30/18 Interval History: Patient reports that he is feeling better today. denies fever or chills . denies abd pain n/v/d. denies chest pain or shortness of breath. Family History: Unchanged from Admission Social History: Unchanged from Admission Past Medical History: Unchanged from Admission Objective Active Medications: Acetaminophen (Tylenol Tab*) 650 mg PO Q4H PRN PRN Reason: PAIN Last Admin: 08/30/18 06:05 Dose: 650 mg Ceftriaxone Sodium 1 gm/ (Sodium Chloride) 50 mls @ 200 mls/hr IVPB Q24H [facility] Last Admin: 08/29/18 20:25 Dose: 200 mls/hr Sodium Chloride (Ns 0.9% 1000 Ml*) 1,000 mls @ 75 mls/hr IV PER RATE [facility] Metoprolol Succinate (Toprol Xl Tab*) 100 mg PO DAILY [facility] Last Admin: 08/30/18 08:38 Dose: 100 mg Nystatin (Nystatin Top Powder*) 1 applic TOPICAL BID [facility] Last Admin: 08/30/18 08:39 Dose: 1 applic Tamsulosin HCl (Flomax Cap*) 0.4 mg PO DAILY [facility] Last Admin: 08/30/18 08:38 Dose: 0.4 mg Vital Signs - 8 hr 08/30/18 08/30/18 11:31 16:08 Temperature 97.9 F 99.2 F Pulse Rate 66 69 Respiratory 16 16 Rate Blood Pressure 123/66 145/83 (mmHg) O2 Sat by Pulse 98 97 Oximetry Oxygen Devices in Use Now: None Appearance: alert resting in bed, well nourished male , no acute distress Eyes: No Scleral Icterus Ears/Nose/Mouth/Throat: Clear Oropharnyx, Mucous Membranes Moist Neck: NL Appearance and Movements; NL JVP, Trachea Midline Respiratory: Symmetrical Chest Expansion and Respiratory Effort, Clear to Auscultation Cardiovascular: NL Sounds; No Murmurs; No JVD, No Edema Abdominal: NL Sounds; No Tenderness; No Distention Extremities: No Edema, No Clubbing, Cyanosis Skin: No Rash or Ulcers Neurological: Alert and Oriented x 3 Nutrition: Taking PO's Result Diagrams: 08/30/18 06:04 08/31/18 05:41 Microbiology and Other Data: Microbiology 08/28/18 21:48 Urine Culture - Final Urine Assess/Plan/Problems-Billing Assessment: - Patient Problems (1) Acute kidney injury Current Visit: Yes Status: Acute Code(s): N17.9 - ACUTE KIDNEY FAILURE, UNSPECIFIED SNOMED Code(s): 44883177 Comment: Acute on chronic kidney injury. could be due to retention vs. AIN. FeNa 0.7% renal ultrasound- showed 5.1 cm calculi- consulted Dr. Nova - will see tomorrow AIN vs. urinary retention CT abd/ Pelvis showed mild hydronephrosis on the left - will continue antibiotics Continue IV fluids.- creatinine continues to improve- will repeat BMP tomorrow (2) History of GI bleed Current Visit: Yes Status: Acute Code(s): Z87.19 - PERSONAL HISTORY OF OTHER DISEASES OF THE DIGESTIVE SYSTEM SNOMED Code(s): 615513196 Comment: recent GI bleed, PPI has been held due to TESHA will monitor for now. (3) Hypokalemia Current Visit: Yes Status: Acute Code(s): E87.6 - HYPOKALEMIA SNOMED Code( s): 02040572 Comment: - K+ 3.2 will give total of 80 meq KCL today - repeat BMP in the AM (4) HTN (hypertension) Current Visit: No Status: Acute Code(s): I10 - ESSENTIAL (PRIMARY) HYPERTENSION SNOMED Code(s): 12412345 Comment: stable Continue home dose metoprolol (5) DVT prophylaxis Current Visit: No Status: Acute Code(s): VKG0419 - SNOMED Code(s): 327694875 Comment: SCD, no chemical prophylaxis due to recent GI bleed (6) DNR (do not resuscitate) Current Visit: No Status: Acute Status and Disposition: discharge home when medically stable
[2018-08-30] MEDS: cefTRIAXone(*) 1 GM in NS 0.9% 50 ML* 50 ML IVPB SCH (20:02)
[2018-08-31] MEDS: NS 0.9% 1000 ML* 1,000 ML IV SCH (05:44)
[2018-08-31 06:23] LABS: BUN/Creatinine Ratio 25.2 (8-20); Calcium 8.5 mg/dL (8.6-10.3); EGFR Non-African American 43.1 (>60); Potassium 3.2 mmol/L (3.5-5.0)
[2018-08-31] MEDS: Tamsulosin CAP* 0.4 MG PO SCH (07:16)
[2018-08-31] MEDS: Nystatin TOP POWDER* 15 GM BTL TOPICAL SCH ×2 (07:16→19:48)
[2018-08-31] MEDS: Metoprolol Succinate XL TAB* 100 MG PO SCH (07:16)
[2018-08-31] MEDS ORDERED: Potassium Chlor TAB* 20 MEQ TAB.ER PO ONE ×2 (07:34→16:46)
--- NOTE | 2018-08-31 16:45 | PN ---
Subjective Date of Service: 08/31/18 Interval History: Patient reports that he is continues to feel well. denies fever or chills . denies abd pain n/v/d. denies chest pain or shortness of breath. reports that he slept well last night. Seen by urology Family History: Unchanged from Admission Social History: Unchanged from Admission Past Medical History: Unchanged from Admission Objective Active Medications: Acetaminophen (Tylenol Tab*) 650 mg PO Q4H PRN PRN Reason: PAIN Last Admin: 08/30/18 06:05 Dose: 650 mg Ceftriaxone Sodium 1 gm/ (Sodium Chloride) 50 mls @ 200 mls/hr IVPB Q24H [facility] Last Admin: 08/30/18 20:02 Dose: 200 mls/hr Metoprolol Succinate (Toprol Xl Tab*) 100 mg PO DAILY [facility] Last Admin: 08/31/18 07:16 Dose: 100 mg Nystatin (Nystatin Top Powder*) 1 applic TOPICAL BID [facility] Last Admin: 08/31/18 07:16 Dose: 1 applic Tamsulosin HCl (Flomax Cap*) 0.4 mg PO DAILY [facility] Last Admin: 08/31/18 07:16 Dose: 0.4 mg Vital Signs - 8 hr 08/31/18 08/31/18 08/31/18 11:22 15:22 15:29 Temperature 99.1 F 98.6 F Pulse Rate 70 70 Respiratory 16 20 24 Rate Blood Pressure 135/68 149/78 (mmHg) O2 Sat by Pulse 98 97 Oximetry 08/31/18 15:36 Temperature Pulse Rate Respiratory 20 Rate Blood Pressure (mmHg) O2 Sat by Pulse Oximetry Oxygen Devices in Use Now: None Appearance: appears comfortable, resting in bed. Eyes: No Scleral Icterus Ears/Nose/Mouth/Throat: Clear Oropharnyx, Mucous Membranes Moist Neck: NL Appearance and Movements; NL JVP, Trachea Midline Respiratory: Symmetrical Chest Expansion and Respiratory Effort, Clear to Auscultation Cardiovascular: NL Sounds; No Murmurs; No JVD, No Edema Abdominal: NL Sounds; No Tenderness; No Distention Extremities: - - mild +1 pitting edema to bilat lower legs Skin: No Rash or Ulcers, - - brownish discoloration noted to bilat lower legs Neurological: Alert and Oriented x 3 Nutrition: Taking PO's Result Diagrams: 08/30/18 06:04 08/31/18 05:41 Microbiology and Other Data: Microbiology 08/28/18 21:48 Urine Culture - Final Urine Assess/Plan/Problems-Billing Assessment: - Patient Problems (1) Acute kidney injury Current Visit: Yes Status: Acute Code(s): N17.9 - ACUTE KIDNEY FAILURE, UNSPECIFIED SNOMED Code(s): 39894478 Comment: Acute on chronic kidney injury. could be due to retention vs. AIN. FeNa 0.7% renal ultrasound- showed 5.1 cm calculi- consulted Dr. Nova - seen today- will remove thompson and do post void bladder scan if patient- if low residual then thompson will remain out- if high resdiual then will replace thompson. - will need outpatient follow up for possible left renal staghorn calculi CT abd/ Pelvis showed mild hydronephrosis on the left - will continue antibiotics - will stop IVF patient is evolemic - noted to have bilat lower ext edema +1 - will repeat BMP in the AM (2) History of GI bleed Current Visit: Yes Status: Acute Code(s): Z87.19 - PERSONAL HISTORY OF OTHER DISEASES OF THE DIGESTIVE SYSTEM SNOMED Code(s): 999386536 Comment: recent GI bleed, PPI has been held due to TESHA will monitor for now. (3) Hypokalemia Current Visit: Yes Status: Acute Code(s): E87.6 - HYPOKALEMIA SNOMED Code( s): 42834622 Comment: - K+ 3.2 will give total of 80 meq KCL today - repeat BMP in the AM (4) HTN (hypertension) Current Visit: No Status: Acute Code(s): I10 - ESSENTIAL (PRIMARY) HYPERTENSION SNOMED Code(s): 29052366 Comment: stable Continue home dose metoprolol (5) DVT prophylaxis Current Visit: No Status: Acute Code(s): BPH7071 - SNOMED Code(s): 493024576 Comment: SCD, no chemical prophylaxis due to recent GI bleed (6) DNR (do not resuscitate) Current Visit: No Status: Acute Status and Disposition: discharge home when medically stable , possible tomorrow
[2018-08-31] MEDS: cefTRIAXone(*) 1 GM in NS 0.9% 50 ML* 50 ML IVPB SCH (19:48)
--- NOTE | 2018-08-31 20:12 | CONS ---
CONSULTATION REPORT: DATE OF CONSULT: 08/31/18 LOCATION: The patient is on the 4th floor. HISTORY OF PRESENT ILLNESS: I was asked by the hospitalist service to see this 73- year-old white male because of a recent episode of urinary retention, elevated serum creatinine and a large left renal calculus. Mr. Lopez had been followed in our office by Dr. Cee because of history of PSA elevation reaching about 15 in August 2017. That coincided with him having undergone a colectomy for GI bleed. He was followed and his PSA progressively went down and was down to 4.3 in March 2018. At the time of this evaluation, he was noted to have a moderately enlarged prostate, with bladder outlet obstruction, and had been maintained on tamsulosin 0.4 mg daily. The patient had history of elevated PVR but it was not symptomatic enough for any additional treatment. The patient presented to the emergency room on because of sudden weakness associated with a near fall. His called the ambulance and there was a concern for possible CVA. In the emergency room, he was evaluated and was noted to have urinary retention of 1,000 cc that drained when the Begum was placed. His serum creatinine was elevated at 4.6. He was admitted for hydration and the Begum catheter was kept in place. He went into postobstructive diuresis and the serum creatinine progressively improved and it was down to 1.6 today. The patient had a had renal ultrasound, and then a noncontrast CT of the abdomen and pelvis showing mild Lt hydronephrosis and 2 left renal calculi, a 1.6 cm calculus in the lower pole calyx, and another 2 cm calculus in the left renal pelvis. The patient has been feeling much better on catheter drainage. On his examination today, he looked comfortable. He had clear urine draining from his Begum. Exam of the abdomen and of the CVA's normal. Rectal examination showed a moderately enlarged but non-suspicious prostate. IMPRESSION: 1. Urinary retention. I am not sure if this is the cause of his acute renal failure, with resultant weakness, or it is the result of him being unable to void because of his weakness and dizziness, due to dehydration. However, the patient's renal function is markedly improved following catheter drainage. 2. Large left renal calculi. They are asymptomatic with no associated fever, with minimal left hydronephrosis. PLAN: Trial of voiding. Will remove his catheter, evaluate his voiding and obtain a post-void bladder ultrasound. If he is again in partial retention, the Begum catheter will have to be reinserted. We will follow him in the office for his renal calculi and to evaluate his bladder emptying. The patient is going to need percutaneous lithotripsy for his renal calculi. [id number]/[facility] #: [id number] [facility]
[2018-09-01 06:45] LABS: ABS Basophils 0.1 10^3/ul (0-0.2); ABS Eosinophils 0.4 10^3/ul (0-0.6); ABS Lymphocytes 0.6 10^3/ul (1.0-4.8); ABS Neutrophils 5.2 10^3/ul (1.5-7.7); ABS Nucleated RBC 0 10^3/ul; Eosinophil % 6.1 %; Hematocrit 33 % (42-52); Hemoglobin 11.1 g/dl (14.0-18.0); Mean Corpuscular HGB Conc 34 g/dl (31-36); Mean Corpuscular Hemoglobin 30 pg (27-31); Mean Corpuscular Volume 89 fL (80-94); Mean Platelet Volume 8.1 fL (7.4-10.4); Nucleated Red Blood Cells % 0; Platelet Count 179 10^3/ul (150-450); Red Blood Count 3.71 10^6/ul (4.00-5.40); Red Cell Distribution Width 14 % (10.5-15); White Blood Count 7.3 10^3/ul (3.5-10.8)
[2018-09-01 06:58] LABS: BUN/Creatinine Ratio 23.1 (8-20); Calcium 8.8 mg/dL (8.6-10.3); EGFR Non-African American 39.1 (>60); Magnesium 1.6 mg/dL (1.9-2.7); Potassium 3.6 mmol/L (3.5-5.0)
[2018-09-01] MEDS: Metoprolol Succinate XL TAB* 100 MG PO SCH (07:11)
[2018-09-01] MEDS: Nystatin TOP POWDER* 15 GM BTL TOPICAL SCH (07:11)
[2018-09-01] MEDS: Tamsulosin CAP* 0.4 MG PO SCH (07:11)
[2018-09-01] MEDS ORDERED: Magnesium Sulfate 2 GM IV* 2 GM/50 ML BAG IVPB ONE (08:03)
[2018-09-01 11:45] VITALS: BP 148/82
--- NOTE | 2018-09-02 04:51 | DS ---
CC: Dr. Webster; Dr. Nova * DISCHARGE SUMMARY: DATE OF ADMISSION: 08/28/18 DATE OF DISCHARGE: 09/01/18 PROVIDER: Shanta Ochoa NP ATTENDING PHYSICIAN: Dr. Becky Mosquera * (dictated by Shanta Ochoa NP). PRIMARY CARE PROVIDER: Dr. Webster. PRIMARY DIAGNOSIS: Acute renal failure. SECONDARY DIAGNOSES: 1. Hypertension. 2. History of cerebrovascular accident. 3. Hyperlipidemia. 4. BPH. 5. Gastroesophageal reflux disease. 6. Diverticulosis. 7. Chronic anemia. 8. Stage 3 chronic kidney disease. 9. Lymphedema. STUDIES COMPLETED WHILE IN THE HOSPITAL: He had a chest x-ray on 08/28/18, radiologist's impression: No acute cardiopulmonary process. He had electrocardiogram on 08/28/18, which showed sinus rhythm at a rate of 71. He had a renal ultrasound on 08/29/18, radiologist's impression: No hydronephrosis ; large calculus in the central collecting system of left kidney, measures up to 5.1 cm, likely staghorn calculi. He had a CT of the abdomen and pelvis, radiologist's impression: 1. Multiple left renal calculi including a large calculus within the renal pelvis. There is left frieda-nephritic stranding and mild hydronephrosis. 2. Left inguinal hernia containing nondistended sigmoid colon. 3. Uaxohvyb-bx-qephgt compression fracture of T12 vertebral body, age is indeterminate. DISCHARGE MEDICATIONS: [place] Medications: 1. Vantin 200 mg p.o. b.i.d. x2 days. Continued Home Medications: 1. Pantoprazole 40 mg p.o. daily. 2. Psyllium 1 pack daily. 3. Tamsulosin 0.4 mg p.o. daily. 4. Metoprolol 100 mg p.o. daily. HISTORY OF PRESENT ILLNESS AND HOSPITAL COURSE: Mr. Lopez is a 73-year-old male with past medical history significant for chronic anemia, diverticulosis, GERD, asthma, history of CVA, iailiqeq-wh-vwkeoh pulmonary hypertension, stage 3 chronic kidney disease, and lymphedema who presented to the emergency room with the complaints of weakness and a concern for possible CVA. The patient was recently hospitalized on 08/26/18, where he was observed for rectal bleeding following a colonoscopy and polypectomy. The patient's hemoglobin remained stable throughout the course of hospitalization, so he was discharged home on 08/26/18 in good condition. The patient and his both report that he had been feeling well until approximately dinnertime on the night he was admitted to the hospital. He went to the bathroom and began to feel incredibly weak, so he called for his . Subsequently, he began to fall, so he slowly fell to the ground. At that point, 911 was called for the concern of possible CVA and due to his weakness, but the patient reports he had no focal deficits. On 08/25/18, the patient was started on Protonix 40 mg daily due to EGD showing moderate hiatal hernia with erosion at the gastroesophageal junction as well as gastritis and duodenitis. In the emergency room, the patient had routine lab work drawn. He was found to be in acute renal failure with a BUN of 74 and creatinine of 4.55. His urinalysis also showed 1+ protein, 2+ blood, 3+ leukocyte esterase, 3+ wbc's, 3 + rbc's. Due to the concern of weakness and acute renal failure, the patient was admitted to the hospital. In the emergency room, the patient did have a bladder scan and it was noted that the patient had over a litre of urine in his bladder. At the time, the patient had a Begum catheter placed. There was a concern that his acute renal failure could be related to obstructive post renal obstruction. The patient did have his chlorthalidone held during the hospitalization as well as his Protonix due to the concern that this could be causing interstitial nephritis. The patient was given IV hydration and a Begum catheter again was placed, and his BUN and creatinine improved throughout his hospitalization. A CT did show some mild hydronephrosis and perinephric stranding on the left, so he was started on ceftriaxone due to the urinalysis showing possible urinary tract infection. On the day of discharge, the patient is feeling well. He has worked with the Physical Therapy. His gait is at baseline. It was recommended by physical therapy evaluation during this hospitalization that the patient have in-home physical therapy for continued strength training. The patient will also be set up with home PT at discharge. REVIEW OF SYSTEMS: The patient denies any fever or chills. Denies any nausea, vomiting, or diarrhea. Denies any abdominal pain. Denies any chest pain or shortness of breath. The patient reports that he is feeling better. He is more alert, resting in the bed. PHYSICAL EXAM: General: The patient appears comfortable resting on the bed. He is in no acute distress. He appears his stated age of 73. He is alert and oriented x3. HEENT: Head is atraumatic, normocephalic. Eyes: EOMs are intact. Sclerae anicteric and not pale. Oral mucosa appeared to be moist. Neck : Supple. Lungs: Clear to auscultation bilaterally. No wheezes, rales, or rhonchi. Cardiac: Sounds S1, S2. Regular rate and rhythm. No murmurs, rubs, or gallops. Abdomen: Soft and nontender. Bowel sounds are present x4. He has no CVA tenderness. Extremities: Pedal pulses are +2 bilaterally. He has +1 pitting edema to bilateral lower extremities with brownish discoloration noted to bilateral lower extremities. Skin is intact. He does have brownish discoloration to bilateral lower extremities. DISCHARGE PLAN: Mr. Lopez will be discharged back home. Activity as tolerated. He should use a walker when walking. He should continue on a heart healthy, low- sodium diet. 1. Acute renal failure. The patient was seen in consultation by Dr. Nova from Urology during this hospitalization. He was found to have a large possible staghorn calculi in the left kidney. He did receive ceftriaxone throughout his hospitalization. I will continue a full 5-day course to treat for possible urinary tract infection. He will go home on Vantin 200 mg p.o. b.i.d. He should have a repeat BMP in 3 days to continue to monitor his BUN and creatinine. The patient needs to follow up with Urology. He needs to call the office for an appointment. The patient will need followup for the left staghorn renal calculi measuring approximately 5.1 cm as this will need to be surgically removed. The patient did have the Begum catheter removed and post void residual after Begum catheter was removed was approximately 80 cc. He had no trouble voiding. 2. Hypertension. The patient should continue on metoprolol 100 mg p.o. daily. I will continue to hold his chlorthalidone as this can contribute to his increased renal failure. 3. Erosive gastritis. I will restart his Protonix 40 mg p.o. and decrease that to once daily. 4. CVA. The patient's aspirin is currently in hold due to rectal bleeding, gastritis, and duodenitis from EGD on 08/25/18. 5. Hyperlipidemia. The patient is not on any medication for this. 6. BPH. Again, he did have a Begum catheter during this hospitalization that was removed. He had post void residuals that were low at approximately 80 to 100 cc. Given this, the Begum remained out. He should follow up with Urology in regards to his left renal calculi. 7. The patient should follow up with his primary care provider in 1 to 3 days. He should have a repeat BMP in 3 days. He should follow up with Urology. He needs to call for an appointment. The patient should return to the emergency room for any chest pain or shortness of breath, fever, chills, unable to urinate, or any other concerning symptoms. This is a summarization of his hospitalization. For further details, please see the entire medical record. TIME SPENT: Time spent on this discharge was 60 minutes, greater than half the time was spent with the patient and his daughter discussing discharge plans and instructions. CONDITION ON DISCHARGE: Stable. I have discussed this with my attending Dr. Becky Mosquera; she is in agreement with my plan. SHANTA OCHOA, ASHLEY [id number]/[facility] #: [id number] RANDELL
== END 2018-09-01 14:25 | disposition home health service (06) | DRG 683 ==
LOC: ED 20:45 → MED 22:45
PROVIDERS: ADMIT Hospitalist; ATTEND Internal Medicine
DX: N17.9 Acute kidney failure, unspecified (principal); M48.54XA Collapsed vertebra, not elsewhere classified, thoracic region, initial encounter for fracture; N13.8 Other obstructive and reflux uropathy; N20.0 Calculus of kidney; K25.9 Gastric ulcer, unspecified as acute or chronic, without hemorrhage or perforation; E78.5 Hyperlipidemia, unspecified; N40.1 Benign prostatic hyperplasia with lower urinary tract symptoms; R33.8 Other retention of urine; Z66 Do not resuscitate; K40.90 Unilateral inguinal hernia, without obstruction or gangrene, not specified as recurrent; K21.9 Gastro-esophageal reflux disease without esophagitis; I27.20 Pulmonary hypertension, unspecified; J45.909 Unspecified asthma, uncomplicated; E87.6 Hypokalemia; I12.9 Hypertensive chronic kidney disease with stage 1 through stage 4 chronic kidney disease, or unspecified chronic kidney disease; N18.3 Chronic kidney disease, stage 3 (moderate); K29.80 Duodenitis without bleeding; E66.9 Obesity, unspecified; K44.9 Diaphragmatic hernia without obstruction or gangrene; I70.0 Atherosclerosis of aorta; D53.9 Nutritional anemia, unspecified; G47.30 Sleep apnea, unspecified; K57.90 Diverticulosis of intestine, part unspecified, without perforation or abscess without bleeding; Z79.899 Other long term (current) drug therapy; Z86.73 Personal history of transient ischemic attack (TIA), and cerebral infarction without residual deficits; Z88.1 Allergy status to other antibiotic agents; Z82.49 Family history of ischemic heart disease and other diseases of the circulatory system; Z83.3 Family history of diabetes mellitus; Z81.8 Family history of other mental and behavioral disorders; Z87.891 Personal history of nicotine dependence; Z68.30 Body mass index [BMI] 30.0-30.9, adult
CPT/HCPCS: 36415; 71045; 74176; 76775; 80048; 80053; 81003; 81015; 82550; 82570; 83605; 83735; 84100; 84300; 84443; 85025; 85027; 85610; 85730; 86140; 87086; 89190; 93005; 99284; A9270-GY; G8978-GP-CI; G8979-GP-CI; G8980-GP-CI; J0696; J3475

== ENCOUNTER 2018-09-04 14:56 | Day surgery (SDC) | payer MEDICARE ==
[~2018-09-04 14:56] MED LIST: Buffered Lidocaine 1% SYRIN* 1 ML/SYRINGE INTRADERM ONE; Dexamethasone TAB* 4 MG PO ONE; DiMENhydriNATE IV* 50 MG/ML VIAL IV PUSH PRN; Famotidine IV* 10 MG/ML 2 ML (20 mg) IV ONE; Lactated Ringers 1000 ML Bag* 1,000 ML IV SCH; Morphine VIAL* 4 MG/ML VIAL (1 ml vial) IV PRN; NS 0.45% 1000 ML BAG* 1,000 ML IV SCH; Naloxone* 0.4 MG/ML 1 ML VIAL IV PRN; Ondansetron INJ* 2 MG/ML VIAL ONE; PROCHLORPERAZINE INJ 5 MG/ML 2 ML VIAL IV PRN; fentaNYL* 50 MCG/ML 2 ML VIAL (100 MCG VIAL) IV PRN; oxyCODONE/Acetamin 5/325 MG* TAB PO PRN
[2018-09-04] MEDS ORDERED: Ondansetron ODT TAB* 4 MG ONE (15:32)
[2018-09-04] MEDS ORDERED: Famotidine IV* 10 MG/ML 2 ML (20 mg) ONE (15:32)
[2018-09-04] MEDS ORDERED: Buffered Lidocaine 1% SYRIN* 1 ML/SYRINGE INTRADERM ONE (15:33)
[2018-09-04] MEDS ORDERED: Dexamethasone TAB* 4 MG ONE (15:33)
[2018-09-04] MEDS ORDERED: fentaNYL* 50 MCG/ML 2 ML VIAL (100 MCG VIAL) ONE (15:53)
[2018-09-04] MEDS ORDERED: KETAMINE HCL* 50 MG/ML 10 ML VIAL ONE (15:54)
[2018-09-04] MEDS ORDERED: Midazolam* 1 MG/ML 5 ML VIAL (5 MG) ONE (15:54)
[2018-09-04] MEDS ORDERED: cefTRIAXone(*) 2 GM ADDV.VIAL IVPB ONE (16:09)
[2018-09-04] MEDS ORDERED: Iohexol 180 (CONTRAST) 10 ML SDV IV ONE (16:45)
[2018-09-04] MEDS ORDERED: Metoprolol Succinate XL TAB* 100 MG PO ONE (17:00)
[2018-09-04 19:29] VITALS: BP 163/99
--- NOTE | 2018-09-05 00:15 | OP ---
CC: Dr. Webster * DATE OF OPERATION: 09/04/18 - [facility] DATE OF : 49 SURGEON: Hua Cee MD ANESTHESIOLOGIST: Dr. Yo. ANESTHESIA: General. PRE-OP DIAGNOSES: 1. Left hydronephrosis. 2. Left renal calculi. 3. Urinary retention. POST-OP DIAGNOSES: 1. Left hydronephrosis. 2. Left renal calculi. 3. Urinary retention. OPERATIVE PROCEDURE: Cystoscopy, left retrograde left stent insertion. COMPLICATIONS: None. POSTOPERATIVE CONDITION: Stable. STENTS USED: 1. 8.5-Namibian 28 cm silicone stent, left ureter. 2. 22-Namibian Begum. POSTOPERATIVE CONDITION: Stable. INDICATIONS: Isaiah Lopez Sr. is a 73-year-old gentleman, who has had worsening renal function secondary to a combination of left hydronephrosis and urinary retention. OPERATIVE FINDINGS: 1. Moderately enlarged obstructing prostate. 2. Large amount of cloudy residual urine in bladder. 3. Left hydronephrosis with obstructing calculus, left renal pelvis - ureteropelvic junction. DESCRIPTION OF PROCEDURE: After induction of general anesthesia, patient was placed in dorsal lithotomy position. Sequential compression devices were in place and functioning. Initial cystoscopy revealed a normal-appearing urethra, significantly enlarged obstructing prostate. The bladder was examined. Visibility was very suboptimal due to over 1000 cc of cloudy residual urine in the bladder. Once this was drained, I could identify the orifice on the left side, although the visibility was still suboptimal. A guidewire was introduced and retrograde pyelogram revealed obstructing calculus at the ureteropelvic junction with fullness of the collecting system. The wire was advanced beyond the point of obstruction and an 8.5-Namibian 28 cm silicone stent was introduced and positioned under fluoroscopy with good proximal and distal positioning obtained. A 22-Namibian Begum was placed for bladder drainage. The patient tolerated the procedure satisfactorily and was transferred back to the recovery area in stable condition. He will need to have the Begum in place unless something is done to improve his bladder emptying such as transurethral resection of prostate and will also need to have the left stent in place unless some definitive treatment is done for the renal calculi, which are fairly large and may not be amenable to lithotripsy and may require percutaneous nephrolithotripsy. Given his multiple medical conditions, I am not sure if he would be a candidate either for transurethral resection of prostate or for percutaneous nephrolithotripsy, in which case he may need to have long-term indwelling left stent and Begum catheter. The patient tolerated the procedure satisfactorily and was transferred back to the recovery area in stable condition. [id number]/[facility] #: [id number] MTDD
== END 2018-09-04 19:33 | disposition home or self-care (01) ==
LOC: OR 14:56
PROVIDERS: ATTEND Urology
DX: N13.2 Hydronephrosis with renal and ureteral calculous obstruction (principal); N40.1 Benign prostatic hyperplasia with lower urinary tract symptoms; N13.8 Other obstructive and reflux uropathy; I27.20 Pulmonary hypertension, unspecified; N18.3 Chronic kidney disease, stage 3 (moderate); I12.9 Hypertensive chronic kidney disease with stage 1 through stage 4 chronic kidney disease, or unspecified chronic kidney disease; Z86.73 Personal history of transient ischemic attack (TIA), and cerebral infarction without residual deficits
CPT/HCPCS: 74018; 74420; A9270-GY; C1876; J0696; J2250; J3010; J8540

== ENCOUNTER 2018-09-14 07:31 | Day surgery (SDC) | payer MEDICARE ==
[~2018-09-14 07:31] MED LIST changes: -Dexamethasone TAB* 4 MG PO ONE; -DiMENhydriNATE IV* 50 MG/ML VIAL IV PUSH PRN; -Famotidine IV* 10 MG/ML 2 ML (20 mg) IV ONE; -Morphine VIAL* 4 MG/ML VIAL (1 ml vial) IV PRN; -NS 0.45% 1000 ML BAG* 1,000 ML IV SCH; -Naloxone* 0.4 MG/ML 1 ML VIAL IV PRN; -Ondansetron INJ* 2 MG/ML VIAL ONE; -PROCHLORPERAZINE INJ 5 MG/ML 2 ML VIAL IV PRN; -fentaNYL* 50 MCG/ML 2 ML VIAL (100 MCG VIAL) IV PRN; -oxyCODONE/Acetamin 5/325 MG* TAB PO PRN
[2018-09-14] MEDS ORDERED: cefTRIAXone(*) 2 GM ADDV.VIAL IVPB ONE (08:02)
[2018-09-14] MEDS ORDERED: fentaNYL* 50 MCG/ML 2 ML VIAL (100 MCG VIAL) ONE (08:25)
[2018-09-14] MEDS ORDERED: Midazolam* 1 MG/ML 2 ML VIAL (2 MG) ONE (08:25)
[2018-09-14] MEDS ORDERED: PROCHLORPERAZINE INJ 5 MG/ML 2 ML VIAL IV PRN (08:49)
[2018-09-14] MEDS ORDERED: fentaNYL* 50 MCG/ML 2 ML VIAL (100 MCG VIAL) IV PRN (08:49)
[2018-09-14] MEDS ORDERED: Acetaminophen TAB* 325 MG PO PRN (08:49)
[2018-09-14] MEDS ORDERED: Ondansetron INJ* 2 MG/ML VIAL IV PRN (08:49)
[2018-09-14] MEDS ORDERED: Naloxone* 0.4 MG/ML 1 ML VIAL IV PRN (08:49)
[2018-09-14] MEDS ORDERED: DiMENhydriNATE IV* 50 MG/ML VIAL IV PUSH PRN (08:49)
[2018-09-14] MEDS ORDERED: Famotidine IV* 10 MG/ML 2 ML (20 mg) ONE (09:53)
[2018-09-14] MEDS ORDERED: Furosemide IV* 10 MG/ML 2 ML VIAL (20 MG) ONE (10:11)
[2018-09-14] MEDS ORDERED: EPHEDrine (Pressors)* 50 MG/ML VIAL ONE (10:16)
[2018-09-14] MEDS ORDERED: VASOPRESSIN 20 UNITS/ML 1 ML VIAL ONE (10:27)
[2018-09-14] MEDS ORDERED: Lidocaine 2% PF * 5 ML VIAL ONE (11:00)
[2018-09-14] MEDS ORDERED: OXYTOCIN* 10 UNITS/ML 1 ML VIAL ONE (11:01)
[2018-09-14] MEDS ORDERED: Propofol* 10 MG/ML 20 ML BTL ONE (11:01)
--- NOTE | 2018-09-14 12:35 | OP ---
CC: Dr. Webster * DATE OF OPERATION: 09/14/18 - [facility] DATE OF : 49 SURGEON: Hua Cee MD. ANESTHESIOLOGIST: Dr. Powell. ANESTHESIA: General. PRE-OP DIAGNOSIS: Left renal calculi. POST-OP DIAGNOSIS: Left renal calculi. OPERATIVE PROCEDURE: Shockwave lithotripsy of left renal calculi. INDICATIONS: Isaiah Lopez Sr. is a 73-year-old gentleman who had undergone urgent left stent insertion because of a large obstructing calculus at the ureteropelvic junction along with associated acute renal failure. He also has an additional equally large calculus in the left kidney and I discussed the options of management including percutaneous nephrolithotripsy. I explained to him that, because of the significant stone burden, he certainly would require more than one procedure in an effort to try and definitively break up the stones , and he opted for and is now being brought in for shockwave lithotripsy. He may require laser lithotripsy or repeat shockwave lithotripsy in the near future. COMPLICATIONS: None. POSTOPERATIVE CONDITION: Stable. DESCRIPTION OF PROCEDURE: After induction of general anesthesia, the patient was placed on lithotripsy table in supine position. There were two calculi overlapping each other in the vicinity of the right renal pelvis. The more medial of the two calculi was first targeted under fluoroscopic monitoring with shockwave lithotripsy at a rate of 60 shocks per minute. After the initial 300 shocks, there was a pause in lithotripsy for several minutes in an effort to minimize any potential trauma to the kidney. Lithotripsy was then resumed and a total of 2600 shocks were distributed between the two stones. The patient tolerated the procedure satisfactorily and was transferred back to the recovery area in stable condition. [id number]/[facility] #: [id number] [facility]
[2018-09-14 12:44] VITALS: BP 115/76
== END 2018-09-14 13:15 | disposition home or self-care (01) ==
LOC: OR 07:31
PROVIDERS: ATTEND Urology
DX: N20.0 Calculus of kidney (principal); N18.3 Chronic kidney disease, stage 3 (moderate); I27.20 Pulmonary hypertension, unspecified; D64.9 Anemia, unspecified; I69.849 Monoplegia of lower limb following other cerebrovascular disease affecting unspecified side; N40.0 Benign prostatic hyperplasia without lower urinary tract symptoms; E78.5 Hyperlipidemia, unspecified
CPT/HCPCS: 74018; J0696; J1940; J2250; J2590; J2704; J3010

== ENCOUNTER 2018-10-08 23:08 | Inpatient (IN) | payer MEDICARE ==
[2018-10-08] MEDS ORDERED: NS 0.9% 1000 ML** 1,000 ML IV.FLUID IV ONE (23:44)
--- NOTE | 2018-10-08 23:46 | ED ---
GI/ HPI - HPI Summary HPI Summary: A 73 y/o male presents to [facility] with a chief complaint of low urine output on from his Begum catheter that was placed post lithotripsy . Per triage note, "Pt denies bladder fullness. States he has been pushing fluids today without nv." At triage the patient rated his pain as a 2/10 in severity. The patient also reports a fever which started the morning of 10/08/18. Temperature of 99.3 noted at triage. The patient has a Hx of 2 kidney stones. Per , the patient sees Dr. Cee, who recommended prostate removal. He denies any abdominal problems, liver problems or bowel problems. He denies a Hx of DM but has a Hx of HTN. BP at triage was 137/82. - History of Current Complaint Chief Complaint: EDUrogenitalProblems Time Seen by Provider: 10/08/18 23:40 Stated Complaint: CATH ISSUE Hx Obtained From: Patient, Family/Archery Instructor Onset/Duration: Started Hours Ago, Still Present Timing: Constant, Lasting Hours Severity: Mild Current Severity: Mild Pain Intensity: 2 - out of 10 Location of Pain: Diffuse Pain Characteristics: Unable to describe Associated Signs and Symptoms: Positive: Fever. Negative: Nausea, Vomiting, Abdominal Pain Aggravating Factor(s): Nothing Alleviating Factor(s): Nothing - Additional Pertinent History Primary Care Physician: [id number] - Allergy/Home Medications Allergies/Adverse Reactions: Allergies Allergy/AdvReac Type Severity Reaction Status Date / Time erythromycin base AdvReac Severe Diarrhea Verified 09/14/18 08:15 PMH/Surg Hx/FS Hx/Imm Hx Endocrine/Hematology History: Reports: Hx Anemia - slightly Denies: Hx Anticoagulant Therapy, Hx Diabetes, Hx Unexplained Bleeding Cardiovascular History: Reports: Hx Hypertension Denies: Hx Aneurysm, Hx Angina, Hx Angioplasty, Hx Auto Implanted Cardiovert Defib, Hx Cardiac Arrest, Hx Cardiomegaly, Hx Congenital Heart Disease, Hx Congestive Heart Failure, Hx Coronary Artery Disease, Hx Deep Vein Thrombosis, Hx Embolism, Hx Hypercholesterolemia, Hx Hypotension, Hx Myocardial Infarction, Hx Pacemaker/ICD, Hx Peripheral Vascular Disease, Hx Rheumatic Fever, Hx Syncope , Hx Valvular Heart Disease Respiratory History: Reports: Hx Asthma Denies: Hx Chronic Bronchitis, Hx Chronic Obstructive Pulmonary Disease (COPD ), Hx Cystic Fibrosis, Hx Lung Cancer, Hx Pleural Effusion, Hx Pneumonia, Hx Pulmonary Edema, Hx Pulmonary Embolism, Hx Seasonal Allergies, Hx Sleep Apnea, Other Respiratory Problems/Disorders GI History: Reports: Hx Diverticulosis, Hx Gastroesophageal Reflux Disease, Hx Irritable Bowel, Other GI Disorders - diverticulitis, left inguinal hernia Denies: Hx Cirrhosis, Hx Crohn's Disease, Hx Gall Bladder Disease, Hx Gastrointestinal Bleed, Hx Hiatal Hernia, Hx Jaundice, Hx Ileostomy, Hx Pyloric Stenosis, Hx Ulcer History: Reports: Hx Chronic Renal Failure - stage 2-3, Hx Kidney Stones - left, Other Problems/Disorders - BPH Musculoskeletal History: Reports: Other Musculoskeletal History - sciatica, mod- severe compression fx T12 Sensory History: Reports: Hx Cataracts - developing, Hx Contacts or Glasses - glasses Denies: Hx Eye Injury, Hx Eye Prosthesis, Hx Legally Blind, Hx Macular Degeneration, Hx Vision Problem, Hx Deafness, Hx Hearing Aid, Hx Hearing Problem Opthamlomology History: Reports: Hx Cataracts - developing, Hx Contacts or Glasses - glasses Denies: Hx Eye Injury, Hx Eye Prosthesis, Hx Legally Blind, Hx Macular Degeneration, Hx Vision Problem Neurological History: Denies: Hx Dementia, Hx Developmental Delay, Hx Headaches, Hx Migraine, Hx Nerve Disease, Hx Seizures, Hx Spinal Cord Injury, Hx Transient Ischemic Attacks (TIA), Other Neuro Impairments/Disorders Psychiatric History: Reports: Hx Depression Denies: Hx Panic Disorder - Cancer History Hx Chemotherapy: No - Surgical History Surgery Procedure, Year, and Place: diverticulitis surgeries. tonsillectomy as a child. 09/04/18- cystoscopy, left retrograde, left stent insertion Hx Anesthesia Reactions: No - Immunization History Date of Tetanus Vaccine: 2012 Date of Influenza Vaccine: unk Infectious Disease History: No Infectious Disease History: Denies: Hx Clostridium Difficile, Hx Hepatitis, Hx Human Immunodeficiency Virus (HIV), Hx of Known/Suspected MRSA, Hx Shingles, Hx Tuberculosis, Hx Known/ Suspected VRE, Hx Known/Suspected VRSA, History Other Infectious Disease, Traveled Outside the [place] in Last 30 Days - Family History Known Family History: Positive: Hypertension, Diabetes - Social History Alcohol Use: None Substance Use Type: Reports: None Smoking Status (MU): Former Smoker Have You Smoked in the Last Year: No Review of Systems Positive: Fever Negative: Abdominal Pain, Vomiting, Nausea Positive: other - Positive: decreased urine output All Other Systems Reviewed And Are Negative: Yes Physical Exam - Summary Physical Exam Summary: Appearance: Well-appearing, Well-nourished, lying in bed comfortably Skin: Warm, dry, no obvious rash Eyes: sclera anicteric, no conjunctival pallor ENT: mucous membranes moist, pharynx appears normal Neck: Supple, nontender Respiratory: Clear to auscultation, no signs of respiratory distress Cardiovascular: Normal S1, S2. No murmurs. Normal distal pulses in tibial and radial bilaterally. Abdomen: Soft, nontender, normal active bowel sounds present Musculoskeletal: Normal, Strength/ROM Intact Neurological: A&Ox3, awake and alert, mentation is normal, speech is fluent and appropriate Psychiatric: affect is normal, does not appear anxious or depressed Triage Information Reviewed: Yes Vital Signs On Initial Exam: Initial Vitals Temp Pulse Resp BP Pulse Ox 99.3 F 78 15 137/82 98 10/08/18 23:24 10/08/18 23:24 10/08/18 23:24 10/08/18 23:24 10/08/18 23:24 Vital Signs Reviewed: Yes Diagnostics - Vital Signs Vital Signs Temp Pulse Resp BP Pulse Ox 10/08/18 23:24 99.3 F 78 15 137/82 98 - Laboratory Result Diagrams: 10/08/18 23:57 10/09/18 07:40 Lab Statement: Any lab studies that have been ordered have been reviewed, and results considered in the medical decision making process. - Radiology CXR Radiology Interpretation Completed By: ED Physician Summary of Radiographic Findings: No acute process. Pending official imaging report. GIGU Course/Dx - Course Course Of Treatment: A 73 y/o male presents to [facility] with a chief complaint of low urine output on 10/08/18 from his Begum catheter that was placed post lithotripsy . Per triage note, "Pt denies bladder fullness. States he has been pushing fluids today without nv." At triage the patient rated his pain as a 2/ 10 in severity. The patient also reports a fever which started the morning of . Temperature of 99.3 noted at triage. The patient has a Hx of 2 kidney stones. Per , the patient sees Dr. Cee, who recommended prostate removal. He denies any abdominal problems, liver problems or bowel problems. He denies a Hx of DM but has a Hx of HTN. BP at triage was 137/82. The physical exam was unremarkable. Lab results obtained. The patient tested positive for influenza B. CXR showed no acute process. Case discussed with Dr. Ponce, hospitalist, who acccpted the patient for admission. The patient is agreeable with this plan. - Diagnoses Provider Diagnoses: Influenza - Physician Notifications Discussed Care Of Patient With: Qiana Ponce Time Discussed With Above Provider: 02:25 Instructed by Provider To: Admit As Inpatient Discharge - Sign-Out/Discharge Documenting (check all that apply): Patient Departure - admit Patient Received Moderate/Deep Sedation with Procedure: No - Discharge Plan Condition: Fair Disposition: ADMITTED TO [facility] - Billing Disposition and Condition Condition: FAIR Disposition: Admitted to [facility] - Attestation Statements Document Initiated by Yang: Yes Documenting Scribe: Duncan Sanders Provider For Whom Yang is Documenting (Include Credential): Esau Arita MD Scribe Attestation: Duncan Smith scribed for Esau Arita MD on 10/10/18 at 0143. Scribe Documentation Reviewed: Yes Provider Attestation: The documentation as recorded by the Duncan langston accurately reflects the service I personally performed and the decisions made by me, Esau Arita MD Status of Scribe Document: Viewed
[2018-10-09 00:16] LABS: ABS Basophils 0.1 10^3/ul (0-0.2); ABS Eosinophils 0 10^3/ul (0-0.6); ABS Lymphocytes 0.7 10^3/ul (1.0-4.8); ABS Neutrophils 11.7 10^3/ul (1.5-7.7); ABS Nucleated RBC 0 10^3/ul; Eosinophil % 0.3 %; Hematocrit 37 % (42-52); Hemoglobin 12.3 g/dl (14.0-18.0); Lymphocyte % 4.9 %; Mean Corpuscular HGB Conc 33 g/dl (31-36); Mean Corpuscular Hemoglobin 29 pg (27-31); Mean Corpuscular Volume 87 fL (80-94); Mean Platelet Volume 7.9 fL (7.4-10.4); Nucleated Red Blood Cells % 0.1; Platelet Count 202 10^3/ul (150-450); Red Blood Count 4.25 10^6/ul (4.00-5.40); Red Cell Distribution Width 15 % (10.5-15); White Blood Count 13.5 10^3/ul (3.5-10.8)
[2018-10-09 00:31] LABS: Albumin 3.8 g/dL (3.2-5.2); Albumin/Globulin Ratio 0.9 (1-3); BUN/Creatinine Ratio 24.7 (8-20); Calcium 9.5 mg/dL (8.6-10.3); EGFR African American 31.4 (>60); EGFR Non-African American 25.9 (>60); Globulin 4.3 g/dL (2-4); Potassium 3.4 mmol/L (3.5-5.0); Total Bilirubin 0.8 mg/dL (0.2-1.0); Total Protein 8.1 g/dL (6.4-8.9)
[2018-10-09 00:32] LABS: Activated Partial Thrombo Time 33.4 seconds (26.0-36.3); INR 1.07 (0.77-1.02)
[2018-10-09 00:33] LABS: Troponin I 0.01 ng/mL (<0.04)
[2018-10-09] MEDS ORDERED: cefTRIAXone(*) 1 GM in NS 0.9% 50 ML* 50 ML IVPB ONE (01:10)
[2018-10-09 01:20] LABS: Urine Appearance Turbid; Urine Bacteria Absent (Absent); Urine Bilirubin Negative (Negative); Urine Blood 3+ (Negative); Urine Color Yellow; Urine Glucose Negative (Negative); Urine Ketones Negative (Negative); Urine Nitrite Negative (Negative); Urine Protein 2+(100 mg/dL) (Negative); Urine Red Blood Cell 3+(>10/hpf) (Absent); Urine Specific Gravity 1.017 (1.010-1.030); Urine Urobilinogen Negative (Negative); Urine White Blood Cell 3+(>20/hpf) (Absent)
[2018-10-09 01:40] LABS: Influenza B Molecular POSITIVE (Negative)
[2018-10-09] MEDS ORDERED: Oseltamivir CAP* 75 MG CAP PO ONE (02:35)
[2018-10-09] MEDS ORDERED: Morphine VIAL* 4 MG/ML VIAL (1 ml vial) IV ONE (02:39)
[2018-10-09] MEDS ORDERED: Ondansetron INJ* 2 MG/ML VIAL IV ONE (02:40)
[2018-10-09] MEDS: NS 0.9% 1000 ML** 1,000 ML IV SCH (04:52)
[2018-10-09] MEDS ORDERED: Heparin VIAL(*) 5000 UNITS/ML VIAL (FIVE THOUSAND) SUBCUT SCH ×2 (06:00→09:00)
[2018-10-09 08:13] LABS: BUN/Creatinine Ratio 20.6 (8-20); Calcium 8.7 mg/dL (8.6-10.3); EGFR African American 27.1 (>60); EGFR Non-African American 22.4 (>60); Potassium 3.3 mmol/L (3.5-5.0)
--- NOTE | 2018-10-09 09:02 | HP ---
HISTORY AND PHYSICAL: DATE OF ADMISSION: 10/09/18 PRIMARY CARE PROVIDER: Dr. Webster. UROLOGIST: Dr. Cee. CHIEF COMPLAINT: Weakness and no urine output. HISTORY OF PRESENT ILLNESS: Mr. Lopez is a 73-year-old male who has had 2 hospitalizations in August, the first from 08/26/18 through 08/26/18 where he was observed for rectal bleeding, the second from 08/28/18 through 09/01/18 where he was treated for acute renal failure, which was felt to be secondary to urinary retention and obstructing renal stone. He now presents to the emergency room with his for weakness and no urine output. Both the patient and his are very poor historians and unable to provide any adequate information at this point. As best as I can tell, the patient had his Begum catheter changed on the afternoon of 10/07/18. His states that he has had minimal urine output since. He was noted to be weak and therefore, they presented to the emergency room. The urine that did come out since the catheter change was very dark and bloody in nature. The patient reportedly had a number of bowel movements on afternoon. Initially, his stated it was diarrhea, but then corrected that this was more mushy to mostly solid. She also stated that he had a fever, but never used a thermometer to check his temperature. She did note that he had beads of sweat across his forehead. He had been weak. PAST MEDICAL HISTORY: 1. Chronic anemia. 2. Diverticulosis. 3. GERD. 4. Asthma. 5. 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 6. Zlmhjlex-nl-xwnshu pulmonary hypertension. 7. Stage III chronic kidney disease with worsened renal function in August 2018. 8. Episode of rhabdomyolysis and LFT abnormalities in the setting of Welsh herbal supplements. 9. Lymphedema. MEDICATIONS: 1. Flomax 0.4 mg p.o. q.h.s. 2. Psyllium husk 2 mg p.o. b.i.d. 3. Protonix 40 mg p.o. b.i.d. 4. Metoprolol XL 100 mg p.o. daily. 5. Losartan 50 mg p.o. daily. 6. Chlorthalidone 25 mg p.o. daily. ALLERGIES: ERYTHROMYCIN. FAMILY HISTORY: Mom is ; she had a history of RA and coronary artery disease. Dad is also ; he had a history of diabetes and depression. SOCIAL HISTORY: The patient is a remote short-term smoker of only 3 years. He denies any alcohol use. He is retired from [employer]. He is . His is his healthcare proxy. REVIEW OF SYSTEMS: A complete 11-system review of systems is obtained. Pertinent positives and negatives are as per HPI and otherwise negative. PHYSICAL EXAMINATION GENERAL: Patient is a well-developed elderly male, seen sitting up in the stretcher, in no acute distress. VITAL SIGNS: Blood pressure 126/77, pulse 74, respirations 15, temp 99.3, O2 sat 95% on room air. HEENT: Pupils are equal and round. Extraocular muscles are intact. Oropharynx is clear. Oral mucosa is moist. There is no submandibular, cervical or supraclavicular adenopathy. Thyroid is not enlarged. No thyroid nodules noted. PULMONARY: Lungs are clear to auscultation bilaterally. CARDIAC: Normal S1, S2. Regular rate and rhythm. I did not appreciate any murmurs. There is trace bilateral lower extremity pitting edema with chronic venous stasis changes to the bilateral lower legs. ABDOMEN: Bowel sounds are present. Abdomen is soft, nontender, nondistended. MUSCULOSKELETAL: There is no cyanosis or clubbing of the digits. There is full active range of motion of all 4 extremities. SKIN: Warm and dry. There are no rashes. NEURO: Cranial nerves II through XII are grossly intact. Sensation is intact to light touch throughout. Strength is 5/5 and symmetric to both upper and lower extremities bilaterally. PSYCH: The patient is alert. He is oriented to place and situation, but again a very poor historian. LABORATORY DATA/DIAGNOSTIC STUDIES: Labs: WBC 13.5, hemoglobin 12.3, hematocrit 37, platelets 202. INR 1.07. Sodium 136, potassium 3.4, chloride 100, CO2 of 29, BUN 61, creatinine 2.47, glucose 115. Lactic acid 1.0, calcium 9.5, bilirubin 0.8, AST 14, ALT 12, alk phos 86. Troponin 0.01. Albumin 3.8. Urinalysis reveals turbid urine with specific gravity of 1.017, 2+ protein, 3+ blood, 2+ leukocyte esterase, 3+ wbc, 3+ rbc. Influenza B positive. Chest x-ray, my interpretation appears clear. ASSESSMENT AND PLAN: Mr. Lopez is a 73-year-old male with 2 recent hospitalizations who now presents to the emergency room again with minimal urine output over the last 12 to 36 hours and generalized weakness and is found to be in worsened renal failure. He was positive for influenza B. 1. Xredx-ba-ofzyiri renal failure. The patient had during his August hospitalization initially improvement in his creatinine; however, approximately 2 days after that discharge, creatinine was checked and was found to be elevated again. It remains elevated today. Initially, my concern on admission in August was for acute interstitial nephritis secondary to Protonix; however, the patient has been on this medication since the hospitalization. It is likely not acute interstitial nephritis, but more likely secondary to obstruction. Patient has had a Begum catheter since that hospitalization. There was a change in the Begum catheter; patient's believes this past Friday. There has been minimal urine output since. I suspect decreased urine output is related to being volume deplete. The patient has received 3 L of fluid in the emergency room and with this, he is beginning to make clear yellow urine. We will continue normal saline at 100 mL per hour and reassess his renal function with a.m. labs. 2. Influenza B positive. Patient has been started on Tamiflu. He received 75 mg in the ER based on his renal function. Dose will be decreased to 30 mg daily , which will start on the morning of 10/10/18. 3. Hypertension. Patient will continue on metoprolol XL. I am going to hold his losartan for now. I am going to also hold his chlorthalidone. We will monitor his blood pressure. 4. Benign prostatic hypertrophy. We will continue Flomax 0.4 mg p.o. q.h.s. 5. DVT prophylaxis. According to the Adult Thrombosis Prophylaxis Risk Factor Assessment Guide, the patient has a total risk factor score of 3, making him high risk. Heparin 5000 units subcutaneous q.8 hours will be utilized as DVT prophylaxis. 6. Code status is DNR. TIME SPENT: Sixty-five minutes were spent admitting this patient. [id number]/[facility] [place] #: [id number] RANDELL
[2018-10-09] MEDS: Pantoprazole TAB * 40 MG TAB PO SCH ×2 (10:13→22:06)
[2018-10-09] MEDS: Metoprolol Succinate XL TAB* 100 MG PO SCH (10:13)
[2018-10-09] MEDS ORDERED: Potassium Chlor TAB* 20 MEQ TAB.ER PO STA (12:45)
--- NOTE | 2018-10-09 13:10 | PN ---
Subjective Date of Service: 10/09/18 Interval History: Pt seen and examined. Meds and labs reviewed. TMax = 101.3 F CC: N/A ROS: Denied GONZALEZ/dizziness, chills, N/V, CP, SOB, increased cough, sputum production, abd pain, diarrhea, constipation, dysuria, myalgias, arthralgias, throat pain, and new skin lesions. The rest of the 14 point ROS are unremarkable. PHYSICAL EXAM: GEN APPEARANCE: Awake, not in acute distress HEENT: NC/AT, PERRLA, moist oral mucosa, (-) throat erythema NECK: Soft, supple, (-) cervical LAD, (-)JVD HEART: S1S2 WNL, RRR, No MRG CHEST: CTA, BL, GAE, No W/R/R ABD: Soft, ND/NT, NABS 4x Q EXT: No C/C/E SKIN: Warm to touch PSYCH: No active psychosis, hallucinations, depression, SI/HI Objective Active Medications: Heparin Sodium (Porcine) (Heparin Vial(*)) 5,000 units SUBCUT 0600,1800 [facility] Sodium Chloride (Ns 0.9% 1000 Ml) 1,000 mls @ 100 mls/hr IV PER RATE [facility] Last Admin: 10/09/18 04:52 Dose: 100 mls/hr Metoprolol Succinate (Toprol Xl Tab*) 100 mg PO QAM [facility] Last Admin: 10/09/18 10:13 Dose: 100 mg Oseltamivir Phosphate (Tamiflu Cap*) 30 mg PO DAILY [facility] Pantoprazole Sodium (Protonix Tab*) 40 mg PO BID [facility] Last Admin: 10/09/18 10:13 Dose: 40 mg Tamsulosin HCl (Flomax Cap*) 0.4 mg PO BEDTIME [facility] Oxygen Devices in Use Now: None Result Diagrams: 10/08/18 23:57 10/09/18 07:40 Microbiology and Other Data: Microbiology 10/08/18 23:57 Anaerobic Blood Culture - Preliminary Blood Venous 10/09/18 01:23 Influenza Types A,B Antigen - Final Nasopharyngeal Specimen received for Influenza A/B Molecular testing Assess/Plan/Problems-Billing Assessment: - Patient Problems (1) UTI (urinary tract infection) Current Visit: Yes Status: Acute Comment: -Continue Rocephin and IVF -Likely Obstructive from previous imaging; unclear why repeat imaging not done but will obtain CT abd/pelivis non contrast -Check urine lytes and calculate FENa and FE-Urea -Continue to follow cultures (2) Acute on chronic renal insufficiency Current Visit: Yes Status: Acute Code(s): N28.9 - DISORDER OF KIDNEY AND URETER, UNSPECIFIED; N18.9 - CHRONIC KIDNEY DISEASE, UNSPECIFIED SNOMED Code(s ): 528827785 Comment: -Likely due to above -Awaiting repeat imaging (3) Influenza B Current Visit: Yes Status: Acute Code(s): J10.1 - FLU DUE TO OTH IDENT INFLUENZA VIRUS W OTH RESP MANIFEST SNOMED Code(s): 02243743 Comment: -Continue Tamiflu (4) Sepsis Current Visit: Yes Status: Acute Comment: -Mild -Likely due to UTI and influenza -Continue above management (5) HTN (hypertension) Current Visit: No Status: Acute Code(s): I10 - ESSENTIAL (PRIMARY) HYPERTENSION SNOMED Code(s): 18302952 Comment: -Continue Metoprolol (6) GERD (gastroesophageal reflux disease) Current Visit: Yes Status: Acute Code(s): K21.9 - GASTRO-ESOPHAGEAL REFLUX DISEASE WITHOUT ESOPHAGITIS SNOMED Code(s): 611909492 Comment: -Continue Pantoprazole (7) DVT prophylaxis Current Visit: No Status: Acute Code(s): BJX2458 - SNOMED Code(s): 050433666 Comment: -Given worsening renal failure w/GFR<30, will change Heparin SQ to BID as ordered Status and Disposition: -Corrected potassium levels and will continue to follow -As above
[2018-10-09 15:50] LABS: Urine Appearance Turbid; Urine Bacteria Absent (Absent); Urine Bilirubin Negative (Negative); Urine Blood 3+ (Negative); Urine Color Yellow; Urine Glucose Negative (Negative); Urine Ketones Negative (Negative); Urine Nitrite Negative (Negative); Urine Protein 2+(100 mg/dL) (Negative); Urine Red Blood Cell 3+(>10/hpf) (Absent); Urine Specific Gravity 1.016 (1.010-1.030); Urine Urobilinogen Negative (Negative); Urine White Blood Cell 3+(>20/hpf) (Absent)
[2018-10-09] MEDS: Heparin VIAL(*) 5000 UNITS/ML VIAL (FIVE THOUSAND) SUBCUT SCH (17:49)
[2018-10-09 22:02] LABS: Urine Creatinine Concentration 127.46 mg/dL
[2018-10-09] MEDS: Tamsulosin CAP* 0.4 MG PO SCH (22:06)
[2018-10-10] MEDS: Heparin VIAL(*) 5000 UNITS/ML VIAL (FIVE THOUSAND) SUBCUT SCH ×2 (05:30→20:42)
[2018-10-10] MEDS: NS 0.9% 1000 ML** 1,000 ML IV SCH (05:31)
[2018-10-10 07:14] LABS: Hematocrit 30 % (42-52); Hemoglobin 10.3 g/dl (14.0-18.0); Mean Corpuscular HGB Conc 34 g/dl (31-36); Mean Corpuscular Hemoglobin 30 pg (27-31); Mean Corpuscular Volume 88 fL (80-94); Mean Platelet Volume 8.6 fL (7.4-10.4); Platelet Count 138 10^3/ul (150-450); Red Blood Count 3.46 10^6/ul (4.00-5.40); Red Cell Distribution Width 16 % (10.5-15); White Blood Count 9.9 10^3/ul (3.5-10.8)
[2018-10-10 07:24] LABS: Albumin 2.9 g/dL (3.2-5.2); Albumin/Globulin Ratio 0.8 (1-3); BUN/Creatinine Ratio 19.6 (8-20); Calcium 8.6 mg/dL (8.6-10.3); EGFR African American 19.2 (>60); EGFR Non-African American 15.9 (>60); Globulin 3.6 g/dL (2-4); Magnesium 1.8 mg/dL (1.9-2.7); Phosphorus 2.9 mg/dL (2.5-5.0); Potassium 3.9 mmol/L (3.5-5.0); Total Bilirubin 0.4 mg/dL (0.2-1.0); Total Protein 6.5 g/dL (6.4-8.9)
[2018-10-10] MEDS: Pantoprazole TAB * 40 MG TAB PO SCH ×2 (08:12→20:42)
[2018-10-10] MEDS: Metoprolol Succinate XL TAB* 100 MG PO SCH (08:13)
[2018-10-10] MEDS: Oseltamivir CAP* 30 MG CAP PO SCH (08:13)
[2018-10-10] MEDS ORDERED: Magnesium Sulfate 2 GM IV* 2 GM/50 ML BAG IVPB ONE (09:15)
[2018-10-10] MEDS: cefTRIAXone(*) 1 GM in NS 0.9% 50 ML* 50 ML IVPB SCH (16:04)
--- NOTE | 2018-10-10 16:38 | PN ---
Subjective Date of Service: 10/10/18 Interval History: Pt seen and examined. Per [facility], repeat bladder scan after readjustments last night per Dr. Mesa instructions was 0, and pt able to produce urine in thompson. Pts thompson was found clogged this morning w/c resolved w/usual flushing. Meds and labs reviewed. CC: N/A ROS: Denied GONZALEZ/dizziness, F/C, N/V, CP, SOB, increased cough, sputum production , abd pain, diarrhea, constipation, dysuria, myalgias, arthralgias, throat pain , and new skin lesions. The rest of the 14 point ROS are unremarkable. PHYSICAL EXAM: GEN APPEARANCE: Awake, not in acute distress HEENT: NC/AT, PERRLA, moist oral mucosa, (-) throat erythema NECK: Soft, supple, (-) cervical LAD, (-)JVD HEART: S1S2 WNL, RRR, No MRG CHEST: CTA, BL, GAE, No W/R/R ABD: Soft, ND/NT, NABS 4x Q EXT: No C/C/1-2+ RLE edema, chronic per pt SKIN: Warm to touch PSYCH: No active psychosis, hallucinations, depression, SI/HI Objective Active Medications: Heparin Sodium (Porcine) (Heparin Vial(*)) 5,000 units SUBCUT 0600,1800 [facility] Last Admin: 10/10/18 05:30 Dose: 5,000 units Sodium Chloride (Ns 0.9% 1000 Ml) 1,000 mls @ 100 mls/hr IV PER RATE [facility] Last Admin: 10/10/18 05:31 Dose: 100 mls/hr Ceftriaxone Sodium 1 gm/ (Sodium Chloride) 50 mls @ 200 mls/hr IVPB Q24H [facility] Last Admin: 10/10/18 16:04 Dose: 200 mls/hr Metoprolol Succinate (Toprol Xl Tab*) 100 mg PO QAM [facility] Last Admin: 10/10/18 08:13 Dose: 100 mg Oseltamivir Phosphate (Tamiflu Cap*) 30 mg PO DAILY [facility] Last Admin: 10/10/18 08:13 Dose: 30 mg Pantoprazole Sodium (Protonix Tab*) 40 mg PO BID [facility] Last Admin: 10/10/18 08:12 Dose: 40 mg Tamsulosin HCl (Flomax Cap*) 0.4 mg PO BEDTIME [facility] Last Admin: 10/09/18 22:06 Dose: 0.4 mg Vital Signs - 8 hr 10/10/18 12:03 Temperature 97.8 F Pulse Rate 68 Respiratory 20 Rate Blood Pressure 111/67 (mmHg) O2 Sat by Pulse 97 Oximetry Oxygen Devices in Use Now: None Result Diagrams: 10/10/18 06:35 10/10/18 06:35 Microbiology and Other Data: Microbiology 10/08/18 23:57 Anaerobic Blood Culture - Preliminary Blood Venous 10/09/18 01:23 Influenza Types A,B Antigen - Final Nasopharyngeal Specimen received for Influenza A/B Molecular testing Assess/Plan/Problems-Billing Assessment: - Patient Problems (1) UTI (urinary tract infection) Current Visit: Yes Status: Acute Comment: -Urine Cx: E. coli; sensitivity data pending -Blood Cx: (-) x 1 day -Continue Rocephin and IVF -Repeat imaging yesterday showed thompson in prostatic urethra; touched base w/Dr. Cee yesterday who instructed to deflate catheter anchor, then withdraw catheter for a few centimeters, then advance, then re-inflate. Resolved obstructive cause -Continue to follow cultures (2) Acute on chronic renal insufficiency Current Visit: Yes Status: Acute Code(s): N28.9 - DISORDER OF KIDNEY AND URETER, UNSPECIFIED; N18.9 - CHRONIC KIDNEY DISEASE, UNSPECIFIED SNOMED Code(s ): 307520584 Comment: -Likely due to both obstructive (due to above) and pre-renal cause -FENa =0.92%; FE-Urea =21.93% yesterday -Continue IVFs (3) Influenza B Current Visit: Yes Status: Acute Code(s): J10.1 - FLU DUE TO OTH IDENT INFLUENZA VIRUS W OTH RESP MANIFEST SNOMED Code(s): 09316449 Comment: -Continue Tamiflu, day #2/ (4) Sepsis Current Visit: Yes Status: Acute Comment: -Mild, resolved -Likely due to UTI and influenza -Continue above management (5) HTN (hypertension) Current Visit: No Status: Acute Code(s): I10 - ESSENTIAL (PRIMARY) HYPERTENSION SNOMED Code(s): 23203797 Comment: -Continue Metoprolol (6) GERD (gastroesophageal reflux disease) Current Visit: Yes Status: Acute Code(s): K21.9 - GASTRO-ESOPHAGEAL REFLUX DISEASE WITHOUT ESOPHAGITIS SNOMED Code(s): 079831711 Comment: -Continue Pantoprazole (7) DVT prophylaxis Current Visit: No Status: Acute Code(s): XMB5765 - SNOMED Code(s): 012379180 Comment: -Continue Heparin SQ to BID as ordered Status and Disposition: -Corrected Magnesium levels and will continue to follow -Lives at home w/ -Awaiting PT assessment
[2018-10-10] MEDS: Tamsulosin CAP* 0.4 MG PO SCH (20:42)
[2018-10-11] MEDS: NS 0.9% 1000 ML** 1,000 ML IV SCH (05:34)
[2018-10-11] MEDS: Heparin VIAL(*) 5000 UNITS/ML VIAL (FIVE THOUSAND) SUBCUT SCH ×2 (05:34→18:32)
[2018-10-11 07:25] LABS: ABS Basophils 0 10^3/ul (0-0.2); ABS Eosinophils 0.3 10^3/ul (0-0.6); ABS Lymphocytes 0.6 10^3/ul (1.0-4.8); ABS Monocytes 0.6 10^3/ul (0-0.8); ABS Neutrophils 4.2 10^3/ul (1.5-7.7); ABS Nucleated RBC 0 10^3/ul; Eosinophil % 4.7 %; Hematocrit 27 % (42-52); Lymphocyte % 10.4 %; Mean Corpuscular HGB Conc 34 g/dl (31-36); Mean Corpuscular Hemoglobin 29 pg (27-31); Mean Corpuscular Volume 87 fL (80-94); Mean Platelet Volume 8.3 fL (7.4-10.4); Nucleated Red Blood Cells % 0; Platelet Count 135 10^3/ul (150-450); Red Blood Count 3.09 10^6/ul (4.00-5.40); Red Cell Distribution Width 16 % (10.5-15); White Blood Count 5.7 10^3/ul (3.5-10.8)
[2018-10-11 07:43] LABS: BUN/Creatinine Ratio 22.8 (8-20); Calcium 8.3 mg/dL (8.6-10.3); EGFR African American 28.1 (>60); EGFR Non-African American 23.2 (>60); Potassium 3.6 mmol/L (3.5-5.0)
[2018-10-11] MEDS: Oseltamivir CAP* 30 MG CAP PO SCH (09:48)
[2018-10-11] MEDS: Metoprolol Succinate XL TAB* 100 MG PO SCH (09:48)
[2018-10-11] MEDS: cefTRIAXone(*) 1 GM in NS 0.9% 50 ML* 50 ML IVPB SCH (09:49)
[2018-10-11] MEDS: Pantoprazole TAB * 40 MG TAB PO SCH ×2 (09:49→20:45)
--- NOTE | 2018-10-11 15:52 | PN ---
Subjective Date of Service: 10/11/18 Interval History: Pt seen and examined. Meds and labs reviewed. Spoke w/daughter at beside and mentioned that pt lives with his who has dementia and mental illness. She mentions she lives near-by but her parents would likely need some help. Discussed that PT has yet to recommend any needs and will refer to Social workers for possible Home PT assuming this is the recc of PT, aid, and possible VNS. CC: Pt mentions he feels good. ROS: Denied GONZALEZ/dizziness, F/C, N/V, CP, SOB, increased cough, sputum production , abd pain, diarrhea, constipation, dysuria, myalgias, arthralgias, throat pain , and new skin lesions. The rest of the 14 point ROS are unremarkable. PHYSICAL EXAM: GEN APPEARANCE: Awake, not in acute distress HEENT: NC/AT, PERRLA, moist oral mucosa, (-) throat erythema NECK: Soft, supple, (-) cervical LAD, (-)JVD HEART: S1S2 WNL, RRR, No MRG CHEST: CTA, BL, GAE, No W/R/R ABD: Soft, ND/NT, NABS 4x Q EXT: No C/C/1-2+ RLE edema, chronic per pt SKIN: Warm to touch PSYCH: No active psychosis, hallucinations, depression, SI/HI Objective Active Medications: Heparin Sodium (Porcine) (Heparin Vial(*)) 5,000 units SUBCUT 0600,1800 [facility] Last Admin: 10/11/18 05:34 Dose: 5,000 units Sodium Chloride (Ns 0.9% 1000 Ml) 1,000 mls @ 100 mls/hr IV PER RATE [facility] Last Admin: 10/11/18 05:34 Dose: 100 mls/hr Ceftriaxone Sodium 1 gm/ (Sodium Chloride) 50 mls @ 200 mls/hr IVPB Q24H [facility] Last Admin: 10/11/18 09:49 Dose: 200 mls/hr Metoprolol Succinate (Toprol Xl Tab*) 100 mg PO QAM [facility] Last Admin: 10/11/18 09:48 Dose: 100 mg Oseltamivir Phosphate (Tamiflu Cap*) 30 mg PO DAILY [facility] Last Admin: 10/11/18 09:48 Dose: 30 mg Pantoprazole Sodium (Protonix Tab*) 40 mg PO BID [facility] Last Admin: 10/11/18 09:49 Dose: 40 mg Tamsulosin HCl (Flomax Cap*) 0.4 mg PO BEDTIME [facility] Last Admin: 10/10/18 20:42 Dose: 0.4 mg Vital Signs - 8 hr 10/11/18 10/11/18 10/11/18 07:53 08:00 12:07 Temperature 97.6 F 97.9 F Pulse Rate 64 67 Respiratory 20 16 22 Rate Blood Pressure 147/75 124/67 (mmHg) O2 Sat by Pulse 100 97 Oximetry Oxygen Devices in Use Now: None Result Diagrams: 10/11/18 07:10 10/11/18 07:10 Microbiology and Other Data: Microbiology 10/08/18 23:57 Anaerobic Blood Culture - Preliminary Blood Venous 10/09/18 01:23 Influenza Types A,B Antigen - Final Nasopharyngeal Specimen received for Influenza A/B Molecular testing Assess/Plan/Problems-Billing Assessment: - Patient Problems (1) UTI (urinary tract infection) Current Visit: Yes Status: Acute Comment: -Urine Cx: E. coli; Sensitive to Rocephin -Blood Cx: (-) x 2 days -Continue Rocephin given acute on chronic RI; may convert to Keflex PO on D/C -Continue IVF -Repeat imaging (10/09) showed thompson in prostatic urethra; touched base w/Dr. Cee yesterday who instructed to deflate catheter anchor, then withdraw catheter for a few centimeters, then advance, then re-inflate. Resolved obstructive cause (2) Acute on chronic renal insufficiency Current Visit: Yes Status: Acute Code(s): N28.9 - DISORDER OF KIDNEY AND URETER, UNSPECIFIED; N18.9 - CHRONIC KIDNEY DISEASE, UNSPECIFIED SNOMED Code(s ): 117797798 Comment: -Acute issue continues to improve towards baseline -Likely due to both obstructive (due to above) and pre-renal cause -FENa =0.92%; FE-Urea =21.93% yesterday -Continue IVFs (3) Influenza B Current Visit: Yes Status: Acute Code(s): J10.1 - FLU DUE TO OTH IDENT INFLUENZA VIRUS W OTH RESP MANIFEST SNOMED Code(s): 23961289 Comment: -Continue Tamiflu, day #3/5 (4) Sepsis Current Visit: Yes Status: Acute Comment: -Mild, resolved -Likely due to UTI and influenza -Continue above management (5) HTN (hypertension) Current Visit: No Status: Acute Code(s): I10 - ESSENTIAL (PRIMARY) HYPERTENSION SNOMED Code(s): 50162690 Comment: -Continue Metoprolol (6) GERD (gastroesophageal reflux disease) Current Visit: Yes Status: Acute Code(s): K21.9 - GASTRO-ESOPHAGEAL REFLUX DISEASE WITHOUT ESOPHAGITIS SNOMED Code(s): 197393548 Comment: -Continue Pantoprazole (7) DVT prophylaxis Current Visit: No Status: Acute Code(s): JJJ2626 - SNOMED Code(s): 065756058 Comment: -Continue Heparin SQ to BID as ordered Status and Disposition: -Lives at home w/ who is reportedly mentally ill and has dementia per daughter; requests Home PT if does not qualify for LURDES, VNS, and aid -Will discuss above with case coordinators in AM -Awaiting PT assessment
[2018-10-11] MEDS: Tamsulosin CAP* 0.4 MG PO SCH (20:45)
[2018-10-11] MEDS: [UNRECOGNIZED DRUG - OTHER] PO SCH (20:46)
[2018-10-12] MEDS: NS 0.9% 1000 ML** 1,000 ML IV SCH (02:22)
[2018-10-12] MEDS: Heparin VIAL(*) 5000 UNITS/ML VIAL (FIVE THOUSAND) SUBCUT SCH (05:33)
[2018-10-12 06:56] LABS: ABS Basophils 0.1 10^3/ul (0-0.2); ABS Eosinophils 0.3 10^3/ul (0-0.6); ABS Lymphocytes 0.8 10^3/ul (1.0-4.8); ABS Monocytes 0.7 10^3/ul (0-0.8); ABS Neutrophils 2.9 10^3/ul (1.5-7.7); ABS Nucleated RBC 0 10^3/ul; Eosinophil % 6.3 %; Hematocrit 24 % (42-52); Hemoglobin 8.2 g/dl (14.0-18.0); Mean Corpuscular HGB Conc 34 g/dl (31-36); Mean Corpuscular Hemoglobin 29 pg (27-31); Mean Corpuscular Volume 87 fL (80-94); Nucleated Red Blood Cells % 0; Platelet Count 158 10^3/ul (150-450); Red Blood Count 2.81 10^6/ul (4.00-5.40); Red Cell Distribution Width 15 % (10.5-15); White Blood Count 4.8 10^3/ul (3.5-10.8)
[2018-10-12 07:21] LABS: Anion Gap 5 mmol/L (2-11); BUN/Creatinine Ratio 23.9 (8-20); Blood Urea Nitrogen 43 mg/dL (6-24); CO2 Carbon Dioxide 25 mmol/L (22-32); Calcium 8.3 mg/dL (8.6-10.3); Chloride 108 mmol/L (101-111); EGFR African American 45.2 (>60); EGFR Non-African American 37.4 (>60); Glucose 81 mg/dL (70-100); Magnesium 1.6 mg/dL (1.9-2.7); Phosphorus 2.7 mg/dL (2.5-5.0); Potassium 3.5 mmol/L (3.5-5.0); Sodium 138 mmol/L (135-145)
[2018-10-12 07:54] LABS: % Iron Saturation 18 % (15-55); Iron 43 ug/dL (50-212); Total Iron Binding Capacity 234 mcg/dL (250-450); Transferrin 167 mg/dL (203-362)
[2018-10-12 08:13] LABS: Ferritin 183.8 ng/mL (24-336)
[2018-10-12 08:17] LABS: Folate 7.69 ng/mL (>3.99)
[2018-10-12] MEDS: Oseltamivir CAP* 30 MG CAP PO SCH (08:41)
[2018-10-12] MEDS: Pantoprazole TAB * 40 MG TAB PO SCH (08:42)
[2018-10-12] MEDS: [UNRECOGNIZED DRUG - OTHER] PO SCH (08:42)
[2018-10-12] MEDS: Metoprolol Succinate XL TAB* 100 MG PO SCH (09:13)
[2018-10-12] MEDS: cefTRIAXone(*) 1 GM in NS 0.9% 50 ML* 50 ML IVPB SCH (10:50)
[2018-10-12] MEDS ORDERED: Magnesium Sulf 4 GM/100 ML IV* 4,000 MG/100 ML BAG IVPB ONE (11:00)
[2018-10-12 20:05] VITALS: BP 140/75
--- NOTE | 2018-10-12 20:19 | DS ---
CC: Dr. Qiana Ponce; Dr. Esau Arita; Dr. Michael Webster * DISCHARGE SUMMARY: DATE OF ADMISSION: DATE OF DISCHARGE: 10/12/18 CONDITION: Fair. DISPOSITION: Home with home PT, aide, and VNS. DISCHARGE DIAGNOSES: Are as follows: 1. Urinary tract infection, improved. 2. Acute on chronic renal insufficiency. 3. Influenza type B positive. 4. Sepsis likely due to urinary tract infection and influenza, resolved. 5. Hypertension, history of. 6. Gastroesophageal reflux disease, history of. DISCHARGE MEDICATIONS: Are as follows: 1. Metoprolol succinate 100 mg p.o. q.a.m. 2. Oseltamivir 30 mg p.o. daily. 3. Pantoprazole 40 mg p.o. b.i.d. 4. Tamsulosin 0.4 mg p.o. q.h.s. 5. Cephalexin cap 500 mg p.o. t.i.d. for 7 more days to complete a 10-day treatment therapy for complicated UTI. 6. Floranex tablet 2 tablets p.o. daily for 10 days. 7. Losartan 50 mg p.o. daily. 8. Psyllium husk 2 mg p.o. b.i.d. HISTORY OF PRESENT ILLNESS/HOSPITAL COURSE: The patient is a 73-year-old gentleman with a history of chronic anemia, GERD, and CKD, who has had 2 hospitalizations in August, the first one on 08/26/18 where he was observed to have rectal bleeding. The second one was from 08/28/18 through where he was treated for acute renal failure, which was felt to be secondary to urinary retention and obstructing stone. He mentioned that he saw his urologist 2 days prior to his admission where his Begum catheter was changed , but the patient has had minimal urine output since. He was admitted for acute on chronic renal failure and an abdominal and pelvic CT was done given the recent change in Begum with subsequent history of decreased urine output and it was found that his Begum catheter was displaced in his prostatic urethra. Dr. Cee was then informed and instructed nursing staff to withdraw the Begum catheter for a few millimeters and then advance it and then reanchor it and this has since resolved this postrenal failure. He was also diagnosed to have UTI likely due to the recent postrenal failure and has done well with Rocephin. His cultures did grow E. coli, which is sensitive for both first generation and third generation cephalosporin. He will be discharged on Keflex to complete 7 more days of antibiotics to complete a 10-day treatment therapy given he is a male, which qualifies him for a complicated UTI. He was also found to be positive for influenza B and was started on renally dosed Tamiflu. He is to complete his Tamiflu at home on discharge. He had been advised to follow up and re-call his PCP within 3 days post discharge and that if his symptoms resume or develop new ones or feel unwell for any reason, to call his PCP first. If his PCP cannot entertain him due to scheduling issues alone, he was advised to call [facility] if the issue is nonemergent. He was advised to call my office regarding any questions , concerns, or further clarifications regarding his discharge plans and/or prescription and to take his medications as prescribed. REVIEW OF SYSTEMS: The patient denied any current headaches, dizziness, fevers , chills, nausea, vomiting, chest pain, shortness of breath, increased coughing or sputum production, abdominal pain, diarrhea, constipation, pain and/or increased frequency in urination, myalgias, arthralgias, throat pain or new skin lesions. The rest of the 14-point review of systems are otherwise unremarkable. PHYSICAL EXAMINATION: Shows the most recent vital signs of records with blood pressure of 154/81, 97.4 degrees Fahrenheit, 58 beats per minute heart rate, 18 per minute respiratory rate, saturating at 97% on room air. General Appearance : The patient is awake, not in acute distress. HEENT: Normocephalic, atraumatic, PERRLA. Extraocular muscles intact. Negative for icterus. Moist oral mucosa. Negative throat erythema. Neck is soft, supple with no cervical lymphadenopathy, no JVD. Heart: S1, S2 within normal limits. Regular rate and rhythm. No murmurs, rubs, or gallops. Chest: Clear to auscultation bilaterally. Good air entry. No wheezes, rales, or rhonchi. Abdomen is soft, nondistended, nontender. Normoactive bowel sounds x4 quadrants. Extremities: No cyanosis, clubbing with 1 to 2+ right lower extremity edema, chronic as per patient and daughter at bedside. Psychiatric: No active psychosis, depression, suicidal or homicidal ideations. Skin is warm to touch. TIME SPENT: The total time spent evaluating the patient, reviewing pertinent data, and appropriate documentation is 1 hour and 5 minutes. [id number]/[facility] #: [id number] MTDD
== END 2018-10-12 17:09 | disposition home or self-care (01) | DRG 872 ==
LOC: ED 23:08 → MED 10-09 03:00
PROVIDERS: ADMIT Hospitalist; ATTEND Student in an Organized Health Care Education/Training Program
DX: A41.9 Sepsis, unspecified organism (principal); N39.0 Urinary tract infection, site not specified; N17.9 Acute kidney failure, unspecified; B96.20 Unspecified Escherichia coli [E. coli] as the cause of diseases classified elsewhere; J11.1 Influenza due to unidentified influenza virus with other respiratory manifestations; K21.9 Gastro-esophageal reflux disease without esophagitis; D64.9 Anemia, unspecified; K57.90 Diverticulosis of intestine, part unspecified, without perforation or abscess without bleeding; J45.909 Unspecified asthma, uncomplicated; Z66 Do not resuscitate; T83.028A Displacement of other urinary catheter, initial encounter; T83.091A Other mechanical complication of indwelling urethral catheter, initial encounter; X58.XXXA Exposure to other specified factors, initial encounter; I27.20 Pulmonary hypertension, unspecified; N40.0 Benign prostatic hyperplasia without lower urinary tract symptoms; I12.9 Hypertensive chronic kidney disease with stage 1 through stage 4 chronic kidney disease, or unspecified chronic kidney disease; N18.3 Chronic kidney disease, stage 3 (moderate); Z79.899 Other long term (current) drug therapy; Z88.1 Allergy status to other antibiotic agents; Z82.61 Family history of arthritis; Z82.49 Family history of ischemic heart disease and other diseases of the circulatory system; Z83.3 Family history of diabetes mellitus; Z81.8 Family history of other mental and behavioral disorders; Z87.891 Personal history of nicotine dependence
CPT/HCPCS: 36415; 71045; 74176; 80048; 80053; 81003; 81015; 82570; 82607; 82728; 82746; 83540; 83550; 83605; 83735; 83921; 84100; 84300; 84484; 84540; 85025; 85027; 85610; 85730; 87040; 87077; 87086; 87186; 87205; 99285; A9270-GY; G8978-GP-CJ; G8979-GP-CI; J0696; J1644; J3475

== ENCOUNTER → 2018-11-28 11:50 | Emergency (ER) | payer MEDICARE ==
[~2018-11-28 11:50] MED LIST changes: -Buffered Lidocaine 1% SYRIN* 1 ML/SYRINGE INTRADERM ONE; +KCL 10 MEQ/50 ML IVPREMIX* 10 MEQ/50 ML BAG IV ONE; -Lactated Ringers 1000 ML Bag* 1,000 ML IV SCH; +Potassium Chlor TAB* 20 MEQ TAB.ER PO ONE; +cefTRIAXone(*) 1 GM in NS 0.9% 50 ML* 50 ML IVPB ONE
--- OUTSIDE RECORDS SUMMARY | 2018-11-28 12:18 | XMS REPORT | Continuity of Care Document ---
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 [address] [place] [address] Advance Directives Description No Information Available Problems Active Problems Provider Date Essential hypertension Jacinta Muñoz M.D. Onset: 01/14/2012 Asthma without status asthmaticus Jacinta Muñoz M.D. Onset: 01/14/2012 Overweight Jacinta Muñoz M.D. Onset: 01/14/2012 Vitamin D deficiency Jacinta Muñoz M.D. Onset: 02/11/2012 Adult health examination Jacinta Muñoz M.D. Onset: 06/30/2012 Symptom of skin and integumentary tissue Jacinta Muñoz M.D. Onset: 06/30 Peripheral vascular disease Jacinta Muñoz M.D. Onset: 09/06/2014 Idiopathic peripheral neuropathy Jacinta Muñoz M.D. Onset: 09/06/2014 Benign prostatic hypertrophy without Michael Webster M.D. Onset: 05/05/2018 outflow obstruction Cerebral atherosclerosis Michael Webster M.D. Onset: 08/04/2018 Diaphragmatic hernia Michael Webster M.D. Onset: 09/30/2018 Inactive Problems Type 2 diabetes mellitus Jacinta Muñoz M.D. Onset: 02/11/2012 Inactive: 11/20/2018 Family History Date Family Member(s) Observation Comments Father due to Diabetes () - age 90. Father due to Stroke () Mother due to Heart Disease () - 88. Rheumatoid Arthritis. Children 3 Siblings 2 Social History Type Date Description Comments Sex Unknown Education Highest level completed, in engineering. 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 Tobacco Use Start: Unknown End: Former Cigarette Smoker 1 x 1 year. Quit age Unknown Pack Daily 1966. ETOH Use Rare Tobacco Use Start: Unknown End: Patient is a former smoker Unknown Smoking Status Reviewed: 09/29/17 Patient is a former smoker Allergies, Adverse Reactions, Alerts Active Allergies Reaction Severity Comments Date Azithromycin diarrhea, loss of smell 11/22/2011 Lisinopril,Prinivil cough 12/08/2014 Amlodipine peripheral edema 12/08/2014 Irbesartan dizzy 12/13/2015 Medications Active Medications SIG Qnty Indications Ordering Provider Date Floranex Chew 2 by 60tabs Felipa C. 11/20/2018 Tablets mouth daily ASHLEY Gilmore Losartan Potassium 1 by mouth 90tabs I10 Michael Webster, 03/03/2018 50mg every day M.D. Tablets Tamsulosin HCL 1-2 by mouth 180caps N40.0 Michael Webster, 10/22/2017 0.4mg every day M.D. Capsules Chlorthalidone 1 po qd 90tabs Michael Webster, 25mg Tablets M.D. Pantoprazole Sodium 1 by mouth 90tabs Michael Webster, 40mg every day M.D. Tablets DR Finasteride 1 by mouth Unknown 5mg Tablets every day Vitamin C 1 po qd Unknown Psyllium 6 daily Unknown Capsules History Medications Valsartan take one by mouth 30tabs I10 Michael HerbChristin Webster, 12/19/2017 - 160mg daily M.D. 03/03/2018 Tablets Escitalopram 1 by mouth every 30tabs Michael HerbChristin Webster, 09/30/2017 - Oxalate day M.D. 02/22/2018 10mg Tablets Handicap Parking severe venous Kellie 09/29/2017 - Permit stasis Yazmin, Afnp-C 02/22/2018 Amoxicillin/Clavula 1 by mouth twice a 14tabs Michael Webster, 2017 - leona Potassium day x 7 days M.D. 09/24/2017 500-125mg Tablets Amoxicillin/Clavula 1 by mouth twice a 14tabs Alyson Henriquez, 09/16/2017 - leona Potassium day x 7 days M.D. 09/17/2017 500-125mg Tablets Cephalexin 1 by mouth three 30caps Jacinta Vera 09/16/2017 - 500mg times daily . Jose Muñoz 09/17/2017 Capsules Diltiazem CD 1 po by mouth daily 30caps Jacinta Vera 12/12/2015 - 180mg Jose Muñoz 09/16/2017 Caps ER 24HR Metoprolol 2 by mouth every 60tabs I10 Michael Webster, 12/11/2015 - Succinate ER day M.D. 11/20/2018 50mg Tablets ER 24HR Oxycontin 1 by mouth every 12 60tabs M79.661 Jacinta Vera 12/08/2014 - 10mg Tab hours Jose Muñoz 09/16/2017 ER 12H Abuse-Det Gabapentin 1 by mouth at at 30caps 729.5 Jacinta Vera 12/08/2014 - 300mg bedtime Jose Muñoz 08/03/2015 Capsules Serageum 1 pop bid [facility] 10/03/2014 - [facility] 05/05/2018 Toshia Corydolis 5 1 po qd [facility] 10/03/2014 - [facility] 05/05/2018 Toshia Quercenol 1 po qd [facility] 10/03/2014 - [facility] 09/16/2017 Toshia Lonicera 13 1 po qd [facility] 10/03/2014 - [facility] 09/16/2017 Ruby Nan [place] 1 po qd [facility] 10/03/2014 - [facility] 05/05/2018 Ruby Vitamin C take 1 tablet by [facility] 10/03/2014 - 225mg mouth twice daily [facility] 05/05/2018 Tablets Ruby Vitamin D3 1 by mouth qd [facility] 10/03/2014 - [facility] 05/05/2018 Tablets Ruby Fish Oil 1 by mouth every [facility] 10/03/2014 - 2000mg day [facility] 05/05/2018 Capsules Ruby Ibuprofen 2 po three times a [facility] 10/03/2014 - 200mg day [facility] 05/05/2018 Tablets Ruby Percocet 1 by mouth twice 6tabs 356.8 Jacinta LChristin 09/06/2014 - 7.5-325mg daily. watch for Jose Muñoz 08/03/2015 Tablets constipation pudt Irbesartan 1 by mouth every 30tabs Jacinta Vera 07/11/2014 - 300mg day Jose Muñoz 10/09/2015 Tablets Amlodipine Besylate 1 by mouth every 30tabs Jacinta Vera 07/11/2014 - day Jose Muñoz 11/04/2014 10mg Tablets Cephalexin 1 by mouth four 40caps Jacinta Vera 07/07/2014 - 500mg times a day with Jose Muñoz 10/03/2014 Capsules yogurt/kefir Proair HFA 2 puffs every 3-4h 3units Constance Aiken, 10/30/2013 - as needed PATENTS EXAMINER 02/22/2018 108(90Base) mcg/Act cough/wheeze/sob Aerosol Symbicort 2 puff bid 3month 493.90 Constance Aiken, 10/20/2013 - PATENTS EXAMINER 10/09/2015 80-4.5mcg/Act Aerosol Lisinopril 1 po qd 90tabs 401.9 Constance Aiken, 06/30/2012 - 40mg PATENTS EXAMINER 07/11/2014 Tablets Vitamin D3 1 po weekly x 12 21caps 268.9 Jacinta Vera 02/11/2012 - Jose Muñoz 09/09/2014 [id number] Capsules 1 po monthly thereafter. Lisinopril 1 po qd 90tabs 401.9 Jacinta MunguiaChristin 12/11/2011 - 30mg Jose Muñoz 10/20/2013 Tablets Flovent HFA 2 puffs bid 3units 493.90 Jacinta Ezra. 11/22/2011 - Jose Muñoz 10/20/2013 110mcg/Act Aerosol Lisinopril 1 po qd 30tabs 401.9 Aminta Cook, 11/22/2011 - 20mg Afnp-C 12/11/2011 Tablets Proventil HFA use 2 inhalations 3units 493.90 Constance Aiken, 11/22/2011 - orally every 4 PATENTS EXAMINER 10/30/2013 108(90Base) mcg/Act hours as needed Aerosol Psyllium Husk daily as directed Unknown - 100% 11/20/2018 Powder Immunizations CPT Code Status Date Vaccine Lot # [id number] Given 08/04/2018 Pneumococcal Immunization [id number] Given 08/03/2015 Influenza Vac, Quadrivalent, Slit Virus, Im [id number] Given 04/28/2015 Pneumococcal Conjugate Vacc-13 [id number] Given 01/14/2012 Tdap Tetanus, W Pertussis [id number] Vital Signs Date Vital Result Comment 11/20/2018 1:10pm BP Systolic 126 mmHg BP Diastolic 84 mmHg Heart Rate 80 /min Body Temperature 97.7 F Respiratory Rate 18 /min Height 72 inches 6'0" Weight 218.00 lb BMI (Body Mass Index) 29.6 kg/m2 09/30/2018 3:27pm BP Systolic 130 mmHg BP Diastolic 84 mmHg Heart Rate 76 /min Body Temperature 98.2 F Respiratory Rate 16 /min Height 72 inches 6'0" Weight 208.00 lb BMI (Body Mass Index) 28.2 kg/m2 08/04/2018 10:45am BP Systolic 130 mmHg 160 on arrival BP Diastolic 86 mmHg 160 on arrival Heart Rate 68 /min Body Temperature 97.9 F Respiratory Rate 16 /min Height 72 inches 6'0" Weight 230.00 lb BMI (Body Mass Index) 31.2 kg/m2 05/05/2018 9:39am BP Systolic 120 mmHg BP Diastolic 76 mmHg Heart Rate 72 /min Body Temperature 98.1 F Respiratory Rate 16 /min Height 72 inches 6'0" Weight 223.00 lb BMI (Body Mass Index) 30.2 kg/m2 02/23/2018 4:55pm BP Systolic 160 mmHg BP Diastolic 100 mmHg Heart Rate 74 /min Body Temperature 97.7 F Height 72 inches 6'0" Weight 230.00 lb BMI (Body Mass Index) 31.2 kg/m2 02/11/2018 10:26am BP Systolic 200 mmHg BP Diastolic 100 mmHg BP Systolic Recheck 190 mmHg BP Diastolic Recheck 96 mmHg Heart Rate 56 /min Height 72 inches 6'0" Weight 236.00 lb BMI (Body Mass Index) 32.0 kg/m2 01/14/2018 11:13am BP Systolic 170 mmHg BP Diastolic 98 mmHg Heart Rate 76 /min Respiratory Rate 16 /min Height 72 inches 6'0" Weight 230.00 lb BMI (Body Mass Index) 31.2 kg/m2 01/06/2018 1:30pm BP Systolic 180 mmHg BP Diastolic 100 mmHg Heart Rate 76 /min Respiratory Rate 16 /min Height 72 inches 6'0" Weight 230.00 lb BMI (Body Mass Index) 31.2 kg/m2 12/23/2017 10:58am BP Systolic 180 mmHg 220/110 on arrival BP Diastolic 110 mmHg 220/110 on arrival Heart Rate 80 /min Body Temperature 98.2 F Respiratory Rate 16 /min Height 72 inches 6'0" Weight 238.00 lb BMI (Body Mass Index) 32.3 kg/m2 12/19/2017 1:58pm BP Systolic 220 mmHg BP Diastolic 100 mmHg Heart Rate 68 /min Body Temperature 98.7 F Respiratory Rate 16 /min Height 72 inches 6'0" Weight 241.00 lb BMI (Body Mass Index) 32.7 kg/m2 11/26/2017 12:53pm BP Systolic 150 mmHg BP Diastolic 100 mmHg Heart Rate 68 /min Body Temperature 97.8 F Respiratory Rate 16 /min Height 72 inches 6'0" Weight 245.00 lb BMI (Body Mass Index) 33.2 kg/m2 11/05/2017 2:54pm BP Systolic 142 mmHg BP Diastolic 90 mmHg Height 72 inches 6'0" 10/24/2017 3:57pm BP Systolic 164 mmHg BP Diastolic 82 mmHg Heart Rate 84 /min Body Temperature 98.1 F Respiratory Rate 17 /min Height 72 inches 6'0" Weight 260.50 lb BMI (Body Mass Index) 35.3 kg/m2 10/22/2017 3:47pm BP Systolic 170 mmHg BP Diastolic 100 mmHg Heart Rate 92 /min Body Temperature 98.9 F Respiratory Rate 18 /min Height 72 inches 6'0" Weight 265.00 lb BMI (Body Mass Index) 35.9 kg/m2 09/29/2017 3:45pm BP Systolic 188 mmHg BP Diastolic 118 mmHg Heart Rate 84 /min Body Temperature 97.9 F Respiratory Rate 16 /min Height 72 inches 6'0" Weight 269.00 lb BMI (Body Mass Index) 36.5 kg/m2 09/17/2017 9:22am BP Systolic 150 mmHg 180/100 on arrival BP Diastolic 98 mmHg 180/100 on arrival Heart Rate 92 /min Body Temperature 99.3 F Respiratory Rate 16 /min Weight 271.38 lb 09/16/2017 8:57am BP Systolic 158 mmHg césar; 190/106 las on arrival BP Diastolic 92 mmHg césar; 190/106 las on arrival Heart Rate 88 /min Body Temperature 98.7 F Respiratory Rate 18 /min Weight 271.38 lb 12/13/2015 10:36am BP Systolic 208 mmHg BP Diastolic 110 mmHg Heart Rate 80 /min 12/11/2015 5:34pm BP Systolic 212 mmHg BP Diastolic 110 mmHg Heart Rate 84 /min Body Temperature 98.1 F Respiratory Rate 16 /min Height 72 inches 6'0" Weight 311.50 lb BMI (Body Mass Index) 42.2 kg/m2 10/09/2015 12:15pm BP Systolic 190 mmHg BP Diastolic 110 mmHg Heart Rate 88 /min Body Temperature 98.1 F Height 72 inches 6'0" Weight 310.00 lb BMI (Body Mass Index) 42.0 kg/m2 08/03/2015 2:43pm BP Systolic 150 mmHg BP Diastolic 110 mmHg Heart Rate 72 /min Body Temperature 98.5 F Respiratory Rate 20 /min Weight 306.00 lb 04/28/2015 3:03pm BP Systolic 198 mmHg BP Diastolic 110 mmHg Heart Rate 90 /min Body Temperature 99.1 F Respiratory Rate 16 /min Weight 312.00 lb 12/08/2014 3:08pm BP Systolic 160 mmHg BP Diastolic 110 mmHg Heart Rate 76 /min Body Temperature 98.7 F Respiratory Rate 18 /min Height 72 inches 6'0" Weight 304.00 lb BMI (Body Mass Index) 41.2 kg/m2 11/04/2014 3:01pm BP Systolic 150 mmHg BP Diastolic 94 mmHg Heart Rate 70 /min Body Temperature 98.4 F Respiratory Rate 20 /min Height 72 inches 6'0" Weight 305.00 lb BMI (Body Mass Index) 41.4 kg/m2 10/03/2014 8:04pm BP Systolic 200 mmHg BP Diastolic 90 mmHg Heart Rate 96 /min Body Temperature 98.5 F Respiratory Rate 16 /min Height 72 inches 6'0" Weight 309.25 lb BMI (Body Mass Index) 41.9 kg/m2 09/06/2014 1:29pm BP Systolic 170 mmHg BP Diastolic 110 mmHg Heart Rate 88 /min Body Temperature 98.5 F Respiratory Rate 18 /min Height 72 inches 6'0" Weight 315.00 lb BMI (Body Mass Index) 42.7 kg/m2 07/07/2014 1:44pm BP Systolic 146 mmHg BP Diastolic 90 mmHg Heart Rate 76 /min Body Temperature 97.2 F Respiratory Rate 20 /min Height 72 inches 6'0" Weight 315.00 lb BMI (Body Mass Index) 42.7 kg/m2 10/20/2013 2:38pm BP Systolic 170 mmHg BP Diastolic 94 mmHg Heart Rate 80 /min Body Temperature 98.8 F Respiratory Rate 18 /min Height 72 inches 6'0" Weight 305.00 lb BMI (Body Mass Index) 41.4 kg/m2 06/30/2012 11:06am BP Systolic 168 mmHg BP Diastolic 98 mmHg Heart Rate 72 /min Body Temperature 98.6 F Height 72 inches 6'0" Weight 296.00 lb BMI (Body Mass Index) 40.1 kg/m2 02/11/2012 3:24pm BP Systolic 170 mmHg BP Diastolic 100 mmHg Heart Rate 92 /min Body Temperature 99.0 F Height 72 inches 6'0" Weight 305.00 lb BMI (Body Mass Index) 41.4 kg/m2 01/14/2012 3:37pm BP Systolic 120 mmHg BP Diastolic 90 mmHg Heart Rate 80 /min Body Temperature 99.0 F Height 72 inches 6'0" Weight 205.00 lb BMI (Body Mass Index) 27.8 kg/m2 Right Visual Acuity Distance 20/70 Left Visual Acuity Distance 20/70 12/11/2011 9:51am BP Systolic 158 mmHg BP Diastolic 94 mmHg Heart Rate 90 /min Height 72 inches 6'0" Weight 299.00 lb BMI (Body Mass Index) 40.5 kg/m2 11/22/2011 10:01am BP Systolic 190 mmHg BP Diastolic 120 mmHg Heart Rate 100 /min Height 72 inches 6'0" Weight 303.00 lb BMI (Body Mass Index) 41.1 kg/m2 Results Test Date Facility Test Result H/L Range Note CBC Auto Diff 11/12/2018 [facility] [place] Blood Count 5.5 10^3/uL N 3.5-10.8 Red Blood Count 4.02 10^6/uL Low 4.18-5.48 Hemoglobin 11.8 g/dL Low 14.0-18.0 Hematocrit 35 % Low 36-46 Mean Corpuscular Volume 88 fL N 80-94 Mean Corpuscular Hemoglobin 30 pg N 27-31 Mean Corpuscular HGB Conc 34 g/dL N 31-36 Red Cell Distribution Width 16 % High 10.5-15 Platelet Count 224 10^3/uL N 150-450 Mean Platelet Volume 7.0 fL Low 7.4-10.4 Abs Neutrophils 3.6 10^3/uL N 1.5-7.7 Abs Lymphocytes 1.0 10^3/uL N 1.0-4.8 Abs Monocytes 0.5 10^3/uL N 0-0.8 Abs Eosinophils 0.4 10^3/uL N 0-0.6 Abs Basophils 0.1 10^3/uL N 0-0.2 Abs Nucleated RBC 0 10^3/uL Granulocyte % 65.7 % Lymphocyte % 17.4 % Monocyte % 8.9 % Eosinophil % 6.6 % Basophil % 1.4 % Nucleated Red Blood Cells % 0 Comp Metabolic Panel 11/12/2018 [facility] [place] Sodium 139 mmol/L N 135-145 Potassium 3.9 mmol/L N 3.5-5.0 Chloride 105 mmol/L N 101-111 Co2 Carbon Dioxide 29 mmol/L N 22-32 Anion Gap 5 mmol/L N 2-11 Glucose 80 mg/dL N 70-100 Blood Urea Nitrogen 26 mg/dL High 6-24 Creatinine 1.20 mg/dL High 0.67-1.17 BUN/Creatinine Ratio 21.7 High 8-20 Calcium 9.2 mg/dL N 8.6-10.3 Total Protein 7.1 g/dL N 6.4-8.9 Albumin 3.7 g/dL N 3.2-5.2 Globulin 3.4 g/dL N 2-4 Albumin/Globulin Ratio 1.1 N 1-3 Total Bilirubin 0.40 mg/dL N 0.2-1.0 Alkaline Phosphatase 75 U/L N 34-104 Alt 12 U/L N 7-52 Ast 16 U/L N 13-39 Egfr Non- 59.7 >60 Egfr 72.2 >60 1 Laboratory test finding 11/12/2018 [facility] [place] Rheumatoid Factor < 10 IU/mL N < 15 Iron & Iron Binding Capacity 11/12/2018 [facility] [place] Iron 76 g/dL N 50-212 Unsaturated Iron Binding < 311 g/dL Total Iron Binding Capacity 326 g/dL N 250-450 Transferrin 233 mg/dL N 203-362 % Iron Saturation 23 % N 15-55 Laboratory test 11/12/2018 [facility] [place] Ferritin 71.3 ng/mL N 24-336 finding Immunoglobulins Serum 11/12/2018 [facility] [place] Immunoglobulin G 1940 mg/dL Abnormal 767 - 1590 2 Quant Immunoglobulin M 33 mg/dL Abnormal 37 - 286 Immunoglobulin A 465 mg/dL Abnormal 61 - 356 Laboratory test finding 11/12/2018 [facility] [place] Erythropoietin 15.0 mIU/mL 2.6 - 18.5 3 Protein Electrophoresis 11/12/2018 [facility] [place] Total Protein(Pep) 6.9 g/dL 6.3 - 7.9 Albumin 3.0 g/dL Abnormal 3.4-4.7 Alpha-1 Globulin 0.2 g/dL 0.1-0.3 Alpha-2 Globulin 0.9 g/dL 0.6-1.0 Beta Globulin 0.9 g/dL 0.7-1.2 Gamma Globulin 1.9 g/dL Abnormal 0.6-1.6 Albumin/Globulin Ratio 0.79 Impression See Comment 4 Laboratory test 10/09/2018 [facility] [place] Influenza A & B POSITIVE Abnormal Negative 5 finding Molecular Urinalysis Profile 10/09/2018 [facility] [place] Urine Color Yellow Urine Appearance Turbid Urine Specific [place] 1.017 N 1.010-1.030 Urine pH 5.0 N 5-9 Urine Urobilinogen Negative Negative Urine Ketones Negative Negative Urine Protein 2+(100 mg/dL) Abnormal Negative Urine Leukocytes 2+ Abnormal Negative Urine Blood 3+ Abnormal Negative Urine Nitrite Negative Negative Urine Bilirubin Negative Negative Urine Glucose Negative Negative Urine White Blood Cell 3+(>20/hpf) Abnormal Absent Urine Red Blood Cell 3+(>10/hpf) Abnormal Absent Urine Bacteria Absent Absent Urine Culture And Sensitivities 10/09/2018 [facility] [place] Urine Culture SEE RESULT BELOW 6 Urinalysis Profile 10/08/2018 [facility] [place] Urine Color Yellow Urine Appearance Turbid Urine Specific [place] 1.016 N 1.010-1.030 Urine pH 5.0 N 5-9 Urine Urobilinogen Negative Negative Urine Ketones Negative Negative Urine Protein 2+(100 mg/dL) Abnormal Negative Urine Leukocytes 2+ Abnormal Negative Urine Blood 3+ Abnormal Negative Urine Nitrite Negative Negative Urine Bilirubin Negative Negative Urine Glucose Negative Negative Urine White Blood Cell 3+(>20/hpf) Abnormal Absent Urine Red Blood Cell 3+(>10/hpf) Abnormal Absent Urine Bacteria Absent Absent Laboratory test finding 10/08/2018 [facility] [place] Partial Thrombo Time 33.4 seconds N 26.0-36.3 PTT Rapid Influenza A & B Antigen SEE RESULT BELOW 7 Blood Culture SEE RESULT BELOW 8 Inr/Protime 10/08/2018 [facility] [place] Inr 1.07 High 0.77-1.02 Laboratory test finding 10/08/2018 [facility] [place] Troponin I 0.01 ng/mL <0.04 9 Comp Metabolic Panel 10/08/2018 [facility] [place] Sodium 136 mmol/L N 135-145 Potassium 3.4 mmol/L Low 3.5-5.0 Chloride 100 mmol/L Low 101-111 Co2 Carbon Dioxide 29 mmol/L N 22-32 Anion Gap 7 mmol/L N 2-11 Glucose 115 mg/dL High 70-100 Blood Urea Nitrogen 61 mg/dL High 6-24 Creatinine 2.47 mg/dL High 0.67-1.17 BUN/Creatinine Ratio 24.7 High 8-20 Calcium 9.5 mg/dL N 8.6-10.3 Total Protein 8.1 g/dL N 6.4-8.9 Albumin 3.8 g/dL N 3.2-5.2 Globulin 4.3 g/dL High 2-4 Albumin/Globulin Ratio 0.9 Low 1-3 Total Bilirubin 0.80 mg/dL N 0.2-1.0 Alkaline Phosphatase 86 U/L N 34-104 Alt 12 U/L N 7-52 Ast 14 U/L N 13-39 Egfr Non- 25.9 >60 Egfr 31.4 >60 10 Laboratory test 10/08/2018 [facility] [place] Lactic Acid 1.0 mmol/L N 0.5-2.0 11 finding CBC Auto Diff 10/08/2018 [facility] [place] White Blood Count 13.5 10^3/uL High 3.5- 10.8 Red Blood Count 4.25 10^6/uL N 4.00-5.40 Hemoglobin 12.3 g/dL Low 14.0-18.0 Hematocrit 37 % Low 42-52 Mean Corpuscular Volume 87 fL N 80-94 Mean Corpuscular Hemoglobin 29 pg N 27-31 Mean Corpuscular HGB Conc 33 g/dL N 31-36 Red Cell Distribution Width 15 % N 10.5-15 Platelet Count 202 10^3/uL N 150-450 Mean Platelet Volume 7.9 fL N 7.4-10.4 Abs Neutrophils 11.7 10^3/uL High 1.5-7.7 Abs Lymphocytes 0.7 10^3/uL Low 1.0-4.8 Abs Monocytes 1.0 10^3/uL High 0-0.8 Abs Eosinophils 0 10^3/uL N 0-0.6 Abs Basophils 0.1 10^3/uL N 0-0.2 Abs Nucleated RBC 0 10^3/uL Granulocyte % 86.7 % Lymphocyte % 4.9 % Monocyte % 7.6 % Eosinophil % 0.3 % Basophil % 0.5 % Nucleated Red Blood Cells % 0.1 Basic Metabolic Profile 09/30/2018 [facility] Sodium 135 mEq/L 134- 149 Potassium 3.9 mEq/L 3.6-5.5 Chloride 103 mEq/L 94-112 Carbon Dioxide 31 mEq/L 21-32 Glucose 84 mg/dL 70-105 BUN 34 mg/dL High 6-26 Creatinine 1.5 mg/dL High 0.6-1.4 BUN/Creat Ratio 22.7 CALC 8.0-36.0 Calcium 9.9 mg/dL 8.6-10.2 GFR Non- 49 ml/min/1.73m^ Low >=60 GFR 59 ml/min/1.73m^ Low >=60 Basic Metabolic Panel 09/03/2018 [facility] Sodium 143 mmol/L N 135-145 Potassium 3.7 mmol/L N 3.5-5.0 Chloride 105 mmol/L N 101-111 Co2 Carbon Dioxide 29 mmol/L N 22-32 Anion Gap 9 mmol/L N 2-11 Glucose 104 mg/dL High 70-100 Blood Urea Nitrogen 55 mg/dL High 6-24 Creatinine 2.54 mg/dL High 0.67-1.17 BUN/Creatinine Ratio 21.7 High 8-20 Calcium 9.5 mg/dL N 8.6-10.3 Egfr Non- 25.1 >60 Egfr 30.4 >60 12 Laboratory test finding 08/28/2018 [facility] [place] Magnesium 2.5 mg/dL N 1.9-2.7 Creatine Kinase(CK) 321 U/L High 10-223 TSH (Thyroid Stim Horm) 0.96 mcIU/mL N 0.34-5.60 Comp Metabolic Panel 08/28/2018 [facility] [place] Sodium 139 mmol/L N 135-145 Potassium 3.1 mmol/L Low 3.5-5.0 Chloride 103 mmol/L N 101-111 Co2 Carbon Dioxide 25 mmol/L N 22-32 Anion Gap 11 mmol/L N 2-11 Glucose 117 mg/dL High 70-100 Blood Urea Nitrogen 74 mg/dL High 6-24 Creatinine 4.55 mg/dL High 0.67-1.17 BUN/Creatinine Ratio 16.3 N 8-20 Calcium 9.3 mg/dL N 8.6-10.3 Total Protein 7.7 g/dL N 6.4-8.9 Albumin 3.9 g/dL N 3.2-5.2 Globulin 3.8 g/dL N 2-4 Albumin/Globulin Ratio 1.0 N 1-3 Total Bilirubin 0.80 mg/dL N 0.2-1.0 Alkaline Phosphatase 69 U/L N 34-104 Alt 20 U/L N 7-52 Ast 24 U/L N 13-39 Egfr Non- 12.8 >60 Egfr 15.5 >60 13 Laboratory test finding 08/28/2018 [facility] [place] Partial Thrombo Time 32.7 seconds N 26.0-36.3 PTT Inr/Protime 08/28/2018 [facility] [place] Inr 0.97 N 0.77-1.02 CBC Auto Diff 08/28/2018 [facility] [place] White Blood Count 10.6 10^3/uL N 3.5-10.8 Red Blood Count 4.15 10^6/uL N 4.00-5.40 Hemoglobin 12.5 g/dL Low 14.0-18.0 Hematocrit 37 % Low 42-52 Mean Corpuscular Volume 89 fL N 80-94 Mean Corpuscular Hemoglobin 30 pg N 27-31 Mean Corpuscular HGB Conc 34 g/dL N 31-36 Red Cell Distribution Width 14 % N 10.5-15 Platelet Count 203 10^3/uL N 150-450 Mean Platelet Volume 8.0 fL N 7.4-10.4 Abs Neutrophils 8.9 10^3/uL High 1.5-7.7 Abs Lymphocytes 0.5 10^3/uL Low 1.0-4.8 Abs Monocytes 0.9 10^3/uL High 0-0.8 Abs Eosinophils 0.2 10^3/uL N 0-0.6 Abs Basophils 0.1 10^3/uL N 0-0.2 Abs Nucleated RBC 0 10^3/uL Granulocyte % 84.0 % Lymphocyte % 4.7 % Monocyte % 8.5 % Eosinophil % 2.3 % Basophil % 0.5 % Nucleated Red Blood Cells % 0.1 Laboratory test finding 08/28/2018 [facility] [place] Lactic Acid 0.7 mmol/L N 0.5-2.0 14 Urine Culture And 08/28/2018 [facility] [place] Urine Culture SEE RESULT BELOW 15 Sensitivities Urinalysis Profile 08/28/2018 [facility] [place] Urine Color Yellow Urine Appearance Turbid Urine Specific [place] 1.012 N 1.010-1.030 Urine pH 5.0 N 5-9 Urine Urobilinogen Negative Negative Urine Ketones Negative Negative Urine Protein 1+(30 mg/dL) Abnormal Negative Urine Leukocytes 3+ Abnormal Negative Urine Blood 2+ Abnormal Negative Urine Nitrite Negative Negative Urine Bilirubin Negative Negative Urine Glucose Negative Negative Urine White Blood Cell 3+(>20/hpf) Abnormal Absent Urine Red Blood Cell 3+(>10/hpf) Abnormal Absent Urine Bacteria Absent Absent Urine Transitional Epithelial Present Abnormal Absent Laboratory test finding 08/28/2018 [facility] [place] Sodium Random Urine 37 mmol/L Creatinine Random Urine 174.04 mg/dL Eosinophil Smear FEW Type & Screen 08/26/2018 [facility] [place] Patient Blood Type O Positive Antibody Screen NEGATIVE Comp Metabolic Panel 08/26/2018 [facility] [place] Sodium 135 mmol/L N 135-145 Potassium 3.7 mmol/L N 3.5-5.0 Chloride 97 mmol/L Low 101-111 Co2 Carbon Dioxide 31 mmol/L N 22-32 Anion Gap 7 mmol/L N 2-11 Glucose 108 mg/dL High 70-100 Blood Urea Nitrogen 31 mg/dL High 6-24 Creatinine 1.61 mg/dL High 0.67-1.17 BUN/Creatinine Ratio 19.3 N 8-20 Calcium 9.6 mg/dL N 8.6-10.3 Total Protein 7.8 g/dL N 6.4-8.9 Albumin 4.0 g/dL N 3.2-5.2 Globulin 3.8 g/dL N 2-4 Albumin/Globulin Ratio 1.1 N 1-3 Total Bilirubin 1.10 mg/dL High 0.2-1.0 Alkaline Phosphatase 81 U/L N 34-104 Alt 22 U/L N 7-52 Ast 26 U/L N 13-39 Egfr Non- 42.5 >60 Egfr 51.4 >60 16 Laboratory test 08/26/2018 [facility] [place] Partial Thrombo 36.0 seconds N 26.0-36.3 finding Time PTT Inr/Protime 08/26/2018 [facility] [place] Inr 1.03 High 0.77-1.02 CBC Auto Diff 08/26/2018 [facility] [place] White Blood Count 10.8 10^3/uL N 3.5-10.8 Red Blood Count 4.73 10^6/uL N 4.00-5.40 Hemoglobin 13.9 g/dL Low 14.0-18.0 Hematocrit 42 % N 42-52 Mean Corpuscular Volume 89 fL N 80-94 Mean Corpuscular Hemoglobin 29 pg N 27-31 Mean Corpuscular HGB Conc 33 g/dL N 31-36 Red Cell Distribution Width 14 % N 10.5-15 Platelet Count 224 10^3/uL N 150-450 Mean Platelet Volume 7.4 fL N 7.4-10.4 Abs Neutrophils 9.3 10^3/uL High 1.5-7.7 Abs Lymphocytes 0.6 10^3/uL Low 1.0-4.8 Abs Monocytes 0.9 10^3/uL High 0-0.8 Abs Eosinophils 0 10^3/uL N 0-0.6 Abs Basophils 0 10^3/uL N 0-0.2 Abs Nucleated RBC 0 10^3/uL Granulocyte % 85.9 % Lymphocyte % 5.3 % Monocyte % 8.2 % Eosinophil % 0.2 % Basophil % 0.4 % Nucleated Red Blood Cells % 0 Laboratory test 08/25/2018 [facility] [place] SEE RESULT 17 finding BELOW Laboratory test 08/25/2018 [facility] Clotest SEE RESULT 18 finding BELOW Lipid Profile 08/04/2018 [facility] Cholesterol 183 mg/dL 120-20 0 Triglycerides 130 mg/dL 30-200 HDL Cholesterol 48 mg/dL 30-70 LDL (Calculated) 109 CALC 0-129 VLDL Cholesterol 26 mg/dL 0-50 HDL Risk Factor 3.8 CALC 0.0-4.4 Protein Electrophoresis 07/27/2018 [facility] Total Protein(Pep) 7.2 g/dL 6.3 - 7.9 Albumin 3.2 g/dL Abnormal 3.4-4.7 Alpha-1 Globulin 0.3 g/dL 0.1-0.3 Alpha-2 Globulin 0.9 g/dL 0.6-1.0 Beta Globulin 1.0 g/dL 0.7-1.2 Gamma Globulin 1.9 g/dL Abnormal 0.6-1.6 Albumin/Globulin Ratio 0.78 Impression See Comment 19 Laboratory test 07/27/2018 [facility] Erythrocyte Sed Rate 44 mm/Hr High 0-40 finding CBC No Diff 07/27/2018 [facility] White Blood Count 6.1 10^3/uL N 3.5-10.8 Red Blood Count 3.99 10^6/uL Low 4.00-5.40 Hemoglobin 12.0 g/dL Low 14.0-18.0 Hematocrit 36 % Low 42-52 Mean Corpuscular Volume 90 fL N 80-94 Mean Corpuscular Hemoglobin 30 pg N 27-31 Mean Corpuscular HGB Conc 34 g/dL N 31-36 Red Cell Distribution Width 14 % N 10.5-15 Platelet Count 198 10^3/uL N 150-450 Mean Platelet Volume 7.5 fL N 7.4-10.4 Laboratory test finding 07/27/2018 [facility] C Reactive Protein 3.25 mg/L N < 8.01 Iron & Iron Binding Capacity 07/27/2018 [facility] Iron 61 g/dL N 50-212 Unsaturated Iron Binding < 380 g/dL Total Iron Binding Capacity 395 g/dL N 250-450 Transferrin 282 mg/dL N 203-362 % Iron Saturation 15 % N 15-55 Laboratory test finding 07/27/2018 [facility] LDH 189 U/L N 140-271 Comp Metabolic Panel 07/27/2018 [facility] Sodium 139 mmol/L N 135-145 Potassium 3.6 mmol/L N 3.5-5.0 Chloride 104 [...] Egfr Non- 55.9 >60 Egfr 67.6 >60 20 Laboratory test finding 07/27/2018 [facility] Ferritin 46.0 ng/mL N 24-336 Vitamin B12 615 pg/mL N 180-914 21 Laboratory test finding 05/05/2018 [facility] CK 62 U/L 38-174 Hepatic 05/05/2018 [facility] Total Protein 7.2 g/dL 6.4-8.3 Albumin 3.9 g/dL 3.8-5.5 Globulin 3.3 g/dL 2.0-4.8 A/G Ratio 1.2 CALC 0.6-2.3 Alk. Phosphatase 99 U/L High 22-95 Alt (SGPT) 63 U/L High 7-35 Ast (Sgot) 44 U/L High 5-34 Total Bilirubin 0.5 mg/dL 0.2-1.3 Direct Bilirubn 0.2 mg/dL 0.0-0.6 Indirect Bilirubin 0.30 mg/dL 0.10-1.00 Laboratory test finding 04/14/2018 [facility] Rosy-1 Antibody <0.2 U 22 Anti Nuclear Antibody 0.3 U 23 Hepatitis Acute Panel 04/14/2018 [facility] Hepatitis B Surface Nonreactive Nonreactive Antigen Hepatitis B Core IgM Nonreactive Nonreactive Hepatitis C Antibody Nonreactive Nonreactive Hepatitis A AB IgM Nonreactive Nonreactive Urine Culture And 04/14/2018 [facility] Urine Culture SEE RESULT 24 Sensitivities BELOW Laboratory test 04/14/2018 [facility] Erythrocyte Sed Rate 56 mm/Hr High 0-40 finding Urinalysis Profile 04/14/2018 [facility] Urine Color Yellow Urine Appearance Cloudy Urine Specific [place] 1.019 N 1.010-1.030 Urine pH 5.0 N 5-9 Urine Urobilinogen Negative Negative Urine Ketones Trace Abnormal Negative Urine Protein 1+(30 mg/dL) Abnormal Negative Urine Leukocytes Negative Negative Urine Blood 3+ Abnormal Negative Urine Nitrite Negative Negative Urine Bilirubin Negative Negative Urine Glucose Negative Negative Urine White Blood Cell 1+(6-10/hpf) Abnormal Absent Urine Red Blood Cell 3+(>10/hpf) Abnormal Absent Urine Bacteria Absent Absent Laboratory test finding 04/14/2018 [facility] Magnesium 1.8 mg/dL Low 1.9-2.7 C Reactive Protein 43.03 mg/L High <8.01 Troponin I 0.04 ng/mL High <0.04 25 TSH (Thyroid Stim Horm) 2.27 mcIU/mL N 0.34-5.60 Creatine Kinase(CK) 3472 U/L High 10-223 Comp Metabolic Panel 04/14/2018 [facility] Sodium 137 mmol/L N 135-145 Potassium 3.3 mmol/L Low 3.5-5.0 Chloride 101 mmol/L N 101-111 Co2 Carbon Dioxide 29 mmol/L N 22-32 Anion Gap 7 mmol/L N 2-11 Glucose 113 mg/dL High 70-100 Blood Urea Nitrogen 35 mg/dL High 6-24 Creatinine 1.40 mg/dL High 0.67-1.17 BUN/Creatinine Ratio 25.0 High 8-20 Calcium 8.8 mg/dL N 8.6-10.3 Total Protein 7.2 g/dL N 6.4-8.9 Albumin 3.5 g/dL N 3.2-5.2 Globulin 3.7 g/dL N 2-4 Albumin/Globulin Ratio 0.9 Low 1-3 Total Bilirubin 1.10 mg/dL High 0.2-1.0 Alkaline Phosphatase 76 U/L N 34-104 Alt 116 U/L High 7-52 Ast 145 U/L High 13-39 Egfr Non- 50.0 >60 Egfr 60.4 >60 26 Laboratory test finding 04/14/2018 [facility] Lactic Acid 0.9 mmol/L N 0.5-2.0 27 B-Type Natriuretic Peptide BNP 151 pg/mL High 28 CBC Auto Diff 04/14/2018 [facility] White Blood Count 5.9 10^3/uL N 3.5-10.8 Red Blood Count 4.04 10^6/uL N 4.00-5.40 Hemoglobin 11.7 g/dL Low 14.0-18.0 Hematocrit 35 % Low 42-52 Mean Corpuscular Volume 86 fL N 80-94 Mean Corpuscular Hemoglobin 29 pg N 27-31 Mean Corpuscular HGB Conc 34 g/dL N 31-36 Red Cell Distribution Width 18 % High 10.5-15 Platelet Count 139 10^3/uL Low 150-450 Mean Platelet Volume 7.1 um3 Low 7.4-10.4 Abs Neutrophils 4.7 10^3/uL N 1.5-7.7 Abs Lymphocytes 0.4 10^3/uL Low 1.0-4.8 Abs Monocytes 0.7 10^3/uL N 0-0.8 Abs Eosinophils 0 10^3/uL N 0-0.6 Abs Basophils 0 10^3/uL N 0-0.2 Abs Nucleated RBC 0 10^3/uL Granulocyte % 80.6 % N 38-83 Lymphocyte % 6.3 % Low 25-47 Monocyte % 12.3 % High 0-7 Eosinophil % 0.1 % N 0-6 Basophil % 0.7 % N 0-2 Nucleated Red Blood Cells % 0 Inr/Protime 04/14/2018 [facility] Inr 1.03 High 0.77-1.02 Laboratory test 04/02/2018 [facility] PSA Diagnostic 4.308 ng/mL High 0-4.0 29 finding Type & Screen 02/01/2018 [facility] Patient Blood Type O Positive Antibody Screen NEGATIVE Comp Metabolic Panel 02/01/2018 [facility] Sodium 142 mmol/L N 135-145 Potassium 4.2 mmol/L N 3.5-5.0 Chloride 108 mmol/L N 101-111 Co2 Carbon Dioxide 30 mmol/L N 22-32 Anion Gap 4 mmol/L N 2-11 Glucose 102 mg/dL High 70-100 Blood Urea Nitrogen 34 mg/dL High 6-24 Creatinine 1.63 mg/dL High 0.67-1.17 BUN/Creatinine Ratio 20.9 High 8-20 Calcium 9.0 mg/dL N 8.6-10.3 Total Protein 6.8 g/dL N 6.4-8.9 Albumin 3.2 g/dL N 3.2-5.2 Globulin 3.6 g/dL N 2-4 Albumin/Globulin Ratio 0.9 Low 1-3 Total Bilirubin 0.30 mg/dL N 0.2-1.0 Alkaline Phosphatase 87 U/L N 34-104 Alt 20 U/L N 7-52 Ast 15 U/L N 13-39 Egfr Non- 42.0 >60 Egfr 54.1 >60 30 Laboratory test finding 02/01/2018 [facility] Partial Thrombo Time 34.6 seconds N 26.0-36.3 PTT Inr/Protime 02/01/2018 [facility] Inr 1.01 N 0.77-1.02 CBC Auto Diff 02/01/2018 [facility] White Blood Count 5.4 10^3/uL N 3.5-10.8 Red Blood Count 4.01 10^6/uL N 4.00-5.40 Hemoglobin 10.5 g/dL Low 14.0-18.0 Hematocrit 32 % Low 42-52 Mean Corpuscular Volume 79 fL Low 80-94 Mean Corpuscular Hemoglobin 26 pg Low 27-31 Mean Corpuscular HGB Conc 33 g/dL N 31-36 Red Cell Distribution Width 22 % High 10.5-15 Platelet Count 207 10^3/uL N 150-450 Mean Platelet Volume 7.3 um3 Low 7.4-10.4 Abs Neutrophils 3.5 10^3/uL N 1.5-7.7 Abs Lymphocytes 0.8 10^3/uL Low 1.0-4.8 Abs Monocytes 0.7 10^3/uL N 0-0.8 Abs Eosinophils 0.3 10^3/uL N 0-0.6 Abs Basophils 0.1 10^3/uL N 0-0.2 Abs Nucleated RBC 0 10^3/uL Granulocyte % 65.5 % N 38-83 Lymphocyte % 14.3 % Low 25-47 Monocyte % 13.8 % High 0-7 Eosinophil % 5.4 % N 0-6 Basophil % 1.0 % N 0-2 Nucleated Red Blood Cells % 0 CBC Electronic Fma 12/23/2017 [facility] WBC 6.2 x10^3/UL 4.0-10.0 RBC 4.80 x10^6/UL 3.93-6.00 HGB 12.1 g/dL 12.0-17.0 HCT 39 % 35-50 MCV 81.0 fL 80.0-95.0 MCH 25.2 pg Low 25.6-32.2 MCHC 31.1 g/dL Low 32.2-36.0 RDW-CV 17.3 % High 11.6-14.4 PLT 181 x10^3/UL 163-400 MPV 9.8 fL 9.4-12.4 Behzad# 4.41 x10^3/UL 1.56-6.13 Lymph# 1.02 x10^3/UL Low 1.18-3.74 Clayton# 0.57 x10^3/UL 0.24-0.82 Eos # 0.1 x10^3/UL 0.0-0.5 Baso # 0.03 x10^3/UL 0.01-0.08 Behzad% 71.5 % High 34.0-70.0 Lymph % 16.6 % Low 20.0-52.0 Clayton% 9.3 % 5.0-12.0 Eos% 1.9 % 0.7-7.0 Baso% 0.5 % 0.1-1.2 Basic Metabolic Profile 12/19/2017 [facility] Sodium 139 mEq/L 134- 149 Potassium 3.6 mEq/L 3.6-5.5 Chloride 100 mEq/L 94-112 Carbon Dioxide 30 mEq/L 21-32 Glucose 97 mg/dL 70-105 BUN 29 mg/dL High 6-26 Creatinine 1.1 mg/dL 0.6-1.4 BUN/Creat Ratio 26.4 CALC 8.0-36.0 Calcium 8.9 mg/dL 8.6-10.2 GFR Non- >60 ml/min/1.73m^ >=60 GFR >60 ml/min/1.73m^ >=60 Laboratory test 10/25/2017 [facility] C Difficile PCR SEE RESULT 31 finding BELOW Laboratory test 10/06/2017 [facility] PSA Diagnostic 6.542 ng/mL High 0-4.0 32 finding Complete Blood 09/16/2017 [facility] WBC 7.1 x10^3/UL 3.6-9. Count 6 RBC 2.98 x10^6/UL Low 3.90-5.70 HGB 8.9 g/dL Low 12.1-17.2 33 HCT 27 % Low 36-50 MCV 91.0 fL 82.2-97.4 MCH 30.0 pg 27.6-33.3 MCHC 33.1 g/dL 33.0-35.5 RDW 15.5 % High 11.6-13.7 PLT 438 x10^3/UL High 150-400 MPV 6.9 fL Low 7.4-10.4 Gran # 5.6 x10^3/UL 1.5-7.2 Lymph# 0.7 x10^3/UL 0.7-4.9 Clayton# 0.8 x10^3/UL 0.1-0.9 Gran % 77.0 % High 42.2-75.2 Lymph % 10.3 % Low 20.5-51.1 Clayton% 12.7 % High 1.7-9.3 Laboratory test 09/16/2017 [facility] D Dimer Quant 1600 ng/mL High 0.0-400 finding (607)- - ([facility]) Ua - Micro (a) 09/16/2017 [facility] Appearance yellow (607)- - Color clear Glucose, Urine (Fma/CMC/CTX) neg Bilirubin neg Ketones neg SP Grav 1.025 Blood mod # PH 5.5 Protein neg Urobil 0.2 Nitrite neg Leukocytes (Fma/CMC/[facility]) neg Hyaline - /Lpf Granular - /Lpf # WBC (a,[facility]) 0-1 # RBC 20-30 # Mucus sm amt /Lpf # Epith rare /Lpf # Bacteria rare /Hpf # Amorphous - /Lpf Crystals, Fluid (Fma/CMC/CTX) few ca+ oxalates # Laboratory test 09/16/2017 [facility] Hemoglobin A1c 4.8 % 4.1-5.7 finding (607)- - (a) Comprehensive 09/16/2017 [facility] Sodium 146 mEq/L 134-149 Metabolic Prof Potassium 4.2 mEq/L 3.6-5.5 Chloride 108 mEq/L 94-112 Carbon Dioxide 30 mEq/L 21-32 Glucose 97 mg/dL 70-105 BUN 20 mg/dL 6-26 Creatinine 1.4 mg/dL 0.6-1.4 BUN/Creat Ratio 14.3 CALC 8.0-36.0 Calcium 9.0 mg/dL 8.6-10.2 Total Protein 6.9 g/dL 6.4-8.3 Albumin 3.7 g/dL Low 3.8-5.5 34 Globulin 3.2 g/dL 2.0-4.8 A/G Ratio 1.2 CALC 0.6-2.3 Alk. Phosphatase 88 U/L 22-95 Alt (SGPT) 18 U/L 7-35 Ast (Sgot) 18 U/L 5-34 Total Bilirubin 0.3 mg/dL 0.2-1.3 GFR Non- 53 ml/min/1.73m^ Low >=60 GFR >60 ml/min/1.73m^ >=60 Laboratory test 09/16/2017 [facility] PSA 14.7 ng/mL High 0.0-4.0 35 finding Laboratory test 12/13/2015 [facility] Vitamin D25 52 30-100 finding Comprehensive 12/13/2015 [facility] Sodium 136 mEq/L 134-149 Metabolic Prof Potassium 3.8 mEq/L 3.6-5.5 Chloride 98 mEq/L 94-112 Carbon Dioxide 30 mEq/L 21-32 Glucose 151 mg/dL High 70-105 36 BUN 26 mg/dL 6-26 Creatinine 1.4 mg/dL 0.6-1.4 BUN/Creat Ratio 18.6 CALC 8.0-36.0 Calcium 9.6 mg/dL 8.6-10.2 Total Protein 7.9 g/dL 6.4-8.3 Albumin 4.1 g/dL 3.8-5.5 Globulin 3.8 g/dL 2.0-4.8 A/G Ratio 1.1 CALC 0.6-2.3 Alk. Phosphatase 74 U/L 22-95 Alt (SGPT) 24 U/L 7-35 Ast (Sgot) 24 U/L 5-34 Total Bilirubin 0.4 mg/dL 0.2-1.3 GFR Non- 54 ml/min/1.73m^ Low >=60 GFR >60 ml/min/1.73m^ >=60 Laboratory test finding 12/13/2015 [facility] TSH 1.89 mIU/L 0.50- 6.00 Free T4 0.93 ng/dL 0.75-1.54 Laboratory test 08/03/2015 [facility] Hemoglobin A1c 6.4 % High 4.1- 5.7 finding (607)- - (Fma/CMC,CX) Laboratory test 04/28/2015 [facility] Hemoglobin A1c 6.2 % High 4.1- 5.7 finding (607)- - (Fma/CMC,CX) Lipid Profile 09/06/2014 [facility] Cholesterol 171 mg/dL 120-200 Triglycerides 209 mg/dL High 30-200 HDL Cholesterol 38 mg/dL 30-70 LDL (Calculated) 91 CALC 0-129 VLDL Cholesterol 42 mg/dL 0-50 HDL Risk Factor 4.5 CALC High 0.0-4.4 Laboratory test finding 09/06/2014 [facility] Vitamin D25 70 30-100 37 PSA 6.1 ng/mL High 0.0-4.0 38 Laboratory test 09/06/2014 [facility] Hemoglobin A1c 6.9 % High 4.1- 5.7 finding (607)- - (Fma/CMC,CX) Comprehensive 09/06/2014 [facility] Sodium 136 134-149 Metabolic Prof mEq/L Potassium 3.9 mEq/L 3.6-5.5 Chloride 99 mEq/L 94-112 Carbon Dioxide 29 mEq/L 21-32 Glucose 142 mg/dL High 70-105 39 BUN 23 mg/dL 6-26 Creatinine 1.1 mg/dL 0.6-1.4 BUN/Creat Ratio 20.9 CALC 8.0-36.0 Calcium 9.0 mg/dL 8.6-10.2 Total Protein 8.3 g/dL 6.4-8.3 Albumin 4.0 g/dL 3.8-5.5 Globulin 4.7 g/dL 2.0-4.8 A/G Ratio 0.9 CALC 0.6-2.3 Alk. Phosphatase 76 U/L 22-95 Alt (SGPT) 18 U/L 7-35 Ast (Sgot) 22 U/L 5-34 Total Bilirubin 0.4 mg/dL 0.2-1.3 Complete Blood Count 09/06/2014 [facility] WBC 8.7 x10^3/UL 3.6-9.6 RBC 4.44 x10^6/UL 3.90-5.70 HGB 11.9 g/dL Low 12.1-17.2 HCT 37 % 36-50 MCV 84.0 fL 82.2-97.4 MCH 26.8 pg Low 27.6-33.3 MCHC 32.1 g/dL Low 33.0-35.5 RDW 15.0 % High 11.6-13.7 PLT 304 x10^3/UL 150-400 MPV 7.1 fL Low 7.4-10.4 Gran # 6.0 x10^3/UL 1.5-7.2 Lymph# 1.5 x10^3/UL 0.7-4.9 Clayton# 0.7 x10^3/UL 0.1-0.9 Gran % 67.6 % 42.2-75.2 Lymph % 18.3 % Low 20.5-51.1 Clayton% 8.8 % 1.7-9.3 Complete Blood Count 07/07/2014 [facility] WBC 10.3 x10^3/UL High 3.6 -9.6 40 RBC 4.27 x10^6/UL 3.90-5.70 HGB 12.1 g/dL 12.1-17.2 HCT 36 % 36-50 MCV 85.0 fL 82.2-97.4 MCH 28.4 pg 27.6-33.3 MCHC 33.5 g/dL 33.0-35.5 RDW 14.0 % High 11.6-13.7 PLT 313 x10^3/UL 150-400 MPV 7.6 fL 7.4-10.4 Gran # 7.8 x10^3/UL High 1.5-7.2 Lymph# 1.7 x10^3/UL 0.7-4.9 Clayton# 0.8 x10^3/UL 0.1-0.9 Gran % 74.1 % 42.2-75.2 Lymph % 17.4 % Low 20.5-51.1 Clayton% 8.5 % 1.7-9.3 Laboratory test 01/14/2012 [facility] PSA 3.20 ng/mL 0.00-4.00 finding Laboratory test 01/14/2012 [facility] Vitamin D, 25 15.5 ng/mL Low 30.0- 100.0 41 finding [address] [place] [address] [phone] Laboratory test 01/14/2012 [facility] Hemoglobin A1c 6.3 % High 4.1- 5.7 finding (607)- - (Fma/CMC,CX) Ua - Non Micro 01/14/2012 [facility] Appearance CLEAR (Fma) (607)- - Color YELLOW Glucose - Bilirubin - Ketones - SP Grav 1.025 Blood - PH 5.5 Protein - Urobil 0.2 Nitrite - Leukocytes (a/[facility]) - Comprehensive Metabolic Prof 12/11/2011 [facility] Albumin 4.2 g/dL 3.8-5.5 Alk. Phos. 80 U/L 22-95 Alt (SGPT) 16 U/L 10-40 Ast (Sgot) 25 U/L 5-34 BUN 23 mg/dL 6-26 Calcium 8.7 mg/dL 8.6-10.2 Chloride 102 mEq/L 94-112 Creatinine 1.2 mg/dL 0.6-1.4 Carbon Dioxide 23 mEq/L 21-32 Glucose 124 mg/dL High 70-105 42 Sodium 139 mEq/L 134-149 Total Bilirubin 0.4 mg/dL 0.2-1.3 Total Protein 7.2 g/dL 6.3-8.1 Potassium 4.0 mEq/L 3.6-5.5 Globulin 3.0 g/dL 2.0-4.8 A/G Ratio 1.4 Calc 0.6-2.2 BUN/Creat Ratio 18.9 Calc 8.0-36.0 Lipid Profile 12/11/2011 [facility] Cholesterol 196 mg/dL 120-200 HDL 36 mg/dL 30-70 Triglycerides 180 mg/dL 30-200 HDL Risk Factor 5.5 CALC High 0.0-4.0 LDL (Calculated) 124 CALC 0-129 VLDL (Calculated) 36 mg/dL 0-50 Laboratory test finding 12/11/2011 [facility] TSH 3.04 mIU/L 0.50- 6.00 Free T4 1.04 ng/dL 0.75-1.54 CBC Electronic ([facility]) 12/11/2011 [facility] WBC 5.4 3.6-9.6 (607)- - RBC 4.43 3.90-5.70 Hemoglobin (Fma/CMC/CTX) 12.8 g/dL 12.1 - 17.2 Hematocrit (Fma/CMC/CTX) 38.5 % 36.1 - 50.3 Platelets 194 10^3/ul 150-400 Lymph% 22.8 20.5-51.1 Mixed% 7.8 Neutrophils % 69.4 Mean Corpuscular Vol 87 82.2-97.4 Mean Corpuscular Hemoglobin 28.9 27.6-33.3 Mean Corpuscular Hemo Concen 33.2 32.0-36.0 RDW 13.4 11.6-13.7 Mean Platelet Volume 7.6 6.5-11.0 1 Because ethnic data is not always [...] 5 Kidney failure <15 (or dialysis) 2 Test Performed by: [place] [address] 3 Test Performed by: [facility] [employer] [place] [address] 4 RESULT: 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 ESCHERICHIA COLI M.I.C. RX --------- ------ Ampicillin 8 S Cefazolin <=4 S Cefepime <=1 S Ceftriaxone <=1 S Ciprofloxacin <=0.25 S Gentamicin <=1 S Levofloxacin <=0.12 S Meropenem <=0.25 S Nitrofurantoin 32 S Tetracycline <=1 S Pipercillin/Tazobactam <=4 S Trimethoprim/Sulfamethoxazole <=20 S Amoxicillin/Clavulanic Acid 4 S Aztreonam <=1 S Contact the Microbiology Department for any additional antibiotic reporting. * ML - Main Lab . END OF REPORT DEPARTMENT OF PATHOLOGY, [address] [place] [address] Emmett Wu M.D. Director [facility] # [id number] 7 SEE RESULT BELOW Name: ISAIAH LOPEZ SR, V : [address]: Esau Arita MD Acct: [id number] Unit: [id number] AGE: 73 Location: ED Re10/08/18 SEX: M Status: REG ER SPEC: [id number] YANETH: 10/09/[address]: Esau Arita MD REQ: [id number] RECD: 10/09/18 STATUS: COMP YAIR DR: Michael Webster MD _ SOURCE: [facility]: ORDERED: Flu A B Request Procedure Result Reported Site Rapid Influenza A B Request Final 10/09/18- 0133 ML Specimen received for Influenza A/B Molecular testing * ML - Main Lab . END OF REPORT DEPARTMENT OF PATHOLOGY, [address] [place] [address] Emmett Wu M.D. Director [facility] # [id number] 8 SEE RESULT BELOW Name: ISAIAH LOPEZ SR, V : [address]: Red Snow MD Acct: [id number] Unit: [id number] AGE: 73 Location: [facility] [id number] Re10/09/18 Dis: 10/12/18 SEX: M Status: DIS IN SPEC: [id number] YANETH: 10/08/18-2356 [facility] DR: Esau Arita MD REQ: [id number] RECD: 10/09/18 STATUS: ISABELL KNIGHT DR: Michael Webster MD _ SOURCE: BLOOD,VENO SPDES: ORDERED: Blood Cult Procedure Result Reported Site Aerobic Culture Bottle Final 10/14/18- 0010 ML No Growth Day 5 Anaerobic Culture Bottle Final 10/14/18- 0010 ML No Growth Day 5 * ML - Main Lab . END OF REPORT DEPARTMENT OF PATHOLOGY, [address] [place] [address] Emmett Wu M.D. Director [facility] # [id number] 9 Troponin-I testing on Plasma Separator Tubes (PST) has a known false positive rate of 0.20-0.40%. All positive troponins reflex immediate secondary confirmatory testing. 10 Because ethnic data is not always readily [...] 15-29 5 Kidney failure <15 (or dialysis) 11 [facility] Severe Sepsis and Septic Shock Management Bundle Measure requires all lactic acids initially measuring >2.0 mmol/L be repeated. 12 Because ethnic data is not always readily [...] 15-29 5 Kidney failure <15 (or dialysis) 13 Because ethnic data is not always readily [...] 15-29 5 Kidney failure <15 (or dialysis) 14 [place] Severe Sepsis and Septic Shock Management Bundle Measure requires all lactic acids initially measuring >2.0 mmol/L be repeated. 15 SEE RESULT BELOW Name: ISAIAH LOPEZ SR, V : [address]: Qiana Ponce DO Acct: [id number] Unit: [id number] AGE: 73 Location: [address] Re08/28/18 SEX: M Status: ADM IN SPEC: [id number] YANETH: 08/28/18 [facility] DR: Augustus King MD REQ: [id number] RECD: 08/28/18 STATUS: [facility] DR: Michael Webster MD _ SOURCE: URINE [facility]: ORDERED: Urine Culture Procedure Result Reported Site Urine Culture Final 08/30/18- 0839 ML No growth of clinically significant organisms * ML - Main Lab . END OF REPORT DEPARTMENT OF PATHOLOGY, [address] [place] [address] Emmett Wu M.D. Director [facility] # [id number] 16 Because ethnic data is not always readily [...] 15-29 5 Kidney failure <15 (or dialysis) 17 SEE RESULT BELOW Name: ISAIAH LOPEZ SR, V : [address]: Fred Jones MD Acct: [id number] Unit: [id number] AGE: 73 Location: ENDO Re08/25/18 SEX: M Status: DEP REF SPEC: [id number] YANETH: 08/25/18-1124 [facility] DR: Fred Jones MD REQ: [id number] RECD: 08/25/18-8373 STATUS: ANNETTA KNIGHT DR: Michael Webster MD _ ORDERED: LEVEL 4/4, IMMUNO-FIRST FINAL DIAGNOSIS 1. Stomach, antrum, biopsy: -- Antral and body-type gastric mucosa with moderate chronic gastritis. -- No evidence of Helicobacter organisms; see comment. 2. Colon, hepatic flexure, biopsy: -- Inflammatory (juvenile) polyp. 3. Colon, mid rectum, biopsy: -- Tubulovillous adenoma. -- No high grade dysplasia or malignancy. 4. Colon, proximal rectum, biopsy: -- Tubular adenoma. -- No high grade dysplasia or malignancy. COMMENT: An H. pylori immunohistochemical stain, with appropriately reacting controls, was performed on sections cut from specimen one and is negative for Helicobacter organisms. CLINICAL HISTORY Anemia/polyps POST-OPERATIVE DIAGNOSIS EGD: esophagus-esophagogastric junction at 40 cm, moderate hiatal hernia with erosion, no Espinoza?s; stomach-antral gastritis, extensive scarring-biopsy x2; duodenum- erythema, erosions, ulcers. Colonoscopy to cecum with ease: very poor prep, all negative, (3) polyps. CONTINUED ON NEXT PAGE DEPARTMENT OF PATHOLOGY, [address] [place] [address] Emmett Wu M.D. Director [facility] # [id number] RUN DATE: 08/27/18 [facility] LAB LIVE PAGE 2 Patient: ISAIAH LOPEZ SR, V [id number] (Continued) POST-OPERATIVE DIAGNOSIS (Continued) Conclusion/plan: moderate hiatal hernia, gastroesophageal reflux disease, gastritis, duodenitis, colon polyps, diverticulosis. GROSS DESCRIPTION 1. The specimen is received in formalin labeled, Gastric Antrum Biopsy, and consists of two english-pink irregular soft tissue fragments measuring 0.4 x 0.4 x 0.1 cm and 0.6 x 0.3 by up to 0.2 cm which are submitted entirely in one cassette. 2. The specimen is received in formalin labeled, Hepatic Flexure Polyp, and consists of a 1.2 x 0.9 x 0.8 cm neglish-red lobulated polypoid soft tissue fragment which is inked, serially sectioned and entirely submitted in one cassette. 3. The specimen is received in formalin labeled, Mid Rectal Polyp, and consists of a 1.2 x 0.9 x 0.5 cm aggregate of english-pink irregular to polypoid soft tissue fragments, the largest of which measures up to 0.9 cm. The largest fragment is inked, bisected and the specimen is entirely submitted in one cassette. 4. The specimen is received in formalin labeled, Proximal Rectal Polyp, and consists of a 0.8 x 0.6 x 0.2 cm aggregate of english irregular to polypoid soft tissue fragments which is submitted entirely in one cassette. Signed by and Reported on: Belinda Rowland MD 08/27/18 1700 END OF REPORT DEPARTMENT OF PATHOLOGY, [address] [place] [address] Emmett Wu M.D. Director [facility] # [id number] 18 SEE RESULT BELOW Name: ISAIAH LOPEZ SR, V : [address]: Fred Jones MD Acct: [id number] Unit: [id number] AGE: 73 Location: ENDO Re08/25/18 SEX: M Status: REG REF SPEC: [id number] YANETH: 08/25/180 [facility] DR: Fred Jones MD REQ: [id number] RECD: 08/25/18 STATUS: ISABELL KNIGHT DR: Michael Webster MD _ SOURCE: GAS ANTRUM SPDESC: ORDERED: Clotest Procedure Result Reported Site Clotest Final 08/26/18743 ML Clotest Negative * - [facility] . END OF REPORT DEPARTMENT OF PATHOLOGY, [address] [place] [address] Emmett Wu M.D. Director [facility] # [id number] RESULT: Polyclonal hypergammaglobulinemia Test Performed by: [address] [id number] 20 Because ethnic data is not always readily [...] 15-29 5 Kidney failure <15 (or dialysis) 21 Normal Range 180 to 914 Indeterminate Range 145 to 180 Deficient Range <145 22 REFERENCE VALUE <1.0 (Negative) Test Performed by: [facility], [place] [address] [place] [address] 23 REFERENCE VALUE <=1.0 (Negative) Test Performed by: [address], [place] [address] 24 SEE RESULT BELOW Name: ISAIAH LOPEZ SR, V : [address]: Red Snow MD Acct: [id number] Unit: [id number] AGE: 73 Location: [place] [address] Re04/14/18 SEX: M Status: ADM Noemy SPEC: [id number] YANETH: 04/14/[address]: Moustapha Emanuel MD REQ: [id number] RECD: 04/14/18 STATUS: ISABELL KNIGHT DR: Michael Webster MD _ SOURCE: URINE SPDESC: ORDERED: Urine Culture Procedure Result Reported Site Urine Culture Final 04/15/18- 1233 ML No Growth (<1,000 CFU/mL) * ML - Main Lab . END OF REPORT DEPARTMENT OF PATHOLOGY, [address] [place] [address] Emmett Wu M.D. Director [facility] # [id number] 25 Result TnIDx:0.04 Called to [id number] at: 15:24:05 by:[id number] Read back by: [id number] 26 Because ethnic data is not always readily [...] 15-29 5 Kidney failure <15 (or dialysis) 27 Specimen hemolyzed. Result may not be valid. [facility] Severe Sepsis and Septic Shock Management Bundle Measure requires all lactic acids initially measuring >2.0 mmol/L be repeated. 28 >100 to <200 pg/mL: likely compensated congestive heart failure (CHF) 200 to 400 pg/mL: likely moderate CHF >400 pg/mL: likely moderate to severe CHF 29 Serum levels of PSA measured using the Deion Roseanna DXI Hybritech immunoassay should not be interpreted as absolute evidence of the presence or absence of disease. The PSA value should be used in conjunction with other pertinent clinical diagnostic procedures. The values obtained with different assay methods or kits cannot be used interchangeably. 30 Because ethnic data is not always readily [...] 15-29 5 Kidney failure <15 (or dialysis) 31 SEE RESULT BELOW Name: ISAIAH LOPEZ SR, V : [address]: Travis Adkins MD Acct: [id number] Unit: [id number] AGE: 72 Location: [facility] Re10/25/17 SEX: M Status: REG REF SPEC: [id number] YANETH: 10/25/17-[address]: Travis Adkins MD REQ: [id number] RECD: 10/25/17 STATUS: ISABELL KNIGHT DR: Michael Webster MD _ SOURCE: STOOL SPDESC: ORDERED: C. diff PCR Procedure Result Reported Site Stool Specimen Description Final 10/26/17- 0755 ML Stool Color Brown Stool Form Formed Stool Consistency Soft C. difficile PCR Final 10/26/17- 075 ML Test not performed * ML - Main Lab . END OF REPORT DEPARTMENT OF PATHOLOGY, [address] [place] [address] Emmett Wu M.D. Director [facility] # [id number] 32 Serum levels of PSA measured using the Deion Roseanna DXI Hybritech immunoassay should not be interpreted as absolute evidence of the presence or absence of disease. The PSA value should be used in conjunction with other pertinent clinical diagnostic procedures. The values obtained with different assay methods or kits cannot be used interchangeably. 33 RESULTS VERIFIED BY REPEAT ANALYSIS 34 RESULTS VERIFIED BY REPEAT ANALYSIS 35 RESULTS VERIFIED BY REPEAT ANALYSIS 36 consistent w/ previous results 37 FASTING 38 RESULTS VERIFIED BY REPEAT ANALYSIS 39 NON-FASTING 40 RESULTS VERIFIED BY REPEAT ANALYSIS 41 Vitamin D deficiency has been defined by the [place] of [employer] and an Endocrine Society practice guideline as a level of serum 25-OH vitamin D less than 20 ng/mL (1,2). The Endocrine Society went on to further define vitamin D insufficiency as a level between 21 and 29 ng/mL (2). 1. IOM ([place] of [employer]). 2010. Dietary reference intakes for calcium and D. [place]: The National Academies Press. 2. Bruno MF, Tiffany THOMASON, Cece GONZALEZ, et al. Evaluation, treatment, and prevention of vitamin D deficiency: an Endocrine Society clinical practice guideline. JCEM. 2010; 96(7):1911-30. 42 RESULT MATTI'D Procedures Date Code Description Status 08/18/2018 31978013 Colonoscopy Completed 12/11/2015 13902 Electrocardiogram Complete Completed 08/03/2015 71982 Finger Or Heel Stick Completed 04/28/2015 70892 Finger Or Heel Stick Completed 01/14/2012 67937 Vision Test- screening test of visual acuity, Completed quantitative, bila Encounters Type Date Location Provider Dx Diagnosis Office Visit 09/30/2018 [facility] Office Michael Webster, N17.9 Acute kidney 3:30p M.D. 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 I10 Essential (primary) hypertension I67.2 Cerebral atherosclerosis N40.0 Benign prostatic hyperplasia without lower urinry tract symp Z23 Encounter for immunization Office Visit 05/05/2018 9:20a [facility] Office Michael Patricio R74.0 Nonspec elev of Jose Webster levels of transamns & lactic acid dehydrgnse M62.82 Rhabdomyolysis I10 Essential (primary) hypertension R31.9 Hematuria, unspecified N40.0 Benign prostatic hyperplasia without lower urinry tract symp I67.2 Cerebral atherosclerosis Office Visit 02/23/2018 4:10p [facility] Travis Burgos I1Farhat Essential MD Lucille (primary) hypertension K64.9 Unspecified hemorrhoids Office Visit 02/11/2018 10:30a [facility] Michael Martin0 Essential ( primary) Jose Webster hypertension Office Visit 01/28/2018 10:30a [facility] Michael Martin0 Essential ( primary) Jose Webster hypertension Office Visit 01/14/2018 10:30a [facility] Michael Martin0 Essential ( primary) Jose Webster hypertension Office Visit 01/06/2018 1:15p [facility] Michael Martin0 Essential ( primary) Jose Webster hypertension Office Visit 12/23/2017 11:00a [facility] Michael Martin0 Essential ( primary) Jose Webster hypertension D62 Acute posthemorrhagic anemia Office Visit 12/19/2017 2:15p [facility] Felipa Soares I10 Essential ( primary) ASHLEY Gilmore hypertension I16.0 Hypertensive urgency Office Visit 11/26/2017 1:00p [facility] Michael Martin0 Essential ( primary) Jose Webster hypertension Office Visit 11/05/2017 2:30p [facility] Michael Martin0 Essential ( primary) Jose Webster hypertension Office Visit 10/24/2017 3:20p Main Office Travis Burgos K59.1 Functional diarrhea MD Lucille Office Visit 10/22/2017 3:40p [facility] Michael Patricio I10 Essential ( primary) Jose Webster hypertension G31.84 Mild cognitive impairment, so stated N40.0 Benign prostatic hyperplasia without lower urinry tract symp Office Visit 09/29/2017 3:45p [facility] Kellie I73.89 Other specified [place], Afnp-C peripheral vascular diseases I10 Essential (primary) hypertension R35.0 Frequency of micturition Office Visit 09/17/2017 9:30a [facility] Michael Patricio L03.115 Cellulitis of Jose Webster right lower limb R97.20 Elevated prostate specific antigen [PSA] D62 Acute posthemorrhagic anemia K92.2 Gastrointestinal hemorrhage, unspecified Office Visit 09/16/2017 8:50a [facility] Michael EstveezChristin Eleanor, R35.8 Other polyuria M.DChristin R97.20 Elevated prostate specific antigen [PSA] R22.41 Localized swelling, mass and lump, right lower limb R31.29 Other microscopic hematuria R73.09 Other abnormal glucose Office Visit 12/13/2015 11:30a Main Office Jacinta Schwartz Essential ( primary) Jose Muñoz hypertension E55.9 Vitamin D deficiency, unspecified Office Visit 12/11/2015 5:40p Main Office Jacinta Schwartz Essential ( primary) Jose Muñoz hypertension E66.3 Overweight Office Visit 10/09/2015 12:20p Main Office Jacinta Schwartz Essential ( primary) Jose Muñoz hypertension G60.8 Other hereditary and idiopathic neuropathies Office Visit 08/03/2015 2:40p [facility] Jacinta Schwartz Essential ( primary) Jose Muñoz hypertension E11.9 Type 2 diabetes mellitus without complications G60.8 Other hereditary and idiopathic neuropathies I73.89 Other specified peripheral vascular diseases Z23 Encounter for immunization Office Visit 04/28/2015 3:00p Main Office Jacinta Vera 250.00 Diabetes Mellitus Jose Muñoz W/O Compl Type II Or Unspec Controlled 443.89 Peripheral Vascular Disease Other 356.8 Neuropathy Other Spec Idiopathic Peripheral 401.9 Hypertension Unspec 729.5 Pain In Limb V03.82 Streptococcus Pneumoniae Vaccination Spec Other Office Visit 12/08/2014 2:40p [facility] Jacinta Vera 443.89 Nik Muñoz M.D. Vascular Disease Other 729.5 Pain In Limb 278.02 Overweight 401.9 Hypertension Unspec 250.00 Diabetes Mellitus W/O Compl Type II Or Unspec Controlled Office Visit 11/04/2014 3:00p Main Office Jacinta Vera 443.89 Nik Muñoz M.D. Vascular Disease Other 401.9 Hypertension Unspec 278.02 Overweight 250.00 Diabetes Mellitus W/O Compl Type II Or Unspec Controlled Office Visit 10/03/2014 7:40p Main Office Jacinta Vera 401.9 Hypertension Unspec Jose Muñoz 278.02 Overweight 443.89 Peripheral Vascular Disease Other 782.9 Skin & Integumentary Tissue Other Symptoms 356.8 Neuropathy Other Spec Idiopathic Peripheral 268.9 Vitamin D Deficiency Unspec Office Visit 09/06/2014 1:40p [facility] Jacinta Vera 401.9 Hypertension Jose Muñoz Unspec 278.02 Overweight 443.89 Peripheral Vascular Disease Other 356.8 Neuropathy Other Spec Idiopathic Peripheral V70.0 Examination General Medical Routine AT Health Care Facility 268.9 Vitamin D Deficiency Unspec V76.44 Screening For Malig David Prostate 465.9 URI Upper Respiratory Infections Acute Unspec Sites Office Visit 07/07/2014 1:40p [facility] Jacinta Vera 465.9 URI Upper Jose Muñoz Respiratory Infections Acute Unspec Sites V70.0 Examination General Medical Routine AT Health Care Facility 268.9 Vitamin D Deficiency Unspec Office Visit 10/20/2013 2:30p Main Office Constance Aiken, 401.9 Hypertension Unspec PATENTS EXAMINER 493.90 Asthma Unspec W/O Status Asthmaticus Office Visit 06/30/2012 10:40a Main Office Jacinta Vera 250.00 Diabetes Mellitus Jose Muñoz W/O Compl Type II Or Unspec Controlled 401.9 Hypertension Unspec 782.9 Skin & Integumentary Tissue Other Symptoms Office Visit 02/11/2012 3:20p Main Office Jacinta Vera 268.9 Vitamin D Jose Muñoz Deficiency Unspec 250.00 Diabetes Mellitus W/O Compl Type II Or Unspec Controlled 401.9 Hypertension Unspec Office Visit 01/14/2012 3:00p Main Office Jacinta Vera V70.0 Examination General Jose Muñoz Medical Routine AT Health Care Facility 401.9 Hypertension Unspec 493.90 Asthma Unspec W/O Status Asthmaticus 782.1 Rash & Other Nonspec Skin Eruption 278.02 Overweight 724.2 Lumbago 790.6 Abnormal Blood Chemistry Other 268.9 Vitamin D Deficiency Unspec V06.5 Tetanus Diphtheria (DT) Office Visit 12/11/2011 9:15a Main Office Jacinta Vera 401.9 Hypertension Jose Muñoz Unspec Office Visit 11/22/2011 10:00a [facility] Aminta Cook 401.9 Hypertension Afnp-C Unspec 493.90 Asthma Unspec W/O Status Asthmaticus Plan of Treatment Future Appointment(s):02/02/2019 10:20 am - Michael Webster M.D. at [facility]11/20/2018 - Felipa Gilmore, NPK58.8 Other irritable bowel lmwszufjK09.70 Gastritis, unspecified, without bleedingComments:Continue bynfpizbjeziW66.9 Acute kidney failure, unspecifiedComments:[id number] Essential (primary) hypertensionComments:Call or return to the office if:* you get more than one blood pressure reading above 160/100 (even if only one of the numbers is high)* you feel close to passing out or actually pass out* you have new or worsening swelling in the ankles, legs, hands, or face* you develop palpiatations or funny [id number] Benign prostatic hyperplasia without lower urinary tract symAllNew Medication:Floranex - Chew 2 by mouth dailyComments:1. Patient has been queried about patient's goals/preferences and functional/lifestyle goals at relevant visits. If relevant, describe: Has been discussed, noted above2. Treatment goals as explainedto the patient: see above3. Are there barriers to meeting treatment goals? Yes If Yes, please describe: Barriers include possible insurance limits, disease process, and difficulty with lifestyle changes4. Self-Management goals as described to the patient: Yes, see above As always, we strongly encourage a healthy diet and making physical activity a part of your every day life. If you have questions about how or where to start, please contact the office.
--- NOTE | 2018-11-28 12:26 | ED ---
Neurological HPI - HPI Summary HPI Summary: This patient is a 73 year old male presenting to [facility] accompanied by with a chief complaint of multiple falls in the past few days. Today, patient states that he could not get his footing and slid on the floor onto his behind. Patient states that he did not have the strength to get out of bed and could not get up from the floor. Patients called EMS after noticing him, stating a previous hx of stroke, and having been told to bring him to the ED if he experienced severe weakness again. The pain is rated 0/10 in severity. Symptoms aggravated by nothing. Symptoms alleviated by nothing. Patient denies fever, chills, pain, dysuria. - History of Current Complaint Stated Complaint: FALL PER EMS Time Seen by Provider: 11/28/18 12:09 Hx Obtained From: Patient Onset/Duration: Started days ago, Still Present Timing: Constant Onset Severity: Moderate Pain Intensity: 0 Pain Scale Used: 0-10 Numeric Character: Motor Weakness Aggravating: Nothing Alleviating: Nothing Associated Signs and Symptoms: Positive: Negative - fever, chills, pain, dysuria - Additional Pertinent History Primary Care Physician: CARLYLE - Allergy/Home Medications Allergies/Adverse Reactions: Allergies Allergy/AdvReac Type Severity Reaction Status Date / Time erythromycin base AdvReac Severe Diarrhea Verified 11/28/18 12:12 Home Medications: Home Medications Ascorbic Acid [Vitamin C with Ramya Hips] 1 tab PO DAILY 11/28/18 [History Confirmed 11/28/18] Chlorthalidone 25 mg PO DAILY 11/28/18 [History Confirmed 11/28/18] Finasteride TAB* [Proscar TAB*] 5 mg PO DAILY 11/28/18 [History Confirmed ] Pantoprazole TAB * [Protonix TAB*] 40 mg PO DAILY 11/28/18 [History Confirmed ] PMH/Surg Hx/FS Hx/Imm Hx Previously Healthy: No Endocrine/Hematology History: Reports: Hx Anemia - slightly Denies: Hx Anticoagulant Therapy, Hx Diabetes, Hx Unexplained Bleeding Cardiovascular History: Reports: Hx Hypertension Denies: Hx Aneurysm, Hx Angina, Hx Angioplasty, Hx Auto Implanted Cardiovert Defib, Hx Cardiac Arrest, Hx Cardiomegaly, Hx Congenital Heart Disease, Hx Congestive Heart Failure, Hx Coronary Artery Disease, Hx Deep Vein Thrombosis, Hx Embolism, Hx Hypercholesterolemia, Hx Hypotension, Hx Myocardial Infarction, Hx Pacemaker/ICD, Hx Peripheral Vascular Disease, Hx Rheumatic Fever, Hx Syncope , Hx Valvular Heart Disease Respiratory History: Reports: Hx Asthma Denies: Hx Chronic Bronchitis, Hx Chronic Obstructive Pulmonary Disease (COPD ), Hx Cystic Fibrosis, Hx Lung Cancer, Hx Pleural Effusion, Hx Pneumonia, Hx Pulmonary Edema, Hx Pulmonary Embolism, Hx Seasonal Allergies, Hx Sleep Apnea, Other Respiratory Problems/Disorders GI History: Reports: Hx Diverticulosis, Hx Gastroesophageal Reflux Disease, Hx Irritable Bowel, Other GI Disorders - diverticulitis, left inguinal hernia Denies: Hx Cirrhosis, Hx Crohn's Disease, Hx Gall Bladder Disease, Hx Gastrointestinal Bleed, Hx Hiatal Hernia, Hx Jaundice, Hx Ileostomy, Hx Pyloric Stenosis, Hx Ulcer History: Reports: Hx Chronic Renal Failure - stage 2-3, Hx Kidney Stones - left, Other Problems/Disorders - BPH Musculoskeletal History: Reports: Other Musculoskeletal History - sciatica, mod- severe compression fx T12 Sensory History: Reports: Hx Cataracts - developing, Hx Contacts or Glasses - glasses Denies: Hx Eye Injury, Hx Eye Prosthesis, Hx Legally Blind, Hx Macular Degeneration, Hx Vision Problem, Hx Deafness, Hx Hearing Aid, Hx Hearing Problem Opthamlomology History: Reports: Hx Cataracts - developing, Hx Contacts or Glasses - glasses Denies: Hx Eye Injury, Hx Eye Prosthesis, Hx Legally Blind, Hx Macular Degeneration, Hx Vision Problem Neurological History: Denies: Hx Dementia, Hx Developmental Delay, Hx Headaches, Hx Migraine, Hx Nerve Disease, Hx Seizures, Hx Spinal Cord Injury, Hx Transient Ischemic Attacks (TIA), Other Neuro Impairments/Disorders Psychiatric History: Reports: Hx Depression Denies: Hx Panic Disorder - Cancer History Hx Chemotherapy: No - Surgical History Surgery Procedure, Year, and Place: diverticulitis surgeries. tonsillectomy as a child. 09/04/18- cystoscopy, left retrograde, left stent insertion Hx Anesthesia Reactions: No - Immunization History Date of Tetanus Vaccine: 2012 Date of Influenza Vaccine: unk Infectious Disease History: No Infectious Disease History: Denies: Hx Clostridium Difficile, Hx Hepatitis, Hx Human Immunodeficiency Virus (HIV), Hx of Known/Suspected MRSA, Hx Shingles, Hx Tuberculosis, Hx Known/ Suspected VRE, Hx Known/Suspected VRSA, History Other Infectious Disease, Traveled Outside the [place] in Last 30 Days - Family History Known Family History: Positive: Hypertension, Diabetes - Social History Lives: With Family Alcohol Use: None Hx Substance Use: No Substance Use Type: Reports: None Hx Tobacco Use: Yes Smoking Status (MU): Former Smoker Have You Smoked in the Last Year: No Review of Systems Negative: Fever, Chills Negative: burning, dysuria Positive: Weakness All Other Systems Reviewed And Are Negative: Yes Physical Exam - Summary Physical Exam Summary: Constitutional: Well-developed, Well-nourished, Alert. Skin: Warm, Dry HENT: Normocephalic; Atraumatic Eyes: Conjunctiva normal Neck: Musculoskeletal ROM normal neck. Cardio: Rhythm regular, rate normal, Heart sounds normal; Intact distal pulses; The pedal pulses are 2+ and symmetric. Radial pulses are 2+ and symmetric. Pulmonary/Chest wall: Effort normal. Abd: Soft, Musculoskeletal: 1+ pitting edema in bilateral lower extremities, Chronic venous stasis Neuro: Alert, Oriented x3. Facial aphasia Psych: Mood and affect Normal Triage Information Reviewed: Yes Vital Signs On Initial Exam: Initial Vitals Temp Pulse Resp BP Pulse Ox 98.5 F 69 15 125/78 95 11/28/18 12:07 11/28/18 12:07 11/28/18 12:07 11/28/18 12:07 11/28/18 12:07 Vital Signs Reviewed: Yes Diagnostics - Vital Signs Vital Signs Temp Pulse Resp BP Pulse Ox 11/28/18 12:07 98.5 F 69 15 125/78 95 - Laboratory Result Diagrams: 11/28/18 12:54 11/28/18 12:54 Lab Statement: Any lab studies that have been ordered have been reviewed, and results considered in the medical decision making process. - Radiology CXR Radiology Interpretation Completed By: Radiologist Summary of Radiographic Findings: CXR reveals, per radiologist, IMPRESSION: FINDINGS CONSISTENT WITH COPD, NO EVIDENCE FOR ACUTE FINDING. ED physician has reviewed this radiology report. - CT CT Brain CT Interpretation Completed By: Radiologist Summary of CT Findings: CT Brain reveals, per radiologist, IMPRESSION: 1. NO EVIDENCE FOR ACUTE INTRACRANIAL ABNORMALITY. 2. ATROPHY AND FINDINGS CONSISTENT WITH MODERATE CHRONIC SMALL VESSEL ISCHEMIC CHANGES. 3. MULTIPLE CHRONIC LACUNAR INFARCTS. ED physician has reviewed this radiology report. - EKG 1240 Cardiac Rate: NL EKG Rhythm: Sinus Rhythm - 66 BPM Summary of EKG Findings: An EKG, taken 1240, reveals NSR (66 BPM), normal NJ, normal QRS, normal QTc, normal axis, normal ST, normal T-waves, normal EKG. Course/Dx - Course Course Of Treatment: This patient is a 73 year old male presenting to [facility] accompanied by with a chief complaint of multiple falls in the past few days. Today, patient states that he could not get his footing and slid on the floor onto his behind. Patient states that he did not have the strength to get out of bed and could not get up from the floor. Patients called EMS after noticing him, stating a previous hx of stroke, and having been told to bring him to the ED if he experienced severe weakness again. An EKG, taken 1240, reveals NSR (66 BPM), normal NJ, normal QRS, normal QTc, normal axis, normal ST , normal T-waves, normal EKG. CXR reveals, per radiologist, IMPRESSION: FINDINGS CONSISTENT WITH COPD, NO EVIDENCE FOR ACUTE FINDING. ED physician has reviewed this radiology report. CT Brain reveals, per radiologist, IMPRESSION: 1. NO EVIDENCE FOR ACUTE INTRACRANIAL ABNORMALITY. 2. ATROPHY AND FINDINGS CONSISTENT WITH MODERATE CHRONIC SMALL VESSEL ISCHEMIC CHANGES. 3. MULTIPLE CHRONIC LACUNAR INFARCTS. ED physician has reviewed this radiology report. Bloodwork Obtained. Urinalysis Obtained. Test results with no significant abnormalities except for a high Lactic Acid Level and low potassium. In the ED course the patient was given Potassium Chloride, Rocephin. The pt is hemodynamically stable, alert and oriented x3. Patient will be discharged with a dx of UTI and a prescription for Cipro. Patient is advised to follow up with Urologist in 3 days. The patient is agreeable with this plan. - Diagnoses Provider Diagnoses: UTI (urinary tract infection) Discharge - Sign-Out/Discharge Documenting (check all that apply): Patient Departure Patient Received Moderate/Deep Sedation with Procedure: No - Discharge Plan Condition: Stable Disposition: HOME Prescriptions: Ciprofloxacin TAB* [Cipro 500 MG TAB*] 500 mg PO BID #20 tab Patient Education Materials: Urinary Tract Infection in Men (DC), Catheter- associated Urinary Tract Infection (ED) Print Language: [place] Referrals: Michael Webster MD [Primary Care Provider] - Additional Instructions: follow-up with your urologist. - Billing Disposition and Condition Condition: STABLE Disposition: Home - Attestation Statements Document Initiated by Yang: Yes Documenting Scribe: Nicola Kraus Provider For Whom Waltibe is Documenting (Include Credential): Nanette Poole MD Scribe Attestation: I, Nicola Kraus, scribed for Nanette Lockhart MD on 11/28/18 at 2139. Scribe Documentation Reviewed: Yes Provider Attestation: The documentation as recorded by the Nicola langston accurately reflects the service I personally performed and the decisions made by me, Nanette Lockhart MD Status of Scribe Document: Viewed
[2018-11-28 13:04] LABS: ABS Basophils 0.1 10^3/ul (0-0.2); ABS Eosinophils 0.4 10^3/ul (0-0.6); ABS Lymphocytes 0.8 10^3/ul (1.0-4.8); ABS Monocytes 0.6 10^3/ul (0-0.8); ABS Nucleated RBC 0 10^3/ul; Eosinophil % 5.2 %; Hematocrit 36 % (36-46); Hemoglobin 11.9 g/dL (14.0-18.0); Lymphocyte % 12.4 %; Mean Corpuscular HGB Conc 33 g/dL (31-36); Mean Corpuscular Hemoglobin 30 pg (27-31); Mean Corpuscular Volume 89 fL (80-94); Mean Platelet Volume 6.9 fL (7.4-10.4); Nucleated Red Blood Cells % 0; Platelet Count 227 10^3/uL (150-450); Red Blood Count 4.02 10^6 /uL (4.18-5.48); Red Cell Distribution Width 16 % (10.5-15); White Blood Count 6.8 10^3/uL (3.5-10.8)
[2018-11-28 13:16] LABS: Activated Partial Thrombo Time 32.7 seconds (26.0-36.3); INR 0.9 (0.77-1.02)
[2018-11-28 13:17] LABS: Albumin 3.6 g/dL (3.2-5.2); BUN/Creatinine Ratio 15.2 (8-20); Calcium 9.1 mg/dL (8.6-10.3); EGFR African American 58.1 (>60); Globulin 3.7 g/dL (2-4); Potassium 3.1 mmol/L (3.5-5.0); Total Bilirubin 0.4 mg/dL (0.2-1.0); Total Protein 7.3 g/dL (6.4-8.9)
[2018-11-28 13:54] LABS: Urine Appearance Turbid; Urine Bacteria Absent (Absent); Urine Bilirubin Negative (Negative); Urine Blood 3+ (Negative); Urine Color Yellow; Urine Glucose Negative (Negative); Urine Ketones Negative (Negative); Urine Nitrite Positive (Negative); Urine Protein Negative (Negative); Urine Red Blood Cell 3+(>10/hpf) (Absent); Urine Specific Gravity 1.011 (1.010-1.030); Urine Urobilinogen Negative (Negative); Urine White Blood Cell 3+(>20/hpf) (Absent)
[2018-11-28 17:41] VITALS: BP 120/82
--- NOTE | 2018-11-30 08:26 | PN ---
Progress Note - Progress Note Date of Service: 11/28/18 Note: Microbiology called with a positive blood culture of gram-positive cocci without staph aureus, staph aureus negative Called patient at 8:20 AM Patient states he is afebrile, no sweats or chills, feeling well Denies any urinary symptoms or abdominal pain He states he is feeling much improved since arrival to the ED 2 days ago He remains on his antibiotics He understands return precautions and states he will return if he develops any fevers, sweats, chills or any changing symptoms This is likely a contaminant
--- NOTE | 2018-12-01 06:24 | PN ---
Progress Note - Progress Note Date of Service: 11/28/18 Note: Urine culture final are equally 100,000 This is pansensitive and sensitive to ciprofloxacin Patient was placed on Cipro prior to discharge Patient was called yesterday, 11/30/18 who stated he was feeling improved and denies any fevers Nothing further is required at this time
== END | disposition home or self-care (01) ==
LOC: ED 11:50
DX: N39.0 Urinary tract infection, site not specified (principal); D64.9 Anemia, unspecified; I10 Essential (primary) hypertension; Z91.81 History of falling; Z87.891 Personal history of nicotine dependence
CPT/HCPCS: 36415; 70450; 71045; 80053; 81003; 81015; 83605; 85025; 85610; 85730; 87040; 87077; 87086; 87150; 87186; 87205; 93005; 96361; 96374; 99284; A9270-GY; J0696; J3480

== ENCOUNTER 2018-12-28 07:01 | Day surgery (SDC) | payer MEDICARE ==
--- NOTE | 2018-12-24 18:57 | HP ---
CC: Dr. Webster; Dr. Estes; Dr. Hua Cee* ADMITTING HISTORY AND PHYSICAL: DATE OF ADMISSION: 12/28/18 ADMITTING DIAGNOSIS: Left renal calculi. PLANNED PROCEDURE: Left stent change and shockwave lithotripsy of left renal calculi. SURGEON: Dr. Cee. HISTORY OF PRESENT ILLNESS: Isaiah Lopez is a 73-year-old gentleman with history of multiple medical issues as well as multiple large left renal calculi. He had previously undergone shockwave lithotripsy with partial fragmentation and is now being brought in for left stent change and repeat shockwave lithotripsy of the left renal calculi. I offered him the alternative of referral for percutaneous nephrolithotripsy, but because of his multiple medical issues, he would like to try and avoid that if possible. I have explained to him that he may require further procedures including ureteroscopy with laser lithotripsy if any fragments migrate into the ureter. PAST MEDICAL HISTORY: Significant for: 1. Hypertension. 2. Hyperlipidemia. 3. History of cerebrovascular accident. 4. Gastroesophageal reflux. 5. Enlarged prostate with urinary retention. 6. Chronic anemia. 7. Chronic kidney disease. 8. Lymphedema. PAST SURGICAL HISTORY: Significant for left stent insertion and lithotripsy and sigmoid colon resection. MEDICATIONS ON ADMISSION: 1. Losartan potassium 50 mg a day. 2. Tamsulosin 0.4 mg a day. 3. Metoprolol 50 mg 2 tablets daily. 4. Chlorthalidone 25 mg a day. 5. Pantoprazole 40 mg a day. 6. Finasteride 5 mg a day. ALLERGIES AND INTOLERANCES: SINGULAIR, FORADIL, LISINOPRIL, ERYTHROMYCIN, IRBESARTAN, AMLODIPINE. FAMILY HISTORY: There is no family history of renal calculi. SOCIAL HISTORY: Smoking history: He is a nonsmoker. REVIEW OF SYSTEMS: He denies any chest pain or shortness of breath. PHYSICAL EXAMINATION GENERAL: Reveals an elderly gentleman. VITAL SIGNS: Blood pressure is 122/80, pulse 70 per minute and regular, oxygen saturation 98% on room air, temperature 96.8. LUNGS: Clear bilaterally. CARDIOVASCULAR: Regular rate and rhythm. S1, S2. ABDOMEN: Soft with mild left flank tenderness. A Begum catheter is in place draining clear urine. IMPRESSION: A 73-year-old gentleman with multiple medical issues and multiple large left renal calculi. PLAN: Planned procedure is shockwave lithotripsy of left renal calculi and left stent change. [id number]/[facility] #: [id number] [facility] HOSPITALOusmane
[~2018-12-28 07:01] MED LIST changes: +Buffered Lidocaine 1% SYRIN* 1 ML/SYRINGE INTRADERM ONE; +Dexamethasone TAB* 4 MG PO ONE; +DiMENhydriNATE IV* 50 MG/ML VIAL IV PUSH PRN; +Famotidine IV* 10 MG/ML 2 ML (20 mg) IV ONE; -KCL 10 MEQ/50 ML IVPREMIX* 10 MEQ/50 ML BAG IV ONE; +Lactated Ringers 1000 ML Bag* 1,000 ML IV SCH; +Morphine 4 MG/ML VIAL (1 ml) 4 MG/ML VIAL IV PRN; +Naloxone* 0.4 MG/ML 1 ML VIAL IV PRN; +Ondansetron INJ* 2 MG/ML VIAL ONE; +PROCHLORPERAZINE INJ 5 MG/ML 2 ML VIAL IV PRN; -Potassium Chlor TAB* 20 MEQ TAB.ER PO ONE; -cefTRIAXone(*) 1 GM in NS 0.9% 50 ML* 50 ML IVPB ONE; +fentaNYL* 50 MCG/ML 2 ML VIAL (100 MCG VIAL) IV PRN; +oxyCODONE/Acetamin 5/325 MG* TAB PO PRN
[2018-12-28] MEDS ORDERED: cefTRIAXone(*) 2 GM ADDV.VIAL IVPB ONE (07:22)
[2018-12-28] MEDS ORDERED: Ondansetron ODT TAB* 4 MG ONE (07:22)
[2018-12-28] MEDS ORDERED: Dexamethasone TAB* 4 MG ONE (07:22)
[2018-12-28] MEDS ORDERED: Famotidine IV* 10 MG/ML 2 ML (20 mg) ONE (07:23)
[2018-12-28] MEDS ORDERED: Buffered Lidocaine 1% SYRIN* 1 ML/SYRINGE INTRADERM ONE (07:23)
[2018-12-28] MEDS ORDERED: KETAMINE HCL* 50 MG/ML 10 ML VIAL ONE (07:51)
[2018-12-28] MEDS ORDERED: fentaNYL* 50 MCG/ML 2 ML VIAL (100 MCG VIAL) ONE (07:51)
[2018-12-28] MEDS ORDERED: Midazolam* 1 MG/ML 2 ML VIAL (2 MG) ONE (07:51)
[2018-12-28] MEDS ORDERED: Iohexol 180 (CONTRAST) 10 ML SDV IV ONE (08:43)
[2018-12-28] MEDS ORDERED: EPHEDrine (Pressors)* 50 MG/ML VIAL ONE (09:27)
[2018-12-28] MEDS ORDERED: Lidocaine 2% PF * 5 ML VIAL ONE (09:27)
[2018-12-28] MEDS ORDERED: Furosemide IV* 10 MG/ML 2 ML VIAL (20 MG) ONE (09:38)
[2018-12-28] MEDS ORDERED: Phenylephrine 10 MG/ML VIAL* 1 ML VIAL ONE (09:48)
[2018-12-28 13:18] VITALS: BP 107/71
--- NOTE | 2018-12-28 22:10 | OP ---
CC: Dr. Webster * DATE OF OPERATION: 12/28/18 - [facility] DATE OF : 49 SURGEON: Hua Cee M.D. ANESTHESIOLOGIST: Dr. Yo. ANESTHESIA: General. PRE-OP DIAGNOSES: 1. Left hydronephrosis. 2. Left renal calculi. POST-OP DIAGNOSES: 1. Left hydronephrosis. 2. Left renal calculi. 3. Bladder calculi. OPERATIVE PROCEDURE: 1. Cystoscopy, left retrograde pyelogram, left ureteral stent change. 2. Shockwave lithotripsy of left renal calculi. 3. Fragmentation and removal of bladder calculi. COMPLICATIONS: None. STENT USED: An 8-Welsh 26-cm silicone stent, left ureter. POSTOPERATIVE CONDITION: Stable. INDICATIONS: Isaiah Lopez Sr. is a 73-year-old gentleman who has got multiple urologic issues including multiple large left renal calculi, history of left hydronephrosis, chronic kidney disease, and urinary retention. DESCRIPTION OF PROCEDURE: After induction of general anesthesia, the patient was placed in dorsal lithotomy position. Sequential compression devices were in place and functioning. Initial cystoscopy revealed a normal-appearing urethra and a moderately enlarged obstructing prostate, and a normal appearing bladder with a few small bladder calculi. The bladder calculi were fragmented and irrigated out. Next, the previously placed left stent was removed. Retrograde pyelogram revealed fullness of the left collecting system, and a new 8.5-Welsh, 26-cm black silicone stent was introduced under fluoroscopic monitoring. Next, the patient was placed on the lithotripsy table in supine position. There was a cluster of calculi in the mid to lower pole of the left kidney, which were targeted sequentially with a total of 2400 shock waves distributed amongst the three clusters of stone that were noted. After the initial 300 shocks, there was a pause in lithotripsy for several minutes in an effort to minimize any potential trauma to the kidney. As reported above, a total of 2400 shocks were administered and were distributed between the three clusters of stones. At the end of the procedure, the patient tolerated the procedure satisfactorily and was transferred back to the recovery area in stable condition. [id number]/[facility] #: [id number] MTDD
== END 2018-12-28 14:59 | disposition home or self-care (01) ==
LOC: OR 07:01
PROVIDERS: ATTEND Urology
DX: N13.2 Hydronephrosis with renal and ureteral calculous obstruction (principal); N21.0 Calculus in bladder; N40.1 Benign prostatic hyperplasia with lower urinary tract symptoms; N13.8 Other obstructive and reflux uropathy; I10 Essential (primary) hypertension; E78.5 Hyperlipidemia, unspecified; K21.9 Gastro-esophageal reflux disease without esophagitis; N18.9 Chronic kidney disease, unspecified; J45.909 Unspecified asthma, uncomplicated
CPT/HCPCS: 74018; A9270-GY; C1876; J0696; J1940; J2250; J3010; J8540

== ENCOUNTER 2019-01-06 12:27 | Emergency (ER) | payer MEDICARE ==
--- NOTE | 2019-01-06 16:41 | ED ---
GI/ HPI - HPI Summary HPI Summary: A 73 y/o male accompanied by his daughter presents to [facility] with a chief complaint of cloudy urine today. He has had a thompson catheter for about 6 months for kidney stones and enlarged prostate. He claims that it seems like he gets his catheter changed monthy - with recent change. Per daughter, the patient's forehead was hot and he was sweating in the waiting room so it was suggested that he be checked for UTI. States urine became cloudy today. The patient denies abdominal pain, chills or N/V. No rash, no back pain. Pt states has intermittently had UTI -last one "several months' Denies resistance. He is allergic to Azithromycin. He denies drug, smoking or EtOH use. He sees Dr. Cee , urologist.Not immunocompromised. - History of Current Complaint Chief Complaint: EDUrogenitalProblems Time Seen by Provider: 01/06/19 16:34 Stated Complaint: BLADDER INFECTION PER PT DAUGHTER Hx Obtained From: Patient, Family/Cut Off Man Onset/Duration: Started Hours Ago, Still Present Timing: Constant, Lasting Hours Severity: Mild Current Severity: Mild Pain Intensity: 0 Location of Pain: None Associated Signs and Symptoms: Negative: Nausea, Vomiting, Fever, Chills, Abdominal Pain Aggravating Factor(s): Nothing Alleviating Factor(s): Nothing - Additional Pertinent History Primary Care Physician: [id number] - Allergy/Home Medications Allergies/Adverse Reactions: Allergies Allergy/AdvReac Type Severity Reaction Status Date / Time amlodipine Allergy Unknown Unknown Verified 01/06/19 12:35 Reaction Details montelukast [From Singulair] Allergy Unknown Unknown Verified 01/06/19 12:35 Reaction Details formoterol Allergy Unknown Verified 01/06/19 12:35 [From Foradil Aerolizer] Reaction Details irbesartan Allergy Unknown Verified 01/06/19 12:35 Reaction Details lisinopril Allergy Dizziness Verified 01/06/19 12:35 erythromycin base AdvReac Severe Diarrhea Verified 01/06/19 12:35 Home Medications: Home Medications Chlorthalidone TAB* [Hygroton TAB*] 25 mg PO DAILY 01/06/19 [History Confirmed 01/06/19] Finasteride TAB* [Proscar TAB*] 5 mg PO DAILY 01/06/19 [History Confirmed ] L. Acidophilus/L.bulgaricus [Floranex] 2 chw PO DAILY 01/06/19 [History Confirmed 01/06/19] Losartan TAB* [Cozaar TAB*] 50 mg PO DAILY 01/06/19 [History Confirmed 01/06/19] Metoprolol Succinate XL TAB* [Toprol XL TAB*] 100 mg PO DAILY 01/06/19 [History Confirmed 01/06/19] Tamsulosin CAP* [Flomax CAP*] 0.8 mg PO DAILY 01/06/19 [History Confirmed ] PMH/Surg Hx/FS Hx/Imm Hx Previously Healthy: No Endocrine/Hematology History: Reports: Hx Anemia - Chronic Denies: Hx Anticoagulant Therapy, Hx Diabetes, Hx Thyroid Disease, Hx Unexplained Bleeding Cardiovascular History: Reports: Hx Coronary Artery Disease - Atherosclerosis, Hx Hypertension - on medication Denies: Hx Aneurysm, Hx Angina, Hx Angioplasty, Hx Auto Implanted Cardiovert Defib, Hx Cardiac Arrest, Hx Cardiomegaly, Hx Congenital Heart Disease, Hx Congestive Heart Failure, Hx Deep Vein Thrombosis, Hx Embolism, Hx Hypercholesterolemia, Hx Hypotension, Hx Myocardial Infarction, Hx Pacemaker/ICD , Hx Peripheral Vascular Disease, Hx Rheumatic Fever, Hx Syncope, Hx Valvular Heart Disease, Other Cardiovascular Problems/Disorders Respiratory History: Reports: Hx Asthma, Hx Sleep Apnea, Other Respiratory Problems/Disorders - 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 per H&P Denies: Hx Chronic Bronchitis, Hx Chronic Obstructive Pulmonary Disease (COPD ), Hx Cystic Fibrosis, Hx Lung Cancer, Hx Pleural Effusion, Hx Pneumonia, Hx Pulmonary Edema, Hx Pulmonary Embolism, Hx Seasonal Allergies GI History: Reports: Hx Diverticulosis, Hx Gastroesophageal Reflux Disease - on medication, Hx Irritable Bowel - Diarrhea, Other GI Disorders - Diverticulitis, left inguinal hernia Denies: Hx Cirrhosis, Hx Crohn's Disease, Hx Gall Bladder Disease, Hx Gastrointestinal Bleed, Hx Hiatal Hernia, Hx Jaundice, Hx Ileostomy, Hx Pyloric Stenosis, Hx Ulcer History: Reports: Hx Chronic Renal Failure - stage 2-3, Hx Kidney Stones - Left stones-ureteral stent-thompson catheter in place, Other Problems/Disorders - BPH Musculoskeletal History: Reports: Other Musculoskeletal History - Sciatica, mod- severe compression fx T12 Denies: Hx Tendonitis Sensory History: Reports: Hx Cataracts - developing, Hx Contacts or Glasses - Glasses Denies: Hx Eye Injury, Hx Eye Prosthesis, Hx Legally Blind, Hx Macular Degeneration, Hx Vision Problem, Hx Deafness, Hx Hearing Aid, Hx Hearing Problem Opthamlomology History: Reports: Hx Cataracts - developing, Hx Contacts or Glasses - Glasses Denies: Hx Eye Injury, Hx Eye Prosthesis, Hx Legally Blind, Hx Macular Degeneration, Hx Vision Problem Neurological History: Denies: Hx Dementia, Hx Developmental Delay, Hx Headaches, Hx Migraine, Hx Nerve Disease, Hx Seizures, Hx Spinal Cord Injury, Hx Transient Ischemic Attacks (TIA), Other Neuro Impairments/Disorders Psychiatric History: Reports: Hx Depression - history of, a few years ago Denies: Hx Panic Disorder - Cancer History Hx Chemotherapy: No - Surgical History Surgery Procedure, Year, and Place: Diverticulitis surgery 2017 or 2018- [place]. Tonsillectomy as a child. 09/04/18- Cystoscopy, left retrograde, Lithotripsy Left Stent Insertion Hx Anesthesia Reactions: No - Immunization History Date of Tetanus Vaccine: 2012 Date of Influenza Vaccine: unk Infectious Disease History: No Infectious Disease History: Denies: Hx Clostridium Difficile, Hx Hepatitis, Hx Human Immunodeficiency Virus (HIV), Hx of Known/Suspected MRSA, Hx Shingles, Hx Tuberculosis, Hx Known/ Suspected VRE, Hx Known/Suspected VRSA, History Other Infectious Disease, Traveled Outside the [place] in Last 30 Days - Family History Known Family History: Positive: Hypertension, Diabetes - Social History Occupation: Retired Lives: With Family Alcohol Use: None Hx Substance Use: No Substance Use Type: Reports: None Hx Tobacco Use: Yes Smoking Status (MU): Former Smoker Have You Smoked in the Last Year: No Review of Systems Negative: Fever, Chills Negative: Abdominal Pain, Vomiting, Nausea Positive: other - positive: cloudy urine All Other Systems Reviewed And Are Negative: Yes Physical Exam - Summary Physical Exam Summary: Vital Signs Reviewed: Yes A+Ox3, no distress Eyes: Conjunctiva Clear, LINDA. EOM intact and full ENT: Hearing grossly normal TM x 2 clear, mmoist, uvula midline, no exudate, no erythema Neck: Positive: Supple Respiratory: Positive: No respiratory distress, No accessory muscle use + CTA throughout no w/r Cardiovascular: RRR nl s1, s2 no m/r CBT <2 sec abd soft + BS NT/ND no guarding, soft No CVA Pt with thompson - no hematuria, slightl cloudy Musculoskeletal Exam: DE [place] TORRE x 4 without difficulty Strength Intact, ROM Intact Neurological: Positive: Alert, + sensation throughout Psychological: Positive: Normal Response To Family Skin: Positive: no rash, no ecchymosis Triage Information Reviewed: Yes Vital Signs On Initial Exam: Initial Vitals Temp Pulse Resp BP Pulse Ox 98.3 F 91 18 160/104 97 01/06/19 12:33 01/06/19 12:33 01/06/19 12:33 01/06/19 12:33 01/06/19 12:33 Diagnostics - Vital Signs Vital Signs Temp Pulse Resp BP Pulse Ox 01/06/19 14:23 98.5 F 87 18 149/87 97 01/06/19 12:33 98.3 F 91 18 160/104 97 - Laboratory Result Diagrams: 01/06/19 17:07 01/06/19 17:07 Lab Statement: Any lab studies that have been ordered have been reviewed, and results considered in the medical decision making process. Re-Evaluation - Re-Evaluation First Eval Re-Evaluation Time: 17:56 Change: Unchanged Comment: Discussed results.Pt feels well + po in room. VSS. slight increase BUN - given IVF. past urine hylton sensitive. will give rochephin and home with Augmentin. Will give the patient a dose of abx and discharge him. pt and daughter comfortable with plan. return precautions discussed GIGU Course/Dx - Course Course Of Treatment: Pt with chronic thompson. Noted cloudy this am. Pt with mild sweating. here as pt - decided to get checked. VSS. well appearing, no pain, normal mentatio. cloudy urine. will check labs. IVF. reviewed previous cultues - hylton sensitive. reassess - Diagnoses Provider Diagnoses: UTI (urinary tract infection) Discharge - Sign-Out/Discharge Documenting (check all that apply): Patient Departure - DC Patient Received Moderate/Deep Sedation with Procedure: No - Discharge Plan Condition: Stable Disposition: HOME Prescriptions: Amoxicillin/Clavulanate TAB* [Augmentin TAB 875*] 875 mg PO BID #28 tab Patient Education Materials: Urinary Tract Infection in Men (ED) Referrals: Michael Webster MD [Primary Care Provider] - Additional Instructions: - Stay well hydrated. Drink plenty of non-alcoholic beverages - Take antibiotics 2 times a day as prescribed - Your urine will be sent for additonal testing. If you need a different antibiotic, you will receive a call from a care team foreman - Contact your doctor to schedule a follow-up appointment Contact your doctor or return here with any questions or concerns - Billing Disposition and Condition Condition: STABLE Disposition: Home - Attestation Statements Document Initiated by Yang: Yes Documenting Scribe: Duncan Sanders Provider For Whom Yang is Documenting (Include Credential): Kristin Lovett MD Scribe Attestation: IDuncan, scribed for Kristin Lovett MD on 01/08/19 at 2110. Scribe Documentation Reviewed: Yes Provider Attestation: The documentation as recorded by the uDncan langston accurately reflects the service I personally performed and the decisions made by me, Kristin Lovett MD Status of Scribe Document: Viewed
[2019-01-06] MEDS ORDERED: NS 0.9% 1000 ML** 1,000 ML IV ONE (16:50)
[2019-01-06 17:21] LABS: ABS Eosinophils 0.3 10^3/ul (0-0.6); ABS Monocytes 0.5 10^3/ul (0-0.8); ABS Neutrophils 5.3 10^3/ul (1.5-7.7); Eosinophil % 4.3 %; Hematocrit 40 % (42-52); Hemoglobin 13.4 g/dL (14.0-18.0); Lymphocyte % 14.2 %; Mean Corpuscular HGB Conc 34 g/dL (31-36); Mean Corpuscular Hemoglobin 30 pg (27-31); Mean Corpuscular Volume 88 fL (80-94); Mean Platelet Volume 7.5 fL (7.4-10.4); Nucleated Red Blood Cells % 0.1; Platelet Count 219 10^3/uL (150-450); Red Blood Count 4.53 10^6 /uL (4.18-5.48); Red Cell Distribution Width 14 % (10.5-15); White Blood Count 7.2 10^3/uL (3.5-10.8)
[2019-01-06 17:41] LABS: Urine Appearance Turbid; Urine Bacteria 2+ (Absent); Urine Bilirubin Negative (Negative); Urine Blood 2+ (Negative); Urine Color Yellow; Urine Glucose Negative (Negative); Urine Ketones Negative (Negative); Urine Nitrite Negative (Negative); Urine Protein 1+(30 mg/dL) (Negative); Urine Red Blood Cell 3+(>10/hpf) (Absent); Urine Urobilinogen Negative (Negative); Urine White Blood Cell 3+(>20/hpf) (Absent)
[2019-01-06 17:46] LABS: BUN/Creatinine Ratio 30.7 (8-20); Calcium 9.9 mg/dL (8.6-10.3); EGFR African American 67.6 (>60); EGFR Non-African American 55.9 (>60); Potassium 3.5 mmol/L (3.5-5.0)
[2019-01-06] MEDS ORDERED: cefTRIAXone(*) 1 GM in NS 0.9% 50 ML* 50 ML IVPB ONE (18:03)
[2019-01-06 19:05] VITALS: BP 153/93
--- NOTE | 2019-01-08 21:16 | ED ---
Re-Evaluation - Re-Evaluation First Eval Re-Evaluation Time: 17:56 Change: Unchanged Comment: Discussed results.Pt feels well + po in room. VSS. slight increase BUN - given IVF. past urine hylton sensitive. will give rochephin and home with Augmentin. Will give the patient a dose of abx and discharge him. pt and daughter comfortable with plan. return precautions discussed Course/Dx - Course Course Of Treatment: Dr. Kristin Lovett called me in the emergency department as she was completing notes, to notify me that the urine cultures were positive. Briefly the patient was seen for cloudy urine, and had sweats. He has enterococcus which is hylton resistant. I spoke with his Nicole just now, she reports she had a fall today. I encouraged her to return to the emergency department for IV antibiotics. Charge nurse Carla Rushing made aware. - Diagnoses Provider Diagnoses: UTI (urinary tract infection) Discharge - Sign-Out/Discharge Documenting (check all that apply): Post-Discharge Follow Up Patient Received Moderate/Deep Sedation with Procedure: No - Discharge Plan Condition: Stable Disposition: HOME Prescriptions: Amoxicillin/Clavulanate TAB* [Augmentin TAB 875*] 875 mg PO BID #28 tab Patient Education Materials: Urinary Tract Infection in Men (ED) Referrals: Michael Webster MD [Primary Care Provider] - Additional Instructions: - Stay well hydrated. Drink plenty of non-alcoholic beverages - Take antibiotics 2 times a day as prescribed - Your urine will be sent for additonal testing. If you need a different antibiotic, you will receive a call from a care steam and gas turbine assembler - Contact your doctor to schedule a follow-up appointment Contact your doctor or return here with any questions or concerns - Billing Disposition and Condition Condition: STABLE Disposition: Home
== END 2019-01-06 19:09 | disposition home or self-care (01) ==
LOC: ED 12:27
DX: N39.0 Urinary tract infection, site not specified (principal); I25.10 Atherosclerotic heart disease of native coronary artery without angina pectoris; K21.9 Gastro-esophageal reflux disease without esophagitis; I12.9 Hypertensive chronic kidney disease with stage 1 through stage 4 chronic kidney disease, or unspecified chronic kidney disease; N18.3 Chronic kidney disease, stage 3 (moderate); D63.1 Anemia in chronic kidney disease; Z79.899 Other long term (current) drug therapy; Z96.0 Presence of urogenital implants; Z88.8 Allergy status to other drugs, medicaments and biological substances
CPT/HCPCS: 36415; 80048; 81003; 81015; 83605; 85025; 87040; 87077; 87086; 87186; 96361; 96365; 99282; J0696

== ENCOUNTER 2019-01-08 21:55 | Emergency (ER) | payer MEDICARE ==
[2019-01-08 22:42] LABS: ABS Basophils 0.1 10^3/ul (0-0.2); ABS Eosinophils 0.2 10^3/ul (0-0.6); ABS Lymphocytes 0.7 10^3/ul (1.0-4.8); ABS Monocytes 0.6 10^3/ul (0-0.8); ABS Neutrophils 8.8 10^3/ul (1.5-7.7); Eosinophil % 1.7 %; Hematocrit 41 % (42-52); Hemoglobin 13.8 g/dL (14.0-18.0); Lymphocyte % 6.9 %; Mean Corpuscular HGB Conc 33 g/dL (31-36); Mean Corpuscular Hemoglobin 30 pg (27-31); Mean Corpuscular Volume 88 fL (80-94); Mean Platelet Volume 7.7 fL (7.4-10.4); Platelet Count 209 10^3/uL (150-450); Red Blood Count 4.68 10^6 /uL (4.18-5.48); Red Cell Distribution Width 14 % (10.5-15); White Blood Count 10.4 10^3/uL (3.5-10.8)
[2019-01-08 22:50] LABS: Activated Partial Thrombo Time 32.5 seconds (26.0-36.3); INR 1.03 (0.82-1.09)
[2019-01-08 23:00] LABS: ALT 10 U/L (7-52); AST 16 U/L (13-39); Alkaline Phosphatase 76 U/L (34-104); Anion Gap 7 mmol/L (2-11); BUN/Creatinine Ratio 25.6 (8-20); Blood Urea Nitrogen 40 mg/dL (6-24); CO2 Carbon Dioxide 29 mmol/L (22-32); Calcium 9.9 mg/dL (8.6-10.3); Chloride 105 mmol/L (101-111); EGFR African American 53.4 (>60); EGFR Non-African American 44.1 (>60); Glucose 126 mg/dL (70-100); Potassium 3.1 mmol/L (3.5-5.0); Sodium 141 mmol/L (135-145)
[2019-01-08 23:03] LABS: Troponin I 0.04 ng/mL (<0.04)
[2019-01-09] MEDS ORDERED: Linezolid 600 MG IVPREMIX(*) 600 MG/300 ML BAG IVPB ONE (00:39)
[2019-01-09 01:00] LABS: Urine Appearance Cloudy; Urine Bacteria 1+ (Absent); Urine Bilirubin Negative (Negative); Urine Blood 2+ (Negative); Urine Color Yellow; Urine Glucose Negative (Negative); Urine Ketones Negative (Negative); Urine Nitrite Negative (Negative); Urine Protein Negative (Negative); Urine Red Blood Cell 3+(>10/hpf) (Absent); Urine Squamous Epithelial Cell Present (Absent); Urine Urobilinogen Negative (Negative); Urine White Blood Cell 3+(>20/hpf) (Absent)
--- NOTE | 2019-01-09 01:02 | ED ---
GI/ HPI - HPI Summary HPI Summary: Pt is a 73 y/o M presenting to the ED with a chief complaint of a UTI. He was here a couple of days before where his urine was off color, and he had a slight fever. Since then, he has been off balance and had a fall this morning. Per the pts , he has had a couple of UTIs since having his catheter placed. - History of Current Complaint Chief Complaint: EDGeneral Stated Complaint: MEDICATION CHANGE PER PT Hx Obtained From: Patient, Family/B2B Sales Representative - Onset/Duration: Started Days Ago, Still Present Timing: Constant, Lasting Days Severity: Moderate Current Severity: None Pain Intensity: 0 Location of Pain: None Associated Signs and Symptoms: Positive: Fever, UTI Symptoms, Other: - off balance Aggravating Factor(s): Nothing Alleviating Factor(s): Nothing - Additional Pertinent History Primary Care Physician: [id number] - Allergy/Home Medications Allergies/Adverse Reactions: Allergies Allergy/AdvReac Type Severity Reaction Status Date / Time amlodipine Allergy Unknown Unknown Verified 01/08/19 22:06 Reaction Details montelukast [From Singulair] Allergy Unknown Unknown Verified 01/08/19 22:06 Reaction Details formoterol Allergy Unknown Verified 01/08/19 22:06 [From Foradil Aerolizer] Reaction Details irbesartan Allergy Unknown Verified 01/08/19 22:06 Reaction Details lisinopril Allergy Dizziness Verified 01/08/19 22:06 erythromycin base AdvReac Severe Diarrhea Verified 01/08/19 22:06 PMH/Surg Hx/FS Hx/Imm Hx Previously Healthy: No Endocrine/Hematology History: Reports: Hx Anemia - Chronic Denies: Hx Anticoagulant Therapy, Hx Diabetes, Hx Thyroid Disease, Hx Unexplained Bleeding Cardiovascular History: Reports: Hx Coronary Artery Disease - Atherosclerosis, Hx Hypertension - on medication Denies: Hx Aneurysm, Hx Angina, Hx Angioplasty, Hx Auto Implanted Cardiovert Defib, Hx Cardiac Arrest, Hx Cardiomegaly, Hx Congenital Heart Disease, Hx Congestive Heart Failure, Hx Deep Vein Thrombosis, Hx Embolism, Hx Hypercholesterolemia, Hx Hypotension, Hx Myocardial Infarction, Hx Pacemaker/ICD , Hx Peripheral Vascular Disease, Hx Rheumatic Fever, Hx Syncope, Hx Valvular Heart Disease, Other Cardiovascular Problems/Disorders Respiratory History: Reports: Hx Asthma, Hx Sleep Apnea, Other Respiratory Problems/Disorders - 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 per H&P Denies: Hx Chronic Bronchitis, Hx Chronic Obstructive Pulmonary Disease (COPD ), Hx Cystic Fibrosis, Hx Lung Cancer, Hx Pleural Effusion, Hx Pneumonia, Hx Pulmonary Edema, Hx Pulmonary Embolism, Hx Seasonal Allergies GI History: Reports: Hx Diverticulosis, Hx Gastroesophageal Reflux Disease - on medication, Hx Irritable Bowel - Diarrhea, Other GI Disorders - Diverticulitis, left inguinal hernia Denies: Hx Cirrhosis, Hx Crohn's Disease, Hx Gall Bladder Disease, Hx Gastrointestinal Bleed, Hx Hiatal Hernia, Hx Jaundice, Hx Ileostomy, Hx Pyloric Stenosis, Hx Ulcer History: Reports: Hx Chronic Renal Failure - stage 2-3, Hx Kidney Stones - Left stones-ureteral stent-thompson catheter in place, Other Problems/Disorders - BPH Musculoskeletal History: Reports: Other Musculoskeletal History - Sciatica, mod- severe compression fx T12 Denies: Hx Tendonitis Sensory History: Reports: Hx Cataracts - developing, Hx Contacts or Glasses - Glasses Denies: Hx Eye Injury, Hx Eye Prosthesis, Hx Legally Blind, Hx Macular Degeneration, Hx Vision Problem, Hx Deafness, Hx Hearing Aid, Hx Hearing Problem Opthamlomology History: Reports: Hx Cataracts - developing, Hx Contacts or Glasses - Glasses Denies: Hx Eye Injury, Hx Eye Prosthesis, Hx Legally Blind, Hx Macular Degeneration, Hx Vision Problem Neurological History: Denies: Hx Dementia, Hx Developmental Delay, Hx Headaches, Hx Migraine, Hx Nerve Disease, Hx Seizures, Hx Spinal Cord Injury, Hx Transient Ischemic Attacks (TIA), Other Neuro Impairments/Disorders Psychiatric History: Reports: Hx Depression - history of, a few years ago Denies: Hx Panic Disorder - Cancer History Hx Chemotherapy: No - Surgical History Surgery Procedure, Year, and Place: Diverticulitis surgery 2017 or 2018- [place]. Tonsillectomy as a child. 09/04/18- Cystoscopy, left retrograde, Lithotripsy Left Stent Insertion Hx Anesthesia Reactions: No - Immunization History Date of Tetanus Vaccine: 2012 Date of Influenza Vaccine: unk Infectious Disease History: No Infectious Disease History: Denies: Hx Clostridium Difficile, Hx Hepatitis, Hx Human Immunodeficiency Virus (HIV), Hx of Known/Suspected MRSA, Hx Shingles, Hx Tuberculosis, Hx Known/ Suspected VRE, Hx Known/Suspected VRSA, History Other Infectious Disease, Traveled Outside the [place] in Last 30 Days - Family History Known Family History: Positive: Hypertension, Diabetes - Social History Alcohol Use: None Hx Substance Use: No Substance Use Type: Reports: None Hx Tobacco Use: Yes Smoking Status (MU): Former Smoker Have You Smoked in the Last Year: No Review of Systems Positive: Fever, Other - off balance Positive: other - current UTI All Other Systems Reviewed And Are Negative: Yes Physical Exam - Summary Physical Exam Summary: Appearance: Well-appearing, Well-nourished, lying in bed comfortably Skin: Warm, dry, no obvious rash Eyes: sclera anicteric, no conjunctival pallor ENT: mucous membranes moist, pharynx appears normal Neck: Supple, nontender Respiratory: Clear to auscultation, no signs of respiratory distress Cardiovascular: Normal S1, S2. No murmurs. Normal distal pulses in tibial and radial bilaterally. Abdomen: Soft, nontender, normal active bowel sounds present Musculoskeletal: Normal, Strength/ROM Intact Neurological: A&Ox3, awake and alert, mentation is normal, speech is fluent and appropriate Psychiatric: affect is normal, does not appear anxious or depressed Triage Information Reviewed: Yes Vital Signs On Initial Exam: Initial Vitals Temp Pulse Resp BP Pulse Ox 97.6 F 93 16 102/67 95 01/08/19 22:03 01/08/19 22:03 01/08/19 22:03 01/08/19 22:03 01/08/19 22:03 Vital Signs Reviewed: Yes Diagnostics - Vital Signs Vital Signs Temp Pulse Resp BP Pulse Ox 01/08/19 22:03 97.6 F 93 16 102/67 95 - Laboratory Lab Results: Lab Results 01/08/19 01/08/19 01/08/19 Range/Units 22:36 22:36 22:36 WBC 10.4 (3.5-10.8) 10^3/uL RBC 4.68 (4.18-5.48) 10^6 /uL Hgb 13.8 L (14.0-18.0) g/dL Hct 41 L (42-52) % MCV 88 (80-94) fL MCH 30 (27-31) pg MCHC 33 (31-36) g/dL RDW 14 (10.5-15) % Plt Count 209 (150-450) 10^3/uL MPV 7.7 (7.4-10.4) fL Neut % (Auto) 85.3 % Lymph % (Auto) 6.9 % [place] % (Auto) 5.5 % Eos % (Auto) 1.7 % Baso % (Auto) 0.6 % Absolute Neuts (auto) 8.8 H (1.5-7.7) 10^3/ul Absolute Lymphs (auto) 0.7 L (1.0-4.8) 10^3/ul Absolute Monos (auto) 0.6 (0-0.8) 10^3/ul Absolute Eos (auto) 0.2 (0-0.6) 10^3/ul Absolute Basos (auto) 0.1 (0-0.2) 10^3/ul Absolute Nucleated RBC 0.0 10^3/ul Nucleated RBC % 0.0 INR (Anticoag Therapy) 1.03 (0.82-1.09) APTT 32.5 (26.0-36.3) seconds Sodium 141 (135-145) mmol/L Potassium 3.1 L (3.5-5.0) mmol/L Chloride 105 (101-111) mmol/L Carbon Dioxide 29 (22-32) mmol/L Anion Gap 7 (2-11) mmol/L BUN 40 H (6-24) mg/dL Creatinine 1.56 H (0.67-1.17) mg/dL Est GFR ( Amer) 53.4 (>60) Est GFR (Non-Af Amer) 44.1 (>60) BUN/Creatinine Ratio 25.6 H (8-20) Glucose 126 H (70-100) mg/dL Lactic Acid (0.5-2.0) mmol/L Calcium 9.9 (8.6-10.3) mg/dL Total Bilirubin 0.50 (0.2-1.0) mg/dL AST 16 (13-39) U/L ALT 10 (7-52) U/L Alkaline Phosphatase 76 (34-104) U/L Troponin I 0.04 H* (<0.04) ng/mL Total Protein 8.0 (6.4-8.9) g/dL Albumin 4.0 (3.2-5.2) g/dL Globulin 4.0 (2-4) g/dL Albumin/Globulin Ratio 1.0 (1-3) 01/08/19 Range/Units 22:36 WBC (3.5-10.8) 10^3/uL RBC (4.18-5.48) 10^6 /uL Hgb (14.0-18.0) g/dL Hct (42-52) % MCV (80-94) fL MCH (27-31) pg MCHC (31-36) g/dL RDW (10.5-15) % Plt Count (150-450) 10^3/uL MPV (7.4-10.4) fL Neut % (Auto) % Lymph % (Auto) % [place] % (Auto) % Eos % (Auto) % Baso % (Auto) % Absolute Neuts (auto) (1.5-7.7) 10^3/ul Absolute Lymphs (auto) (1.0-4.8) 10^3/ul Absolute Monos (auto) (0-0.8) 10^3/ul Absolute Eos (auto) (0-0.6) 10^3/ul Absolute Basos (auto) (0-0.2) 10^3/ul Absolute Nucleated RBC 10^3/ul Nucleated RBC % INR (Anticoag Therapy) (0.82-1.09) APTT (26.0-36.3) seconds Sodium (135-145) mmol/L Potassium (3.5-5.0) mmol/L Chloride (101-111) mmol/L Carbon Dioxide (22-32) mmol/L Anion Gap (2-11) mmol/L BUN (6-24) mg/dL Creatinine (0.67-1.17) mg/dL Est GFR ( Amer) (>60) Est GFR (Non-Af Amer) (>60) BUN/Creatinine Ratio (8-20) Glucose (70-100) mg/dL Lactic Acid 2.9 H* (0.5-2.0) mmol/L Calcium (8.6-10.3) mg/dL Total Bilirubin (0.2-1.0) mg/dL AST (13-39) U/L ALT (7-52) U/L Alkaline Phosphatase (34-104) U/L Troponin I (<0.04) ng/mL Total Protein (6.4-8.9) g/dL Albumin (3.2-5.2) g/dL Globulin (2-4) g/dL Albumin/Globulin Ratio (1-3) Result Diagrams: 01/08/19 22:36 01/08/19 22:36 Lab Statement: Any lab studies that have been ordered have been reviewed, and results considered in the medical decision making process. - EKG 2250 Cardiac Rate: NL - 93bpm EKG Rhythm: Sinus Rhythm ST Segment: Normal Ectopy: None Summary of EKG Findings: EKG at 2250 shows NSR at 93bpm with no STEMI. GIGU Course/Dx - Course Course Of Treatment: Pt is a 73 y/o M presenting to the ED with a chief complaint of a UTI. He was here a couple of days before where his urine was off color, and he had a slight fever. Since then, he has been off balance and had a fall this morning. Per the pts , he has had a couple of UTIs since having his catheter placed. His urine was tested here a couple of days ago and it was found to be resistant to many abx. EKG at 2250 shows NSR at 93bpm with no STEMI. His hematology shows Hgb of 13.8 and Hct of 41. His chemistry shows Potassium level of 3.1, BUN of 20, Creatinine of 1.56, BUN/Creatinine ratio of 25.6, and his lactic acid is 2.9, and troponin I is 0.04. His urine shows 2+ blood, 2+ leukocyte esterase, 3+ WBC, 3+ RBC, present squamous epithelial cells , 1+ urine bacteria, present hyaline casts, present urine yeast, and ascorbic acid. He will be d/c'ed with a dx of catheter induced UTI, and sent home with abx. - Diagnoses Provider Diagnoses: UTI (urinary tract infection) due to urinary indwelling catheter Discharge - Sign-Out/Discharge Documenting (check all that apply): Patient Departure Patient Received Moderate/Deep Sedation with Procedure: No - Discharge Plan Condition: Good Disposition: HOME Prescriptions: Linezolid TAB* [Zyvox 600 MG TAB*] 600 mg PO BID #14 tab Patient Education Materials: Urinary Tract Infection in Men (ED), Thompson Catheter Placement and Care (ED) Referrals: Michael Webster MD [Primary Care Provider] - - Billing Disposition and Condition Condition: GOOD Disposition: Home - Attestation Statements Document Initiated by Scribe: Yes Documenting Scribe: Yasmin Velazquez Provider For Whom Scribe is Documenting (Include Credential): Esua Arita MD. Scribe Attestation: IYasmin, scribed for Esau Arita MD. on 01/13/19 at 0407. Scribe Documentation Reviewed: Yes Provider Attestation: The documentation as recorded by the scribe, Yasmin Velazquez accurately reflects the service I personally performed and the decisions made by me, Esau Arita MD. Status of Scribe Document: Viewed
[2019-01-09 02:39] VITALS: BP 126/75
== END 2019-01-09 02:39 | disposition home or self-care (01) ==
LOC: ED 21:55
DX: T83.511A Infection and inflammatory reaction due to indwelling urethral catheter, initial encounter (principal); Y84.6 Urinary catheterization as the cause of abnormal reaction of the patient, or of later complication, without mention of misadventure at the time of the procedure; Y92.9 Unspecified place or not applicable; Z87.891 Personal history of nicotine dependence; D64.9 Anemia, unspecified; I25.10 Atherosclerotic heart disease of native coronary artery without angina pectoris; I10 Essential (primary) hypertension
CPT/HCPCS: 36415; 80053; 81003; 81015; 83605; 84484; 85025; 85610; 85730; 87040; 87086; 93005; 96365; 99283; J2020

== ENCOUNTER → 2019-01-24 16:24 | Emergency (ER) | payer MEDICARE ==
[~2019-01-24 16:24] MED LIST changes: -Buffered Lidocaine 1% SYRIN* 1 ML/SYRINGE INTRADERM ONE; -Dexamethasone TAB* 4 MG PO ONE; -DiMENhydriNATE IV* 50 MG/ML VIAL IV PUSH PRN; -Famotidine IV* 10 MG/ML 2 ML (20 mg) IV ONE; +Gentamicin ADULT (*) 120 MG in NS 0.9% 100 ML* 100 ML IVPB ONE; +Gentamicin ADULT (*) 40 MG/ML VIAL (2 ML VIAL = 80 MG) IVPB ONE; -Lactated Ringers 1000 ML Bag* 1,000 ML IV SCH; -Morphine 4 MG/ML VIAL (1 ml) 4 MG/ML VIAL IV PRN; -Naloxone* 0.4 MG/ML 1 ML VIAL IV PRN; -Ondansetron INJ* 2 MG/ML VIAL ONE; -PROCHLORPERAZINE INJ 5 MG/ML 2 ML VIAL IV PRN; +Potassium Chlor TAB* 20 MEQ TAB.ER PO ONE; +cefTRIAXone(*) 2 GM in NS 0.9% 100 ML* 100 ML IVPB ONE; -fentaNYL* 50 MCG/ML 2 ML VIAL (100 MCG VIAL) IV PRN; -oxyCODONE/Acetamin 5/325 MG* TAB PO PRN
--- NOTE | 2019-01-24 18:28 | ED ---
GI/ HPI - HPI Summary HPI Summary: This patient is a 73 year old M presenting to ED with a chief complaint of weakness per since 1628 today. Patient recently was treated for a UTI, finishing his abx linezolid 600mg and Augmentin yesterday. However, patient has been getting weaker and hypertensive. Yesterday, patient woke up in position, per . He has had dark urine. The patient rates the pain 0/10 in severity. Symptoms aggravated by nothing. Symptoms alleviated by nothing. Patient denies fever, pain. - History of Current Complaint Chief Complaint: EDUrogenitalProblems Time Seen by Provider: 01/24/19 18:08 Stated Complaint: BLADDER INFECTION PER PT Hx Obtained From: Patient, Family/Nuclear Medicine Technician - Onset/Duration: Started Days Ago - Yesterday, Still Present Timing: Constant Pain Intensity: 0 Location of Pain: None Associated Signs and Symptoms: Positive: Weakness, Fever, Other: - Dark urine Aggravating Factor(s): Nothing Alleviating Factor(s): Nothing - Additional Pertinent History Primary Care Physician: CARLYLE - Allergy/Home Medications Allergies/Adverse Reactions: Allergies Allergy/AdvReac Type Severity Reaction Status Date / Time amlodipine Allergy Unknown Unknown Verified 01/24/19 16:32 Reaction Details montelukast [From Singulair] Allergy Unknown Unknown Verified 01/24/19 16:32 Reaction Details formoterol Allergy Unknown Verified 01/24/19 16:32 [From Foradil Aerolizer] Reaction Details irbesartan Allergy Unknown Verified 01/24/19 16:32 Reaction Details lisinopril Allergy Dizziness Verified 01/24/19 16:32 erythromycin base AdvReac Severe Diarrhea Verified 01/24/19 16:32 PMH/Surg Hx/FS Hx/Imm Hx Previously Healthy: No Endocrine/Hematology History: Reports: Hx Anemia - Chronic Denies: Hx Anticoagulant Therapy, Hx Diabetes, Hx Thyroid Disease, Hx Unexplained Bleeding Cardiovascular History: Reports: Hx Coronary Artery Disease - Atherosclerosis, Hx Hypertension - on medication Denies: Hx Aneurysm, Hx Angina, Hx Angioplasty, Hx Auto Implanted Cardiovert Defib, Hx Cardiac Arrest, Hx Cardiomegaly, Hx Congenital Heart Disease, Hx Congestive Heart Failure, Hx Deep Vein Thrombosis, Hx Embolism, Hx Hypercholesterolemia, Hx Hypotension, Hx Myocardial Infarction, Hx Pacemaker/ICD , Hx Peripheral Vascular Disease, Hx Rheumatic Fever, Hx Syncope, Hx Valvular Heart Disease, Other Cardiovascular Problems/Disorders Respiratory History: Reports: Hx Asthma, Hx Sleep Apnea, Other Respiratory Problems/Disorders - 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 per H&P Denies: Hx Chronic Bronchitis, Hx Chronic Obstructive Pulmonary Disease (COPD ), Hx Cystic Fibrosis, Hx Lung Cancer, Hx Pleural Effusion, Hx Pneumonia, Hx Pulmonary Edema, Hx Pulmonary Embolism, Hx Seasonal Allergies GI History: Reports: Hx Diverticulosis, Hx Gastroesophageal Reflux Disease - on medication, Hx Irritable Bowel - Diarrhea, Other GI Disorders - Diverticulitis, left inguinal hernia Denies: Hx Cirrhosis, Hx Crohn's Disease, Hx Gall Bladder Disease, Hx Gastrointestinal Bleed, Hx Hiatal Hernia, Hx Jaundice, Hx Ileostomy, Hx Pyloric Stenosis, Hx Ulcer History: Reports: Hx Chronic Renal Failure - stage 2-3, Hx Kidney Stones - Left stones-ureteral stent-thompson catheter in place, Other Problems/Disorders - BPH Musculoskeletal History: Reports: Other Musculoskeletal History - Sciatica, mod- severe compression fx T12 Denies: Hx Tendonitis Sensory History: Reports: Hx Cataracts - developing, Hx Contacts or Glasses - Glasses Denies: Hx Eye Injury, Hx Eye Prosthesis, Hx Legally Blind, Hx Macular Degeneration, Hx Vision Problem, Hx Deafness, Hx Hearing Aid, Hx Hearing Problem Opthamlomology History: Reports: Hx Cataracts - developing, Hx Contacts or Glasses - Glasses Denies: Hx Eye Injury, Hx Eye Prosthesis, Hx Legally Blind, Hx Macular Degeneration, Hx Vision Problem Neurological History: Denies: Hx Dementia, Hx Developmental Delay, Hx Headaches, Hx Migraine, Hx Nerve Disease, Hx Seizures, Hx Spinal Cord Injury, Hx Transient Ischemic Attacks (TIA), Other Neuro Impairments/Disorders Psychiatric History: Reports: Hx Depression - history of, a few years ago Denies: Hx Panic Disorder - Cancer History Hx Chemotherapy: No - Surgical History Surgery Procedure, Year, and Place: Diverticulitis surgery 2017 or 2018- [place]. Tonsillectomy as a child. 09/04/18- Cystoscopy, left retrograde, Lithotripsy Left Stent Insertion Hx Anesthesia Reactions: No - Immunization History Date of Tetanus Vaccine: 2012 Date of Influenza Vaccine: unk Infectious Disease History: No Infectious Disease History: Denies: Hx Clostridium Difficile, Hx Hepatitis, Hx Human Immunodeficiency Virus (HIV), Hx of Known/Suspected MRSA, Hx Shingles, Hx Tuberculosis, Hx Known/ Suspected VRE, Hx Known/Suspected VRSA, History Other Infectious Disease, Traveled Outside the [place] in Last 30 Days - Family History Known Family History: Positive: Hypertension, Diabetes - Social History Alcohol Use: None Hx Substance Use: No Substance Use Type: Reports: None Hx Tobacco Use: Yes Smoking Status (MU): Former Smoker Have You Smoked in the Last Year: No Review of Systems Negative: Fever Positive: other - Dark urine Negative: Arthralgia, Myalgia Positive: Weakness All Other Systems Reviewed And Are Negative: Yes Physical Exam - Summary Physical Exam Summary: VITAL SIGNS: Reviewed. GENERAL: Patient is a well-developed and nourished male who is lying comfortable in the stretcher. Patient is not in any acute respiratory distress. HEAD AND FACE: No signs of trauma. No ecchymosis, hematomas or skull depressions. No sinus tenderness. EYES: PERRLA, EOMI x 2, No injected conjunctiva, no nystagmus. EARS: Hearing grossly intact. Ear canals and tympanic membranes are within normal limits. MOUTH: Oropharynx within normal limits. NECK: Supple, trachea is midline, no adenopathy, no JVD, no carotid bruit, no c- spine tenderness, neck with full ROM. CHEST: Symmetric, no tenderness at palpation LUNGS: Clear to auscultation bilaterally. No wheezing or crackles. CVS: Regular rate and rhythm, S1 and S2 present, no murmurs or gallops appreciated. ABDOMEN: Soft, non-tender. No signs of distention. No rebound no guarding, and no masses palpated. Bowel sounds are normal. Has indwelling thompson catheter EXTREMITIES: FROM in all major joints, no edema, no cyanosis or clubbing. NEURO: Lethargic. Alert and oriented x 2. SKIN: Dry and warm. Triage Information Reviewed: Yes Vital Signs On Initial Exam: Initial Vitals Temp Pulse Resp BP Pulse Ox 98.5 F 88 18 136/80 99 01/24/19 16:26 01/24/19 16:26 01/24/19 16:26 01/24/19 16:26 01/24/19 16:26 Vital Signs Reviewed: Yes Diagnostics - Vital Signs Vital Signs Temp Pulse Resp BP Pulse Ox 01/24/19 16:26 98.5 F 88 18 136/80 99 - Laboratory Result Diagrams: 01/24/19 18:27 01/24/19 18:27 Lab Statement: Any lab studies that have been ordered have been reviewed, and results considered in the medical decision making process. - Radiology Abdomen XR Radiology Interpretation Completed By: ED Physician Summary of Radiographic Findings: Stent in the left side. Increased stool. Otherwise normal. Pending official radiology report. GIGU Course/Dx - Course Assessment/Plan: This patient is a 73 year old M presenting to ED with a chief complaint of weakness per since 1627 today. Patient recently was treated for a UTI, finishing his abx linezolid 600mg and Augmentin yesterday. However, patient has been getting weaker and hypertensive. Yesterday, patient woke up in position, per . He has had dark urine. The patient rates the pain 0/ 10 in severity. Symptoms aggravated by nothing. Symptoms alleviated by nothing. Patient denies fever, pain. Blood tests without any significant abnormality except for hemoglobin 11.3, hematocrit 34, potassium was 3.2 for which the patient was given potassium chloride. BUN is 32, glucose 17, CRP of 20.5. Urinalysis contaminated. In the ED course the patient was given IV fluids. At this time I discussed my physical exam and findings with Dr. Cee the patient s urologist and he recommends ceftriaxone 2 g IV and gentamicin and 120 milligrams IV. Also he recommends for the patient to be discharged home on follow-up at his office tomorrow. I discussed the findings, test results and the plan with the patients and the patient and they agree. Therefore the patient will be discharged home with follow-up with Dr. Cee tomorrow. - Diagnoses Provider Diagnoses: Weakness - Physician Notifications Discussed Care Of Patient With: Hua Cee Time Discussed With Above Provider: 20:52 Instructed by Provider To: Other - Discussed patient case with Dr. Cee, urologist, who recommended giving the patient rocephin, gentamicin, and fluids. At 2108: consulted with Dr. Cee who requests a KUB for the patient. Discharge - Sign-Out/Discharge Documenting (check all that apply): Patient Departure - Discharge Patient Received Moderate/Deep Sedation with Procedure: No - Discharge Plan Condition: Stable Disposition: HOME Patient Education Materials: Urinary Tract Infection in Men (ED), Weakness (ED) Referrals: Michael Webster MD [Primary Care Provider] - 3 Days Hua Cee MD [Medical Doctor] - 1 Day Additional Instructions: FOLLOW UP WITH YOUR PRIMARY CARE PROVIDER WITHIN ONE WEEK. FOLLOW UP WITH DR. CEE TOMORROW. RETURN TO THE ED FOR ANY WORSENING OR NEW SYMPTOMS. - Billing Disposition and Condition Condition: STABLE Disposition: Home - Attestation Statements Document Initiated by Scribe: Yes Documenting Scribe: Guanako Aguilar Provider For Whom Waltibbertha is Documenting (Include Credential): Saqib Hicks MD Scribe Attestation: IGuanako, scribed for Saqib Hicks MD on 01/25/19 at 1014. Scribe Documentation Reviewed: Yes Provider Attestation: The documentation as recorded by the Guanako langston accurately reflects the service I personally performed and the decisions made by me, Saqib Hicks MD Status of Scribe Document: Viewed
[2019-01-24 18:35] LABS: ABS Basophils 0.1 10^3/ul (0-0.2); ABS Eosinophils 0.3 10^3/ul (0-0.6); ABS Lymphocytes 0.8 10^3/ul (1.0-4.8); ABS Monocytes 0.8 10^3/ul (0-0.8); ABS Neutrophils 5.2 10^3/ul (1.5-7.7); Eosinophil % 4.4 %; Hematocrit 34 % (42-52); Hemoglobin 11.3 g/dL (14.0-18.0); Lymphocyte % 11.3 %; Mean Corpuscular HGB Conc 34 g/dL (31-36); Mean Corpuscular Hemoglobin 29 pg (27-31); Mean Corpuscular Volume 87 fL (80-94); Mean Platelet Volume 7.4 fL (7.4-10.4); Platelet Count 147 10^3/uL (150-450); Red Blood Count 3.87 10^6 /uL (4.18-5.48); Red Cell Distribution Width 14 % (10-15); White Blood Count 7.3 10^3/uL (3.5-10.8)
[2019-01-24 18:51] LABS: Albumin 3.5 g/dL (3.2-5.2); C Reactive Protein 20.53 mg/L (<8.01); Calcium 8.9 mg/dL (8.6-10.3); EGFR African American 75.9 (>60); EGFR Non-African American 62.7 (>60); Globulin 3.4 g/dL (2-4); Potassium 3.2 mmol/L (3.5-5.0); Total Bilirubin 0.4 mg/dL (0.2-1.0); Total Protein 6.9 g/dL (6.4-8.9)
[2019-01-24 19:25] LABS: Urine Appearance Cloudy; Urine Bacteria Absent (Absent); Urine Bilirubin Negative (Negative); Urine Blood 3+ (Negative); Urine Color Yellow; Urine Glucose Negative (Negative); Urine Ketones Negative (Negative); Urine Nitrite Negative (Negative); Urine Protein 1+(30 mg/dL) (Negative); Urine Red Blood Cell 3+(>10/hpf) (Absent); Urine Specific Gravity 1.016 (1.010-1.030); Urine Urobilinogen Negative (Negative); Urine White Blood Cell 3+(>20/hpf) (Absent)
[2019-01-24] MEDS: NS 0.9% 1000 ML** 2,000 ML IV ONE (21:49)
[2019-01-24 23:45] VITALS: BP 131/79
== END | disposition home or self-care (01) ==
LOC: ED 16:24
DX: R53.1 Weakness (principal); N20.0 Calculus of kidney; Z87.442 Personal history of urinary calculi; R50.9 Fever, unspecified; R82.998 Other abnormal findings in urine; D64.9 Anemia, unspecified; I25.10 Atherosclerotic heart disease of native coronary artery without angina pectoris; I10 Essential (primary) hypertension; K21.9 Gastro-esophageal reflux disease without esophagitis; I12.9 Hypertensive chronic kidney disease with stage 1 through stage 4 chronic kidney disease, or unspecified chronic kidney disease; N18.3 Chronic kidney disease, stage 3 (moderate); Z88.1 Allergy status to other antibiotic agents; Z88.8 Allergy status to other drugs, medicaments and biological substances; Z87.891 Personal history of nicotine dependence
CPT/HCPCS: 36415; 74018; 80053; 81003; 81015; 83605; 85025; 86140; 87086; 87106; 96361; 96365; 99285; A9270-GY; J0696; J1580

== ENCOUNTER 2019-02-06 23:11 | Inpatient (IN) | payer MEDICARE ==
--- NOTE | 2019-02-06 23:21 | ED ---
GI/ HPI - HPI Summary HPI Summary: This patient is a 73 year old M brought in by ambulance to [facility] from home due to a will urinary catheter today. Patient has had catheter for the past four weeks due to kidney stones. Patient denies any symptoms at this time. Patients arrives shortly after intial history and states that he had fallen out of bed three days ago requiring assistance to get back into bed. She additionally reports recent increased confusion, fever, and decreased urine output today. - History of Current Complaint Time Seen by Provider: 02/06/19 23:19 Stated Complaint: "BLOCKED CATH" PER EMS Hx Obtained From: Patient, Family/[employer] Inspector Onset/Duration: Started Days Ago, Worse Since - today Associated Signs and Symptoms: Positive: Fever, Other: - decreased urine output , confusion - Additional Pertinent History Primary Care Physician: [id number] - Allergy/Home Medications Allergies/Adverse Reactions: Allergies Allergy/AdvReac Type Severity Reaction Status Date / Time amlodipine Allergy Unknown Unknown Verified 02/03/19 13:27 Reaction Details montelukast [From Singulair] Allergy Unknown Unknown Verified 02/03/19 13:27 Reaction Details formoterol Allergy Unknown Verified 02/03/19 13:27 [From Foradil Aerolizer] Reaction Details irbesartan Allergy Unknown Verified 02/03/19 13:27 Reaction Details lisinopril Allergy Dizziness Verified 02/03/19 13:27 erythromycin base AdvReac Severe Diarrhea Verified 02/03/19 13:27 PMH/Surg Hx/FS Hx/Imm Hx Endocrine/Hematology History: Reports: Hx Anemia - Chronic Denies: Hx Anticoagulant Therapy, Hx Diabetes, Hx Thyroid Disease, Hx Unexplained Bleeding Cardiovascular History: Reports: Hx Coronary Artery Disease - Atherosclerosis, Hx Hypertension - on medication, Other Cardiovascular Problems/Disorders - retinal occlusion left eye Denies: Hx Aneurysm, Hx Angina, Hx Angioplasty, Hx Auto Implanted Cardiovert Defib, Hx Cardiac Arrest, Hx Cardiomegaly, Hx Congenital Heart Disease, Hx Congestive Heart Failure, Hx Deep Vein Thrombosis, Hx Embolism, Hx Hypercholesterolemia, Hx Hypotension, Hx Myocardial Infarction, Hx Pacemaker/ICD , Hx Peripheral Vascular Disease, Hx Rheumatic Fever, Hx Syncope, Hx Valvular Heart Disease Respiratory History: Reports: Hx Asthma - had accupuncture, Hx Sleep Apnea, Other Respiratory Problems/Disorders - 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 Denies: Hx Chronic Bronchitis, Hx Chronic Obstructive Pulmonary Disease (COPD ), Hx Cystic Fibrosis, Hx Lung Cancer, Hx Pleural Effusion, Hx Pneumonia, Hx Pulmonary Edema, Hx Pulmonary Embolism, Hx Seasonal Allergies GI History: Reports: Hx Diverticulosis, Hx Gastroesophageal Reflux Disease - on medication, Hx Irritable Bowel - Diarrhea, Hx Ulcer, Other GI Disorders - Diverticulitis, left inguinal hernia Denies: Hx Cirrhosis, Hx Crohn's Disease, Hx Gall Bladder Disease, Hx Gastrointestinal Bleed, Hx Hiatal Hernia, Hx Jaundice, Hx Ileostomy, Hx Pyloric Stenosis History: Reports: Hx Chronic Renal Failure - stage 2-3, Hx Kidney Stones - Left stones-ureteral stent-thompson catheter in place, Other Problems/Disorders - BPH Musculoskeletal History: Reports: Other Musculoskeletal History - Sciatica, mod- severe compression fx T12 Denies: Hx Tendonitis Sensory History: Reports: Hx Cataracts - developing, Hx Contacts or Glasses - Glasses Denies: Hx Eye Injury, Hx Eye Prosthesis, Hx Legally Blind, Hx Macular Degeneration, Hx Vision Problem, Hx Deafness, Hx Hearing Aid, Hx Hearing Problem Opthamlomology History: Reports: Hx Cataracts - developing, Hx Contacts or Glasses - Glasses Denies: Hx Eye Injury, Hx Eye Prosthesis, Hx Legally Blind, Hx Macular Degeneration, Hx Vision Problem Neurological History: Denies: Hx Dementia, Hx Developmental Delay, Hx Headaches, Hx Migraine, Hx Nerve Disease, Hx Seizures, Hx Spinal Cord Injury, Hx Transient Ischemic Attacks (TIA) Comment Only: Other Neuro Impairments/Disorders - vascular alzheimer and parkinsons Psychiatric History: Reports: Hx Depression - history of, a few years ago Denies: Hx Panic Disorder - Cancer History Hx Chemotherapy: No - Surgical History Surgery Procedure, Year, and Place: Diverticulitis surgery 2017 or 2018- [place]. Tonsillectomy as a child. 09/04/18- Cystoscopy, left retrograde, [place]otri[place] Stent [place]. [place] [facility] [place] Anesthesia Reactions: No - Immunization History Date of Tetanus Vaccine: 2012 Date of Influenza Vaccine: unk Infectious Disease History: Denies: Hx Clostridium Difficile, Hx Hepatitis, Hx Human Immunodeficiency Virus (HIV), Hx of Known/Suspected MRSA, Hx Shingles, Hx Tuberculosis, Hx Known/ Suspected VRE, Hx Known/Suspected VRSA, History Other Infectious Disease - Family History Known Family History: Positive: Hypertension, Diabetes - Social History Alcohol Use: None Hx Substance Use: No Substance Use Type: Reports: None Hx Tobacco Use: Yes Smoking Status (MU): Former Smoker Amount Used/How Often: as a teen x 2 yrs Have You Smoked in the Last Year: No Review of Systems Positive: Fever, Fatigue Positive: other - decrease output All Other Systems Reviewed And Are Negative: Yes Physical Exam - Summary Physical Exam Summary: Appearance: elderly man lying in stretcher that appears acutely ill; confused and febrile, thompson catheter appears to be draining Skin: Warm, dry, no obvious rash Eyes: sclera anicteric, no conjunctival pallor ENT: mucous membranes moist, pharynx appears normal Neck: Supple, nontender Respiratory: Clear to auscultation, no signs of respiratory distress Cardiovascular: Normal S1, S2. No murmurs. Normal distal pulses in tibial and radial bilaterally. Abdomen: Soft, nontender, normal active bowel sounds present Musculoskeletal: Normal, Strength/ROM Intact Neurological: awake and confused, mentation is normal, speech is fluent and appropriate Psychiatric: affect is normal, does not appear anxious or depressed Triage Information Reviewed: Yes Vital Signs Reviewed: Yes Diagnostics - Laboratory Result Diagrams: 02/09/19 06:38 02/09/19 06:38 Lab Statement: Any lab studies that have been ordered have been reviewed, and results considered in the medical decision making process. - Radiology CXR Radiology Interpretation Completed By: ED Physician Summary of Radiographic Findings: No acute process. - CT A/P CT Interpretation Completed By: Radiologist Summary of CT Findings: 1. There is increased small to moderate pericardial effusion. 2. Stable cholelithiasis without pericholecystic inflammatory change. 3. Stable prostate gland enlargement and calcification. 4. Stable left inguinal hernia measuring 7 cm diameter and still containing a. short segment of sigmoid colon without resulting colonic obstruction or other. evidence for incarceration. 5. Stable colonic diverticulosis without evidence for acute diverticulitis. 6. As previously seen, there is a left ureteral stent which is not. significantly changed. Stable left nephrolithiasis and slight improvement in. mild left hydronephrosis and continued left perinephric fat. stranding/inflammatory change. ED Physician has reviewed this report. GIGU Course/Dx - Course Course Of Treatment: 73 year old M brought in by ambulance due to a will urinary catheter today. reports he had fallen out of bed three days ago requiring assistance to get back into bed. She additionally reports recent increased confusion, fever, and decreased urine output today. Upon evaluation patient appears acutely ill and is confused. Notable fever of 103.3. Bloodwork and UA, indicative of UTI. Patient is given 2500mls of IVF with 50mls of ceftriaxone. CXR reveals no acute process. CT A/P reveals, "1. There is increased small to moderate pericardial effusion. 2. Stable cholelithiasis without pericholecystic inflammatory change. 3. Stable prostate gland enlargement and calcification. 4. Stable left inguinal hernia measuring 7 cm diameter and still containing a. short segment of sigmoid colon without resulting colonic obstruction or other. evidence for incarceration. 5. Stable colonic diverticulosis without evidence for acute diverticulitis. 6. As previously seen, there is a left ureteral stent which is not. significantly changed. Stable left nephrolithiasis and slight improvement in. mild left hydronephrosis and continued left perinephric fat. stranding/inflammatory change. " Case discussed with Dr. Ponce, hospitalist, who agrees to admission. - Diagnoses Provider Diagnoses: UTI (urinary tract infection), Sepsis - Physician Notifications Discussed Care Of Patient With: Qiana Ponce - hospitalist Time Discussed With Above Provider: 01:19 Instructed by Provider To: Admit As Inpatient Discharge - Sign-Out/Discharge Documenting (check all that apply): Patient Departure - admit Patient Received Moderate/Deep Sedation with Procedure: No - Discharge Plan Condition: Stable Disposition: ADMITTED TO [facility] - Billing Disposition and Condition Condition: STABLE Disposition: Admitted to [facility] - Attestation Statements Document Initiated by Yang: Yes Documenting Scribe: Magalis Ibarra Provider For Whom Yang is Documenting (Include Credential): Esau Arita MD Scribbertha Attestation: Magalis Smith, scribed for Esau Arita MD on 02/09/19 at 0827. Scribe Documentation Reviewed: Yes Provider Attestation: The documentation as recorded by the Magalis langston accurately reflects the service I personally performed and the decisions made by Esau bush MD Status of Scribe Document: Viewed
[2019-02-06] MEDS ORDERED: NS 0.9% 1000 ML** 1,000 ML IV.FLUID IV ONE (23:28)
[2019-02-06 23:49] LABS: Hematocrit 37 % (42-52); Hemoglobin 12.6 g/dL (14.0-18.0); Mean Corpuscular HGB Conc 34 g/dL (31-36); Mean Corpuscular Hemoglobin 29 pg (27-31); Mean Corpuscular Volume 86 fL (80-94); Mean Platelet Volume 7.4 fL (7.4-10.4); Platelet Count 261 10^3/uL (150-450); Red Blood Count 4.36 10^6 /uL (4.18-5.48); Red Cell Distribution Width 15 % (10-15); White Blood Count 21.3 10^3/uL (3.5-10.8)
[2019-02-06 23:59] LABS: Activated Partial Thrombo Time 35.7 seconds (26.0-38.0); INR 1.14 (0.82-1.09)
[2019-02-07 00:07] LABS: Albumin 3.7 g/dL (3.2-5.2); Albumin/Globulin Ratio 0.9 (1-3); C Reactive Protein 120.4 mg/L (<8.01); Calcium 9.6 mg/dL (8.6-10.3); EGFR Non-African American 45.4 (>60); Potassium 2.9 mmol/L (3.5-5.0); Total Bilirubin 0.6 mg/dL (0.2-1.0); Total Protein 7.7 g/dL (6.4-8.9)
[2019-02-07 00:08] LABS: Troponin I 0.01 ng/mL (<0.04)
[2019-02-07 00:46] LABS: Urine Appearance Turbid; Urine Bacteria 1+ (Absent); Urine Bilirubin Negative (Negative); Urine Blood 3+ (Negative); Urine Color Yellow; Urine Glucose Negative (Negative); Urine Ketones Negative (Negative); Urine Nitrite Positive (Negative); Urine Protein 2+(100 mg/dL) (Negative); Urine Red Blood Cell 2+(6-10/hpf) (Absent); Urine Specific Gravity 1.014 (1.010-1.030); Urine Urobilinogen Negative (Negative); Urine White Blood Cell 3+(>20/hpf) (Absent)
[2019-02-07 00:57] LABS: ABS Basophils 0.1 10^3/ul (0-0.2); ABS Lymphocytes 0.5 10^3/ul (1.0-4.8); ABS Monocytes 1.8 10^3/ul (0-0.8); ABS Neutrophils 18.8 10^3/ul (1.5-7.7); Lymphocyte % 2.6 %
[2019-02-07] MEDS ORDERED: cefTRIAXone(*) 1 GM in NS 0.9% 50 ML* 50 ML IVPB ONE (00:59)
[2019-02-07] MEDS ORDERED: Gentamicin ADULT (*) 40 MG/ML VIAL (2 ML VIAL = 80 MG) IVPB ONE (01:40)
[2019-02-07] MEDS ORDERED: Ondansetron INJ* 2 MG/ML VIAL IV PRN (01:40)
[2019-02-07] MEDS ORDERED: NS 0.9% 1000 ML** 1,000 ML IV SCH (01:45)
[2019-02-07] MEDS ORDERED: Gentamicin ADULT (*) 200 MG in NS 0.9% 100 ML* 100 ML IVPB ONE (02:30)
[2019-02-07] MEDS: Potassium Chloride* LIQUID 20 MEQ/15 ML UDC PO SCH ×2 (03:21→05:21)
[2019-02-07 03:30] LABS: Urine Appearance Turbid; Urine Bacteria Absent (Absent); Urine Bilirubin Negative (Negative); Urine Blood 3+ (Negative); Urine Color Yellow; Urine Glucose Negative (Negative); Urine Ketones Negative (Negative); Urine Nitrite Negative (Negative); Urine Protein 2+(100 mg/dL) (Negative); Urine Red Blood Cell 3+(>10/hpf) (Absent); Urine Specific Gravity 1.011 (1.010-1.030); Urine Urobilinogen Negative (Negative); Urine White Blood Cell 3+(>20/hpf) (Absent)
[2019-02-07] MEDS: Acetaminophen TAB* 325 MG PO PRN (03:46)
[2019-02-07] MEDS: Heparin VIAL(*) 5000 UNITS/ML VIAL (FIVE THOUSAND) SUBCUT SCH ×3 (05:22→23:09)
--- NOTE | 2019-02-07 05:37 | HP ---
CC: Dr. Webster * HISTORY AND PHYSICAL: DATE OF ADMISSION: 02/07/19 PRIMARY CARE PROVIDER: Dr. Webster. UROLOGIST: Dr. Cee. CHIEF COMPLAINT: Catheter is not draining well. HISTORY OF PRESENT ILLNESS: Mr. Lopez is a 73-year-old male with a history of BPH with chronic urinary retention with a chronic indwelling Begum catheter, hypertension, hyperlipidemia, stage 3 chronic kidney disease, and lymphedema, as well as probable mild cognitive impairment who presents to the emergency room after his noted that his catheter was not draining well and he was flushed and hot to touch. The patient's states that he had been in his usual state of health up until late afternoon on 02/06/19. She noted that he was somewhat off and that he only ate one sandwich for dinner as opposed to his usual two. She thought that was odd. By later in the evening, he was flushed and hot to the touch. She noted that the catheter had not drained much urine. Because of that, she called 911 and had the patient brought to the emergency room for evaluation. The patient states that he currently has no pain. He denies any chest pain, shortness of breath, nausea, vomiting, and diarrhea. He denies any weakness, but his states that he has had generalized weakness. PAST MEDICAL HISTORY: 1. Hypertension. 2. Hyperlipidemia. 3. History of cerebrovascular accident requiring the use of walker to ambulate. 4. GERD. 5. BPH with chronic urinary retention. 6. Chronic anemia. 7. Stage 3 chronic kidney disease. 8. Lymphedema. PAST SURGICAL HISTORY: 1. Sigmoid resection. 2. Left ureteral stent with shock wave lithotripsy. MEDICATIONS: 1. Chlorthalidone 25 mg p.o. daily. 2. Ascorbic acid 500 mg p.o. daily. 3. Losartan 50 mg p.o. daily. 4. Floranex 2 caps p.o. daily. 5. Finasteride 5 mg p.o. daily. 6. Flomax 0.8 mg p.o. daily. 7. Metamucil plus calcium 1 tab p.o. daily. 8. Protonix 40 mg p.o. daily. 9. Metoprolol XL 100 mg p.o. daily. ALLERGIES: AMLODIPINE, SINGULAIR, FORMOTEROL, IRBESARTAN, LISINOPRIL, and ERYTHROMYCIN. FAMILY HISTORY: Mom is ; she had a history of RA and coronary artery disease. Dad is also ; he had a history of diabetes and depression. SOCIAL HISTORY: The patient has a remote history of short-term smoking of only 3 years. He denies any alcohol use. He is retired from [employer]. He is . His is his healthcare proxy. REVIEW OF SYSTEMS: A complete 11-system review of systems is obtained. Pertinent positives and negatives are as per HPI and otherwise negative. PHYSICAL EXAMINATION GENERAL: The patient is a well-developed, elderly ill-appearing male, seen lying in the stretcher, in no acute distress. VITAL SIGNS: Blood pressure 149/95, pulse 97, respirations 18, temp 103.3 rectally, O2 sat 96% on room air. HEENT: Pupils are equal and round. Extraocular muscles are intact. Oropharynx is clear. Oral mucosa is moist. There is no submandibular, cervical , or supraclavicular adenopathy. Thyroid is not enlarged. No thyroid nodules are noted. PULMONARY: Lungs are clear to auscultation bilaterally. CARDIAC: Normal S1, S2. Regular rate and rhythm. I did not appreciate any murmurs. There is no lower extremity edema. There are signs of chronic venous stasis changes to the bilateral lower extremities. ABDOMEN: Bowel sounds present. Abdomen is soft, nontender, nondistended. MUSCULOSKELETAL: There is no cyanosis or clubbing of the digits. There is full active range of motion of all 4 extremities. NEURO: Cranial nerves II through XII are grossly intact. Sensation is intact to light touch throughout. Strength is 5/5 and symmetric to both upper and lower extremities bilaterally. PSYCH: The patient is alert. He is generally a poor historian and more confused now than his baseline per his . SKIN: Warm and dry. There are no rashes. The patient's face is flushed. It does also appear there is trauma to the right 5th toenail. DIAGNOSTIC STUDIES/LAB DATA: Labs, WBC 21.3, hemoglobin 12.6, hematocrit 37, platelets 261. INR 1.14. Sodium 138, potassium 2.9, chloride 102, CO2 27, BUN 35, creatinine 1.52, glucose 142, lactic acid 1.6, calcium 9.6. Bilirubin 0.6, AST 15, ALT 13, alk phos 84. Troponin 0.01. CRP 120.4. Albumin 3.7. Urinalysis reveals turbid urine with specific gravity of 1.014, 2+ protein, 3+ blood, positive for nitrites, 3+ leukocyte esterase, 3+ wbc, 1+ bacteria. Chest x-ray is clear to my interpretation. CT abdomen and pelvis reveals increased small to moderate pericardial effusion. There is stable cholelithiasis without pericholecystic inflammatory change. Stable prostate gland enlargement and calcification. There is stable left inguinal hernia measuring 7 cm in diameter and still containing a short segment of sigmoid colon without resulting colonic obstruction or other evidence for incarceration. Stable colonic diverticulosis without evidence of acute diverticulitis. As previously seen, there is a left ureteral stent, which is not significantly changed. Stable left nephrolithiasis and slight improvement in mild left hydronephrosis and continued left perinephric fat stranding/ inflammatory changes seen. ASSESSMENT AND PLAN: Mr. Lopez is a 73-year-old male with a history of benign prostatic hyperplasia and chronic urinary retention with a chronic indwelling Begum catheter who presents to the emergency room after his noted him to be flushed and hot to touch and his catheter to be not draining much urine and he is found to be septic secondary to a catheter-associated urinary tract infection. 1. Sepsis secondary to catheter-associated urinary tract infection. At this point, the patient is septic by SIRS criteria with leukocytosis and fever. He has received 30 mL/kg bolus and we will continue on 100 mL per hour after that. He is receiving ceftriaxone as ordered by Dr. Arita and I am going to add a 1 time of gentamicin based on the patient's previous microbiology data. We will change the patient's Begum catheter. We will wait for the urine culture to tailor the antibiotics. Followup CBC will be obtained later this morning. 2. Hypertension. The patient's blood pressure in the ER is mildly elevated. I am going to continue his beta-will and ARB, but hold his chlorthalidone. We will monitor pressures and if his BP remains elevated, the chlorthalidone can be added back. 3. Benign prostatic hyperplasia. Continue finasteride and Flomax. 4. Gastroesophageal reflux disease. Continue Protonix. 5. Stage 3 chronic kidney disease. The patient's creatinine is stable around 1.5. His creatinine has fluctuated quite significantly over the last 6 months and this will need to be followed. 6. Chronic anemia. The patient's H and H is centrally at baseline. I will continue to follow this. 7. DVT prophylaxis: According to the adult thrombosis prophylaxis risk factor assessment guide, the patient has a total risk factor score of 4, making him high risk. Heparin 5000 units subcutaneous q.8 hours will be utilized as DVT prophylaxis. 8. Code status is DNR. [id number]/[facility] #: [id number] MTDD
[2019-02-07 07:31] LABS: Hematocrit 31 % (42-52); Hemoglobin 10.5 g/dL (14.0-18.0); Mean Corpuscular HGB Conc 34 g/dL (31-36); Mean Corpuscular Hemoglobin 29 pg (27-31); Mean Corpuscular Volume 87 fL (80-94); Mean Platelet Volume 7.6 fL (7.4-10.4); Platelet Count 203 10^3/uL (150-450); Red Cell Distribution Width 15 % (10-15); White Blood Count 22.3 10^3/uL (3.5-10.8)
[2019-02-07 07:34] LABS: ABS Lymphocytes 0.9 10^3/ul (1.0-4.8); ABS Monocytes 2.5 10^3/ul (0-0.8); ABS Neutrophils 18.9 10^3/ul (1.5-7.7); Lymphocyte % 4.2 %
[2019-02-07 07:42] LABS: BUN/Creatinine Ratio 19.9 (8-20); Calcium 8.5 mg/dL (8.6-10.3); EGFR Non-African American 39.7 (>60); Potassium 3.9 mmol/L (3.5-5.0)
[2019-02-07] MEDS: Metoprolol Succinate XL TAB* 100 MG PO SCH (08:56)
[2019-02-07] MEDS ORDERED: Losartan TAB* 25 MG PO SCH (09:00)
[2019-02-07] MEDS: Pantoprazole TAB * 40 MG TAB PO SCH (09:01)
[2019-02-07] MEDS: Finasteride TAB* 5 MG PO SCH (09:01)
[2019-02-07] MEDS: Tamsulosin CAP* 0.4 MG PO SCH (09:01)
[2019-02-07] MEDS: PSYLLIUM HUSK PO SCH (09:02)
--- NOTE | 2019-02-07 11:50 | PN ---
Hospitalist Progress Note Date of Service: 02/07/19 Brief update- Patient feeling well without complaints. Denies dyspnea, chest pain, fever/ chills, abd pain. Urine culture from recent ED visit on 01/24/19 demonstrates on report on 01/27/19 that patient had urine positive for phi glabrata. Patient was prescribed fluconazole, however this species is known to be resistant. PE: gen: white male appearing comfortable and NAD ENT: mucous membranes moist Lungs: CTA throughout Cardio: RRR without m/r/g Abd: abd soft, nontender, nondistended; no suprapubic tenderness : thompson cath with small blood clots Neuro: alert, oriented to self and place; no focal deficits Plan: Fever 101.8 overnight, afebrile since then. TESHA on CKD worsening, Cr to 1.71 - d/c losartan. Increasing NS rate given worsening TESHA and hypotension. Considering urine has been untreated since 01/24/19, and patient arrived in sepsis , there is concern for candidemia. Starting one dose of anidulafungin and will consult infectious disease in AM. Otherwise continuing ceftriaxone. One dose vancomycin given prior to investigating this previous urine culture. Urine and blood cultures from this admission are pending. Small blood clots in thompson cath thought to be due to traumatic thompson placement.
[2019-02-07] MEDS: NS 0.9% 1000 ML** 1,000 ML IV SCH (14:05)
[2019-02-07] MEDS: Vancomycin(*) 1,500 MG in NS 0.9% 250 ML* 250 ML IVPB ONE ×2 (17:43→17:44)
[2019-02-07] MEDS ORDERED: NS 0.9% IVPB SCH (18:00)
[2019-02-07] MEDS ORDERED: ANIDULAFUNGIN IVPB SCH (18:00)
[2019-02-07] MEDS ORDERED: Anidulafungin* 200 MG in NS 0.9% 250 ML* 200 ML IVPB SCH (18:00)
[2019-02-07] MEDS ORDERED: Anidulafungin* 100 MG in NS 0.9% 100 ML* 100 ML IVPB SCH (18:00)
[2019-02-08] MEDS ORDERED: cefTRIAXone(*) 1 GM in NS 0.9% 50 ML* 50 ML IVPB SCH (02:00)
[2019-02-08] MEDS ORDERED: Vancomycin Random Level* NOTE FOLLOW UP ONE (06:00)
[2019-02-08] MEDS: Heparin VIAL(*) 5000 UNITS/ML VIAL (FIVE THOUSAND) SUBCUT SCH ×3 (06:32→20:54)
[2019-02-08] MEDS: Pantoprazole TAB * 40 MG TAB PO SCH (08:57)
[2019-02-08] MEDS: Tamsulosin CAP* 0.4 MG PO SCH (08:57)
[2019-02-08] MEDS: Finasteride TAB* 5 MG PO SCH (08:57)
[2019-02-08] MEDS: Metoprolol Succinate XL TAB* 100 MG PO SCH (08:58)
[2019-02-08 09:08] LABS: ABS Eosinophils 0.1 10^3/ul (0-0.6); ABS Lymphocytes 0.8 10^3/ul (1.0-4.8); ABS Monocytes 0.9 10^3/ul (0-0.8); ABS Neutrophils 8.8 10^3/ul (1.5-7.7); Eosinophil % 0.8 %; Hematocrit 28 % (42-52); Hemoglobin 9.6 g/dL (14.0-18.0); Lymphocyte % 7.2 %; Mean Corpuscular HGB Conc 35 g/dL (31-36); Mean Corpuscular Hemoglobin 30 pg (27-31); Mean Corpuscular Volume 86 fL (80-94); Mean Platelet Volume 8.3 fL (7.4-10.4); Platelet Count 169 10^3/uL (150-450); Red Cell Distribution Width 15 % (10-15); White Blood Count 10.6 10^3/uL (3.5-10.8)
[2019-02-08 09:18] LABS: BUN/Creatinine Ratio 26.1 (8-20); Calcium 8.3 mg/dL (8.6-10.3); EGFR Non-African American 43.8 (>60); Potassium 3.3 mmol/L (3.5-5.0)
[2019-02-08] MEDS: PSYLLIUM HUSK PO SCH (09:32)
[2019-02-08] MEDS: NS 0.9% 1000 ML** 1,000 ML IV SCH (12:55)
[2019-02-08] MEDS: KCL 20 MEQ/100 ML IVPREMIX* 20 MEQ/100 ML BAG IV SCH ×3 (12:57→20:54)
--- NOTE | 2019-02-08 17:03 | CONS ---
CONSULTATION REPORT: DATE OF CONSULT: 02/08/19 PRIMARY CARE PROVIDER: Dr. Michael Webster. PROVIDER REQUESTING CONSULTATION: JONI Cary CONSULTING SERVICE: Infectious Disease. PROVIDER: Camilo Lala NP My attending provider is Dr. Chon Carrasco.* (DICTATED BY CAMILO LALA, CUTTING TABLE OPERATOR-C) REASON FOR CONSULTATION: Urinary tract infection. IMPRESSION: 1. UTI due to urinary obstruction in the setting of a chronic indwelling urinary catheter. The patient has a left renal stent in place, that was placed on 12/28/[address] Cee after a cystoscopy and lithotripsy. He has a chronic indwelling urinary catheter due to a benign prostatic hyperplasia and chronic urinary retention. Abdomen and pelvis CT imaging on admission shows perinephric stranding of the left kidney with hydronephrosis. The patient was initially febrile, but has been afebrile for 24 hours. His leukocytosis has resolved. He previously grew Deirdre glabrata in the urine culture from . His initial urinalysis is significant for 3+ blood, positive nitrites, 3+ leukocyte esterase, 3+ wbc's, 3+ rbc's, bacteria 1+. Urine culture is pending at this time. Blood cultures with no growth to date. The patient is improving on ceftriaxone. 2. Sepsis. Present on admission, now resolved. 3. Benign prostatic hyperplasia with chronic urinary retention and chronic indwelling urinary catheter. PLAN: Recommend discontinuing the anidulafungin as I suspect that the Deirdre glabrata that he recently grew in a culture is colonized in his urinary catheter and the catheter was changed on admission according to the EMR. For now , recommend continuing ceftriaxone and follow the urine cultures. Also recommend calling Urology, and discussing the case with them as he may need to have cystoscopy and a stent exchange during this admission. HISTORY OF PRESENT ILLNESS: Mr. Lopez is a 73-year-old male with past medical history significant for BPH with chronic indwelling urinary catheter due to chronic urinary retention, hypertension, hyperlipidemia, chronic kidney disease stage 3 and lymphedema, who presented to the emergency room with his with concerns of his catheter not draining well and he was flushed and warm to touch. Today's history and physical is obtained from the patient who is really unsure of the events leading up to his arrival at the hospital other than saying that his was concerned that he was "hot" according to the H and P. He had been in his usual state of health until the afternoon of 02/06/19, at which point he was noted to be somewhat off, he only ate 1 sandwich for dinner as opposed to his usual 2. Later in the evening, he was flushed and hot and warm to touch. She noticed that his catheter had not drained much urine throughout the day. Because of this, she called 911 and the patient was brought to the emergency room for evaluation of his symptoms. While in the emergency room, the patient had a chest x-ray showing findings consistent with pulmonary arterial hypertension. No acute cardiopulmonary process evident. Additionally, he was noted to be febrile with a temperature of 103.3 and on recheck 101.8. He had labs drawn showing a leukocytosis with a white blood cell count of 21.3. His creatinine was elevated, but this appeared to be near his baseline, the CRP of 120.40. He had a hypokalemia with a potassium of 2.9. Urinalysis significant for 2+ protein, 3+ blood, nitrites positive, 3+ leukocyte esterase, wbc's 3+, rbc's 3+, bacteria 1+. He received ceftriaxone, IV fluids per sepsis protocol. He had blood cultures drawn. He was referred to the hospitalist service for admission. During his hospitalization, he had an abdomen and pelvis CT scan showing increased [id number] pericardial effusion, stable cholelithiasis without pericholecystic inflammatory change, prostate gland enlargement and calcification, stable left inguinal hernia without resulting colonic obstruction or signs of incarceration, colonic diverticulosis without evidence for acute diverticulitis, left ureteral stent with left nephrolysis and slight improvement in mild left hydronephrosis and continued left perinephric fat stranding and inflammatory change. His leukocytosis is resolved. He has been afebrile since admission. He received vancomycin, Eraxis after his previous urine culture from 01/24/18 showed Deirdre glabrata. Urine culture from admission is pending. The patient currently denies any fevers, chills, shortness of breath, fatigue, cough, joint pain, muscle pain, rash, nausea, vomiting, diarrhea. Denies urinary symptoms. He has a chronic indwelling urinary catheter. He denies any abdominal pain or low back pain, flank pain. Denies any recent travel. PAST MEDICAL HISTORY: 1. Hypertension. 2. Hyperlipidemia. 3. CVA. 4. GERD. 5. BPH. 6. Chronic urinary retention. 7. Chronic anemia. 8. CKD stage 3. 9. Lymphedema. PAST SURGICAL HISTORY: 1. Status post sigmoid resection. 2. Status post left ureteral stent with shock wave lithotripsy and cystoscopy. MEDICATIONS: Home medications include: 1. Chlorthalidone 25 mg by mouth daily. 2. Ascorbic acid 500 mg by mouth every morning. 3. Losartan 50 mg by mouth every morning. 4. Floranex 2 capsules by mouth daily. 5. Finasteride 5 mg by mouth daily. 6. Tamsulosin 0.8 mg by mouth daily. 7. Metamucil Plus 1 tablet by mouth daily. 8. Pantoprazole 0 mg by mouth every morning. 9. Metoprolol succinate XL 100 mg by mouth every morning. Hospital medications: 1. Acetaminophen 650 mg by mouth every 4 hours. 2. Anidulafungin 200 mg IV x1. 3. Ceftriaxone 1 g IV daily. 4. Finasteride 5 mg by mouth every morning. 5. Heparin sodium 5000 units subcutaneous every 8 hours. 6. Metoprolol succinate 100 mg by mouth every morning. 7. Zofran 4 mg IV every 6 hours as needed for nausea. 8. Pantoprazole 40 mg by mouth every morning. 9. Potassium chloride 20 mEq IV every 2 hours for 3 doses. 10. Metamucil 1 capsule by mouth daily. 11. Sodium chloride 125 mL an hour intravenously. 12. Tamsulosin 0.8 mg by mouth daily. ALLERGIES: 1. AMLODIPINE. 2. SINGULAIR. 3. IRBESARTAN. 4. LISINOPRIL. 5. FORMOTEROL. 6. ERYTHROMYCIN, caused diarrhea. FAMILY HISTORY: Denies family history of recurrent infections such as tuberculosis. Mother with a history of coronary artery disease and RA. Father with a history of diabetes. No family history of cancer. SOCIAL HISTORY: Denies alcohol or recreational drug use. He is a former smoker , smoking for approximately 3 years many years ago. REVIEW OF SYSTEMS: I performed a 10-point review of systems. All the pertinent positives and negatives are mentioned in the history of present illness. The remaining review of systems are negative. PHYSICAL EXAM: Temperature 98.1, heart rate 79, respiratory rate 18, O2 sat 97 % on room air, and blood pressure 123/61. General Appearance: No acute distress, sitting up in bed. Neurological: Alert and oriented x4. Cranial nerves II through XII are grossly intact. Head: Normocephalic, atraumatic. ENT : Pupils are equal, reactive to light. Extraocular movements are intact. Mucous membranes are moist. Neck: Supple. There is no lymphadenopathy noted. No tenderness with palpation. Cardiovascular: Heart rate is regular. S1 and S2 present. No murmurs, rubs, or gallops heard. Respiratory: No accessory muscle use. Lungs are clear to auscultation bilateral. Abdomen: Bowel sounds present. Abdomen is soft, nontender, nondistended. There is no CVA tenderness bilateral. No suprapubic tenderness. Extremities: No lower extremity edema. Musculoskeletal: No clubbing or cyanosis noted. The patient exhibits good strength in all extremities. There is no redness, erythema or swelling of the ankles, knees, hips, wrists, elbows, or shoulders. There is no crepitus to these joints. He has negative log roll. There is no tenderness to palpation of his spine from his neck down his back or his lateral back bilateral. Psychological: Calm and cooperative. Skin: No rashes or abnormalities seen. DIAGNOSTIC STUDIES/LAB DATA: Sodium 141, potassium 3.3, chloride 112, CO2 of 23 , BUN 41, creatinine 1.57, glucose 118. White blood cell count 10.6, hemoglobin 9.6, hematocrit 28, platelet count is 169. Urinalysis as previously mentioned under HPI. Blood cultures with no growth on day 1. CRP 120.40 on up from 20.53 on 01/24/19. Please see impression and recommendations outlined above. Thank you for asking us to see Mr. Lopez in consultation. Recommendations have been discussed with hospitalist on service today, JONI Manuel. The case has been discussed with my attending, Dr. Chon Carrasco, who agrees with the plan of care. Reviewed by CAMILO LALA, CORBIN-C 02/10/19 1743 [id number]/[id number] #: [id number] MTDD
[2019-02-08] MEDS: Cefepime 2 GM in Dextrose(*) 2 GM/50 ML BAG IV SCH (18:02)
--- NOTE | 2019-02-08 20:23 | PN ---
Subjective Date of Service: 02/08/19 Interval History: Patient has no complaints today. He denies fever/chills, abd pain, nausea/ vomiting, back pain, chest pain, difficulty breathing. Objective Active Medications: Acetaminophen (Tylenol Tab*) 650 mg PO Q4H PRN PRN Reason: PAIN or FEVER Last Admin: 02/07/19 03:46 Dose: 650 mg Finasteride (Proscar Tab*) 5 mg PO QAM [facility] Last Admin: 02/08/19 08:57 Dose: 5 mg Heparin Sodium (Porcine) (Heparin Vial(*)) 5,000 units SUBCUT Q8HR [facility] Last Admin: 02/08/19 13:00 Dose: 5,000 units Sodium Chloride (Ns 0.9% 1000 Ml) 1,000 mls @ 75 mls/hr IV PER RATE [facility] Cefepime HCl (Maxipime 2 Gm In Dextrose Duplex (*)) 2 gm in 50 mls @ 100 mls/ hr IV Q12H [facility] Last Admin: 02/08/19 18:02 Dose: 100 mls/hr Metoprolol Succinate (Toprol Xl Tab*) 100 mg PO QAM [facility] Last Admin: 02/08/19 08:58 Dose: 100 mg Pto:(Psyllium Husk [ Metamucil Mulithealth Fiber] 1 Cap) 1 tab PO DAILY [facility] Last Admin: 02/08/19 09:32 Dose: 1 tab Ondansetron HCl (Zofran Inj*) 4 mg IV Q6H PRN PRN Reason: NAUSEA Pantoprazole Sodium (Protonix Tab*) [facility] [place] Last Admin: 02/08/19 08:57 Dose: 40 mg Tamsulosin HCl (Flomax Cap*) 0.8 mg PO DAILY [facility] Last Admin: 02/08/19 08:57 Dose: 0.8 mg Vital Signs - 8 hr 02/08/19 16:00 Temperature 97.9 F Pulse Rate 78 Respiratory 18 Rate Blood Pressure 119/60 (mmHg) O2 Sat by Pulse 98 Oximetry Oxygen Devices in Use Now: None Appearance: Elderly white male laying upright in hospital bed, appearing in NAD Eyes: No Scleral Icterus, PERRLA Ears/Nose/Mouth/Throat: Mucous Membranes Moist Neck: NL Appearance and Movements; NL JVP Respiratory: Symmetrical Chest Expansion and Respiratory Effort, Clear to Auscultation Cardiovascular: NL Sounds; No Murmurs; No JVD, RRR Abdominal: - - abdomen soft, nontender, nondistended; no suprapubic tenderness Extremities: No Clubbing, Cyanosis, - - trace edema to bilateral LEs pretibially Skin: No Rash or Ulcers Neurological: NL Muscle Strength and Tone, - - alert and oriented to self and location Lines/Tubes/Other Access: Clean, Dry and Intact Thompson - Clear, yellow urine, non -turbid; appears to have ?sediment Result Diagrams: 02/08/19 06:34 02/08/19 06:34 Microbiology and Other Data: Microbiology 02/07/19 00:16 Urine Culture - Preliminary Urine Pseudomonas Aeruginosa 02/06/19 23:42 Aerobic Blood Culture - Preliminary Blood Venous Anaerobic Blood Culture - Preliminary No Growth Day 1 02/06/19 23:42 Aerobic Blood Culture - Preliminary Blood Venous No Growth Day 1 Anaerobic Blood Culture - Preliminary No Growth Day 1 Assess/Plan/Problems-Billing Assessment: 73 yo white male with PMHx BPH with urinary retention and chronic thompson, CKD stage 3, lymphedema, HTN, HLD, hx CVA presents with poor urinary output, found to have sepsis secondary to catheter-associated UTI. - Patient Problems (1) Catheter-associated urinary tract infection Code(s): T83.511A - I/I REACT D/T INDWELLING URETHRAL CATHETER, INIT; N39.0 - URINARY TRACT INFECTION, SITE NOT SPECIFIED SNOMED Code(s): 749943456 Comment: -left sided pyelonephritis on CT abdomen, originally presenting with signs of sepsis which are now resolved -patient has received one dose gentimicin, one dose vancomycin, one dose anidulafungin and has been on ceftriaxone -urine culture today growing pseudomonas, switched antibiotic to cefepime -previous culture from ED visit on 01/24/19 grew phi glabrata which was never treated appropriately, ID consulted and recommended no further antifungal treatment as the thompson catheter has been exchanged and thompson was likely colonized -spoke with Dr. Cee, the patient's urologist; hopeful for TURP and exchanging renal stent on Friday (02/10/19) if permitted by ID. Of note, this conversation occurred prior to urine culture result with pseudomonas. Pending ID team input -pt afebrile for 24 hours and leukocytosis resolved today (2) Acute kidney injury superimposed on chronic kidney disease Code(s): N17.9 - ACUTE KIDNEY FAILURE, UNSPECIFIED; N18.9 - CHRONIC KIDNEY DISEASE, UNSPECIFIED SNOMED Code(s): 90163158 Comment: -unclear what patient's baseline Cr is based on EMR, perhaps ~1.2 -Cr 1.57 today -gentle IV hydration in setting of chronic LE edema (3) BPH (benign prostatic hyperplasia) Code(s): N40.0 - BENIGN PROSTATIC HYPERPLASIA WITHOUT LOWER URINRY TRACT SYMP SNOMED Code(s): 997809178 Comment: -with chronic urinary retention and chronic indwelling thompson -L renal stent placed in December, hopeful for exchange and TURP with Dr. Cee as discussed above -continue finasteride and flomax (4) Hypokalemia Code(s): E87.6 - HYPOKALEMIA SNOMED Code(s): 51819755 Comment: - K 3.3 today - replacing with IV KCl (5) Chronic edema Current Visit: No Status: Acute Code(s): R60.9 - EDEMA, UNSPECIFIED SNOMED Code(s): 596521254 Comment: - Wears compression socks at home, ordered teds - secondary to lymphedema - will monitor given rehydration (6) HTN (hypertension) Current Visit: No Status: Acute Code(s): I10 - ESSENTIAL (PRIMARY) HYPERTENSION SNOMED Code(s): 83940981 Comment: -Continue Metoprolol and losartan -holding chlorthalidone given previous hypotension, will continue to monitor and restart if hypertensive (7) History of CVA (cerebrovascular accident) Code(s): Z86.73 - PRSNL HX OF TIA (TIA), AND CEREB INFRC W/O RESID DEFICITS SNOMED Code(s): 310049931 Comment: -with residual deficit requiring walker with ambulation -does not appear patient takes antiplatelet therapy at home (8) DNR (do not resuscitate) (9) DVT prophylaxis Code(s): SGE8784 - SNOMED Code(s): 681319932 Comment: -Continue Heparin SQ TID
[2019-02-09] MEDS: NS 0.9% 1000 ML** 1,000 ML IV SCH ×2 (00:55→13:52)
[2019-02-09] MEDS: Heparin VIAL(*) 5000 UNITS/ML VIAL (FIVE THOUSAND) SUBCUT SCH ×3 (05:13→21:47)
[2019-02-09] MEDS: Cefepime 2 GM in Dextrose(*) 2 GM/50 ML BAG IV SCH ×2 (05:13→17:11)
[2019-02-09 07:05] LABS: ABS Eosinophils 0.2 10^3/ul (0-0.6); ABS Lymphocytes 0.8 10^3/ul (1.0-4.8); ABS Monocytes 0.7 10^3/ul (0-0.8); ABS Neutrophils 4.6 10^3/ul (1.5-7.7); Eosinophil % 3.9 %; Hematocrit 28 % (42-52); Hemoglobin 9.7 g/dL (14.0-18.0); Lymphocyte % 11.9 %; Mean Corpuscular HGB Conc 34 g/dL (31-36); Mean Corpuscular Hemoglobin 30 pg (27-31); Mean Corpuscular Volume 86 fL (80-94); Platelet Count 158 10^3/uL (150-450); Red Blood Count 3.29 10^6 /uL (4.18-5.48); Red Cell Distribution Width 15 % (10-15); White Blood Count 6.3 10^3/uL (3.5-10.8)
[2019-02-09 07:38] LABS: BUN/Creatinine Ratio 28.1 (8-20); Calcium 8.5 mg/dL (8.6-10.3); EGFR Non-African American 52.1 (>60); Potassium 3.7 mmol/L (3.5-5.0)
[2019-02-09] MEDS: Tamsulosin CAP* 0.4 MG PO SCH (08:41)
[2019-02-09] MEDS: Metoprolol Succinate XL TAB* 100 MG PO SCH (08:41)
[2019-02-09] MEDS: PSYLLIUM HUSK PO SCH (08:42)
[2019-02-09] MEDS: Finasteride TAB* 5 MG PO SCH (08:42)
[2019-02-09] MEDS: Pantoprazole TAB * 40 MG TAB PO SCH (08:42)
--- NOTE | 2019-02-09 15:18 | PN ---
Progress Note - Progress Note Date of Service: 02/09/19 SOAP: Subjective: CC: bacteremia HPI: 73 year old man with fever and urinary retention after his thompson was partially dislodged, no fever since 02/07, BP and HR stable. Energy improving. No rash or diarrhea. Objective: Vital Signs Temp 36.9 C 02/09/19 08:00 Pulse 66 02/09/19 08:00 Resp 19 02/09/19 08:00 BP 141/77 02/09/19 08:00 Pulse Ox 98 02/09/19 08:00 Intake & Output 02/08/19 02/09/19 02/09/19 18:59 06:59 18:59 Intake Total 4173 1179 Output Total 850 3200 Balance 3323 -2020 Intake: IV Fluids 2948 804 NS (0.9%) 2948 804 IVPB 405 265 Cefepime 65 KCl 100 200 NS (0.9%) 305 Oral 820 110 Output: Thompson 850 3200 Other: Estimated Void Large # Bowel Movements 0 # Voids 1 Gen:awake, no distress HEENT: no thrush Heart:RRR no murmur Lungs:CTA BL Abd:+BS NT ND soft, no flank tenderness Skin: no rash Laboratory Results - last 24 hr 02/09/19 02/09/19 06:38 06:38 WBC 6.3 RBC 3.29 L Hgb 9.7 L Hct 28 L MCV 86 MCH 30 MCHC 34 RDW 15 Plt Count 158 MPV 8.0 Neut % (Auto) 72.7 Lymph % (Auto) 11.9 [place] % (Auto) 10.8 Eos % (Auto) 3.9 Baso % (Auto) 0.7 Absolute Neuts (auto) 4.6 Absolute Lymphs (auto) 0.8 L Absolute Monos (auto) 0.7 Absolute Eos (auto) 0.2 Absolute Basos (auto) 0.0 Absolute Nucleated RBC 0.0 Nucleated RBC % 0.0 Sodium 141 Potassium 3.7 Chloride 111 Carbon Dioxide 23 Anion Gap 7 BUN 38 H Creatinine 1.35 H Est GFR ( Amer) 63.0 Est GFR (Non-Af Amer) 52.1 BUN/Creatinine Ratio 28.1 H Glucose 105 H Calcium 8.5 L Assessment: 1. Pseudomonas bacteremia and urinary tract infection due to obstruction s/p thompson replacement 2. Left ureteral stent 3. BPH, TURP pending Plan: 1. continue cefepime 2 gm IV Q12hrs; stent exchange and TURP planned 02/10, discussed with Dr Cee. His infection treatment is optimized and is hemodynamically stable.
--- NOTE | 2019-02-09 18:43 | PN ---
Subjective Date of Service: 02/09/19 Interval History: Denies complaints. No significant overnight events. Objective Active Medications: Acetaminophen (Tylenol Tab*) 650 mg PO Q4H PRN PRN Reason: PAIN or FEVER Last Admin: 02/07/19 03:46 Dose: 650 mg Finasteride (Proscar Tab*) 5 mg PO QAM [facility] Last Admin: 02/09/19 08:42 Dose: 5 mg Heparin Sodium (Porcine) (Heparin Vial(*)) 5,000 units SUBCUT Q8HR [facility] Last Admin: 02/09/19 13:54 Dose: 5,000 units Sodium Chloride (Ns 0.9% 1000 Ml) 1,000 mls @ 75 mls/hr IV PER RATE [facility] Last Admin: 02/09/19 13:52 Dose: 75 mls/hr Cefepime HCl (Maxipime 2 Gm In Dextrose Duplex (*)) 2 gm in 50 mls @ 100 mls/ hr IV Q12H [facility] Last Admin: 02/09/19 17:11 Dose: 100 mls/hr Metoprolol Succinate (Toprol Xl Tab*) [facility] [place] Last Admin: 02/09/19 08:41 Dose: 100 mg Pto:(Psyllium Husk [ Metamucil Mulithealth Fiber] 1 Cap) 1 tab PO DAILY [facility] Last Admin: 02/09/19 08:42 Dose: 1 tab Ondansetron HCl (Zofran Inj*) 4 mg IV Q6H PRN PRN Reason: NAUSEA Pantoprazole Sodium (Protonix Tab*) 40 mg PO QAM [facility] Last Admin: 02/09/19 08:42 Dose: 40 mg Tamsulosin HCl (Flomax Cap*) 0.8 mg PO DAILY [facility] Last Admin: 02/09/19 08:41 Dose: 0.8 mg Oxygen Devices in Use Now: None Appearance: appears stated age, NAD, friendly and conversant Eyes: No Scleral Icterus Ears/Nose/Mouth/Throat: Clear Oropharnyx, Mucous Membranes Moist Neck: Trachea Midline Respiratory: Symmetrical Chest Expansion and Respiratory Effort, Clear to Auscultation Cardiovascular: NL Sounds; No Murmurs; No JVD, RRR Abdominal: - - soft, nontender, nondistended, no suprapubic tenderness; no CVA tenderness Extremities: - - mild nonpitting edema over LEs Neurological: - - AOx2 - doens't know date Lines/Tubes/Other Access: Clean, Dry and Intact Thompson - clear yellow urine Result Diagrams: 02/09/19 06:38 02/09/19 06:38 Microbiology and Other Data: Microbiology 02/07/19 00:16 Urine Culture - Preliminary Urine Pseudomonas Aeruginosa 02/06/19 23:42 Aerobic Blood Culture - Preliminary Blood Venous Anaerobic Blood Culture - Preliminary No Growth Day 1 02/06/19 23:42 Aerobic Blood Culture - Preliminary Blood Venous No Growth Day 1 Anaerobic Blood Culture - Preliminary No Growth Day 1 Assess/Plan/Problems-Billing Assessment: 73M with BPH with urinary retention and chronic thompson, CKD stage 3, lymphedema, HTN, HLD, hx CVA presents with poor urinary output, found to have sepsis secondary to catheter-associated UTI, with cultures growing pseudomonas. - Patient Problems (1) Catheter-associated urinary tract infection Comment: Left sided pyelonephritis on CT abdomen, originally presenting with signs of sepsis which are now resolved -s/p one dose gentimicin, vancomycin, anidulafungin, and CTX, but has been continued on cefepime after culture results -previous culture from ED visit on 01/24/19 grew phi glabrata which was never treated appropriately, ID consulted and recommended no further antifungal treatment as the thompson catheter has been exchanged and thompson was likely colonized -spoke with Dr. Cee, the patient's urologist; hopeful for TURP and exchanging renal stent on Friday (02/10/19) (2) Acute kidney injury superimposed on chronic kidney disease Comment: -unclear what patient's baseline Cr is based on EMR, perhaps ~1.2 -Cr 1.57 today -gentle IV hydration in setting of chronic LE edema (3) BPH (benign prostatic hyperplasia) Comment: with chronic urinary retention and chronic indwelling thompson -L renal stent placed in December, hopeful for exchange and TURP with Dr. Cee as discussed above -continue finasteride and flomax (4) Chronic edema Comment: From lymphedema. - Wears compression socks at home, ordered teds (5) HTN (hypertension) Comment: -Continue Metoprolol and losartan -holding chlorthalidone given previous hypotension, will continue to monitor and restart if hypertensive (6) History of CVA (cerebrovascular accident) Comment: With residual deficit requiring walker with ambulation. Pt taken off aspirn - defer to PCP for ongoing management. (7) DVT prophylaxis Comment: -Continue Heparin SQ TID (8) DNR (do not resuscitate) Current Visit: No Status: Acute Status and Disposition: Inpatient.
[2019-02-10] MEDS: Lactated Ringers 1000 ML Bag* 1,000 ML IV SCH ×2 (03:56→14:53)
[2019-02-10] MEDS: Heparin VIAL(*) 5000 UNITS/ML VIAL (FIVE THOUSAND) SUBCUT SCH ×2 (04:10→13:38)
[2019-02-10] MEDS: Cefepime 2 GM in Dextrose(*) 2 GM/50 ML BAG IV SCH ×2 (05:12→17:51)
[2019-02-10 06:53] LABS: BUN/Creatinine Ratio 24.4 (8-20); Calcium 8.6 mg/dL (8.6-10.3); EGFR African American 72.9 (>60); EGFR Non-African American 60.3 (>60); Magnesium 1.7 mg/dL (1.9-2.7); Potassium 3.6 mmol/L (3.5-5.0)
[2019-02-10] MEDS: Metoprolol Succinate XL TAB* 100 MG PO SCH (08:46)
[2019-02-10] MEDS: Pantoprazole TAB * 40 MG TAB PO SCH (08:46)
[2019-02-10] MEDS: Tamsulosin CAP* 0.4 MG PO SCH (08:46)
[2019-02-10] MEDS: Ferrous Sulfate TAB* 325 MG PO SCH (08:46)
[2019-02-10] MEDS: Finasteride TAB* 5 MG PO SCH (08:46)
[2019-02-10] MEDS: PSYLLIUM HUSK PO SCH (08:48)
[2019-02-10] MEDS ORDERED: Naloxone* 0.4 MG/ML 1 ML VIAL IV PRN (13:25)
[2019-02-10] MEDS ORDERED: Ondansetron INJ* 2 MG/ML VIAL IV PRN (13:25)
[2019-02-10] MEDS ORDERED: fentaNYL* 50 MCG/ML 2 ML VIAL (100 MCG VIAL) IV PRN (13:25)
[2019-02-10] MEDS ORDERED: HYDROmorphone INJ1* 1 MG/ML SYRINGE IV PRN (13:25)
--- NOTE | 2019-02-10 15:14 | OP ---
CC: Dr. Webster * DATE OF OPERATION: 02/10/19 - ROOM #340 DATE OF : 49 SURGEON: Dr. Hua Cee ANESTHESIOLOGIST: Dr. Rasheed ANESTHESIA: General. PRE-OP DIAGNOSES: 1. Left renal calculus. 2. Left hydronephrosis. 3. Benign prostatic hyperplasia. 4. Urinary retention. POST-OP DIAGNOSES: 1. Left renal calculus. 2. Left hydronephrosis. 3. Benign prostatic hyperplasia. 4. Urinary retention. OPERATIVE PROCEDURE: 1. Transurethral resection of prostate. 2. Left retrograde and left urethral stent change. COMPLICATIONS: None. BLOOD LOSS: Approximately 150 cc. SPECIMEN: Prostate chip. CATHETER: 24-[place] Begum. INDICATIONS: Isaiah Prater is a 73-year-old gentleman with multiple urologic issues including urinary retention, BPH, and large multiple left renal calculi. DESCRIPTION OF PROCEDURE: After induction of general anesthesia, the patient was placed in dorsal lithotomy position. Sequential compression devices were in place and functioning. The previously placed Begum had been removed. Cystoscopy was performed which revealed a normal appearing urethra and a significantly large obstructing vascular prostate. The bladder was examined. There were few small bladder calculi noted which were fragmented and irrigated out. The previously placed left stent was removed. Retrograde pyelogram revealed fullness of the left collecting system and a new 7-[place] stent was introduced and positioned under fluoroscopy with good proximal and distal positioning noted. Next, a resectoscope was introduced. Attention was directed to transurethral resection of the prostate. The floor of the prostate was resected followed by the lateral lobe tissue and then the anterior tissue. The prostate was fairly vascular probably due to inflammation induced by all his recurrent urinary tract infection and hemostasis was secured using the coagulating current. The resective tissue was removed from the bladder using the Peace evacuator. A 24- [place] Begum was placed for bladder drainage. The patient tolerated the procedure satisfactorily and was transferred back to the recovery area in stable condition. [id number]/[facility] #: [id number] [facility]
--- NOTE | 2019-02-10 15:23 | PN ---
Subjective Date of Service: 02/10/19 Interval History: Pt had stent exchange and TURP today. Thinks he tolerated the procedure well, only reports tiredness and hunger. Objective Active Medications: Acetaminophen (Tylenol Tab*) 650 mg PO Q4H PRN PRN Reason: PAIN or FEVER Last Admin: 02/07/19 03:46 Dose: 650 mg Fentanyl Citrate (Fentanyl*) 25 mcg IV Q2M PRN PRN Reason: PAIN - MODERATE Ferrous Sulfate (Ferrous Sulfate Tab*) 325 mg PO DAILY [facility] Last Admin: 02/10/19 08:46 Dose: 325 mg Hydromorphone HCl (Dilaudid Inj1s*) 0.1 mg IV Q5M PRN PRN Reason: PAIN - SEVERE Cefepime HCl (Maxipime 2 Gm In Dextrose Duplex (*)) 2 gm in 50 mls @ 100 mls/ hr IV Q12H [facility] Last Admin: 02/10/19 05:12 Dose: 100 mls/hr Lactated Ringer's (Lactated Ringers 1000 Ml Bag*) 1,000 mls @ 125 mls/hr IV PER RATE [facility] Last Admin: 02/10/19 14:53 Dose: 125 mls/hr Metoprolol Succinate (Toprol Xl Tab*) 100 mg PO QAM [facility] Last Admin: 02/10/19 08:46 Dose: 100 mg Naloxone HCl (Narcan*) 0.08 mg IV Q2M PRN PRN Reason: severe induced resp depression Pto:(Psyllium Husk [ Metamucil [employer] Fiber] 1 Cap) 1 tab PO DAILY [facility] Last Admin: 02/10/19 08:48 Dose: Not Given Ondansetron HCl (Zofran Inj*) 4 mg IV Q6H PRN PRN Reason: NAUSEA Ondansetron HCl (Zofran Inj*) 4 mg IV ONCE PRN PRN Reason: NAUSEA/VOMITING Pantoprazole Sodium (Protonix Tab*) 40 mg PO QAM [facility] Last Admin: 02/10/19 08:46 Dose: 40 mg Vital Signs - 8 hr 02/10/19 02/10/19 02/10/19 07:51 13:12 13:15 Temperature 96.8 F Pulse Rate 70 65 Respiratory 18 12 14 Rate Blood Pressure 193/114 178/108 (mmHg) O2 Sat by Pulse 99 100 100 Oximetry 02/10/19 02/10/19 02/10/19 13:20 13:25 13:28 Temperature Pulse Rate 64 59 61 Respiratory 14 10 14 Rate Blood Pressure 178/107 177/99 179/94 (mmHg) O2 Sat by Pulse 100 98 100 Oximetry 02/10/19 02/10/19 02/10/19 13:30 13:45 14:00 Temperature Pulse Rate 61 61 58 Respiratory 13 19 20 Rate Blood Pressure 159/110 163/100 143/97 (mmHg) O2 Sat by Pulse 100 100 99 Oximetry 02/10/19 14:15 Temperature Pulse Rate 56 Respiratory 16 Rate Blood Pressure 147/89 (mmHg) O2 Sat by Pulse 97 Oximetry Oxygen Devices in Use Now: None Appearance: tired appearing, alert and interactive; humorous Eyes: No Scleral Icterus Ears/Nose/Mouth/Throat: Clear Oropharnyx, Mucous Membranes Moist Neck: Trachea Midline Respiratory: Symmetrical Chest Expansion and Respiratory Effort, Clear to Auscultation Cardiovascular: RRR Extremities: - - mild nonpitting edema Skin: No Rash or Ulcers Neurological: Alert and Oriented x 3 Lines/Tubes/Other Access: Clean, Dry and Intact Thompson - clear yellow urine Result Diagrams: 02/09/19 06:38 02/10/19 05:51 Microbiology and Other Data: Microbiology 02/07/19 00:16 Urine Culture - Preliminary Urine Pseudomonas Aeruginosa 02/06/19 23:42 Aerobic Blood Culture - Preliminary Blood Venous Anaerobic Blood Culture - Preliminary No Growth Day 1 02/06/19 23:42 Aerobic Blood Culture - Preliminary Blood Venous No Growth Day 1 Anaerobic Blood Culture - Preliminary No Growth Day 1 Assess/Plan/Problems-Billing Assessment: 73M with BPH with urinary retention and chronic thompson, CKD stage 3, lymphedema, HTN, HLD, hx CVA presents with poor urinary output, found to have sepsis secondary to catheter-associated UTI, with cultures growing pseudomonas. - Patient Problems (1) Catheter-associated urinary tract infection Comment: Sepsis and left sided pyelonephritis on CT abdomen -s/p one dose gentimicin, vancomycin, anidulafungin, and CTX, but has been continued on cefepime (02/08 - ) after culture results - now s/p stent exchange on 02/10 -previous culture from ED visit on 01/24/19 grew phi glabrata which was not treated; ID consulted and recommended no further antifungal treatment as the thompson catheter has been exchanged and thompson was likely colonized (2) BPH (benign prostatic hyperplasia) Comment: with chronic urinary retention and chronic indwelling thompson -now s/p TURP on 02/10 -stop finasteride and flomax - keep Thompson in until clinic appointment (3) Chronic edema Comment: From lymphedema. - Wears compression socks at home, ordered teds (4) HTN (hypertension) Comment: -Continue Metoprolol and losartan -holding chlorthalidone given previous hypotension, will continue to monitor and restart if hypertensive (5) History of CVA (cerebrovascular accident) Comment: With residual deficit requiring walker with ambulation. Pt taken off aspirn - defer to PCP for ongoing management. PT ordered. (6) DVT prophylaxis Comment: No antcoagulation after procedure. TEDS and ambulate. (7) DNR (do not resuscitate) Current Visit: Yes Status: Acute Status and Disposition: Inpatient.
[2019-02-10] MEDS ORDERED: Magnesium Sulfate 1 GM IV* 1 GM/100 ML BAG IV ONE (15:31)
[2019-02-10] MEDS: Losartan TAB* 25 MG PO SCH (20:29)
[2019-02-10] MEDS: Acetaminophen TAB* 325 MG PO PRN (20:29)
[2019-02-11] MEDS: Cefepime 2 GM in Dextrose(*) 2 GM/50 ML BAG IV SCH (04:55)
[2019-02-11 05:02] LABS: Hematocrit 30 % (42-52); Hemoglobin 10.1 g/dL (14.0-18.0); Mean Corpuscular HGB Conc 34 g/dL (31-36); Mean Corpuscular Hemoglobin 29 pg (27-31); Mean Corpuscular Volume 86 fL (80-94); Mean Platelet Volume 7.6 fL (7.4-10.4); Platelet Count 194 10^3/uL (150-450); Red Blood Count 3.45 10^6 /uL (4.18-5.48); Red Cell Distribution Width 15 % (10-15)
[2019-02-11 05:17] LABS: BUN/Creatinine Ratio 22.3 (8-20); Calcium 8.4 mg/dL (8.6-10.3); EGFR African American 65.8 (>60); EGFR Non-African American 54.4 (>60); Potassium 3.7 mmol/L (3.5-5.0)
[2019-02-11] MEDS: PSYLLIUM HUSK PO SCH (08:24)
[2019-02-11] MEDS: Metoprolol Succinate XL TAB* 100 MG PO SCH (08:27)
[2019-02-11] MEDS: Pantoprazole TAB * 40 MG TAB PO SCH (08:28)
[2019-02-11] MEDS: Ferrous Sulfate TAB* 325 MG PO SCH (08:28)
--- NOTE | 2019-02-11 09:46 | PN ---
Subjective Date of Service: 02/11/19 Interval History: Tolerated TURP and stent exchange yesterday. Thompson draining clear yellow urine. Denies pain. Will prepare for discharge after final PT eval. Uro recommends to continue Thompson until clinic appointment. All prior BPH meds stopped. Objective Active Medications: Acetaminophen (Tylenol Tab*) 650 mg PO Q4H PRN PRN Reason: PAIN or FEVER Last Admin: 02/10/19 20:29 Dose: 650 mg Ferrous Sulfate (Ferrous Sulfate Tab*) 325 mg PO DAILY [facility] Last Admin: 02/11/19 08:28 Dose: 325 mg Cefepime HCl (Maxipime 2 Gm In Dextrose Duplex (*)) 2 gm in 50 mls @ 100 mls/ hr IV Q12H [facility] Last Admin: 02/11/19 04:55 Dose: 100 mls/hr Losartan Potassium (Cozaar Tab*) 50 mg PO BEDTIME [facility] Last Admin: 02/10/19 20:29 Dose: 50 mg Metoprolol Succinate (Toprol Xl Tab*) 100 mg PO QAM [facility] Last Admin: 02/11/19 08:27 Dose: 100 mg Pto:(Psyllium Husk [ Metamucil [employer] Fiber] 1 Cap) 1 tab PO DAILY [facility] Last Admin: 02/11/19 08:24 Dose: Not Given Ondansetron HCl (Zofran Inj*) 4 mg IV Q6H PRN PRN Reason: NAUSEA Pantoprazole Sodium (Protonix Tab*) 40 mg PO QAM [facility] Last Admin: 02/11/19 08:28 Dose: 40 mg Vital Signs - 8 hr 02/11/19 02/11/19 02/11/19 03:57 07:43 08:00 Temperature 98.7 F 97.5 F Pulse Rate 66 61 Respiratory 18 18 18 Rate Blood Pressure 124/64 139/85 (mmHg) O2 Sat by Pulse 95 98 98 Oximetry Oxygen Devices in Use Now: None Appearance: well appearing, humorous Eyes: No Scleral Icterus Ears/Nose/Mouth/Throat: Clear Oropharnyx, Mucous Membranes Moist Neck: Trachea Midline Respiratory: Symmetrical Chest Expansion and Respiratory Effort, Clear to Auscultation Cardiovascular: RRR Extremities: No Edema Skin: No Rash or Ulcers Neurological: Alert and Oriented x 3 Lines/Tubes/Other Access: Clean, Dry and Intact Thompson - clear yellow Result Diagrams: 02/11/19 04:48 02/11/19 04:48 Microbiology and Other Data: Microbiology 02/07/19 00:16 Urine Culture - Preliminary Urine Pseudomonas Aeruginosa 02/06/19 23:42 Aerobic Blood Culture - Preliminary Blood Venous Anaerobic Blood Culture - Preliminary No Growth Day 1 02/06/19 23:42 Aerobic Blood Culture - Preliminary Blood Venous No Growth Day 1 Anaerobic Blood Culture - Preliminary No Growth Day 1 Assess/Plan/Problems-Billing Assessment: 73M with BPH with urinary retention and chronic thompson, CKD stage 3, lymphedema, HTN, HLD, hx CVA presents with poor urinary output, found to have sepsis secondary to catheter-associated UTI, with cultures growing pseudomonas. - Patient Problems (1) Catheter-associated urinary tract infection Comment: Sepsis and left sided pyelonephritis on CT abdomen -s/p one dose gentimicin, vancomycin, anidulafungin, and CTX, but has been continued on cefepime (02/08 - ) after culture results; will now switch to cipro/ linezolid PO - appreciate ID recs - now s/p stent exchange on 02/10 -previous culture from ED visit on 01/24/19 grew phi glabrata which was not treated; ID consulted and recommended no further antifungal treatment as the thompson catheter has been exchanged and thompson was likely colonized (2) BPH (benign prostatic hyperplasia) Comment: with chronic urinary retention and chronic indwelling thompson -now s/p TURP on 02/10 -stop finasteride and flomax - keep Thompson in until clinic appointment (3) Chronic edema Comment: From lymphedema. - Wears compression socks at home, ordered teds (4) HTN (hypertension) Comment: -Continue Metoprolol and losartan -holding chlorthalidone given previous hypotension, will continue to monitor and restart if hypertensive (5) History of CVA (cerebrovascular accident) Comment: With residual deficit requiring walker with ambulation. Pt taken off aspirn - defer to PCP for ongoing management. PT ordered. (6) DVT prophylaxis Comment: No antcoagulation after procedure. TEDS and ambulate. (7) DNR (do not resuscitate) Current Visit: Yes Status: Acute Status and Disposition: Inpatient.
--- NOTE | 2019-02-11 10:27 | PN ---
Progress Note - Progress Note Date of Service: 02/11/19 SOAP: Subjective: CC: Bacteremia and UTI HPI: Mr. Lopez is a 73 yo male with PMH significant for HTN, HLD, CVA, GERD, BPH , chronic urinary retention with chronic indwelling urinary catheter, chronic anemia, CKD state 3, and lymphoma; who presented to the hospital with fever and urinary retention after his urinary catheter was partially dislodged. Denies fever, chills, shortness of breath, nausea, vomiting, or diarrhea. Objective: Vital Signs - 8 hr 02/11/19 02/11/19 02/11/19 03:57 07:43 08:00 Temperature 98.7 F 97.5 F Pulse Rate 66 61 Respiratory 18 18 18 Rate Blood Pressure 124/64 139/85 (mmHg) O2 Sat by Pulse 95 98 98 Oximetry Physical Exam: General: NAD, sitting up in bed Neurological: Alert and Oriented HEENT: Moist MM, no thrush Cardiovascular: Heart rate regular. Mild bilateral LE edema Respiratory: Lung sounds clear bilateral Abdominal: Bowel sounds present; ABD soft, non tender and non distended. No CVA tenderness MSK: No tenderness with palpation of the neck or spine Skin: No rash Laboratory Results - last 24 hr 02/11/19 02/11/19 04:48 04:48 WBC 7.0 RBC 3.45 L Hgb 10.1 L Hct 30 L MCV 86 MCH 29 MCHC 34 RDW 15 Plt Count 194 MPV 7.6 Sodium 139 Potassium 3.7 Chloride 105 Carbon Dioxide 29 Anion Gap 5 BUN 29 H Creatinine 1.30 H Est GFR ( Amer) 65.8 Est GFR (Non-Af Amer) 54.4 BUN/Creatinine Ratio 22.3 H Glucose 131 H Calcium 8.4 L Magnesium 2.0 Microbiology 02/07/19 00:16 Urine Culture - Final Urine Pseudomonas Aeruginosa Enterobacter Cloacae Enterococcus Faecium 02/06/19 23:42 Aerobic Blood Culture - Preliminary Blood Venous No Growth Day 4 Anaerobic Blood Culture - Preliminary No Growth Day 4 02/06/19 23:42 Aerobic Blood Culture - Final Blood Venous Pseudomonas Aeruginosa Anaerobic Blood Culture - Preliminary No Growth Day 4 Assessment: 1. Pseudomonas bacteremia and urinary tract infection due to obstruction s/p TURP, left stent exchange, and urinary catheter replacement. Urine culture with pseudomonas, enterobacter, and enterococcus. Afebrile and no leukocytosis. 2. Left ureteral stent 3. BPH. S/P TURP, POD #1. Plan: Discontinue cefepime. Start Cipro 500 mg PO every 12H and Linezolid 600 mg PO every 12H for 11 days to complete a 14 day course of ABX.
[2019-02-11] MEDS: Ciprofloxacin TAB* 500 MG PO SCH (21:15)
[2019-02-11] MEDS: Losartan TAB* 25 MG PO SCH (21:15)
[2019-02-11] MEDS: Linezolid TAB* 600 MG PO SCH (21:23)
[2019-02-12] MEDS: Linezolid TAB* 600 MG PO SCH (09:21)
[2019-02-12] MEDS: Metoprolol Succinate XL TAB* 100 MG PO SCH (09:21)
[2019-02-12] MEDS: Ciprofloxacin TAB* 500 MG PO SCH (09:21)
[2019-02-12] MEDS: Ferrous Sulfate TAB* 325 MG PO SCH (09:23)
[2019-02-12] MEDS: Pantoprazole TAB * 40 MG TAB PO SCH (09:24)
[2019-02-12] MEDS: PSYLLIUM HUSK PO SCH (09:24)
[2019-02-12 11:38] VITALS: BP 127/68
--- NOTE | 2019-02-12 17:30 | DS ---
CC: Michael Webster MD; Hua Cee MD * DISCHARGE SUMMARY: DATE OF ADMISSION: 02/06/19 DATE OF DISCHARGE: 02/12/19 PRIMARY CARE PHYSICIAN: Michael Webster MD UROLOGIST: Hua Cee MD. PRIMARY DIAGNOSES: 1. Left hydronephrosis, catheter associated urinary tract infection. 2. Left renal calculus. 3. Benign prostatic hyperplasia. 4. Chronic urinary retention. SECONDARY DIAGNOSES: 1. Hypertension. 2. Dementia. 3. History of cerebrovascular accident. 4. Chronic kidney disease. CONSULTS: Dr. Hua Cee of Urology. PROCEDURES: TURP and left retrograde and left ureteral stent change on . DISCHARGE MEDICATIONS: 1. Ciprofloxacin 500 mg twice a day for 9 more days. 2. Linezolid 600 mg twice a day for 9 more days. 3. Metoprolol succinate 100 mg daily. 4. Losartan 50 mg nightly. 5. Ferrous sulfate 325 mg daily on empty stomach. 6. Pantoprazole 40 mg daily. 7. Cillium daily. 8. Probiotics daily. 9. Vitamin C daily. HISTORY OF PRESENT ILLNESS: Mr. Lopez is a 73-year old male with history of BPH complicated by chronic urinary retention with chronic indwelling Begum, hypertension, CKD stage 3, chronic lower extremity lymphedema, possible dementia , who was brought in the emergency room after his noticed that his catheter was not draining well and that he appeared flushed and warm to touch. His stated that he was in his usual state of health up until the afternoon 1 day prior to presentation. She notes that he was somewhat off and that he only ate 1 sandwich for dinner as opposed to his usual 2 which she thought was odd. Later in the evening on day prior to presentation, he appeared hot and he was warm to the touch. She noted that the catheter was not draining very much urine, so she called 911 and the patient was brought to the emergency room for evaluation. The patient denies pain, shortness of breath, nausea, vomiting, diarrhea. He denies weakness, but his states that he has chronic generalized weakness. HOSPITAL COURSE: In the emergency room, the patient was found to meet sepsis criteria of leukocytosis and fever. He was given fluid bolus and was started on ceftriaxone in the ER. One dose of gentamicin was added given the patient's previous microbiology data. His UA was concerning for a catheter associated urinary tract infection. Dr. Cee of Urology was consulted who recommended initial treatment as hospitalist team was providing with IV antibiotics and then planned to take the patient to the OR after a few days for stent exchange and also TURP, which the patient had already planned to have as an outpatient. Cultures eventually grew pseudomonas, so the patient had been switched to cefepime while he required IV antibiotics. His cultures also grew Enterobacter cloacae and Enterococcus CCM. After his procedure on 02/10/19 which he tolerated well, he was switched to oral Cipro and linezolid. The patient remained afebrile for several days and without symptoms for several days prior to discharge. On day of discharge, he reports that he is looking forward to going home and denies 10-point review of systems. His finasteride and tamsulosin were discontinued but he was recommended to remain with Begum catheter until he could follow up with Urology. PT evaluated the patient and recommended skilled PT after discharge. The patient's family preferred that he receive this at home. There was some concern over the patient's ability to be cared for at home as it seems family members may have refused appropriate geriatric assistive devices such as handrails and that also he is mostly confined to bed during the day and does not always have enough help at home. However, the patient's and daughter prefer that he be at home, and patient agreed as well. It was also noted that the patient's may have turned down VNS and home physical therapy referral in the past. An APS case has been opened. PHYSICAL EXAM: Afebrile, heart rate 60s, blood pressure 127/68, respiratory rate 17, oxygen saturation 99% on room air. In general, he is a well-appearing pleasant man in no acute distress, alert and interactive. Neck: Supple. Full range of motion. No JVD. HEENT: OP clear. Moist mucous membranes. Lungs: Clear to auscultation bilaterally. Heart: Regular rate and rhythm. No murmurs , gallops, or rubs. Extremities: Warm and well perfused with 1+ nonpitting edema up to his knees. Skin: No rash. Neuro: A and O x3. DIAGNOSTIC STUDIES/LAB DATA: Leukocytosis 22, decreased to 7 on discharge. Hemoglobin 10, near baseline. Creatinine 1.3, at baseline. Urine culture 02/07/19 with pseudomonas 50 to 75 CFU, resistant cefazolin. Enterobacter cloacae 75,000 to 100,000 CFU and enterococcus CCM over a 100,000 CFU resistant to Cipro. CT abdomen and pelvis with stable cholelithiasis without pericholecystic inflammatory changes, stable prostate gland enlargement and calcification, stable left inguinal hernia measuring 7 cm in diameter, still containing short segment of sigmoid colon without resulting colonic obstruction or other evidence for incarceration. Left ureteral stent not significantly changed. Stable left nephrolithiasis and slight improvement in mild left hydronephrosis and continued left perinephric fat stranding or inflammatory change. DISCHARGE PLAN: The patient is to follow up closely with his primary care physician as well as Dr. Hua Cee for removal of Begum catheter. [facility]. He will have S referral for home physical therapy. He is to continue ciprofloxacin and linezolid for 9 more days to complete 14 days antibiotic treatment. His other home medications are to be continued as above. He is to eat a healthy diet with level of activity as tolerated. Him and his family were educated extensively on return precautions which include but are not limited to recurrence of fevers, abdominal pain, worsening of generalized weakness. DISPOSITION: To home. CONDITION: Improved. TIME SPENT: Apparently 60 minutes were spent on discharge of this patient, more than half of which was spent with care coordination at bedside and for interview and exam. [id number]/CPS #: [id number] RANDELL
== END 2019-02-12 14:00 | disposition home health service (06) | DRG 665 ==
LOC: ED 23:11 → MED 02-07 01:40 → SSU 02-10 14:53
PROVIDERS: ADMIT Hospitalist; ATTEND Internal Medicine
PROC: 0T7D8DZ Dilation of Urethra with Intraluminal Device, Via Natural or Artificial Opening Endoscopic (ICD-10-PCS; 2019-02-10)
PROC: 0TPD8DZ Removal of Intraluminal Device from Urethra, Via Natural or Artificial Opening Endoscopic (ICD-10-PCS; 2019-02-10)
PROC: 0VT08ZZ Resection of Prostate, Via Natural or Artificial Opening Endoscopic (ICD-10-PCS; principal; 2019-02-10 10:45)
DX: T83.511A Infection and inflammatory reaction due to indwelling urethral catheter, initial encounter (principal); A41.52 Sepsis due to Pseudomonas; N13.6 Pyonephrosis; N17.9 Acute kidney failure, unspecified; N39.0 Urinary tract infection, site not specified; Y73.1 Therapeutic (nonsurgical) and rehabilitative gastroenterology and urology devices associated with adverse incidents; Y92.9 Unspecified place or not applicable; N40.1 Benign prostatic hyperplasia with lower urinary tract symptoms; R33.8 Other retention of urine; I12.9 Hypertensive chronic kidney disease with stage 1 through stage 4 chronic kidney disease, or unspecified chronic kidney disease; F03.90 Unspecified dementia, unspecified severity, without behavioral disturbance, psychotic disturbance, mood disturbance, and anxiety; Z86.73 Personal history of transient ischemic attack (TIA), and cerebral infarction without residual deficits; N18.3 Chronic kidney disease, stage 3 (moderate); I89.0 Lymphedema, not elsewhere classified; B96.5 Pseudomonas (aeruginosa) (mallei) (pseudomallei) as the cause of diseases classified elsewhere; Z16.19 Resistance to other specified beta lactam antibiotics; E78.5 Hyperlipidemia, unspecified; D63.1 Anemia in chronic kidney disease; Z90.49 Acquired absence of other specified parts of digestive tract; Z87.442 Personal history of urinary calculi; Z88.8 Allergy status to other drugs, medicaments and biological substances; Z88.1 Allergy status to other antibiotic agents; Z82.49 Family history of ischemic heart disease and other diseases of the circulatory system; Z83.3 Family history of diabetes mellitus; Z81.8 Family history of other mental and behavioral disorders; Z82.61 Family history of arthritis; K21.9 Gastro-esophageal reflux disease without esophagitis; Z66 Do not resuscitate; I25.10 Atherosclerotic heart disease of native coronary artery without angina pectoris; J45.909 Unspecified asthma, uncomplicated; G47.30 Sleep apnea, unspecified; I27.20 Pulmonary hypertension, unspecified; H26.9 Unspecified cataract; F32.9 Major depressive disorder, single episode, unspecified; E87.6 Hypokalemia
CPT/HCPCS: 36415; 71045; 74176; 76000; 80048; 80053; 80202; 81003; 81015; 83605; 83735; 84484; 85025; 85027; 85610; 85730; 86140; 87040; 87077; 87086; 87186; 87205; 88305; 99284; A9270-GY; C1876; G8978-GP-CK; G8979-GP-CI; J0348; J0692; J0696; J1580; J1644; J3370; J3475; J3480

== ENCOUNTER 2019-02-17 12:49 | Inpatient (IN) | payer MEDICARE ==
[2019-02-17 14:03] LABS: ABS Basophils 0.1 10^3/ul (0-0.2); ABS Eosinophils 0.2 10^3/ul (0-0.6); ABS Lymphocytes 0.7 10^3/ul (1.0-4.8); ABS Monocytes 0.5 10^3/ul (0-0.8); ABS Neutrophils 8.2 10^3/ul (1.5-7.7); Eosinophil % 2.2 %; Hematocrit 35 % (42-52); Hemoglobin 11.5 g/dL (14.0-18.0); Lymphocyte % 7.7 %; Mean Corpuscular HGB Conc 33 g/dL (31-36); Mean Corpuscular Hemoglobin 29 pg (27-31); Mean Corpuscular Volume 87 fL (80-94); Platelet Count 276 10^3/uL (150-450); Red Blood Count 3.98 10^6 /uL (4.18-5.48); Red Cell Distribution Width 16 % (10-15); White Blood Count 9.8 10^3/uL (3.5-10.8)
[2019-02-17] MEDS ORDERED: Lidocaine 2% JELLY* 10 ML JELLY TOPICAL ONE (14:09)
[2019-02-17] MEDS ORDERED: Lidocaine 2% JELLY* 6 ML JELLY TOPICAL ONE ×2 (14:11→14:13)
[2019-02-17 14:19] LABS: Albumin 3.6 g/dL (3.2-5.2); Albumin/Globulin Ratio 0.9 (1-3); BUN/Creatinine Ratio 26.9 (8-20); C Reactive Protein 89.55 mg/L (<8.01); Calcium 9.4 mg/dL (8.6-10.3); EGFR African American 65.8 (>60); EGFR Non-African American 54.4 (>60); Globulin 4.2 g/dL (2-4); Magnesium 2.2 mg/dL (1.9-2.7); Potassium 4.1 mmol/L (3.5-5.0); Total Bilirubin 0.7 mg/dL (0.2-1.0); Total Protein 7.8 g/dL (6.4-8.9)
--- NOTE | 2019-02-17 14:43 | ED ---
Complex/Multi-Sys Presentation - HPI Summary HPI Summary: Patient is a 73-year-old patient who presents emergency department for leg weakness and general fatigue times one week. Patient has a history of Parkinson 's disease and Alzheimer's. Patient lives at home with his . History was obtained from patient as well as his daughter who is present. Patient reportedly had a TURP done 02/10/19 and has not been doing well since procedure. Family states that he has been falling more frequently and is now unable to ambulate. Patient typically ambulates with a walker. Patient had a fall last night and twisted his right ankle and family noted swelling today. Patient also notes new productive cough. He denies fever, chest pain, shortness of breath, abdominal pain, vomiting, diarrhea. Family states that patient cannot manage at home in the requesting admission for fci placement. Symptoms are moderate in severity. No current modifying factors. - History Of Current Complaint Chief Complaint: EDExtremityLower Time Seen by Provider: 02/17/19 13:16 Hx Obtained From: Patient, Family/Certified Medication Technician - Allergies/Home Medications Allergies/Adverse Reactions: Allergies Allergy/AdvReac Type Severity Reaction Status Date / Time amlodipine Allergy Unknown Unknown Verified 02/17/19 13:06 Reaction Details montelukast [From Singulair] Allergy Unknown Unknown Verified 02/17/19 13:06 Reaction Details formoterol Allergy Unknown Verified 02/17/19 13:06 [From Foradil Aerolizer] Reaction Details irbesartan Allergy Unknown Verified 02/17/19 13:06 Reaction Details lisinopril Allergy Dizziness Verified 02/17/19 13:06 erythromycin base AdvReac Severe Diarrhea Verified 02/17/19 13:06 PMH/Surg Hx/FS Hx/Imm Hx Previously Healthy: Yes Endocrine/Hematology History: Reports: Hx Anemia - Chronic Denies: Hx Anticoagulant Therapy, Hx Diabetes, Hx Thyroid Disease, Hx Unexplained Bleeding Cardiovascular History: Reports: Hx Coronary Artery Disease - Atherosclerosis, Hx Hypertension - on medication, Other Cardiovascular Problems/Disorders - retinal occlusion left eye Denies: Hx Aneurysm, Hx Angina, Hx Angioplasty, Hx Auto Implanted Cardiovert Defib, Hx Cardiac Arrest, Hx Cardiomegaly, Hx Congenital Heart Disease, Hx Congestive Heart Failure, Hx Deep Vein Thrombosis, Hx Embolism, Hx Hypercholesterolemia, Hx Hypotension, Hx Myocardial Infarction, Hx Pacemaker/ICD , Hx Peripheral Vascular Disease, Hx Rheumatic Fever, Hx Syncope, Hx Valvular Heart Disease Respiratory History: Reports: Hx Asthma - had accupuncture, Hx Sleep Apnea, Other Respiratory Problems/Disorders - 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 Denies: Hx Chronic Bronchitis, Hx Chronic Obstructive Pulmonary Disease (COPD ), Hx Cystic Fibrosis, Hx Lung Cancer, Hx Pleural Effusion, Hx Pneumonia, Hx Pulmonary Edema, Hx Pulmonary Embolism, Hx Seasonal Allergies GI History: Reports: Hx Diverticulosis, Hx Gastroesophageal Reflux Disease - on medication, Hx Irritable Bowel - Diarrhea, Hx Ulcer, Other GI Disorders - Diverticulitis, left inguinal hernia Denies: Hx Cirrhosis, Hx Crohn's Disease, Hx Gall Bladder Disease, Hx Gastrointestinal Bleed, Hx Hiatal Hernia, Hx Jaundice, Hx Ileostomy, Hx Pyloric Stenosis History: Reports: Hx Chronic Renal Failure - stage 2-3, Hx Kidney Stones - Left stones-ureteral stent-thompson catheter in place, Other Problems/Disorders - BPH Musculoskeletal History: Reports: Other Musculoskeletal History - Sciatica, mod- severe compression fx T12 Denies: Hx Tendonitis Sensory History: Reports: Hx Cataracts - developing, Hx Contacts or Glasses - Glasses Denies: Hx Eye Injury, Hx Eye Prosthesis, Hx Legally Blind, Hx Macular Degeneration, Hx Vision Problem, Hx Deafness, Hx Hearing Aid, Hx Hearing Problem Opthamlomology History: Reports: Hx Cataracts - developing, Hx Contacts or Glasses - Glasses Denies: Hx Eye Injury, Hx Eye Prosthesis, Hx Legally Blind, Hx Macular Degeneration, Hx Vision Problem Neurological History: Denies: Hx Dementia, Hx Developmental Delay, Hx Headaches, Hx Migraine, Hx Nerve Disease, Hx Seizures, Hx Spinal Cord Injury, Hx Transient Ischemic Attacks (TIA) Comment Only: Other Neuro Impairments/Disorders - vascular alzheimer and parkinsons Psychiatric History: Reports: Hx Depression - history of, a few years ago Denies: Hx Panic Disorder - Cancer History Hx Chemotherapy: No - Surgical History Surgery Procedure, Year, and Place: Diverticulitis surgery 2017 or 2018- [facility]. Tonsillectomy as a child. 09/04/18- Cystoscopy, left retrograde, Lithotripsy Left Stent Insertion. ureteral stent 11/2018, [facility] Hx Anesthesia Reactions: No - Immunization History Date of Tetanus Vaccine: 2012 Date of Influenza Vaccine: unk Infectious Disease History: No Infectious Disease History: Denies: Hx Clostridium Difficile, Hx Hepatitis, Hx Human Immunodeficiency Virus (HIV), Hx of Known/Suspected MRSA, Hx Shingles, Hx Tuberculosis, Hx Known/ Suspected VRE, Hx Known/Suspected VRSA, History Other Infectious Disease, Traveled Outside the [place] in Last 30 Days - Family History Known Family History: Positive: Hypertension, Diabetes, Non-Contributory - Social History Occupation: Retired Lives: With Family Alcohol Use: None Hx Substance Use: No Substance Use Type: Reports: None Hx Tobacco Use: Yes Smoking Status (MU): Former Smoker Amount Used/How Often: as a teen x 2 yrs Have You Smoked in the Last Year: No Review of Systems Constitutional: Negative Negative: Fever, Chills Eyes: Negative ENT: Negative Cardiovascular: Negative Negative: Palpitations, Chest Pain Positive: Cough. Negative: Shortness Of Breath Gastrointestinal: Negative Negative: Abdominal Pain, Vomiting, Diarrhea Genitourinary: Negative Positive: Other - leg weakness R>L Neurological: Negative All Other Systems Reviewed And Are Negative: Yes Physical Exam Triage Information Reviewed: Yes Vital Signs On Initial Exam: Initial Vitals Temp Pulse Resp BP Pulse Ox 98 F 60 16 125/76 98 02/17/19 13:00 02/17/19 13:00 02/17/19 13:00 02/17/19 13:00 02/17/19 13:00 Vital Signs Reviewed: Yes Appearance: Positive: Well-Appearing - Pt. sitting up in bed in NAD. Seems to answer questions appropriately. Skin: Positive: Warm, Dry Head/Face: Positive: Normal Head/Face Inspection Eyes: Positive: Normal, EOMI Neck: Positive: Supple Respiratory/Lung Sounds: Positive: Other - Mild diffuse expiratory wheeze Cardiovascular: Positive: Normal, RRR Abdomen Description: Positive: Nontender, Soft Musculoskeletal: Positive: Other - Mild chronic edema to bilateral LEs. Increased edema to right ankle. Slight decrease in strength to right leg when compared to the left. Neurological: Positive: Normal, CN Intact II-III Psychiatric: Positive: Affect/Mood Appropriate Diagnostics - Vital Signs Vital Signs Temp Pulse Resp BP Pulse Ox 02/17/19 13:00 98 F 60 16 125/76 98 - Laboratory Lab Results: Lab Results 02/17/19 02/17/19 02/17/19 Range/Units 13:55 13:55 13:55 WBC 9.8 (3.5-10.8) 10^3/uL RBC 3.98 L (4.18-5.48) 10^6 /uL Hgb 11.5 L (14.0-18.0) g/dL Hct 35 L (42-52) % MCV 87 (80-94) fL MCH 29 (27-31) pg MCHC 33 (31-36) g/dL RDW 16 H (10-15) % Plt Count 276 (150-450) 10^3/uL MPV 7.0 L (7.4-10.4) fL Neut % (Auto) 83.8 % Lymph % (Auto) 7.7 % [place] % (Auto) 5.4 % Eos % (Auto) 2.2 % Baso % (Auto) 0.9 % Absolute Neuts (auto) 8.2 H (1.5-7.7) 10^3/ul Absolute Lymphs (auto) 0.7 L (1.0-4.8) 10^3/ul Absolute Monos (auto) 0.5 (0-0.8) 10^3/ul Absolute Eos (auto) 0.2 (0-0.6) 10^3/ul Absolute Basos (auto) 0.1 (0-0.2) 10^3/ul Absolute Nucleated RBC 0.0 10^3/ul Nucleated RBC % 0.0 Sodium 136 (135-145) mmol/L Potassium 4.1 (3.5-5.0) mmol/L Chloride 98 L (101-111) mmol/L Carbon Dioxide 32 (22-32) mmol/L Anion Gap 6 (2-11) mmol/L BUN 35 H (6-24) mg/dL Creatinine 1.30 H (0.67-1.17) mg/dL Est GFR ( Amer) 65.8 (>60) Est GFR (Non-Af Amer) 54.4 (>60) BUN/Creatinine Ratio 26.9 H (8-20) Glucose 109 H (70-100) mg/dL Lactic Acid 1.3 (0.5-2.0) mmol/L Calcium 9.4 (8.6-10.3) mg/dL Magnesium 2.2 (1.9-2.7) mg/dL Total Bilirubin 0.70 (0.2-1.0) mg/dL AST 19 (13-39) U/L ALT 16 (7-52) U/L Alkaline Phosphatase 82 (34-104) U/L C-Reactive Protein 89.55 H (<8.01) mg/L Total Protein 7.8 (6.4-8.9) g/dL Albumin 3.6 (3.2-5.2) g/dL Globulin 4.2 H (2-4) g/dL Albumin/Globulin Ratio 0.9 L (1-3) Result Diagrams: 02/17/19 13:55 02/17/19 13:55 Lab Statement: Any lab studies that have been ordered have been reviewed, and results considered in the medical decision making process. Complex Multi-Symp Course/Dx Course Of Treatment: Patient presenting with increasing difficulty walking. Family notes he had a fall last night that resulted in swelling to his right ankle. Patient is afebrile with stable vital signs. Basic workup obtained. Blood work sent patient's baseline. UA negative for infection, pending culture. Chest x-ray negative for acute findings, reading per radiology. Patient's family note that he is unable to take care of himself at home and has been having recurrent falls. Hospitalist was consulted for admission and placement. I spoke with Dr. Umanzor who recommends social service consult. Message was left on social group worker cell phone and order placed. 1715: Case discussed with social group workerChar, who recommends admission tonight and they will see tomorrow to discuss [facility] admission until he can be placed. Discussed with Dr. Umanzor. - Diagnoses Differential Diagnoses/HQI/PQRI: Metabolic Abnormality, Urinary Tract Infection Provider Diagnoses: Ambulatory dysfunction, Ankle sprain Discharge - Sign-Out/Discharge Documenting (check all that apply): Patient Departure Patient Received Moderate/Deep Sedation with Procedure: No - Discharge Plan Condition: Stable Disposition: ADMITTED TO [facility] - Billing Disposition and Condition Condition: STABLE Disposition: Admitted to [facility] - Attestation Statements Provider Attestation: I was available for consult. This patient was seen by the DIANA. The patient was not presented to, seen by, or examined by me. -Nicole
[2019-02-17 15:28] LABS: Urine Appearance Cloudy; Urine Bacteria Absent (Absent); Urine Bilirubin Negative (Negative); Urine Blood 2+ (Negative); Urine Color Yellow; Urine Glucose Negative (Negative); Urine Ketones Negative (Negative); Urine Nitrite Negative (Negative); Urine Protein 1+(30 mg/dL) (Negative); Urine Red Blood Cell 3+(>10/hpf) (Absent); Urine Specific Gravity 1.016 (1.010-1.030); Urine Squamous Epithelial Cell Present (Absent); Urine Urobilinogen Negative (Negative); Urine White Blood Cell 3+(>20/hpf) (Absent)
[2019-02-17] MEDS ORDERED: Acetaminophen TAB* 325 MG PO PRN (17:54)
[2019-02-17] MEDS: Linezolid TAB* 600 MG PO SCH (22:38)
[2019-02-17] MEDS: Ciprofloxacin TAB* 500 MG PO SCH (22:38)
[2019-02-17] MEDS: Enoxaparin(*) 40 MG/0.4 ML SYR SUBCUT SCH (22:39)
--- NOTE | 2019-02-18 00:12 | HP ---
CC: Dr. Webster; Dr. Cee; Dr. Estes * HISTORY AND PHYSICAL: DATE OF ADMISSION: 02/17/19 PROVIDER: Nicolas Ochoa NP ATTENDING PHYSICIAN WHILE IN THE HOSPITAL: Purnima Umanzor MD * (dictated by Nicolas Ochoa NP) CHIEF COMPLAINT: Weakness, mechanical falls. HISTORY OF PRESENT ILLNESS: Mr. Lopez is a 73-year-old male with a past medical history significant for history of CVA, hyperlipidemia, hypertension, chronic anemia, chronic kidney disease, GERD, recent urinary tract infection, who presented to the emergency room after having weakness and mechanical falls. The patient was recently admitted here from 02/06/19 to 02/12/19. At that time, was discharged to home after having a TURP and a left ureteral stent changed on 02/10/19, and catheter associated urinary tract infection. The patient reports that he was doing well at home, but continued to be weak. The patient reports that he had a fall yesterday and a fall again today and was unable to get up, so EMS was called, was recommended the patient come for evaluation, as he did have some swelling noted to his right ankle. During his previous hospitalization, PT evaluated the patient and recommended skilled PT at discharge, the family declined and preferred to receive home PT. There was concern for the patient's ability to be cared for at home. The patient's in the past had turned down VNS and home physical therapy referrals in the past and an APS case has been opened. Due to the patient's 2 mechanical falls in the past 2 days, he presented to the emergency room due to weakness and falls. We were asked to see and evaluate him for admission. PAST MEDICAL HISTORY: Significant for: 1. BPH. 2. Urinary retention. 3. Recurrent urinary tract infections. 4. Left renal and bladder calculi. 5. History of CVA. 6. Hypertension. 7. Chronic anemia. 8. Chronic kidney disease. 9. Acid reflux. 10. Lymphedema. PAST SURGICAL HISTORY: 1. Lithotripsy. 2. Sigmoid colon resection. 3. TURP. HOME MEDICATIONS: Include: 1. Ciprofloxacin 500 mg twice daily. 2. Linezolid 600 mg twice daily. 3. Metoprolol 100 mg p.o. daily. 4. Losartan 50 mg p.o. nightly. 5. Ferrous sulfate 325 mg daily. 6. Pantoprazole 40 mg daily. 7. Probiotic daily. 8. Vitamin C daily. ALLERGIES AND INTOLERANCES: AMLODIPINE, ERYTHROMYCIN, LISINOPRIL, FORADIL, SINGULAIR, and IRBESARTAN. FAMILY HISTORY: Mother with a history of an DC and rheumatoid arthritis. Sister with uterine cancer. Father with diabetes and hypertension. SOCIAL HISTORY: The patient denies any alcohol, tobacco, or illicit drug use. He lives with his at home. REVIEW OF SYSTEMS: The patient denies any fevers or chills. Denies any chest pain, edema, cough, hemoptysis, or shortness of breath. No nausea, vomiting, diarrhea, or abdominal pain. No gross hematuria or dysuria. Denies any focal weakness or sensory loss, visual complaints, dysphagia, arthralgias, myalgias, rashes, lesions, or open sores. He denies any psychosis or anxiety. He does report generalized weakness and unsteady gait and 2 mechanical falls. PHYSICAL EXAMINATION GENERAL: At this time, Mr. Lopez is a pleasant elderly gentleman, resting comfortably on the stretcher in the emergency room with no acute distress. VITAL SIGNS: 131/76, temperature 98.6, heart rate 66, respirations 16, O2 saturation 96%, blood pressure 121/65. HEENT: Head is atraumatic, normocephalic. Eyes: EOMs are intact. Sclerae anicteric and not pale. Oral mucosa appeared to be moist. NECK: Supple. No C-spine tenderness. LUNGS: Clear to auscultation bilaterally. No wheezes, rales, or rhonchi. CARDIAC: S1, S2. Regular rate and rhythm. No murmurs, rubs, or gallops. ABDOMEN: Soft and nontender. Bowel sounds are present x4. EXTREMITIES: He is able to move all 4 extremities. He does have mild swelling noted to his right ankle, 0 pain to palpation. He has full range of motion to his right ankle. NEUROLOGIC: He is awake, alert, and oriented x3. Speech is clear. Thought process intact. There is no gross focal deficits. SKIN: Intact. DIAGNOSTIC STUDIES/LAB DATA: WBCs are 9.8, RBCs 3.98, hemoglobin 11.5, hematocrit 35, platelet count 276. Sodium 136, potassium 4.1, chloride 98, carbon dioxide 32, anion gap 6, BUN was 35, creatinine 1.30. Lactic acid 1.3, glucose 109, calcium 9.4, magnesium 2.2, ASTs 19, ALTs 16, alkaline phosphatase was 82, C-reactive protein 89.55 which has improved from his prior admission on 02/06/19. He had a chest x-ray, radiologist's impression: Hyperinflated lung benitez with tortuous descending aorta, no active cardiopulmonary disease. He had a right ankle x-ray, radiologist's impression: Soft tissue swelling without fracture. ASSESSMENT AND PLAN: Mr. Lopez is a 73-year-old male with a past medical history significant for urinary retention, left renal calculi, status post transurethral resection of the prostate and recent urinary tract infection, hyperlipidemia, hypertension, chronic anemia, chronic kidney disease, acid reflux, who presented to the emergency room after mechanical fall and weakness at home. He will be admitted under observation for: 1. Weakness. The patient has failed home physical therapy, as he continues to have falls at home. At this time, the patient would like to go to short-term rehab to regain strength and mobility. I will consult social work to help facilitate this process. During his last hospitalization, it was recommended by PT the patient go to skilled rehab. I will consult physical therapy again for evaluation and proceed based on their recommendations. 2. Mechanical fall. I suspect his mechanical fall is related to deconditioning and recent urinary tract infection as well as recent hospitalization, and surgery. I would recommend that the patient go to short- term rehab for strength, PT, and muscle strengthening. 3. Urinary tract infection. The patient is currently being treated for urinary tract infection, which on his last admission grew Pseudomonas aeruginosa , Enterobacter cloacae and Enterococcus faecium. He is currently taking ciprofloxacin and linezolid, which he has 4 more days' worth of antibiotics for. We will continue linezolid and Cipro as previously prescribed. 4. Hypertension. He will continue on metoprolol 100 mg p.o. daily and losartan 50 mg p.o. daily. 5. Anemia. He will continue on ferrous sulfate 325 mg p.o. daily. 6. Gastroesophageal reflux. He will continue on pantoprazole 40 mg p.o. daily. 7. FEN: He can have a regular diet. 8. Code status: He is a DNR/DNI. 9. DVT prophylaxis: I will place him on Lovenox subcu. TIME SPENT: Time spent on this admission was approximately 60 minutes, greater than half that time was spent oat the bedside reviewing the events leading thus far to his hospitalization, performing physical exam, and reviewing my plan of care. I have discussed this with my attending Dr. Purnima Umanzor, she is in agreement with my plan. NICOLAS OCHOA, [place] [facility] [facility] [place] [id number]/CPS #: [id number] RANDELL
[2019-02-18] MEDS: BULGARICUS PO SCH (08:44)
[2019-02-18] MEDS: ACIDOPHILUS PO SCH (08:44)
[2019-02-18] MEDS: PSYLLIUM HUSK PO SCH (08:44)
[2019-02-18] MEDS: CALCIUM CARB PO SCH (08:44)
[2019-02-18] MEDS: Metoprolol Succinate XL TAB* 50 MG PO SCH (08:56)
[2019-02-18] MEDS: Ferrous Sulfate TAB* 325 MG PO SCH (08:56)
[2019-02-18] MEDS: Pantoprazole TAB * 40 MG TAB PO SCH (08:56)
[2019-02-18] MEDS: Linezolid TAB* 600 MG PO SCH ×2 (08:56→20:37)
[2019-02-18] MEDS: Ascorbic Acid TAB* 500 MG PO SCH (08:56)
[2019-02-18] MEDS: Losartan TAB* 25 MG PO SCH (08:57)
[2019-02-18] MEDS: Ciprofloxacin TAB* 500 MG PO SCH ×2 (08:57→20:37)
--- NOTE | 2019-02-18 16:36 | PN ---
Subjective Date of Service: 02/18/19 Interval History: Patient seen and examined. No complaints. States appetite is good. Having trouble using walker and making transfers. No urinary complaints. Denies any further complaints. Objective Active Medications: Acetaminophen (Tylenol Tab*) 650 mg PO Q4H PRN PRN Reason: FEVER/PAIN Ascorbic Acid (Vitamin C Tab*) [facility] Admin: 02/18/19 08:56 Dose: 500 mg Ciprofloxacin (Cipro Tab*) 500 mg PO Q12HR [facility]; Protocol Last Admin: 02/18/19 08:57 Dose: 500 mg Enoxaparin Sodium (Lovenox(*)) 40 mg SUBCUT Q24H [facility] Last Admin: 02/17/19 22:39 Dose: 40 mg Ferrous Sulfate (Ferrous Sulfate Tab*) 325 mg PO DAILY [facility] Last Admin: 02/18/19 08:56 Dose: 325 mg Linezolid (Zyvox Tab*) 600 mg PO Q12HR [facility] Last Admin: 02/18/19 08:56 Dose: 600 mg Losartan Potassium (Cozaar Tab*) 50 mg PO [facility] Last Admin: 02/18/19 08:57 Dose: 50 mg Metoprolol Succinate (Toprol Xl Tab*) 100 mg PO [facility] Last Admin: 02/18/19 08:56 Dose: 100 mg Non-Formulary Medication (L. Acidophilus/L.Bulgaricus [Floranex Tablet]) 2 cap PO DAILY [facility] Last Admin: 02/18/19 08:44 Dose: Not Given Non-Formulary Medication (Psyllium Husk/Calcium Carb [Metamucil Plus Calcium Capsule]) 1 tab PO DAILY [facility] Last Admin: 02/18/19 08:44 Dose: Not Given Pantoprazole Sodium (Protonix Tab*) 40 mg PO [facility] Last Admin: 02/18/19 08:56 Dose: 40 mg Vital Signs - 8 hr 02/18/19 11:06 Temperature 97.9 F Pulse Rate 67 Respiratory 18 Rate Blood Pressure 114/57 (mmHg) O2 Sat by Pulse 98 Oximetry Oxygen Devices in Use Now: None Appearance: alert,NAD Eyes: No Scleral Icterus, PERRLA Ears/Nose/Mouth/Throat: NL Teeth, Lips, Gums Neck: NL Appearance and Movements; NL JVP, Trachea Midline Respiratory: Symmetrical Chest Expansion and Respiratory Effort, Clear to Auscultation Cardiovascular: NL Sounds; No Murmurs; No JVD, RRR, No Edema Abdominal: NL Sounds; No Tenderness; No Distention Extremities: No Clubbing, Cyanosis, - - bilateral LE discoloration with edema Neurological: Alert and Oriented x 3 Nutrition: Taking PO's Result Diagrams: 02/17/19 13:55 02/17/19 13:55 Additional Lab and Data: Lab Results 02/17/19 02/17/19 02/17/19 Range/Units 13:55 13:55 13:55 WBC 9.8 (3.5-10.8) 10^3/uL RBC 3.98 L (4.18-5.48) 10^6 /uL Hgb 11.5 L (14.0-18.0) g/dL Hct 35 L (42-52) % MCV 87 (80-94) fL MCH 29 (27-31) pg MCHC 33 (31-36) g/dL RDW 16 H (10-15) % Plt Count 276 (150-450) 10^3/uL MPV 7.0 L (7.4-10.4) fL Neut % (Auto) 83.8 % Lymph % (Auto) 7.7 % [place] % (Auto) 5.4 % Eos % (Auto) 2.2 % Baso % (Auto) 0.9 % Absolute Neuts (auto) 8.2 H (1.5-7.7) 10^3/ul Absolute Lymphs (auto) 0.7 L (1.0-4.8) 10^3/ul Absolute Monos (auto) 0.5 (0-0.8) 10^3/ul Absolute Eos (auto) 0.2 (0-0.6) 10^3/ul Absolute Basos (auto) 0.1 (0-0.2) 10^3/ul Absolute Nucleated RBC 0.0 10^3/ul Nucleated RBC % 0.0 Sodium 136 (135-145) mmol/L Potassium 4.1 (3.5-5.0) mmol/L Chloride 98 L (101-111) mmol/L Carbon Dioxide 32 (22-32) mmol/L Anion Gap 6 (2-11) mmol/L BUN 35 H (6-24) mg/dL Creatinine 1.30 H (0.67-1.17) mg/dL Est GFR ( Amer) 65.8 (>60) Est GFR (Non-Af Amer) 54.4 (>60) BUN/Creatinine Ratio 26.9 H (8-20) Glucose 109 H (70-100) mg/dL Lactic Acid 1.3 (0.5-2.0) mmol/L Calcium 9.4 (8.6-10.3) mg/dL Magnesium 2.2 (1.9-2.7) mg/dL Total Bilirubin 0.70 (0.2-1.0) mg/dL AST 19 (13-39) U/L ALT 16 (7-52) U/L Alkaline Phosphatase 82 (34-104) U/L C-Reactive Protein 89.55 H (<8.01) mg/L Total Protein 7.8 (6.4-8.9) g/dL Albumin 3.6 (3.2-5.2) g/dL Globulin 4.2 H (2-4) g/dL Albumin/Globulin Ratio 0.9 L (1-3) Microbiology and Other Data: Microbiology 02/17/19 14:39 Urine Culture - Final Urine No Growth (<1,000 CFU/mL) Assess/Plan/Problems-Billing Assessment: This is a 73 year old male with recent hospitalization and treatment for UTI that presented to the ED with gait dysfunction and falls. - Patient Problems (1) Weakness Code(s): R53.1 - WEAKNESS SNOMED Code(s): 96426451 Comment: - With multiple falls and hx of CVA in the past - PT evaluation (2) Catheter-associated urinary tract infection Code(s): T83.511A - I/I REACT D/T INDWELLING URETHRAL CATHETER, INIT; N39.0 - URINARY TRACT INFECTION, SITE NOT SPECIFIED SNOMED Code(s): 658978059 Comment: - Present on admission - Recent admission for sepsis and left sided pyelo - Currenlty on linezolid and cipro, will be continued (3) BPH (benign prostatic hyperplasia) Code(s): N40.0 - BENIGN PROSTATIC HYPERPLASIA WITHOUT LOWER URINRY TRACT SYMP SNOMED Code(s): 455071309 Comment: - With urinary incontinence since thompson removal - continue supportive care - f/u urology outpatient (4) CKD (chronic kidney disease) stage 2, GFR 60-89 ml/min Code(s): N18.2 - CHRONIC KIDNEY DISEASE, STAGE 2 (MILD) SNOMED Code(s): 237016548 Comment: - Creat at baseline at 1.30 (5) History of CVA (cerebrovascular accident) Code(s): Z86.73 - PRSNL HX OF TIA (TIA), AND CEREB INFRC W/O RESID DEFICITS SNOMED Code(s): 664938491 Comment: - Has residual deficit requiring walker with ambulation - Taken off aspirin at last admission - Given additional falls and gait dysfunction, will consult neurology who has seen patient in the past (vascular pathology, PD?) (6) DVT prophylaxis Code(s): EBD9556 - SNOMED Code(s): 206595723 Comment: No antcoagulation after procedure. TEDS and ambulate. (7) DNR (do not resuscitate) Status and Disposition: Inpatient, pending STR placement.
[2019-02-18] MEDS: Enoxaparin(*) 40 MG/0.4 ML SYR SUBCUT SCH (17:55)
[2019-02-19] MEDS: Metoprolol Succinate XL TAB* 50 MG PO SCH (07:50)
[2019-02-19] MEDS: Losartan TAB* 25 MG PO SCH (07:50)
[2019-02-19] MEDS: Linezolid TAB* 600 MG PO SCH ×2 (07:50→20:26)
[2019-02-19] MEDS: BULGARICUS PO SCH (07:51)
[2019-02-19] MEDS: ACIDOPHILUS PO SCH (07:51)
[2019-02-19] MEDS: CALCIUM CARB PO SCH (07:51)
[2019-02-19] MEDS: Ascorbic Acid TAB* 500 MG PO SCH (07:51)
[2019-02-19] MEDS: Pantoprazole TAB * 40 MG TAB PO SCH (07:51)
[2019-02-19] MEDS: Ciprofloxacin TAB* 500 MG PO SCH ×2 (07:51→20:26)
[2019-02-19] MEDS: Ferrous Sulfate TAB* 325 MG PO SCH (07:51)
[2019-02-19] MEDS: PSYLLIUM HUSK PO SCH (07:51)
[2019-02-19] MEDS: Enoxaparin(*) 40 MG/0.4 ML SYR SUBCUT SCH (18:11)
--- NOTE | 2019-02-19 18:31 | PN ---
Subjective Date of Service: 02/19/19 Interval History: No acute overnight events. No complaints other than general weakness. Tolerating PO, working with PT. Objective Active Medications: Acetaminophen (Tylenol Tab*) 650 mg PO Q4H PRN PRN Reason: FEVER/PAIN Ascorbic Acid (Vitamin C Tab*) 500 mg PO QAM [facility] Last Admin: 02/19/19 07:51 Dose: 500 mg Ciprofloxacin (Cipro Tab*) 500 mg PO Q12HR [facility]; Protocol Last Admin: 02/19/19 07:51 Dose: 500 mg Enoxaparin Sodium (Lovenox(*)) 40 mg SUBCUT Q24H [facility] Last Admin: 02/19/19 18:11 Dose: 40 mg Ferrous Sulfate (Ferrous Sulfate Tab*) 325 mg PO DAILY [facility] Last Admin: 02/19/19 07:51 Dose: 325 mg Linezolid (Zyvox Tab*) 600 mg PO Q12HR [facility] Last Admin: 02/19/19 07:50 Dose: 600 mg Losartan Potassium (Cozaar Tab*) 50 mg PO [facility] Last Admin: 02/19/19 07:50 Dose: 50 mg Metoprolol Succinate (Toprol Xl Tab*) 100 mg PO [facility] Last Admin: 02/19/19 07:50 Dose: 100 mg Non-Formulary Medication (L. Acidophilus/L.Bulgaricus [Floranex Tablet]) 2 cap PO DAILY [facility] Last Admin: 02/19/19 07:51 Dose: Not Given Non-Formulary Medication (Psyllium Husk/Calcium Carb [Metamucil Plus Calcium Capsule]) 1 tab PO DAILY [facility] Last Admin: 02/19/19 07:51 Dose: Not Given Pantoprazole Sodium (Protonix Tab*) 40 mg PO [facility] Last Admin: 02/19/19 07:51 Dose: 40 mg Vital Signs - 8 hr 02/19/19 02/19/19 11:00 15:58 Temperature 97.6 F 98.0 F Pulse Rate 72 68 Respiratory 18 19 Rate Blood Pressure 103/55 121/67 (mmHg) O2 Sat by Pulse 98 98 Oximetry Oxygen Devices in Use Now: None Appearance: alert, NAD Eyes: No Scleral Icterus, PERRLA Ears/Nose/Mouth/Throat: NL Teeth, Lips, Gums, Mucous Membranes Moist Neck: NL Appearance and Movements; NL JVP, Trachea Midline Respiratory: Symmetrical Chest Expansion and Respiratory Effort, Clear to Auscultation Cardiovascular: NL Sounds; No Murmurs; No JVD, RRR Extremities: No Edema Skin: No Rash or Ulcers Neurological: Alert and Oriented x 3, NL Sensation Nutrition: Taking PO's Result Diagrams: 02/17/19 13:55 02/17/19 13:55 Additional Lab and Data: Lab Results 02/17/19 02/17/19 02/17/19 Range/Units 13:55 13:55 13:55 WBC 9.8 (3.5-10.8) 10^3/uL RBC 3.98 L (4.18-5.48) 10^6 /uL Hgb 11.5 L (14.0-18.0) g/dL Hct 35 L (42-52) % MCV 87 (80-94) fL MCH 29 (27-31) pg MCHC 33 (31-36) g/dL RDW 16 H (10-15) % Plt Count 276 (150-450) 10^3/uL MPV 7.0 L (7.4-10.4) fL Neut % (Auto) 83.8 % Lymph % (Auto) 7.7 % [place] % (Auto) 5.4 % Eos % (Auto) 2.2 % Baso % (Auto) 0.9 % Absolute Neuts (auto) 8.2 H (1.5-7.7) 10^3/ul Absolute Lymphs (auto) 0.7 L (1.0-4.8) 10^3/ul Absolute Monos (auto) 0.5 (0-0.8) 10^3/ul Absolute Eos (auto) 0.2 (0-0.6) 10^3/ul Absolute Basos (auto) 0.1 (0-0.2) 10^3/ul Absolute Nucleated RBC 0.0 10^3/ul Nucleated RBC % 0.0 Sodium 136 (135-145) mmol/L Potassium 4.1 (3.5-5.0) mmol/L Chloride 98 L (101-111) mmol/L Carbon Dioxide 32 (22-32) mmol/L Anion Gap 6 (2-11) mmol/L BUN 35 H (6-24) mg/dL Creatinine 1.30 H (0.67-1.17) mg/dL Est GFR ( Amer) 65.8 (>60) Est GFR (Non-Af Amer) 54.4 (>60) BUN/Creatinine Ratio 26.9 H (8-20) Glucose 109 H (70-100) mg/dL Lactic Acid 1.3 (0.5-2.0) mmol/L Calcium 9.4 (8.6-10.3) mg/dL Magnesium 2.2 (1.9-2.7) mg/dL Total Bilirubin 0.70 (0.2-1.0) mg/dL AST 19 (13-39) U/L ALT 16 (7-52) U/L Alkaline Phosphatase 82 (34-104) U/L C-Reactive Protein 89.55 H (<8.01) mg/L Total Protein 7.8 (6.4-8.9) g/dL Albumin 3.6 (3.2-5.2) g/dL Globulin 4.2 H (2-4) g/dL Albumin/Globulin Ratio 0.9 L (1-3) Microbiology and Other Data: Microbiology 02/17/19 14:39 Urine Culture - Final Urine No Growth (<1,000 CFU/mL) Assess/Plan/Problems-Billing Assessment: This is a 73 year old male with recent hospitalization and treatment for UTI that presented to the ED with gait dysfunction and falls. - Patient Problems (1) Weakness Code(s): R53.1 - WEAKNESS SNOMED Code(s): 40163581 Comment: - With multiple falls and hx of CVA in the past - PT evaluation (2) Catheter-associated urinary tract infection Code(s): T83.511A - I/I REACT D/T INDWELLING URETHRAL CATHETER, INIT; N39.0 - URINARY TRACT INFECTION, SITE NOT SPECIFIED SNOMED Code(s): 368813500 Comment: - Present on admission - Recent admission for sepsis and left sided pyelo - Currenlty on linezolid and cipro, will be continued (3) BPH (benign prostatic hyperplasia) Code(s): N40.0 - BENIGN PROSTATIC HYPERPLASIA WITHOUT LOWER URINRY TRACT SYMP SNOMED Code(s): 108041342 Comment: - With urinary incontinence since thompson removal - continue supportive care - f/u urology outpatient (4) CKD (chronic kidney disease) stage 2, GFR 60-89 ml/min Code(s): N18.2 - CHRONIC KIDNEY DISEASE, STAGE 2 (MILD) SNOMED Code(s): 444591852 Comment: - Creat at baseline at 1.30 (5) History of CVA (cerebrovascular accident) Code(s): Z86.73 - PRSNL HX OF TIA (TIA), AND CEREB INFRC W/O RESID DEFICITS SNOMED Code(s): 530023969 Comment: - Has residual deficit requiring walker with ambulation - Taken off aspirin at last admission - Follow up neurology as an outpatient (6) DVT prophylaxis Code(s): DAM1684 - SNOMED Code(s): 721650000 Comment: - Lovenox sq (7) DNR (do not resuscitate) Status and Disposition: Obs, CM and SW deciding placement options and barriers. Medically stable.
[2019-02-20] MEDS: Ferrous Sulfate TAB* 325 MG PO SCH (08:04)
[2019-02-20] MEDS: Pantoprazole TAB * 40 MG TAB PO SCH (08:04)
[2019-02-20] MEDS: Ascorbic Acid TAB* 500 MG PO SCH (08:04)
[2019-02-20] MEDS: Metoprolol Succinate XL TAB* 50 MG PO SCH (08:04)
[2019-02-20] MEDS: Linezolid TAB* 600 MG PO SCH ×2 (08:04→21:07)
[2019-02-20] MEDS: Losartan TAB* 25 MG PO SCH (08:04)
[2019-02-20] MEDS: Ciprofloxacin TAB* 500 MG PO SCH ×2 (08:04→21:07)
[2019-02-20] MEDS: PSYLLIUM HUSK PO SCH (08:05)
[2019-02-20] MEDS: CALCIUM CARB PO SCH (08:05)
[2019-02-20] MEDS: ACIDOPHILUS PO SCH (08:05)
[2019-02-20] MEDS: BULGARICUS PO SCH (08:05)
--- NOTE | 2019-02-20 08:47 | PN ---
Subjective Date of Service: 02/20/19 Interval History: Mr. Lopez reports that he feels relatively well today. He denies chest pain, SOB, nausea, or abdominal pain. Objective Active Medications: Acetaminophen (Tylenol Tab*) 650 mg PO Q4H PRN Ascorbic Acid (Vitamin C Tab*) 500 mg PO QAM [facility] Ciprofloxacin (Cipro Tab*) 500 mg PO Q12HR [facility]; Protocol Enoxaparin Sodium (Lovenox(*)) 40 mg SUBCUT Q24H [facility] Ferrous Sulfate (Ferrous Sulfate Tab*) 325 mg PO DAILY [facility] Linezolid (Zyvox Tab*) 600 mg PO Q12HR [facility] Losartan Potassium (Cozaar Tab*) 50 mg PO QAM [facility] Metoprolol Succinate (Toprol Xl Tab*) 100 mg PO QAM [facility] Non-Formulary Medication (L. Acidophilus/L.Bulgaricus [Floranex Tablet]) 2 cap PO DAILY [facility] Non-Formulary Medication (Psyllium Husk/Calcium Carb [Metamucil Plus Calcium Capsule]) 1 tab PO DAILY [facility] Pantoprazole Sodium (Protonix Tab*) 40 mg PO QAM [facility] Vital Signs: Temp Pulse Resp BP Pulse Ox 98.2 F 65 16 143/74 98 02/20/19 07:54 02/20/19 07:54 02/20/19 08:00 02/20/19 07:54 02/20/19 07:54 Oxygen Devices in Use Now: None Appearance: Male lying in bed in NAD Eyes: No Scleral Icterus Ears/Nose/Mouth/Throat: Mucous Membranes Moist Respiratory: Symmetrical Chest Expansion and Respiratory Effort, - - Expiratory wheezes in bases Result Diagrams: 02/17/19 13:55 02/17/19 13:55 Additional Lab and Data: . Microbiology and Other Data: . Assess/Plan/Problems-Billing Assessment: Mr. Lopez is a 73 year old male with recent hospitalization and treatment for UTI who was admitted on 02/17/19 with gait dysfunction and falls. - Patient Problems (1) Weakness Comment: - With multiple falls and hx of CVA in the past - PT evaluation, recommends supervision to contact guard assist with rolling walker (2) Catheter-associated urinary tract infection Comment: - Present on admission - Recent admission for sepsis and left sided pyelo - Currenlty on linezolid and cipro, will be continued (3) Asthma Comment: - Patient with wheezing on exam but denies SOB, not hypoxic - Family reports he has a history of asthma - Plan for albuterol prn, monitor (4) CKD (chronic kidney disease) stage 2, GFR 60-89 ml/min Comment: - Creat at baseline at 1.30 (5) BPH (benign prostatic hyperplasia) Comment: - With recent TURP (02/10/19), with urinary incontinence and few drops of blood since thompson removal - Continue supportive care - f/u urology outpatient (6) HTN (hypertension) Comment: - BP well controlled - Continue metoprolol and losartan (7) Chronic edema Comment: - From lymphedema. - Wears compression socks at home (8) GERD (gastroesophageal reflux disease) Comment: -Continue Pantoprazole (9) History of CVA (cerebrovascular accident) Comment: - Has residual deficit requiring walker with ambulation - Taken off aspirin at last admission - Follow up neurology as an outpatient (10) DVT prophylaxis Comment: - Lovenox sq (11) DNR (do not resuscitate) Comment: Status and Disposition: OBV, Case Management and SW following to determine placement.
[2019-02-20] MEDS ORDERED: Albuterol HFA INHALER* 8 gm MDI INH PRN (14:58)
[2019-02-20] MEDS: Enoxaparin(*) 40 MG/0.4 ML SYR SUBCUT SCH (16:27)
--- NOTE | 2019-02-21 07:25 | PN ---
Subjective Date of Service: 02/21/19 Interval History: Mr. Lopez reports that he is feeling well today. He denies any complaint. Objective Active Medications: Acetaminophen (Tylenol Tab*) 650 mg PO Q4H PRN Albuterol (Ventolin Hfa Inhaler*) 2 puff INH Q4H PRN Ascorbic Acid (Vitamin C Tab*) 500 mg PO QAM [facility] Ciprofloxacin (Cipro Tab*) 500 mg PO Q12HR [facility]; Protocol Enoxaparin Sodium (Lovenox(*)) 40 mg SUBCUT Q24H [facility] Ferrous Sulfate (Ferrous Sulfate Tab*) 325 mg PO DAILY [facility] Linezolid (Zyvox Tab*) 600 mg PO Q12HR [facility] Losartan Potassium (Cozaar Tab*) 50 mg PO QAM [facility] Metoprolol Succinate (Toprol Xl Tab*) 100 mg PO QAM [facility] Non-Formulary Medication (L. Acidophilus/L.Bulgaricus [Floranex Tablet]) 2 cap PO DAILY [facility] Non-Formulary Medication (Psyllium Husk/Calcium Carb [Metamucil Plus Calcium Capsule]) 1 tab PO DAILY [facility] Pantoprazole Sodium (Protonix Tab*) 40 mg PO QAM [facility] Vital Signs: Temp Pulse Resp BP Pulse Ox 97 F 60 18 140/82 99 02/21/19 03:12 02/21/19 03:12 02/21/19 03:12 02/21/19 03:12 02/21/19 03:12 Oxygen Devices in Use Now: None Appearance: Male sitting up in chair in NAD Eyes: No Scleral Icterus Ears/Nose/Mouth/Throat: Mucous Membranes Moist Neck: Trachea Midline Respiratory: Symmetrical Chest Expansion and Respiratory Effort, Clear to Auscultation Cardiovascular: NL Sounds; No Murmurs; No JVD, No Edema Abdominal: NL Sounds; No Tenderness; No Distention Extremities: No Edema Skin: No Rash or Ulcers Neurological: Alert and Oriented x 3, NL Muscle Strength and Tone Nutrition: Taking PO's Result Diagrams: 02/17/19 13:55 02/17/19 13:55 Additional Lab and Data: . Microbiology and Other Data: . Assess/Plan/Problems-Billing Assessment: Mr. Lopez is a 73 year old male with recent hospitalization and treatment for UTI who was admitted on 02/17/19 with gait dysfunction and falls. - Patient Problems (1) Weakness Comment: - With multiple falls and hx of CVA in the past - PT evaluation, recommends supervision to contact guard assist with rolling walker (2) Catheter-associated urinary tract infection Comment: - Present on admission - Recent admission for sepsis and left sided pyelo - Cumpleted course of cipro and linezolid (3) Asthma Comment: - Patient with wheezing on exam but denies SOB, not hypoxic - Family reports he has a history of asthma - Plan for albuterol prn, monitor (4) CKD (chronic kidney disease) stage 2, GFR 60-89 ml/min Comment: - Creat at baseline at 1.30 (5) BPH (benign prostatic hyperplasia) Comment: - With recent TURP (02/10/19), with urinary incontinence and few drops of blood since thompson removal - Continue supportive care - f/u urology outpatient (6) HTN (hypertension) Comment: - BP well controlled - Continue metoprolol and losartan (7) Chronic edema Comment: - From lymphedema. - Wears compression socks at home (8) GERD (gastroesophageal reflux disease) Comment: -Continue Pantoprazole (9) History of CVA (cerebrovascular accident) Comment: - Has residual deficit requiring walker with ambulation - Taken off aspirin at last admission - Follow up neurology as an outpatient (10) DVT prophylaxis Comment: - Lovenox sq (11) DNR (do not resuscitate) Comment: Status and Disposition: OBV, Case Management and SW following to determine placement.
[2019-02-21] MEDS: Losartan TAB* 25 MG PO SCH (07:32)
[2019-02-21] MEDS: Metoprolol Succinate XL TAB* 50 MG PO SCH (07:32)
[2019-02-21] MEDS: Ciprofloxacin TAB* 500 MG PO SCH ×2 (07:32→20:17)
[2019-02-21] MEDS: Ascorbic Acid TAB* 500 MG PO SCH (07:32)
[2019-02-21] MEDS: CALCIUM CARB PO SCH (07:33)
[2019-02-21] MEDS: Ferrous Sulfate TAB* 325 MG PO SCH (07:33)
[2019-02-21] MEDS: ACIDOPHILUS PO SCH (07:33)
[2019-02-21] MEDS: Linezolid TAB* 600 MG PO SCH ×2 (07:33→20:17)
[2019-02-21] MEDS: BULGARICUS PO SCH (07:33)
[2019-02-21] MEDS: PSYLLIUM HUSK PO SCH (07:33)
[2019-02-21] MEDS: Pantoprazole TAB * 40 MG TAB PO SCH (07:33)
[2019-02-21] MEDS: Enoxaparin(*) 40 MG/0.4 ML SYR SUBCUT SCH (16:38)
[2019-02-22] MEDS: ACIDOPHILUS PO SCH (09:13)
[2019-02-22] MEDS: BULGARICUS PO SCH (09:13)
[2019-02-22] MEDS: Ferrous Sulfate TAB* 325 MG PO SCH (09:15)
[2019-02-22] MEDS: Pantoprazole TAB * 40 MG TAB PO SCH (09:15)
[2019-02-22] MEDS: Ascorbic Acid TAB* 500 MG PO SCH (09:15)
[2019-02-22] MEDS: Losartan TAB* 25 MG PO SCH (09:16)
[2019-02-22] MEDS: CALCIUM CARB PO SCH (09:16)
[2019-02-22] MEDS: Metoprolol Succinate XL TAB* 50 MG PO SCH (09:16)
[2019-02-22] MEDS: PSYLLIUM HUSK PO SCH (09:16)
[2019-02-22] MEDS: Enoxaparin(*) 40 MG/0.4 ML SYR SUBCUT SCH (17:58)
--- NOTE | 2019-02-22 18:32 | PN ---
Subjective Date of Service: 02/22/19 Interval History: Patient sitting in recliner on assessment and reports he feels well today. Patient has no complaints. Objective Active Medications: Acetaminophen (Tylenol Tab*) 650 mg PO Q4H PRN PRN Reason: FEVER/PAIN Albuterol (Ventolin Hfa Inhaler*) 2 puff INH Q4H PRN PRN Reason: SOB/WHEEZING Last Admin: 02/20/19 16:29 Dose: 2 puff Ascorbic [facility] ([facility]itamin C Tab*) [facility] Last Admin: 02/22/19 09:15 Dose: 500 mg Enoxaparin Sodium (Lovenox(*)) 40 mg SUBCUT Q24H [facility] Last Admin: 02/22/19 17:58 Dose: 40 mg Ferrous Sulfate (Ferrous Sulfate Tab*) 325 mg PO DAILY [facility] Last Admin: 02/22/19 09:15 Dose: 325 mg Losartan Potassium (Cozaar Tab*) 50 mg PO [facility] Last Admin: 02/22/19 09:16 Dose: 50 mg Metoprolol Succinate (Toprol Xl Tab*) 100 mg PO [facility] Last Admin: 02/22/19 09:16 Dose: 100 mg Non-Formulary Medication (L. Acidophilus/L.Bulgaricus [Floranex Tablet]) 2 cap PO DAILY [facility] Last Admin: 02/22/19 09:13 Dose: Not Given Pto Nf Med* ( Psyllium Husk/Calcium Carb [ Metamucil Plus Calcium Capsule] 1 Tab ) 1 tab PO DAILY [facility] Last Admin: 02/22/19 09:16 Dose: 1 tab Pantoprazole Sodium (Protonix Tab*) 40 mg PO [facility] Last Admin: 02/22/19 09:15 Dose: 40 mg Vital Signs - 8 hr 02/22/19 02/22/19 10:54 16:12 Temperature 98.0 F 97.6 F Pulse Rate 76 72 Respiratory 20 20 Rate Blood Pressure 121/71 129/68 (mmHg) O2 Sat by Pulse 98 99 Oximetry Oxygen Devices in Use Now: None Appearance: Comfortable, NAD Eyes: No Scleral Icterus Ears/Nose/Mouth/Throat: Clear Oropharnyx, Mucous Membranes Moist Neck: NL Appearance and Movements; NL JVP Respiratory: Symmetrical Chest Expansion and Respiratory Effort, Clear to Auscultation Cardiovascular: NL Sounds; No Murmurs; No JVD, RRR, - - Trace to mild edema bilateral Abdominal: NL Sounds; No Tenderness; No Distention Lymphatic: No Cervical Adenopathy Skin: - - Chronic discoloration of LE Neurological: Alert and Oriented x 3 Nutrition: Taking PO's Result Diagrams: 02/17/19 13:55 02/17/19 13:55 Additional Lab and Data: . Microbiology and Other Data: . Assess/Plan/Problems-Billing Assessment: Mr. Lopez is a 73 year old male with recent hospitalization and treatment for UTI who was admitted on 02/17/19 with gait dysfunction and falls. - Patient Problems (1) Weakness Comment: - Patient to be discharged to [place] tomorrow - With multiple falls and hx of CVA in the past - PT evaluation, recommends supervision to contact guard assist with rolling walker (2) Asthma Comment: - LS clear - Family reports he has a history of asthma - Plan for albuterol prn, monitor (3) BPH (benign prostatic hyperplasia) Comment: - With recent TURP (02/10/19), with urinary incontinence and few drops of blood since thompson removal - Continue supportive care - f/u urology outpatient (4) CKD (chronic kidney disease) stage 2, GFR 60-89 ml/min Comment: - Creat at baseline at 1.30 (5) Catheter-associated urinary tract infection Comment: - Present on admission - Recent admission for sepsis and left sided pyelo - Completed course of cipro and linezolid (6) Chronic edema Comment: - From lymphedema. - Wears compression socks at home (7) GERD (gastroesophageal reflux disease) Comment: -Continue Pantoprazole (8) HTN (hypertension) Comment: - BP well controlled - Continue metoprolol and losartan (9) History of CVA (cerebrovascular accident) Comment: - Has residual deficit requiring walker with ambulation - Taken off aspirin at last admission - Follow up neurology as an outpatient (10) DNR (do not resuscitate) Comment: (11) DVT prophylaxis Comment: - Lovenox sq Status and Disposition: OBV, Case Management and SW following to determine placement. Attending: Gely Carmona
[2019-02-23 06:44] LABS: ABS Basophils 0.1 10^3/ul (0-0.2); ABS Eosinophils 0.3 10^3/ul (0-0.6); ABS Lymphocytes 1.1 10^3/ul (1.0-4.8); ABS Monocytes 0.7 10^3/ul (0-0.8); ABS Neutrophils 4.4 10^3/ul (1.5-7.7); Eosinophil % 4.6 %; Hematocrit 31 % (42-52); Hemoglobin 10.4 g/dL (14.0-18.0); Lymphocyte % 17.1 %; Mean Corpuscular HGB Conc 34 g/dL (31-36); Mean Corpuscular Hemoglobin 29 pg (27-31); Mean Corpuscular Volume 87 fL (80-94); Mean Platelet Volume 6.7 fL (7.4-10.4); Platelet Count 157 10^3/uL (150-450); Red Blood Count 3.53 10^6 /uL (4.18-5.48); Red Cell Distribution Width 16 % (10-15); White Blood Count 6.5 10^3/uL (3.5-10.8)
[2019-02-23 07:00] LABS: BUN/Creatinine Ratio 33.6 (8-20); Calcium 8.7 mg/dL (8.6-10.3); EGFR African American 82.4 (>60); EGFR Non-African American 68.1 (>60)
[2019-02-23] MEDS: Metoprolol Succinate XL TAB* 50 MG PO SCH (08:55)
[2019-02-23] MEDS: Ferrous Sulfate TAB* 325 MG PO SCH (08:55)
[2019-02-23] MEDS: Pantoprazole TAB * 40 MG TAB PO SCH (08:55)
[2019-02-23] MEDS: Ascorbic Acid TAB* 500 MG PO SCH (08:55)
[2019-02-23] MEDS: Losartan TAB* 25 MG PO SCH (08:56)
[2019-02-23] MEDS: CALCIUM CARB PO SCH (08:59)
[2019-02-23] MEDS: PSYLLIUM HUSK PO SCH (08:59)
[2019-02-23] MEDS: BULGARICUS PO SCH (09:05)
[2019-02-23] MEDS: ACIDOPHILUS PO SCH (09:05)
[2019-02-23 09:08] VITALS: BP 155/81
--- NOTE | 2019-02-23 10:10 | DS ---
CC: Dr. Webster * DISCHARGE SUMMARY: DATE OF ADMISSION: 02/17/19 DATE OF DISCHARGE: 02/23/19 PRIMARY CARE PROVIDER: Dr. Webster. ATTENDING PHYSICIAN: Dr. Carmona * (dictated by Erin Delgado NP). PRIMARY DIAGNOSES: 1. Weakness. 2. Catheter associated urinary tract infection. 3. Asthma. 4. Chronic kidney disease. 5. Benign prostatic hypertrophy. 6. Hypertension. 7. Chronic edema. 8. Gastroesophageal reflux disease. 9. History of cerebrovascular accident. SECONDARY DIAGNOSES: 1. Benign prostatic hypertrophy. 2. Urinary retention. 3. Recurrent urinary tract infections. 4. Left renal and bladder calculi. 5. Chronic anemia. 6. Acid reflux. CONSULTATIONS WHILE IN THE HOSPITAL: No consultations. PROCEDURES WHILE IN THE HOSPITAL: No procedures. STUDIES WHILE IN THE HOSPITAL: 1. Chest x-ray: Impression: Hyperinflated lungs with tortuous descending aorta, no active cardiopulmonary disease is noted. 2. Ankle x-ray, right: Impression: Soft tissue swelling without fracture. DISCHARGE HOME MEDICATIONS: Continued home medications: 1. Metoprolol 100 mg p.o. daily. 2. Losartan 50 mg p.o. nightly. 3. Ferrous sulfate 325 mg p.o. daily. 4. Pantoprazole 40 mg p.o. daily. 5. Probiotic daily. 6. Vitamin C daily. Discontinued home medications: 1. Ciprofloxacin (the patient has completed course). 2. Linezolid (the patient has completed course). New home medications: 1. Albuterol 2 puffs inhalation q.4 hours p.r.n. 2. Tylenol 650 mg p.o. q.4 hours p.r.n. pain. HISTORY OF PRESENT ILLNESS/HOSPITAL COURSE: Mr. Lopez is a 73-year-old male with a past medical history significant for CVA, hyperlipidemia, hypertension, chronic anemia, CKD, GERD, recurrent UTI; who presented to the emergency department on 02/17/19 with complaints of weakness and falls. Please see history and physical dictated by Shanta Ochoa NP, for complete summary of events leading to this hospitalization, but in short, the patient had been recently admitted to our facility for TURP, and during this previous hospitalization, PT recommended skilled PT at discharge, but the family declined. In addition, the patient's turned down VNS and an APS case had been opened. While in the emergency room, the patient admitted to 2 mechanical falls in the past 2 days and he was noted to be weak; therefore, the hospitalist team was asked to evaluate for admission. During this hospitalization, the patient has been evaluated by Physical Therapy , who recommended the patient have skilled PT at an extended rehab to continue to work on endurance and decrease the falls. During this hospital stay, the patient's vital signs have remained stable. The patient has had routine labs, which have also remained stable. The patient is stable for discharge to [facility] today. REVIEW OF SYSTEMS: A 14-point review of systems was completed and all were negative. PHYSICAL EXAMINATION: Vital Signs: Temp 97.6, HR 77, RR 20, O2 saturation 100 % on room air, BP 149/85. General: Mr. Lopez is a 73-year-old male who is sitting in the recliner, appears to be in no acute distress, appears stated age. HEENT: EOMs intact. PERRLA. Oral mucosa is moist without lesion. Posterior pharynx is clear. Neck: Supple. No lymphadenopathy. Cardiac: S1, S2 present. No murmurs, rubs, or gallops. Regular rate and rhythm. Respiratory: Lungs are clear to auscultation. No wheezes, rhonchi, or rales. Good aeration. Abdomen: Soft, nontender. Bowel sounds normoactive. Extremities: No clubbing or cyanosis. The patient has trace to mild pitting edema bilateral lower extremities. Pedal pulses 2+ bilaterally. Musculoskeletal: No pain or deformities. Skin: Skin is grossly intact. Neuro : Cranial nerves II through XII are grossly intact. Strength is 5/5 in the upper and lower extremities. DIAGNOSTIC STUDIES/LAB DATA: WBC 6.5, hemoglobin 10.4, hematocrit 31, platelets 157. Sodium 140, potassium 4.0, chloride 107, carbon dioxide 29, BUN 36, creatinine 1.07. DISCHARGE PLAN/FOLLOWUP: 1. Weakness: As mentioned above, the patient was evaluated by Physical Therapy during this admission and has recommended that the patient be discharged to a subacute rehab facility. The patient is accepted the bed at [facility] and he will be transferred today. The patient should continue physical therapy at this facility. We suspect the patient's weakness is secondary to chronic diseases including history of CVA. 2. Catheter associated urinary tract infection: This catheter associated urinary tract infection was present on admission, he was under treatment. He had recently had an admission for sepsis and left-sided pyelonephritis. During this hospital stay, he had completed his course of Cipro and Linezolid. 3. Asthma: The patient did have some wheezing during this hospital stay, but today his lungs are clear. The patient will be discharged with a Ventolin inhaler as needed. 4. CKD: The patient has a history of chronic kidney disease and creatinine is currently within normal limits. 5. BPH: The patient had a recent TURP on 02/10/19. The patient occasionally has urinary incontinence when he cannot make it to the bathroom. The patient also reports a few drops of blood since Begum was removed. I would encourage the patient's facility to continue monitoring this as this should slowly resolve. It should not get worse. The patient should follow up with Dr. Nova or Dr. Cee as recommended. 6. Hypertension: The patient's blood pressure is well controlled. He should continue his metoprolol and losartan. 7. Chronic anemia: The patient has a history of chronic anemia which is suspected to be secondary to lymphedema. The patient wears BRAYAN stockings at home, which he should continue at [facility]. 8. GERD: The patient denies any symptoms at the time, but he should continue his pantoprazole. 9. History of CVA: The patient has residual deficits requiring walker with ambulation. The patient will be receiving PT at [facility]. The patient was taken off his aspirin on his last admission and I will defer the restarting of this to his followup with Neurology as an outpatient. 10. Urinary retention: The patient has a history of this, suspected to be secondary to BPH. 11. Recurrent urinary tract infections: As mentioned above, the patient has recently completed a course of antibiotics. The patient should be monitored for signs and symptoms of urinary tract infection. 12. Left renal and bladder calculi: During the patient's TURP, it was mentioned by the daughter that they place a stent in his left ureter. The patient should keep his followup with Dr. Nova and/or Dr. Cee for further evaluation and treatment. 13. Chronic anemia: The patient has a history of chronic anemia, and his H and H have been stable. I would continue the patient's supplemental iron and monitor his H and H. 14. Followup: The patient should follow up with his primary care in 1 to 3 days. The patient to follow up with Dr. Cee and Dr. Nova as previously recommended for his followup TURP. The patient should follow up with Neurology probably in 1 to 2 weeks to discuss restarting aspirin. 15. Education: The patient was educated on signs and symptoms, new or worsening condition, when to return to the emergency department; the patient stated understanding. This is a summarized report of a complex medical history and hospital stay. For details, please see entire medical record. TIME SPENT: Approximately 35 minutes was spent on this discharge, greater than half the time was spent [id number] with the patient discussing discharge plans and instructions. ERIN DELGADO, ASHLEY [id number]/[facility] #: [id number] RANDELL
== END 2019-02-23 11:30 | DRG 948 ==
LOC: ED 12:49 → MED 17:54
PROVIDERS: ADMIT Internal Medicine; ATTEND Internal Medicine
DX: R53.1 Weakness (principal); T83.511A Infection and inflammatory reaction due to indwelling urethral catheter, initial encounter; N39.0 Urinary tract infection, site not specified; J45.909 Unspecified asthma, uncomplicated; I12.9 Hypertensive chronic kidney disease with stage 1 through stage 4 chronic kidney disease, or unspecified chronic kidney disease; N18.2 Chronic kidney disease, stage 2 (mild); N40.1 Benign prostatic hyperplasia with lower urinary tract symptoms; R33.8 Other retention of urine; R60.9 Edema, unspecified; K21.9 Gastro-esophageal reflux disease without esophagitis; N20.0 Calculus of kidney; Z66 Do not resuscitate; N21.0 Calculus in bladder; E78.5 Hyperlipidemia, unspecified; D64.89 Other specified anemias; W18.30XA Fall on same level, unspecified, initial encounter; Z91.81 History of falling; Y92.009 Unspecified place in unspecified non-institutional (private) residence as the place of occurrence of the external cause; Z86.73 Personal history of transient ischemic attack (TIA), and cerebral infarction without residual deficits; Z79.899 Other long term (current) drug therapy; Z88.1 Allergy status to other antibiotic agents; Z88.8 Allergy status to other drugs, medicaments and biological substances; Z82.61 Family history of arthritis; Z82.49 Family history of ischemic heart disease and other diseases of the circulatory system; Z83.3 Family history of diabetes mellitus; Z80.49 Family history of malignant neoplasm of other genital organs
CPT/HCPCS: 36415; 71046; 80048; 80053; 81003; 81015; 83605; 83735; 85025; 86140; 87086; 99284; A9270-GY; G8978-GP-CI; G8979-GP-CI; J1650

== ENCOUNTER 2019-06-03 16:31 | Emergency (ER) | payer MEDICARE ==
[2019-06-03 16:47] VITALS: BP 136/86
--- NOTE | 2019-06-03 17:03 | UC ---
Respiratory Complaint HPI - HPI Summary HPI Summary: Pt presents with c/o cough, nasal congestion, PND X 3-4 days. reports that pt had a fever at first onset of symptoms but has since resolved. Pt has mild dementia. answered most of questions directed to pt. - History of Current Complaint Chief Complaint: UCRespiratory Stated Complaint: COUGH Time Seen by Provider: 06/03/19 16:42 Hx Obtained From: Patient, Family/Shoulder Boner Hx From Patient Unobtainable Due To: Dementia - mild, but was appropriate and responsive during PE. Onset/Duration: Gradual Onset, Lasting Days, Still Present Severity Initially: Mild Severity Currently: Mild Pain Intensity: 3 Character: Cough: Nonproductive Aggravating Factors: Recumbent Position Associated Signs And Symptoms: Positive: Wheezing - morning only, Nasal Congestion - Risk Factors Pulmonary Embolism Risk Factors: Negative Cardiac Risk Factors: Hypertension Pseudomonas Risk Factors: Negative Tuberculosis Risk Factors: Negative - Allergies/Home Medications Allergies/Adverse Reactions: Allergies Allergy/AdvReac Type Severity Reaction Status Date / Time amlodipine Allergy Unknown Unknown Verified 06/03/19 16:48 Reaction Details montelukast [From Singulair] Allergy Unknown Unknown Verified 06/03/19 16:48 Reaction Details formoterol Allergy Unknown Verified 06/03/19 16:48 [From Foradil Aerolizer] Reaction Details irbesartan Allergy Unknown Verified 06/03/19 16:48 Reaction Details lisinopril Allergy Dizziness Verified 06/03/19 16:48 erythromycin base AdvReac Severe Diarrhea Verified 06/03/19 16:48 Home Medications: Home Medications Chlorthalidone 25 mg PO DAILY 06/03/19 [History Confirmed 06/03/19] PMH/Surg Hx/FS Hx/Imm Hx Previously Healthy: No - mild dementia, Cardiovascular History: Cardiac Disease, Hypertension Neurological History: Dementia Other History Of: Negative For: Anticoagulant Therapy - Surgical History Surgical History: Yes Surgery Procedure, Year, and Place: Diverticulitis surgery 2017 or 2018- [place]. Tonsillectomy as a child. 09/04/18- Cystoscopy, left retrograde, Lithotripsy Left Stent Insertion. ureteral stent 11/2018, [facility] [place]. TURP 2019 - Family History Known Family History: Positive: Hypertension, Diabetes, Non-Contributory - Social History Occupation: Retired Lives: With Family Alcohol Use: None Substance Use Type: None Smoking Status (MU): Former Smoker Amount Used/How Often: as a teen x 2 yrs Have You Smoked in the Last Year: No When Did the Patient Quit Smoking/Using Tobacco: as a teenager - Immunization History Most Recent Influenza Vaccination: many years ago Most Recent Pneumonia Vaccination: few years ago Review of Systems All Other Systems Reviewed And Are Negative: Yes Constitutional: Positive: Fever - resolved Skin: Positive: Negative Eyes: Positive: Negative ENT: Positive: Sinus Congestion, Other - PND Respiratory: Positive: Cough Cardiovascular: Positive: Negative Gastrointestinal: Positive: Negative Genitourinary: Positive: Negative Motor: Positive: Negative Neurovascular: Positive: Negative Musculoskeletal: Positive: Negative Neurological: Positive: Negative Psychological: Positive: Negative Is Patient Immunocompromised?: No Physical Exam Triage Information Reviewed: Yes Appearance: Well-Appearing Vital Signs: Initial Vital Signs Temp 98.3 F 06/03/19 16:41 Pulse 75 06/03/19 16:41 Resp 22 06/03/19 16:41 BP 136/86 06/03/19 16:41 Pulse Ox 100 06/03/19 16:41 Eye Exam: Normal ENT: Positive: Nasal congestion Dental Exam: Normal Neck exam: Normal Respiratory Exam: Normal Respiratory: Positive: Normal breath sounds Cardiovascular Exam: Normal Musculoskeletal Exam: Normal - uses WC and walker at home Neurological Exam: Normal Psychological Exam: Normal Skin Exam: Normal Respiratory Course/Dx - Differential Dx/Diagnosis Differential Diagnosis/HQI/PQRI: Bronchitis, Influenza Provider Diagnosis: Viral syndrome, Cough Discharge ED - Sign-Out/Discharge Documenting (check all that apply): Patient Departure All imaging exams completed and their final reports reviewed: No Studies - Discharge Plan Condition: Stable Disposition: HOME Patient Education Materials: Viral Syndrome (ED) Referrals: Michael Webster MD [Primary Care Provider] - If Needed Additional Instructions: Please follow up with your PCP as needed. If your symptoms worsen please seek care as soon as possible with your PCP or at the closest medical facility. Please continue to take an over the counter symptom management medication as needed. - Billing Disposition and Condition Condition: STABLE Disposition: Home
== END 2019-06-03 17:15 | disposition home or self-care (01) ==
LOC: UCEAST 16:31
DX: B34.9 Viral infection, unspecified (principal); R05 Cough; R09.81 Nasal congestion; I10 Essential (primary) hypertension; F03.90 Unspecified dementia, unspecified severity, without behavioral disturbance, psychotic disturbance, mood disturbance, and anxiety; Z99.3 Dependence on wheelchair; Z88.8 Allergy status to other drugs, medicaments and biological substances; Z88.1 Allergy status to other antibiotic agents; Z79.899 Other long term (current) drug therapy; Z87.891 Personal history of nicotine dependence
CPT/HCPCS: 99211; G0463

== ENCOUNTER 2019-06-28 16:11 | Emergency (ER) | payer MEDICARE ==
[2019-06-28 16:31] VITALS: BP 135/87
--- NOTE | 2019-06-28 16:35 | UC ---
Respiratory Complaint HPI - HPI Summary HPI Summary: 74 y/o male presents to the urgent care accompany by c/o productive cough w / yellowish phlegm for the past 3 weeks. reports cough is productive w/ a yellowish phlegm and has worsen this past weekend w/ chills and unable to sleep at night well. Pt was seen here last month and Dx w/ a Viral syndrome. He was taken OTC medications and cough improved for a few days and then returned. Pt quit smoking many years ago. Pt denies fever, SOB, wheezing, chest pain, abdominal pain, dizziness, N/V/D. - History of Current Complaint Chief Complaint: UCRespiratory Stated Complaint: COUGH Time Seen by Provider: 06/28/19 16:33 Hx Obtained From: Patient Onset/Duration: Gradual Onset, Lasting Weeks - 3 weeks, Still Present, Worse Since - 3 days Timing: Intermittent Episodes Severity Initially: Mild Severity Currently: Moderate Pain Intensity: 0 Pain Scale Used: 0-10 Numeric Character: Cough: Productive, Sputum Description: - yellowish Aggravating Factors: Recumbent Position Alleviating Factors: OTC Meds Associated Signs And Symptoms: Positive: URI, Nasal Congestion - clear. Negative: Dyspnea, Fever, Chills, Wheezing - Risk Factors Pulmonary Embolism Risk Factors: Negative Cardiac Risk Factors: Negative Pseudomonas Risk Factors: Negative Tuberculosis Risk Factors: Negative - Allergies/Home Medications Allergies/Adverse Reactions: Allergies Allergy/AdvReac Type Severity Reaction Status Date / Time amlodipine Allergy Unknown Unknown Verified 06/28/19 18:42 Reaction Details montelukast [From Singulair] Allergy Unknown Unknown Verified 06/28/19 18:42 Reaction Details formoterol Allergy Unknown Verified 06/28/19 18:42 [From Foradil Aerolizer] Reaction Details irbesartan Allergy Unknown Verified 06/28/19 18:42 Reaction Details lisinopril Allergy Dizziness Verified 06/28/19 18:42 erythromycin base AdvReac Severe Diarrhea Verified 06/28/19 18:42 PMH/Surg Hx/FS Hx/Imm Hx Previously Healthy: Yes Cardiovascular History: Hypertension GI/ History: Gastroesophageal Reflux, Kidney Stones Neurological History: Dementia Other History Of: Negative For: Anticoagulant Therapy - Surgical History Surgical History: Yes Surgery Procedure, Year, and Place: Diverticulitis surgery 2017 or 2018- [place]. Tonsillectomy as a child. 09/04/18- Cystoscopy, left retrograde, Lithotripsy [place] Stent [place]. [place] [facility] [place] - Family History Known Family History: Positive: Hypertension, Diabetes, Non-Contributory - Social History Occupation: Retired Lives: With Family Alcohol Use: None Substance Use Type: None Smoking Status (MU): Former Smoker Amount Used/How Often: as a teen x 2 yrs Have You Smoked in the Last Year: No When Did the Patient Quit Smoking/Using Tobacco: as a teenager - Immunization History Most Recent Influenza Vaccination: many years ago Most Recent Pneumonia Vaccination: few years ago Review of Systems All Other Systems Reviewed And Are Negative: Yes Constitutional: Positive: Negative Skin: Positive: Negative Eyes: Positive: Negative ENT: Positive: Nasal Discharge - clear, Sinus Congestion - mild Respiratory: Positive: Cough - producitve w/ yellowish phlegm Cardiovascular: Positive: Negative Gastrointestinal: Positive: Negative Genitourinary: Positive: Negative Motor: Positive: Negative Neurovascular: Positive: Negative Musculoskeletal: Positive: Negative Neurological: Positive: Negative Psychological: Positive: Negative Is Patient Immunocompromised?: No Physical Exam - Summary Physical Exam Summary: Vital Signs Reviewed: Yes General: well developed, well nourished male sitting in the examining table w/o any apparent distress Eyes: Positive: Conjunctiva Clear - PERRLA, EOMI, fundi grossly normal ENT: Positive: Normal ENT inspection, Hearing grossly normal, Pharynx normal, Nasal congestion - edematous and erythematous nasal mucosa, Nasal drainage - yellowish drainage, TMs normal. Negative: Tonsillar swelling, Tonsillar exudate Neck: Positive: Supple, Nontender, No Lymphadenopathy Respiratory: no orthopnea or dyspnea. Able to speak in full sentences, no retractions or accessory muscle use, no tripod position, stridor, or head bobbing. Positive breath sounds bilaterally. RT posterior lung w/ decrease breath sound, mild rhonchi. No wheezing no crackles or rales on B/L lungs. Cardiovascular: Positive: RRR, No Murmur, Pulses Normal, Brisk Capillary Refill Abdomen Description: Positive: Nontender, No Organomegaly, Soft. Negative: CVA Tenderness (R), CVA Tenderness (L) Bowel Sounds: Positive: Present Musculoskeletal Exam: Normal Musculoskeletal: Positive: Strength Intact, ROM Intact, No Edema Neurological Exam: Normal Psychological Exam: Normal Skin Exam: Normal Triage Information Reviewed: Yes Vital Signs: Initial Vital Signs Temp 98.3 F 06/28/19 16:24 Pulse 88 06/28/19 16:24 Resp 20 06/28/19 16:24 BP 135/87 06/28/19 16:24 Pulse Ox 100 06/28/19 16:24 Respiratory Course/Dx - Course Course Of Treatment: 74 y/o male presents to the urgent care accompany by c/o productive cough w / yellowish phlegm for the past 3 weeks. reports cough is productive w/ a yellowish phlegm and has worsen this past weekend w/ chills and unable to sleep at night well. Pt was seen here last month and Dx w/ a Viral syndrome. He was taken OTC medications and cough improved for a few days and then returned. Pt quit smoking many years ago. Pt denies fever, SOB, wheezing, chest pain, abdominal pain, dizziness, N/V/D. Hx obtained. Pt Pt is hemodynamically stable, A&OX3, Vitals: WNL. Pt w/ RT posterior lung w/ mild decrease breath sounds, mild rhonchi. No wheezing no crackles or rales on B/L lungs on examination. O2Sat: 100%. Rapid influenza A&B: negative. Chest X-ray ordered to r/o pneumonia or other abnormality. IMPRESSION: 1. NEW 2.7 CM RIGHT UPPER LUNG NODULE. RECOMMEND CONSIDERATION OF FURTHER EVALUATION WITH CONTRAST-ENHANCED CT OF THE CHEST IN THE NONACUTE SETTING TO EVALUATE FOR PULMONARY PARENCHYMAL NEOPLASM. 2. SMALL LEFT PLEURAL EFFUSION as per radiologist. I discussed Pt's symptoms w/ Dr Marks who states w/ don't have Ct w/ contrast and to advised Pt to go to the ER for chest CT w/ contrast or f/u w/ his PCP in 2-[address] days for outpatient chest CT to r/o pulmonary parenchymal neoplasm. Pt and explained and educated of chest X-ray results and the importance to t r/o pulmonary nodule vs pneumonia. states she will take her to the [facility] right now [place]. I discussed Pt's symptoms w/ PA Umair Torres ar [facility] who accepted patient. PT left clinic hemodynamically stable, A&Ox3 and ambulating. - Differential Dx/Diagnosis Differential Diagnosis/HQI/PQRI: Asthma, Bronchitis, Pulmonary Edema, Exacerbation Of COPD, Lower Resp Infection, Other - pneumonia, neoplasm Provider Diagnosis: Right upper lobe pulmonary nodule, Cough Discharge ED - Sign-Out/Discharge Documenting (check all that apply): Patient Departure - D/c strongly advised to go to the [facility] for further management in his symptom All imaging exams completed and their final reports reviewed: Yes - Discharge Plan Condition: Stable Disposition: HOME-RECOMMEND TO ED Patient Education Materials: Pulmonary Nodules (ED) Referrals: Michael Webster MD [Primary Care Provider] - 2 Days Additional Instructions: I think you need a higher level or care for your presenting symptoms. I highly recommend you to go to the ER for further evaluation and Enhanced Chest CT to r/ o neoplasm and further management. The risks of not going can be , sepsis, . I spoke to the ER attending PA Umair Torres. . They are expecting you. - Billing Disposition and Condition Condition: STABLE Disposition: Home-Recommend to ED - Attestation Statements Provider Attestation: This patient was not seen by me I was available for consult Chart reviewed YUKI
[2019-06-28 17:09] LABS: Influenza A Molecular NEGATIVE (Negative); Influenza B Molecular NEGATIVE (Negative)
== END 2019-06-28 17:46 | disposition home health service (06) ==
LOC: UCEAST 16:11
DX: R05 Cough (principal); R91.1 Solitary pulmonary nodule; I10 Essential (primary) hypertension; F03.90 Unspecified dementia, unspecified severity, without behavioral disturbance, psychotic disturbance, mood disturbance, and anxiety; Z88.1 Allergy status to other antibiotic agents; Z88.8 Allergy status to other drugs, medicaments and biological substances; Z87.891 Personal history of nicotine dependence
CPT/HCPCS: 71046; 99212; G0463

== ENCOUNTER 2019-06-28 18:35 | Emergency (ER) | payer MEDICARE ==
[2019-06-28 21:49] LABS: Albumin 3.7 g/dL (3.2-5.2); Calcium 9.3 mg/dL (8.6-10.3); Total Bilirubin 0.3 mg/dL (0.2-1.0)
[2019-06-28 21:55] LABS: Albumin/Globulin Ratio 0.9 (1-3); BUN/Creatinine Ratio 22.5 (8-20); EGFR African American 66.2 (>60); EGFR Non-African American 54.7 (>60); Globulin 4.2 g/dL (2-4); Total Protein 7.9 g/dL (6.4-8.9)
[2019-06-28] MEDS ORDERED: Iodixanol* (CONTRAST) 320 MG/ML 100 ML SDV IV ONE (22:26)
--- NOTE | 2019-06-28 22:32 | ED ---
Throat Pain/Nasal Congestion - HPI Summary HPI Summary: Patient is a 74 y/o M presenting to the ED for a chief complaint of productive cough with clear/yellow phlegm that began 2 weeks ago. Patient is present with his . Patient was previously seen at [facility] and had a chest x-ray performed that showed a pulmonary nodule and pleural effusion. Patient denies fever, decreased appetite, or SOB. Patient has a prostate surgery one month ago that was performed by Dr. Cee. Patient is a former smoker. - History of Current Complaint Chief Complaint: EDShortnessOfBreath Time Seen by Provider: 06/28/19 22:17 Hx Obtained From: Patient Onset/Duration: Sudden Onset, Lasting Weeks - 2 weeks, Still Present Severity: Moderate Associated Signs And Symptoms: Positive: Negative Cough: Productive - Allergies/Home Medications Allergies/Adverse Reactions: Allergies Allergy/AdvReac Type Severity Reaction Status Date / Time amlodipine Allergy Unknown Unknown Verified 06/28/19 18:42 Reaction Details montelukast [From Singulair] Allergy Unknown Unknown Verified 06/28/19 18:42 Reaction Details formoterol Allergy Unknown Verified 06/28/19 18:42 [From Foradil Aerolizer] Reaction Details irbesartan Allergy Unknown Verified 06/28/19 18:42 Reaction Details lisinopril Allergy Dizziness Verified 06/28/19 18:42 erythromycin base AdvReac Severe Diarrhea Verified 06/28/19 18:42 PMH/Surg Hx/FS Hx/Imm Hx Previously Healthy: Yes Endocrine/Hematology History: Reports: Hx Anemia - Chronic Denies: Hx Anticoagulant Therapy, Hx Diabetes, Hx Thyroid Disease, Hx Unexplained Bleeding Cardiovascular History: Reports: Hx Coronary Artery Disease - Atherosclerosis, Hx Hypertension - on medication, Other Cardiovascular Problems/Disorders - retinal occlusion left eye Denies: Hx Aneurysm, Hx Angina, Hx Angioplasty, Hx Auto Implanted Cardiovert Defib, Hx Cardiac Arrest, Hx Cardiomegaly, Hx Congenital Heart Disease, Hx Congestive Heart Failure, Hx Deep Vein Thrombosis, Hx Embolism, Hx Hypercholesterolemia, Hx Hypotension, Hx Myocardial Infarction, Hx Pacemaker/ICD , Hx Peripheral Vascular Disease, Hx Rheumatic Fever, Hx Syncope, Hx Valvular Heart Disease Respiratory History: Reports: Hx Asthma - had accupuncture, Hx Sleep Apnea, Other Respiratory Problems/Disorders - 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 Denies: Hx Chronic Bronchitis, Hx Chronic Obstructive Pulmonary Disease (COPD ), Hx Cystic Fibrosis, Hx Lung Cancer, Hx Pleural Effusion, Hx Pneumonia, Hx Pulmonary Edema, Hx Pulmonary Embolism, Hx Seasonal Allergies GI History: Reports: Hx Diverticulosis, Hx Gastroesophageal Reflux Disease - on medication, Hx Irritable Bowel - Diarrhea, Hx Ulcer, Other GI Disorders - Diverticulitis, left inguinal hernia Denies: Hx Cirrhosis, Hx Crohn's Disease, Hx Gall Bladder Disease, Hx Gastrointestinal Bleed, Hx Hiatal Hernia, Hx Jaundice, Hx Ileostomy, Hx Pyloric Stenosis History: Reports: Hx Chronic Renal Failure - stage 2-3, Hx Kidney Stones - Left stones-ureteral stent-thompson catheter in place, Other Problems/Disorders - BPH Musculoskeletal History: Reports: Other Musculoskeletal History - Sciatica, mod- severe compression fx T12 Denies: Hx Tendonitis Sensory History: Reports: Hx Cataracts - developing, Hx Contacts or Glasses - Glasses Denies: Hx Eye Injury, Hx Eye Prosthesis, Hx Legally Blind, Hx Macular Degeneration, Hx Vision Problem, Hx Deafness, Hx Hearing Aid, Hx Hearing Problem Opthamlomology History: Reports: Hx Cataracts - developing, Hx Contacts or Glasses - Glasses Denies: Hx Eye Injury, Hx Eye Prosthesis, Hx Legally Blind, Hx Macular Degeneration, Hx Vision Problem Neurological History: Denies: Hx Dementia, Hx Developmental Delay, Hx Headaches, Hx Migraine, Hx Nerve Disease, Hx Seizures, Hx Spinal Cord Injury, Hx Transient Ischemic Attacks (TIA) Comment Only: Other Neuro Impairments/Disorders - vascular alzheimer and parkinsons Psychiatric History: Reports: Hx Depression - history of, a few years ago Denies: Hx Panic Disorder - Cancer History Hx Chemotherapy: No - Surgical History Surgical History: Yes Surgery Procedure, Year, and Place: Diverticulitis surgery 2017 or 2018- [place]. Tonsillectomy as a child. 09/04/18- Cystoscopy, left retrograde, Lithotripsy Left Stent Insertion. ureteral stent 11/2018, [facility] [place]. TURP 2019 Hx Anesthesia Reactions: No - Immunization History Date of Tetanus Vaccine: 2012 Date of Influenza Vaccine: unk Infectious Disease History: No Infectious Disease History: Denies: Hx Clostridium Difficile, Hx Hepatitis, Hx Human Immunodeficiency Virus (HIV), Hx of Known/Suspected MRSA, Hx Shingles, Hx Tuberculosis, Hx Known/ Suspected VRE, Hx Known/Suspected VRSA, History Other Infectious Disease, Traveled Outside the [place] in Last 30 Days - Family History Known Family History: Positive: Hypertension, Diabetes - Social History Occupation: Retired Lives: With Family Alcohol Use: None Hx Substance Use: No Substance Use Type: Reports: None Hx Tobacco Use: Yes Smoking Status (MU): Former Smoker Amount Used/How Often: as a teen x 2 yrs Have You Smoked in the Last Year: No Review of Systems Positive: Other - Negative decreased appetite. Negative: Fever Positive: Cough - Productive with clear/yellow phlegm. Negative: Shortness Of Breath All Other Systems Reviewed And Are Negative: Yes Physical Exam - Summary Physical Exam Summary: Appearance: Well-appearing, Well-nourished, lying in bed comfortably Skin: Warm, dry, no obvious rash Eyes: sclera anicteric, no conjunctival pallor ENT: mucous membranes moist, pharynx appears normal Neck: Supple, nontender Respiratory: Clear to auscultation, no signs of respiratory distress Cardiovascular: Normal S1, S2. No murmurs. Normal distal pulses in tibial and radial bilaterally. Abdomen: Soft, nontender, normal active bowel sounds present Musculoskeletal: Normal, Strength/ROM Intact Neurological: A&Ox3, awake and alert, mentation is normal, speech is fluent and appropriate Psychiatric: affect is normal, does not appear anxious or depressed Triage Information Reviewed: Yes Vital Signs On Initial Exam: Initial Vitals Temp Pulse Resp BP Pulse Ox 97.9 F 98 18 139/87 96 06/28/19 18:37 06/28/19 18:37 06/28/19 18:37 06/28/19 18:37 06/28/19 18:37 Vital Signs Reviewed: Yes Procedures - Sedation Patient Received Moderate/Deep Sedation with Procedure: No Diagnostics - Vital Signs Vital Signs Temp Pulse Resp BP Pulse Ox 06/28/19 20:50 98.3 F 98 21 115/85 96 06/28/19 18:37 97.9 F 98 18 139/87 96 - Laboratory Lab Results: Lab Results 06/28/19 Range/Units 21:31 Sodium 136 (135-145) mmol/L Potassium 3.0 L (3.5-5.0) mmol/L Chloride 101 (101-111) mmol/L Carbon Dioxide 28 (22-32) mmol/L Anion Gap 7 (2-11) mmol/L BUN 29 H (6-24) mg/dL Creatinine 1.29 H (0.67-1.17) mg/dL Est GFR ( Amer) 66.2 (>60) Est GFR (Non-Af Amer) 54.7 (>60) BUN/Creatinine Ratio 22.5 H (8-20) Glucose 86 (70-100) mg/dL Calcium 9.3 (8.6-10.3) mg/dL Total Bilirubin 0.30 (0.2-1.0) mg/dL AST 25 (13-39) U/L ALT 13 (7-52) U/L Alkaline Phosphatase 84 (34-104) U/L Total Protein 7.9 (6.4-8.9) g/dL Albumin 3.7 (3.2-5.2) g/dL Globulin 4.2 H (2-4) g/dL Albumin/Globulin Ratio 0.9 L (1-3) Result Diagrams: 06/28/19 22:28 06/28/19 21:31 Lab Statement: Any lab studies that have been ordered have been reviewed, and results considered in the medical decision making process. - CT Chest CT CT Interpretation Completed By: Radiologist Summary of CT Findings: Chest CT IMPRESSION: 1. Mild posterolateral right upper lobe infiltrate and consolidation and minimal patchy areas of infiltrate or atelectasis involving the right lower lobe and left lung which may reflect pneumonia. There is minimal left pleural effusion. 2. Wedge compression of T12 which appears to be chronic. 3. Borderline mediastinal nodes which may be reactive. 4. Trace pericardial fluid. Reviewed by ED physician. EENT Course/Dx - Course Course Of Treatment: Patient is a 74 y/o M presenting to the ED for a chief complaint of productive cough with clear/yellow phlegm that began 2 weeks ago. Patient is present with his . Patient was previously seen at [facility] and had a chest x-ray performed that showed a pulmonary nodule and pleural effusion. Patient denies fever, decreased appetite, or SOB. Patient has a prostate surgery one month ago that was performed by Dr. Cee. Patient is a former smoker. On exam, unremarkable findings. Laboratory abnormal findings: potassium 3.0, BUN 29, creatinine 1.29, BUN/Creatinine 22/5, globulin 4.2, albumin/globulin 0.9, RBC 4.05, Hgb 11.7, Hct 34, RDW 16, absolute monos 1.1, absolute eos 0.7. Chest CT IMPRESSION: 1. Mild posterolateral right upper lobe infiltrate and consolidation and minimal patchy areas of infiltrate or atelectasis involving the right lower lobe and left lung which may reflect pneumonia. There is minimal left pleural effusion. 2. Wedge compression of T12 which appears to be chronic. 3. Borderline mediastinal nodes which may be reactive. 4. Trace pericardial fluid. Patient will be discharged with a diagnosis of community acquired pneumonia. - Diagnoses Provider Diagnoses: Community acquired pneumonia Discharge ED - Sign-Out/Discharge Documenting (check all that apply): Patient Departure - Discharge - Discharge Plan Condition: Good Disposition: HOME Prescriptions: Benzonatate CAP* [Tessalon 100 MG CAP*] 100 mg PO TID PRN #20 cap PRN Reason: Cough DOXYcycline CAP(*) [DOXYcycline 100MG CAP(*)] 100 mg PO BID #20 cap Patient Education Materials: Bacterial Pneumonia (ED) Referrals: Michael Webster MD [Primary Care Provider] - 3 Days (if not improving. If you are getting better you should have a repeat chest x ray in 3-6 months to make sure the area in the right lung has healed.) - Billing Disposition and Condition Condition: GOOD Disposition: Home - Attestation Statements Document Initiated by Yang: Yes Documenting Scribe: Miley Pate Provider For Whom Yang is Documenting (Include Credential): Esau Arita MD Scribe Attestation: Miley Smith, scribed for Esau Arita MD on 07/02/19 at 0301. Scribe Documentation Reviewed: Yes Provider Attestation: The documentation as recorded by the Miley langston accurately reflects the service I personally performed and the decisions made by Esau bush MD Status of Scribe Document: Viewed
[2019-06-28 22:42] LABS: ABS Basophils 0.1 10^3/ul (0-0.2); ABS Eosinophils 0.7 10^3/ul (0-0.6); ABS Lymphocytes 1.2 10^3/ul (1.0-4.8); ABS Monocytes 1.1 10^3/ul (0-0.8); ABS Neutrophils 6.3 10^3/ul (1.5-7.7); Eosinophil % 7.6 %; Hematocrit 34 % (42-52); Hemoglobin 11.7 g/dL (14.0-18.0); Lymphocyte % 13.3 %; Mean Corpuscular HGB Conc 34 g/dL (31-36); Mean Corpuscular Hemoglobin 29 pg (27-31); Mean Corpuscular Volume 85 fL (80-94); Mean Platelet Volume 7.4 fL (7.4-10.4); Platelet Count 258 10^3/uL (150-450); Red Blood Count 4.05 10^6 /uL (4.18-5.48); Red Cell Distribution Width 16 % (10-15); White Blood Count 9.4 10^3/uL (3.5-10.8)
[2019-06-29] MEDS ORDERED: DOXYcycline CAP(*) 100 MG PO ONE (00:44)
[2019-06-29 01:03] VITALS: BP 136/79
== END 2019-06-29 01:01 | disposition home or self-care (01) ==
LOC: ED 18:35
DX: J18.9 Pneumonia, unspecified organism (principal); M48.54XG Collapsed vertebra, not elsewhere classified, thoracic region, subsequent encounter for fracture with delayed healing; D64.9 Anemia, unspecified; I25.10 Atherosclerotic heart disease of native coronary artery without angina pectoris; I10 Essential (primary) hypertension; K21.9 Gastro-esophageal reflux disease without esophagitis; Z88.1 Allergy status to other antibiotic agents; Z88.8 Allergy status to other drugs, medicaments and biological substances; Z87.891 Personal history of nicotine dependence
CPT/HCPCS: 36415; 71260; 80053; 85025; 99283; A9270-GY; Q9967

== ENCOUNTER 2019-07-22 13:50 | Emergency (ER) | payer MEDICARE ==
--- NOTE | 2019-07-22 17:01 | ED ---
Neurological HPI - HPI Summary HPI Summary: 74 year old M presenting to [facility] accompanied by and daughter complains of weakness since having a witnessed mechanical fall today. states patient recently finished taking antibiotics for dx pneumonia last month. states patient has been weak ever since. states patient was supposed to have an appointment with Dr. Webster this afternoon to have follow up for his pneumonia and discuss physical therapy but was referred to the ED. No fever or decreased appetite. The patient rates the pain 0/10 in severity. Symptoms aggravated by nothing. Symptoms alleviated by nothing. Hx CVA in Fall 2017. - History of Current Complaint Chief Complaint: EDWeakness Stated Complaint: FALL PER PT Time Seen by Provider: 07/22/19 16:50 Hx Obtained From: Patient, Family/Lead Generation Specialist - Onset/Duration: Started hours ago, Still Present Timing: Constant Current Severity: None Pain Intensity: 0 Pain Scale Used: 0-10 Numeric Aggravating: Nothing Alleviating: Nothing Associated Signs and Symptoms: Positive: Negative - decreased appetite. Negative: Fever - Additional Pertinent History Primary Care Physician: CARLYLE - Allergy/Home Medications Allergies/Adverse Reactions: Allergies Allergy/AdvReac Type Severity Reaction Status Date / Time amlodipine Allergy Unknown Unknown Verified 07/22/19 13:56 Reaction Details montelukast [From Singulair] Allergy Unknown Unknown Verified 07/22/19 13:56 Reaction Details formoterol Allergy Unknown Verified 07/22/19 13:56 [From Foradil Aerolizer] Reaction Details irbesartan Allergy Unknown Verified 07/22/19 13:56 Reaction Details lisinopril Allergy Dizziness Verified 07/22/19 13:56 erythromycin base AdvReac Severe Diarrhea Verified 07/22/19 13:56 PMH/Surg Hx/FS Hx/Imm Hx Endocrine/Hematology History: Reports: Hx Anemia - Chronic Denies: Hx Anticoagulant Therapy, Hx Diabetes, Hx Thyroid Disease, Hx Unexplained Bleeding Cardiovascular History: Reports: Hx Coronary Artery Disease - Atherosclerosis, Hx Hypertension - on medication, Other Cardiovascular Problems/Disorders - retinal occlusion left eye Denies: Hx Aneurysm, Hx Angina, Hx Angioplasty, Hx Auto Implanted Cardiovert Defib, Hx Cardiac Arrest, Hx Cardiomegaly, Hx Congenital Heart Disease, Hx Congestive Heart Failure, Hx Deep Vein Thrombosis, Hx Embolism, Hx Hypercholesterolemia, Hx Hypotension, Hx Myocardial Infarction, Hx Pacemaker/ICD , Hx Peripheral Vascular Disease, Hx Rheumatic Fever, Hx Syncope, Hx Valvular Heart Disease Respiratory History: Reports: Hx Asthma - had accupuncture, Hx Pneumonia, Hx Sleep Apnea, Other Respiratory Problems/Disorders - 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 Denies: Hx Chronic Bronchitis, Hx Chronic Obstructive Pulmonary Disease (COPD ), Hx Cystic Fibrosis, Hx Lung Cancer, Hx Pleural Effusion, Hx Pulmonary Edema, Hx Pulmonary Embolism, Hx Seasonal Allergies GI History: Reports: Hx Diverticulosis, Hx Gastroesophageal Reflux Disease - on medication, Hx Irritable Bowel - Diarrhea, Hx Ulcer, Other GI Disorders - Diverticulitis, left inguinal hernia Denies: Hx Cirrhosis, Hx Crohn's Disease, Hx Gall Bladder Disease, Hx Gastrointestinal Bleed, Hx Hiatal Hernia, Hx Jaundice, Hx Ileostomy, Hx Pyloric Stenosis History: Reports: Hx Chronic Renal Failure - stage 2-3, Hx Kidney Stones - Left stones-ureteral stent-thompson catheter in place, Other Problems/Disorders - BPH Musculoskeletal History: Reports: Other Musculoskeletal History - Sciatica, mod- severe compression fx T12 Denies: Hx Tendonitis Sensory History: Reports: Hx Cataracts - developing, Hx Contacts or Glasses - Glasses Denies: Hx Eye Injury, Hx Eye Prosthesis, Hx Legally Blind, Hx Macular Degeneration, Hx Vision Problem, Hx Deafness, Hx Hearing Aid, Hx Hearing Problem Opthamlomology History: Reports: Hx Cataracts - developing, Hx Contacts or Glasses - Glasses Denies: Hx Eye Injury, Hx Eye Prosthesis, Hx Legally Blind, Hx Macular Degeneration, Hx Vision Problem Neurological History: Reports: Hx CVA Denies: Hx Dementia, Hx Developmental Delay, Hx Headaches, Hx Migraine, Hx Nerve Disease, Hx Seizures, Hx Spinal Cord Injury, Hx Transient Ischemic Attacks (TIA) Comment Only: 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 Tonsillectomy as a child. 09/04/18- Cystoscopy, left retrograde, Lithotripsy Left Stent Insertion. ureteral stent 11/2018, [facility] [place]. TURP 2019 Hx Anesthesia Reactions: No - Immunization History Date of Tetanus Vaccine: 2012 Date of Influenza Vaccine: unk Infectious Disease History: No Infectious Disease History: Denies: Hx Clostridium Difficile, Hx Hepatitis, Hx Human Immunodeficiency Virus (HIV), Hx of Known/Suspected MRSA, Hx Shingles, Hx Tuberculosis, Hx Known/ Suspected VRE, Hx Known/Suspected VRSA, History Other Infectious Disease, Traveled Outside the [place] in Last 30 Days - Family History Known Family History: Positive: Hypertension, Diabetes - Social History Alcohol Use: None Hx Substance Use: No Substance Use Type: Reports: None Hx Tobacco Use: Yes Smoking Status (MU): Former Smoker Amount Used/How Often: as a teen x 2 yrs Have You Smoked in the Last Year: No Review of Systems Negative: Fever Gastrointestinal: Negative - decreased appetite Positive: Weakness All Other Systems Reviewed And Are Negative: Yes Physical Exam - Summary Physical Exam Summary: VITAL SIGNS: Reviewed. GENERAL: Patient is a well-developed and nourished MALE who is lying comfortable in the stretcher. Patient is not in any acute respiratory distress. HEAD AND FACE: No signs of trauma. No ecchymosis, hematomas or skull depressions. No sinus tenderness. EYES: PERRLA, EOMI x 2, No injected conjunctiva, no nystagmus. EARS: Hearing grossly intact. Ear canals and tympanic membranes are within normal limits. MOUTH: Oropharynx within normal limits. NECK: Supple, trachea is midline, no adenopathy, no JVD, no carotid bruit, no c- spine tenderness, neck with full ROM. CHEST: Symmetric, no tenderness at palpation. LUNGS: Clear to auscultation bilaterally. No wheezing or crackles. CVS: Regular rate and rhythm, S1 and S2 present, no murmurs or gallops appreciated. ABDOMEN: Soft, non-tender. No signs of distention. No rebound, no guarding, and no masses palpated. Bowel sounds are normal. EXTREMITIES: FROM in all major joints, no edema, no cyanosis or clubbing. NEURO: Alert and oriented x 3. No acute neurological deficits. Speech is normal and follows commands. SKIN: Dry and warm. GCS: 15 Triage Information Reviewed: Yes Vital Signs On Initial Exam: Initial Vitals Temp Pulse Resp BP Pulse Ox 98.3 F 77 16 108/77 94 07/22/19 13:53 07/22/19 13:53 07/22/19 13:53 07/22/19 13:53 07/22/19 13:53 Vital Signs Reviewed: Yes Procedures - Sedation Patient Received Moderate/Deep Sedation with Procedure: No Diagnostics - Vital Signs Vital Signs Temp Pulse Resp BP Pulse Ox 07/22/19 16:28 98.1 F 65 14 116/72 97 07/22/19 13:53 98.3 F 77 16 108/77 94 - Laboratory Result Diagrams: 07/22/19 17:39 07/22/19 17:39 Lab Statement: Any lab studies that have been ordered have been reviewed, and results considered in the medical decision making process. - Radiology CXR Radiology Interpretation Completed By: Radiologist Summary of Radiographic Findings: #. Persistent 2.5 cm diameter region of consolidation or nodule at the posterior segment of the RIGHT upper lobe is concerning for potential bronchogenic carcinoma. Consider PET CT or image guided biopsy for further assessment. ED physician has reviewed this report. - CT BRAIN CT Interpretation Completed By: Radiologist Summary of CT Findings: #. No traumatic injury or other acute intracranial process evident. #. Involutional change and stigmata of chronic small vessel ischemic disease. ED physician has reviewed this report. - EKG 1704 Cardiac Rate: NL - 63 BPM EKG Rhythm: Sinus Rhythm Summary of EKG Findings: No ST elevations Re-Evaluation - Re-Evaluation First Eval Re-Evaluation Time: 19:33 Comment: patient would like to go home. he agrees to d/c Course/Dx - Course Assessment/Plan: 74 year old M presenting to [facility] accompanied by and daughter complains of weakness since having a witnessed mechanical fall today. states patient recently finished taking antibiotics for dx pneumonia last month. states patient has been weak ever since. states patient was supposed to have an appointment with Dr. Webster this afternoon to have follow up for his pneumonia but was referred to the ED. No fever or decreased appetite. The patient rates the pain 0/10 in severity. Symptoms aggravated by nothing. Symptoms alleviated by nothing. Hx CVA in Fall 2017. Blood work without any significant abnormality except for slight anemia, BUN is 41, creatinine 1.4, CRP of 14.05. CXR IMPRESSION: #. Persistent 2.5 cm diameter region of consolidation or nodule at the posterior segment of the RIGHT upper lobe is concerning for potential bronchogenic carcinoma. Consider PET CT or image guided biopsy for further assessment. Head CT IMPRESSION: #. No traumatic injury or other acute intracranial process evident. #. Involutional change and stigmata of chronic small vessel ischemic disease. In the ED patient was given IV fluids for dehydration. He is eating and drinking w/o any nausea or vomiting. I discussed the case with Dr. Carmona from the hospitalist services and accepts the patient for admission as a half-way admission. I explain the patient the half-way admission and they decided to go home and f/u with PCP. I discussed all the findings and test results with the patient. Patient was instructed to return to the emergency room immediately if any of the symptoms return worsens. Plan of care was discussed with the patient and understands and agrees. All questions were answered at patient satisfaction. There were no further complaints or concerns. Lung exam before discharge: CTA B/ L. Good air exchange. No wheezing or crackles heard. CVS: S1 and S2 present. No murmurs appreciated. Patient is alert and oriented x 3. Patient is hemodynamically stable. Patient will be discharged home with follow up PCP in the next 2-3 days - Diagnoses Provider Diagnoses: Weakness, Dehydration Discharge ED - Sign-Out/Discharge Documenting (check all that apply): Patient Departure - Discharge - Discharge Plan Condition: Stable Disposition: HOME Patient Education Materials: Dehydration (ED), Weakness (ED) Referrals: Michael Webster MD [Primary Care Provider] - 3 Days Additional Instructions: Follow up with your primary care provider in 3 days. Return to the Emergency Department for new or worsening symptoms. - Billing Disposition and Condition Condition: STABLE Disposition: Home - Attestation Statements Document Initiated by Yang: Yes Documenting Scribe: Itzel Guan Provider For Whom Yang is Documenting (Include Credential): Saqib Hicks MD Scribe Attestation: IItzel, scribed for Saqib Hicks MD on 07/23/19 at 0785. Scribe Documentation Reviewed: Yes Provider Attestation: The documentation as recorded by the Itzel langston accurately reflects the service I personally performed and the decisions made by me, Saqib Hicks MD Status of Scribe Document: Viewed
[2019-07-22 18:01] LABS: ABS Basophils 0.1 10^3/ul (0-0.2); ABS Eosinophils 0.6 10^3/ul (0-0.6); ABS Lymphocytes 1.2 10^3/ul (1.0-4.8); ABS Monocytes 0.8 10^3/ul (0-0.8); ABS Neutrophils 6.3 10^3/ul (1.5-7.7); Eosinophil % 6.9 %; Hematocrit 37 % (42-52); Hemoglobin 12.6 g/dL (14.0-18.0); Lymphocyte % 13.5 %; Mean Corpuscular HGB Conc 34 g/dL (31-36); Mean Corpuscular Hemoglobin 29 pg (27-31); Mean Corpuscular Volume 84 fL (80-94); Mean Platelet Volume 7.8 fL (7.4-10.4); Nucleated Red Blood Cells % 0.1; Platelet Count 276 10^3/uL (150-450); Red Cell Distribution Width 17 % (10-15); White Blood Count 9.1 10^3/uL (3.5-10.8)
[2019-07-22 18:13] LABS: Troponin I 0.01 ng/mL (<0.03)
[2019-07-22 18:14] LABS: ALT 9 U/L (7-52); AST 14 U/L (13-39); Albumin 3.5 g/dL (3.2-5.2); Albumin/Globulin Ratio 0.8 (1-3); Alcohol < 10 mg/dL (<10); Alkaline Phosphatase 93 U/L (34-104); Anion Gap 7 mmol/L (2-11); BUN/Creatinine Ratio 30.5 (8-20); Blood Urea Nitrogen 43 mg/dL (6-24); C Reactive Protein 14.05 mg/L (<8.01); CO2 Carbon Dioxide 28 mmol/L (22-32); Calcium 9.8 mg/dL (8.6-10.3); Chloride 101 mmol/L (101-111); Creatine Kinase 91 U/L (10-223); EGFR African American 59.8 (>60); EGFR Non-African American 49.4 (>60); Globulin 4.5 g/dL (2-4); Glucose 99 mg/dL (70-100); Magnesium 2.1 mg/dL (1.9-2.7); Potassium 3.7 mmol/L (3.5-5.0); Sodium 136 mmol/L (135-145)
[2019-07-22 18:16] LABS: Activated Partial Thrombo Time 34.4 seconds (26.0-38.0); INR 1.05 (0.82-1.09)
[2019-07-22 18:26] LABS: TSH (Thyroid Stimulating Horm) 1.77 mcIU/mL (0.34-5.60)
[2019-07-22] MEDS ORDERED: NS 0.9% 1000 ML** 1,000 ML IV ONE (19:01)
[2019-07-22 19:45] LABS: Urine Appearance Turbid; Urine Bilirubin Negative (Negative); Urine Blood Negative (Negative); Urine Color Yellow; Urine Glucose Negative (Negative); Urine Ketones Negative (Negative); Urine Nitrite Positive (Negative); Urine Protein 1+(30 mg/dL) (Negative); Urine Specific Gravity 1.021 (1.010-1.030); Urine Urobilinogen Negative (Negative)
[2019-07-22 19:53] LABS: Urine Bacteria 3+ (Absent); Urine Red Blood Cell 3+(>10/hpf) (Absent); Urine Squamous Epithelial Cell Present (Absent); Urine White Blood Cell 3+(>20/hpf) (Absent)
[2019-07-22 20:13] VITALS: BP 157/98
== END 2019-07-22 20:12 | disposition home or self-care (01) ==
LOC: ED 13:50
DX: R53.1 Weakness (principal); E86.0 Dehydration; D64.9 Anemia, unspecified; I25.10 Atherosclerotic heart disease of native coronary artery without angina pectoris; I10 Essential (primary) hypertension; J45.909 Unspecified asthma, uncomplicated; K21.9 Gastro-esophageal reflux disease without esophagitis; Z86.73 Personal history of transient ischemic attack (TIA), and cerebral infarction without residual deficits; Z87.891 Personal history of nicotine dependence; Z79.899 Other long term (current) drug therapy; Z88.8 Allergy status to other drugs, medicaments and biological substances
CPT/HCPCS: 36415; 70450; 71046; 80053; 80320; 81003; 81015; 82550; 83605; 83735; 83880; 84443; 84484; 85025; 85610; 85730; 86140; 87086; 93005; 96360; 99283; G0480

== ENCOUNTER 2019-09-11 14:54 | Emergency (ER) | payer MEDICARE ==
--- NOTE | 2019-09-11 15:34 | ED ---
Complex/Multi-Sys Presentation - HPI Summary HPI Summary: This patient is a 74 year old male presenting to [facility] with a chief complaint of cough, weakness. He denies Fever, SOB. He wad diagnosed with pneumonia one month ago and his symptoms have not resolved since then. In the last several days he has not been able to walk with his walker very weel. His PCP Dr. Webster' s office called for him to come here to be evaluated for physical therapy. Medication reviewed, allergies noted. - History Of Current Complaint Chief Complaint: EDWeakness Time Seen by Provider: 09/11/19 15:04 Hx Obtained From: Patient Onset/Duration: Lasting Weeks - Allergies/Home Medications Allergies/Adverse Reactions: Allergies Allergy/AdvReac Type Severity Reaction Status Date / Time amlodipine Allergy Unknown Unknown Verified 07/22/19 13:56 Reaction Details montelukast [From Singulair] Allergy Unknown Unknown Verified 07/22/19 13:56 Reaction Details formoterol Allergy Unknown Verified 07/22/19 13:56 [From Foradil Aerolizer] Reaction Details irbesartan Allergy Unknown Verified 07/22/19 13:56 Reaction Details lisinopril Allergy Dizziness Verified 07/22/19 13:56 erythromycin base AdvReac Severe Diarrhea Verified 07/22/19 13:56 PMH/Surg Hx/FS Hx/Imm Hx Endocrine/Hematology History: Reports: Hx Anemia - Chronic Denies: Hx Anticoagulant Therapy, Hx Diabetes, Hx Thyroid Disease, Hx Unexplained Bleeding Cardiovascular History: Reports: Hx Coronary Artery Disease - Atherosclerosis, Hx Hypertension - on medication, Other Cardiovascular Problems/Disorders - retinal occlusion left eye Denies: Hx Aneurysm, Hx Angina, Hx Angioplasty, Hx Auto Implanted Cardiovert Defib, Hx Cardiac Arrest, Hx Cardiomegaly, Hx Congenital Heart Disease, Hx Congestive Heart Failure, Hx Deep Vein Thrombosis, Hx Embolism, Hx Hypercholesterolemia, Hx Hypotension, Hx Myocardial Infarction, Hx Pacemaker/ICD , Hx Peripheral Vascular Disease, Hx Rheumatic Fever, Hx Syncope, Hx Valvular Heart Disease Respiratory History: Reports: Hx Asthma - had accupuncture, Hx Pneumonia, Hx Sleep Apnea, Other Respiratory Problems/Disorders - 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 Denies: Hx Chronic Bronchitis, Hx Chronic Obstructive Pulmonary Disease (COPD ), Hx Cystic Fibrosis, Hx Lung Cancer, Hx Pleural Effusion, Hx Pulmonary Edema, Hx Pulmonary Embolism, Hx Seasonal Allergies GI History: Reports: Hx Diverticulosis, Hx Gastroesophageal Reflux Disease - on medication, Hx Irritable Bowel - Diarrhea, Hx Ulcer, Other GI Disorders - Diverticulitis, left inguinal hernia Denies: Hx Cirrhosis, Hx Crohn's Disease, Hx Gall Bladder Disease, Hx Gastrointestinal Bleed, Hx Hiatal Hernia, Hx Jaundice, Hx Ileostomy, Hx Pyloric Stenosis History: Reports: Hx Chronic Renal Failure - stage 2-3, Hx Kidney Stones - Left stones-ureteral stent-thompson catheter in place, Other Problems/Disorders - BPH Musculoskeletal History: Reports: Other Musculoskeletal History - Sciatica, mod- severe compression fx T12 Denies: Hx Tendonitis Sensory History: Reports: Hx Cataracts - developing, Hx Contacts or Glasses - Glasses Denies: Hx Eye Injury, Hx Eye Prosthesis, Hx Legally Blind, Hx Macular Degeneration, Hx Vision Problem, Hx Deafness, Hx Hearing Aid, Hx Hearing Problem Opthamlomology History: Reports: Hx Cataracts - developing, Hx Contacts or Glasses - Glasses Denies: Hx Eye Injury, Hx Eye Prosthesis, Hx Legally Blind, Hx Macular Degeneration, Hx Vision Problem Neurological History: Reports: Hx CVA Denies: Hx Dementia, Hx Developmental Delay, Hx Headaches, Hx Migraine, Hx Nerve Disease, Hx Seizures, Hx Spinal Cord Injury, Hx Transient Ischemic Attacks (TIA) Comment Only: Other Neuro Impairments/Disorders - vascular alzheimer and parkinsons Psychiatric History: Reports: Hx Depression - history of, a few years ago Denies: Hx Panic Disorder - Cancer History Hx Chemotherapy: No - Surgical History Surgery Procedure, Year, and Place: Diverticulitis surgery 2017 or 2018- [place]. Tonsillectomy as a child. 09/04/18- Cystoscopy, left retrograde, Lithotripsy Left Stent Insertion. ureteral stent 11/2018, [facility] [place]. TURP 2019 Hx Anesthesia Reactions: No - Immunization History Date of Tetanus Vaccine: 2012 Date of Influenza Vaccine: none Infectious Disease History: No Infectious Disease History: Denies: Hx Clostridium Difficile, Hx Hepatitis, Hx Human Immunodeficiency Virus (HIV), Hx of Known/Suspected MRSA, Hx Shingles, Hx Tuberculosis, Hx Known/ Suspected VRE, Hx Known/Suspected VRSA, History Other Infectious Disease, Traveled Outside the [place] in Last 30 Days - Family History Known Family History: Positive: Hypertension, Diabetes - Social History Alcohol Use: None Hx Substance Use: No Substance Use Type: Reports: None Hx Tobacco Use: Yes Smoking Status (MU): Former Smoker Amount Used/How Often: as a teen x 2 yrs Have You Smoked in the Last Year: No Review of Systems Negative: Fever Positive: Cough. Negative: Shortness Of Breath Positive: Weakness All Other Systems Reviewed And Are Negative: Yes Physical Exam - Summary Physical Exam Summary: Constitutional: Well-developed, Well-nourished, Alert. (-) Distressed Skin: Warm, Dry HENT: Normocephalic; Atraumatic Eyes: Conjunctiva normal Neck: Musculoskeletal ROM normal neck. (-) JVD, (-) Stridor, (-) Tracheal deviation Cardio: Rhythm regular, rate normal, Heart sounds normal; Intact distal pulses; Radial pulses are 2+ and symmetric. (-) Murmur Pulmonary/Chest wall: Effort normal. (-) Respiratory distress, (-) Wheezes, (-) Rales Abd: Soft, (-) tenderness, (-) Distension, (-) Guarding, (-) Rebound Musculoskeletal: (-) Edema Lymph: (-) Cervical adenopathy Neuro: Alert, Oriented x3 Psych: Mood and affect Normal Triage Information Reviewed: Yes Vital Signs On Initial Exam: Initial Vitals Temp Pulse Resp BP Pulse Ox 97.4 F 81 18 115/62 93 09/11/19 14:59 09/11/19 14:59 09/11/19 14:59 09/11/19 14:59 09/11/19 14:59 Vital Signs Reviewed: Yes Procedures - Sedation Patient Received Moderate/Deep Sedation with Procedure: No Diagnostics - Vital Signs Vital Signs Temp Pulse Resp BP Pulse Ox 09/11/19 14:59 97.4 F 81 18 115/62 93 - Laboratory Result Diagrams: 09/11/19 15:47 09/11/19 15:47 Lab Statement: Any lab studies that have been ordered have been reviewed, and results considered in the medical decision making process. - Radiology CXR Radiology Interpretation Completed By: Radiologist Summary of Radiographic Findings: COPD. Small left pleural effusion. ED Provider has reviewed this report. - EKG 1619 Cardiac Rate: NL - 74 BPM EKG Rhythm: Sinus Rhythm Summary of EKG Findings: No STEMI. ED Physician has reviewed and interpreted this EKG. Complex Multi-Symp Course/Dx Course Of Treatment: Patient is here with deconditioning after being treated for pneumonia. Patient is overall well-appearing. Patient had a negative chest x-ray for pneumonia in only showed a small left pleural effusion. Patient had one performed which showed no change from his baseline. Patient's symptoms have evaluation but it is Friday so patient would need a half-way admission until Friday to be evaluated. Family was offered a half-way admission but was made where they will likely pay a for it out of pocket. [employer] factory worker was called and recommended family calling office for the aging on Friday. Family was comfortable with this plan. - Diagnoses Provider Diagnoses: Physical deconditioning, Chronic kidney disease, Pleural effusion, left Discharge ED - Sign-Out/Discharge Documenting (check all that apply): Patient Departure - Discharge - Discharge Plan Condition: Stable Disposition: HOME Referrals: Michael Webster MD [Primary Care Provider] - 3 Days Additional Instructions: [facility] [address] [facility]) [place] [address] Come back with chest pain, trouble breathing, or any other concerning symptoms. - Billing Disposition and Condition Condition: STABLE Disposition: Home - Attestation Statements Document Initiated by Yang: Yes Documenting Scribe: Nawaf Barrientos Provider For Whom Yang is Documenting (Include Credential): Spenser Moreira MD Scribe Attestation: Nawaf Smith, scribed for Spenser Moreira MD on 09/11/19 at 1842. Scribe Documentation Reviewed: Yes Provider Attestation: The documentation as recorded by the Nawaf langston accurately reflects the service I personally performed and the decisions made by me, Spenser Moreira MD Status of Scribe Document: Viewed
[2019-09-11 15:58] LABS: ABS Basophils 0.1 10^3/ul (0-0.2); ABS Eosinophils 0.3 10^3/ul (0-0.6); ABS Lymphocytes 1.1 10^3/ul (1.0-4.8); ABS Monocytes 0.8 10^3/ul (0-0.8); ABS Neutrophils 7.1 10^3/ul (1.5-7.7); Eosinophil % 2.8 %; Hematocrit 38 % (42-52); Hemoglobin 12.7 g/dL (14.0-18.0); Lymphocyte % 11.6 %; Mean Corpuscular HGB Conc 34 g/dL (31-36); Mean Corpuscular Hemoglobin 29 pg (27-31); Mean Corpuscular Volume 86 fL (80-94); Mean Platelet Volume 7.8 fL (7.4-10.4); Platelet Count 253 10^3/uL (150-450); Red Blood Count 4.38 10^6 /uL (4.18-5.48); Red Cell Distribution Width 16 % (10-15); White Blood Count 9.4 10^3/uL (3.5-10.8)
[2019-09-11 16:14] LABS: Albumin 3.7 g/dL (3.2-5.2); Albumin/Globulin Ratio 0.9 (1-3); BUN/Creatinine Ratio 35.3 (8-20); Calcium 9.2 mg/dL (8.6-10.3); EGFR Non-African American 52.9 (>60); Globulin 3.9 g/dL (2-4); Potassium 3.3 mmol/L (3.5-5.0); Total Bilirubin 0.4 mg/dL (0.2-1.0); Total Protein 7.6 g/dL (6.4-8.9)
[2019-09-11 16:16] LABS: Troponin I 0.01 ng/mL (<0.03)
[2019-09-11 18:47] VITALS: BP 127/86
== END 2019-09-11 18:38 | disposition home or self-care (01) ==
LOC: ED 14:54
DX: R53.81 Other malaise (principal); I13.0 Hypertensive heart and chronic kidney disease with heart failure and stage 1 through stage 4 chronic kidney disease, or unspecified chronic kidney disease; N18.3 Chronic kidney disease, stage 3 (moderate); J90 Pleural effusion, not elsewhere classified; J44.9 Chronic obstructive pulmonary disease, unspecified; K21.9 Gastro-esophageal reflux disease without esophagitis; Z88.1 Allergy status to other antibiotic agents; Z88.8 Allergy status to other drugs, medicaments and biological substances; Z87.891 Personal history of nicotine dependence
CPT/HCPCS: 36415; 71046; 80053; 83880; 84484; 85025; 93005; 99282

== ENCOUNTER 2019-10-15 12:45 | Inpatient (IN) | payer MEDICARE ==
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
[2019-10-15 13:50] LABS: ABS Eosinophils 0.2 10^3/ul (0-0.6); ABS Lymphocytes 0.8 10^3/ul (1.0-4.8); ABS Monocytes 0.7 10^3/ul (0-0.8); ABS Neutrophils 6.8 10^3/ul (1.5-7.7); Eosinophil % 1.9 %; Hematocrit 39 % (42-52); Hemoglobin 13.3 g/dL (14.0-18.0); Lymphocyte % 9.5 %; Mean Corpuscular HGB Conc 34 g/dL (31-36); Mean Corpuscular Hemoglobin 29 pg (27-31); Mean Corpuscular Volume 86 fL (80-94); Mean Platelet Volume 7.6 fL (7.4-10.4); Platelet Count 199 10^3/uL (150-450); Red Blood Count 4.57 10^6 /uL (4.18-5.48); Red Cell Distribution Width 17 % (10-15); White Blood Count 8.5 10^3/uL (3.5-10.8)
[2019-10-15 13:58] LABS: Activated Partial Thrombo Time 35.3 seconds (26.0-38.0); INR 1.11 (0.82-1.09)
[2019-10-15 14:14] LABS: Albumin 3.8 g/dL (3.2-5.2); BUN/Creatinine Ratio 26.9 (8-20); Calcium 9.5 mg/dL (8.6-10.3); EGFR African American 57.9 (>60); EGFR Non-African American 47.8 (>60); Globulin 3.9 g/dL (2-4); Potassium 3.9 mmol/L (3.5-5.0); Total Bilirubin 0.4 mg/dL (0.2-1.0); Total Protein 7.7 g/dL (6.4-8.9)
[2019-10-15] MEDS ORDERED: NS 0.9% 1000 ML** 1,000 ML IV ONE (15:31)
[2019-10-15] MEDS ORDERED: Ondansetron INJ* 2 MG/ML VIAL IV PRN (15:48)
[2019-10-15] MEDS ORDERED: Acetaminophen TAB* 325 MG PO PRN (15:48)
--- NOTE | 2019-10-15 19:26 | HP ---
CC: Dr. Webster HISTORY AND PHYSICAL: DATE OF ADMISSION: 10/15/19 PRIMARY CARE PHYSICIAN: Dr. Webster. CHIEF COMPLAINT: Generalized weakness. SUBJECTIVE: This is a 74-year-old male who was brought into the emergency room by his secondary to increased weakness which has been progressively getting worse for the past several weeks. At least the past 2 weeks, she is unable to care for him at home. He was in the emergency room 3 to 4 weeks prior for similar complaint. At that time, he was offered admission for prison care pending placement, they declined and a referral for outpatient rehab was made. Physical therapy at home saw the patient today and he was evaluated. He has been having increase fall at home and is unable to use his walker for weeks. Physical Therapy did not deem him stable to be home and he was referred to the emergency room. He presented today to the emergency room and today he was seen by our social/case coordinator and he remained not a candidate for inpatient. Initial ER ER workup was unremarkable. An attempt to obtain UA for UTI rule out was traumatic and currently the patient is with gross hematuria. He was offered prison for which the has agreed at this time. PAST MEDICAL HISTORY: 1. Anemia. 2. Coronary artery disease. 3. Hypertension. 4. History of asthma. 5. History of pneumonia. 6. History of sleep apnea. 7. Pulmonary hypertension. 8. History of GERD. 9. IBS. 10. History of chronic kidney disease. 11. History of BPH, status post TURP. 12. History of kidney stone. 13. History of sciatica. 14. History of cataract. 15. History of CVA. 16. Parkinson's (does not have neurology outpatient) 17. Dementia PAST SURGICAL HISTORY: 1. Tonsillectomy. 2. Cystoscopy. 3. Lithotripsy. 4. TURP. ALLERGIES: Allergic to AMLODIPINE, SINGULAIR, FORMOTEROL, LISINOPRIL, IRBESARTAN, ERYTHROMYCIN. FAMILY HISTORY: Significant for hypertension and diabetes. SOCIAL HISTORY: No history of alcohol or tobacco use. REVIEW OF SYSTEMS: As per HPI, otherwise unremarkable. PHYSICAL EXAMINATION VITAL SIGNS: Temperature 98.5, pulse 65, respiratory rate 14, satting 97%. GENERAL: He is awake, alert, disoriented to time, alert to person and place, follows simple commands. HEENT: Head and Neck: Normocephalic, atraumatic. Supple. LUNGS: Good airflow bilaterally. CARDIOVASCULAR: S1, S2. Regular rate and rhythm. ABDOMEN: Positive bowel sounds. Soft, nontender, nondistended. EXTREMITIES: Generalized lower extremity weakness. Difficulty lifting his legs. +3/5 bilateral lower extremities. DIAGNOSTIC STUDIES/LAB DATA: CBC: White count 8.5, hemoglobin 13, hematocrit 39, platelets 199. INR 1. Chemistry: Sodium 138, potassium 3.9, BUN 39, creatinine 1.4, glucose 108, lactic acid 1.9. Troponin 0.0. Albumin 3.8. Chest x-ray: No acute infiltrate. No acute pulmonary disease. Urinalysis unable to be obtained. Attempt for urinary catheter unfortunately was not successful, left the patient with traumatic hematuria. Therefore, no further catheter attempt has been made. IMPRESSION AND PLAN: This is a 74-year-old male who comes in by his secondary to generalized weakness. He is being admitted under the prison care. 1. Generalized weakness, progressive deconditioning with underlying Parkinson' s and dementia. - We will obtain PT/OT - perinatal social worker for possible placement fro STR. He is being admitted under prison care. 2. Hematuria secondary to traumatic Begum catheter attempt. - I discuss over the phone with urology Dr. Scott covering for Dr. Cee. - He did not recommend Begum catheter given his hx of BPH s/p TURP, urethral stricture - Currently on IVF and is voiding well - Will monitor with bladder scan and will avoid any further Begum catheter placement - His UA is positive but I think is mainly due to traumatic catheter. Will order it again once his hematuria is clear 3. Hypertension. Continue his chlorthalidone, losartan, and metoprolol. 4. Gastroesophageal reflux disease. Continue pantoprazole. 5. Hx of dementia and parkinson's - He does not have neurology outpatient 6. DVT proph - SCD avoid heparin now due to hematuria [id number]/[facility] [place] #: [id number] [facility]
[2019-10-16] MEDS: NS 0.9% 1000 ML** 1,000 ML IV SCH ×2 (00:40→10:43)
[2019-10-16 07:19] LABS: Urine Appearance Cloudy; Urine Bilirubin Negative (Negative); Urine Blood 3+ (Negative); Urine Color Yellow; Urine Glucose Negative (Negative); Urine Ketones Negative (Negative); Urine Nitrite Positive (Negative); Urine Protein 1+(30 mg/dL) (Negative); Urine Urobilinogen Negative (Negative)
[2019-10-16 07:24] LABS: Urine Bacteria 3+ (Absent); Urine Red Blood Cell 3+(>10/hpf) (Absent); Urine White Blood Cell 3+(>20/hpf) (Absent)
[2019-10-16] MEDS ORDERED: Influenza VAC *QUAD* 2019-20* 0.5 ML SYRINGE IM ONE (09:00)
[2019-10-16] MEDS ORDERED: Pneumococcal *Vac Polyvalent 0.5 ML VIAL IM ONE (09:00)
[2019-10-16] MEDS: Lactobacillus Acidophilus* 1 TAB PO SCH (10:08)
[2019-10-16] MEDS: Metoprolol Succinate XL TAB* 100 MG PO SCH (10:08)
[2019-10-16] MEDS: Ferrous Sulfate TAB* 325 MG PO SCH (10:09)
[2019-10-16] MEDS: Losartan TAB* 25 MG PO SCH (10:09)
[2019-10-16] MEDS: Pantoprazole TAB * 40 MG TAB PO SCH (10:09)
[2019-10-16] MEDS: Chlorthalidone TAB* 50 MG PO SCH (10:09)
[2019-10-16] MEDS ORDERED: Furosemide IV* 10 MG/ML 2 ML VIAL (20 MG) IV ONE (11:28)
--- NOTE | 2019-10-16 12:22 | PN ---
Subjective Date of Service: 10/16/19 Interval History: Patient seen today, awake. His Hematuria has resolved. Clear urine. Will order repeat UA today to ensure his initial UA was not contaminate due to hematuria. Upon further reviewing his records. He was seen in [address] Patel and the patient did have MRI at that time of his brain and differential was CVA and dementia and vascular parkinsonism. His daughter at bedside states that he never was strong enough to make his outpatients appointment Past Medical History: Unchanged from Admission Objective Active Medications: Acetaminophen (Tylenol Tab*) 650 mg PO Q4H PRN PRN Reason: PAIN - MILD Chlorthalidone (Hygroton Tab*) 25 mg PO DAILY [facility] Last Admin: 10/16/19 10:09 Dose: 25 mg Ferrous Sulfate (Ferrous Sulfate Tab*) 325 mg PO DAILY [facility] Last Admin: 10/16/19 10:09 Dose: 325 mg Lactobacillus Rhamnosus (Lactobacillus Acidophilus*) 2 tab PO DAILY [facility] Last Admin: 10/16/19 10:08 Dose: 2 tab Losartan Potassium ([facility]zaar Tab*) [facility] [place] Admin: 10/16/19 10:09 Dose: 50 mg Metoprolol Succinate (Toprol Xl Tab*) [facility] [place] Last Admin: 10/16/19 10:08 Dose: 100 mg Pantoprazole Sodium (Protonix Tab*) [facility] [place] Last Admin: 10/16/19 10:09 Dose: 40 mg Vital Signs - 8 hr 10/16/19 10/16/19 10/16/19 07:00 07:25 08:00 Temperature 98.2 F 97 F Pulse Rate 65 65 Respiratory 16 20 16 Rate Blood Pressure 142/80 127/69 (mmHg) O2 Sat by Pulse 95 95 95 Oximetry 10/16/19 11:15 Temperature 97.8 F Pulse Rate 75 Respiratory 20 Rate Blood Pressure 129/73 (mmHg) O2 Sat by Pulse 96 Oximetry Oxygen Devices in Use Now: None Appearance: Awake, alert no distress. pleasant confused Eyes: No Scleral Icterus, - - EOMI Ears/Nose/Mouth/Throat: Clear Oropharnyx, Mucous Membranes Moist Neck: NL Appearance and Movements; NL JVP, Trachea Midline Respiratory: Symmetrical Chest Expansion and Respiratory Effort, Clear to Auscultation Cardiovascular: NL Sounds; No Murmurs; No JVD Abdominal: NL Sounds; No Tenderness; No Distention Extremities: No Edema Neurological: Alert and Oriented x 3 Result Diagrams: 10/15/19 13:39 10/15/19 13:39 Assess/Plan/Problems-Billing Assessment: 74 y/o male admitted for increase weakness and difficulty caring for self and difficulty at home with his . He does have a history of dementia and vascular parkinsonism - Patient Problems (1) Weakness Current Visit: No Status: Acute Code(s): R53.1 - WEAKNESS SNOMED Code(s): 79730828 Comment: - He has not been able to use his walker for weeks to months as per his daughter - I reviewed records from 2018 and he has not seen neurology as outpatient due to difficulty getting him to his appointment. He had a working differential diagnosis of possible dementia and vascular parkinsonism. I did ask Dr. Patel to re-evaluate him for further stratification of his cognitive and neurlogical weakness. - He is not on aspirin as her home meds. Given MRI from 2018 I will wait for neuro input before reinitiating his aspirin - PT/OT has been ordered and awating placement (2) History of CVA (cerebrovascular accident) Current Visit: No Status: Acute Code(s): Z86.73 - PRSNL HX OF TIA (TIA), AND CEREB INFRC W/O RESID DEFICITS SNOMED Code(s): 169182478 Comment: - He has not been able to use his walker for weeks to months as per his daughter - I reviewed records from 2018 and he has not seen neurology as outpatient due to difficulty getting him to his appointment. He had a working differential diagnosis of possible dementia and vascular parkinsonism. I did ask Dr. Patel to re-evaluate him for further stratification of his cognitive and neurlogical weakness. - He is not on aspirin as her home meds. Given MRI from 2018 I will wait for neuro input before reinitiating his aspirin - PT/OT has been ordered and awating placement (3) Hematuria Current Visit: Yes Status: Acute Code(s): R31.9 - HEMATURIA, UNSPECIFIED SNOMED Code(s): 11782611 Comment: - S/p TURP (02/10/19), with urinary incontinence - f/u urology outpatient - Developed hematuria after attempt for thompson cath in the ER for UA sample. It has resolved since. Will repeat UA now if able to obtain one (4) BPH (benign prostatic hyperplasia) Current Visit: No Status: Acute Code(s): N40.0 - BENIGN PROSTATIC HYPERPLASIA WITHOUT LOWER URINRY TRACT SYMP SNOMED Code(s): 585213211 Comment: - S/p TURP (02/10/19), with urinary incontinence - f/u urology outpatient - Developed hematuria after attempt for thompson cath in the ER for UA sample. It has resolved since. Will repeat UA now if able to obtain one (5) GERD (gastroesophageal reflux disease) Current Visit: No Status: Acute Code(s): K21.9 - GASTRO-ESOPHAGEAL REFLUX DISEASE WITHOUT ESOPHAGITIS SNOMED Code(s): 168375083 Comment: -Continue Pantoprazole 40 mg am (6) HTN (hypertension) Current Visit: No Status: Acute Code(s): I10 - ESSENTIAL (PRIMARY) HYPERTENSION SNOMED Code(s): 13029787 Comment: - Continue metoprolol 100 mg AM and losartan 50 mg pm and chrolthalidone 25 mg daily (7) DVT prophylaxis Current Visit: No Status: Acute Code(s): NCA0320 - SNOMED Code(s): 256234160 Comment: - SCD given his hematuria. Will reassess in am
[2019-10-16 15:23] LABS: TSH (Thyroid Stimulating Horm) 2.08 mcIU/mL (0.34-5.60)
[2019-10-16 15:34] LABS: Folate 11.61 ng/mL (>3.99)
[2019-10-17] MEDS: Ferrous Sulfate TAB* 325 MG PO SCH (08:24)
[2019-10-17] MEDS: Losartan TAB* 25 MG PO SCH (08:24)
[2019-10-17] MEDS: Pantoprazole TAB * 40 MG TAB PO SCH (08:25)
[2019-10-17] MEDS: Chlorthalidone TAB* 50 MG PO SCH (08:25)
[2019-10-17] MEDS: Lactobacillus Acidophilus* 1 TAB PO SCH (08:25)
[2019-10-17] MEDS: Metoprolol Succinate XL TAB* 100 MG PO SCH (08:25)
--- NOTE | 2019-10-17 12:13 | PN ---
Subjective Date of Service: 10/17/19 Interval History: Patient seen today. appears pleasant. no acute distress. tolerating po. no acute need. awaiting social evaluation and placement for rehab under detention care Past Medical History: Unchanged from Admission Objective Active Medications: Acetaminophen (Tylenol Tab*) 650 mg PO Q4H PRN PRN Reason: PAIN - MILD Chlorthalidone (Hygroton Tab*) 25 mg PO DAILY [facility] Last Admin: 10/17/19 08:25 Dose: 25 mg Ferrous Sulfate (Ferrous Sulfate Tab*) 325 mg PO DAILY [facility] Last Admin: 10/17/19 08:24 Dose: 325 mg Lactobacillus Rhamnosus (Lactobacillus Acidophilus*) 2 tab PO DAILY [facility] Last Admin: 10/17/19 08:25 Dose: 2 tab Losartan Potassium (Cozaar Tab*) 50 mg PO [facility] Last Admin: 10/17/19 08:24 Dose: 50 mg Metoprolol Succinate (Toprol Xl Tab*) 100 mg PO [facility] Last Admin: 10/17/19 08:25 Dose: 100 mg Pantoprazole Sodium (Protonix Tab*) 40 mg PO [facility] Last Admin: 10/17/19 08:25 Dose: 40 mg Vital Signs - 8 hr 10/17/19 07:15 Temperature 98.6 F Pulse Rate 74 Respiratory 24 Rate Blood Pressure 111/65 (mmHg) O2 Sat by Pulse 97 Oximetry Oxygen Devices in Use Now: None Appearance: awake, alert no distterss Eyes: No Scleral Icterus, - - EOMI Ears/Nose/Mouth/Throat: Clear Oropharnyx, Mucous Membranes Moist Neck: NL Appearance and Movements; NL JVP, Trachea Midline Respiratory: Symmetrical Chest Expansion and Respiratory Effort, Clear to Auscultation Cardiovascular: NL Sounds; No Murmurs; No JVD, No Edema Abdominal: NL Sounds; No Tenderness; No Distention Extremities: No Edema Result Diagrams: 10/15/19 13:39 10/15/19 13:39 Microbiology and Other Data: Microbiology 10/15/19 13:39 Aerobic Blood Culture - Preliminary Blood Venous No Growth Day 1 Anaerobic Blood Culture - Preliminary No Growth Day 1 10/15/19 13:39 Aerobic Blood Culture - Preliminary Blood Venous No Growth Day 1 Anaerobic Blood Culture - Preliminary No Growth Day 1 Assess/Plan/Problems-Billing Assessment: 74 y/o male admitted for increase weakness and difficulty caring for self and difficulty at home with his . He does have a history of dementia and vascular parkinsonism - Patient Problems (1) Weakness Current Visit: No Status: Acute Code(s): R53.1 - WEAKNESS SNOMED Code(s): 28760669 Comment: - He has not been able to use his walker for weeks to months as per his daughter - I reviewed records from 2018 and he has not seen neurology as outpatient due to difficulty getting him to his appointment. He had a working differential diagnosis of possible dementia and vascular parkinsonism. - I did ask Dr. Patel to re-evaluate him for further stratification of his cognitive and neurlogical weakness. Medication optimizations. I simply don't think he is capable of making his ouptatient follow up - He is not on aspirin as her home meds. Given MRI from 2018 I will wait for neuro input before reinitiating his aspirin - PT/OT has been ordered and awating placement (2) History of CVA (cerebrovascular accident) Current Visit: No Status: Acute Code(s): Z86.73 - PRSNL HX OF TIA (TIA), AND CEREB INFRC W/O RESID DEFICITS SNOMED Code(s): 588563514 Comment: - He has not been able to use his walker for weeks to months as per his daughter - I reviewed records from 2018 and he has not seen neurology as outpatient due to difficulty getting him to his appointment. He had a working differential diagnosis of possible dementia and vascular parkinsonism. I did ask Dr. Patel to re-evaluate him for further stratification of his cognitive and neurlogical weakness. - He is not on aspirin as her home meds. Given MRI from 2018 I will wait for neuro input before initiating his aspirin - PT/OT has been ordered and awating placement (3) Hematuria Current Visit: Yes Status: Acute Code(s): R31.9 - HEMATURIA, UNSPECIFIED SNOMED Code(s): 96850201 Comment: - S/p TURP (02/10/19), with urinary incontinence - f/u urology outpatient - Developed hematuria after attempt for thompson cath in the ER for UA sample. It has resolved since. Will repeat UA now if able to obtain one (4) BPH (benign prostatic hyperplasia) Current Visit: No Status: Acute Code(s): N40.0 - BENIGN PROSTATIC HYPERPLASIA WITHOUT LOWER URINRY TRACT SYMP SNOMED Code(s): 068468888 Comment: - S/p TURP (02/10/19), with urinary incontinence - f/u urology outpatient - Developed hematuria after attempt for thompson cath in the ER for UA sample. It has resolved since. Will repeat UA now if able to obtain one (5) GERD (gastroesophageal reflux disease) Current Visit: No Status: Acute Code(s): K21.9 - GASTRO-ESOPHAGEAL REFLUX DISEASE WITHOUT ESOPHAGITIS SNOMED Code(s): 930875565 Comment: -Continue Pantoprazole 40 mg am (6) HTN (hypertension) Current Visit: No Status: Acute Code(s): I10 - ESSENTIAL (PRIMARY) HYPERTENSION SNOMED Code(s): 42484537 Comment: - Continue metoprolol 100 mg AM and losartan 50 mg pm and chrolthalidone 25 mg daily (7) DVT prophylaxis Current Visit: No Status: Acute Code(s): YPY6775 - SNOMED Code(s): 228066138 Comment: - SCD given his hematuria. Will reassess in am
[2019-10-18] MEDS: Metoprolol Succinate XL TAB* 100 MG PO SCH (08:39)
[2019-10-18] MEDS: Pantoprazole TAB * 40 MG TAB PO SCH (08:40)
[2019-10-18] MEDS: Losartan TAB* 25 MG PO SCH (08:40)
[2019-10-18] MEDS: Ferrous Sulfate TAB* 325 MG PO SCH (08:41)
[2019-10-18] MEDS: Chlorthalidone TAB* 50 MG PO SCH (08:42)
[2019-10-18] MEDS: Lactobacillus Acidophilus* 1 TAB PO SCH (11:21)
--- NOTE | 2019-10-18 13:07 | PN ---
Subjective Date of Service: 10/18/19 Interval History: patient seen pleasant in room, no distress, taking po well. no acute events. I did speak with neurology Dr Patel and reviewed his course from 2018. No added recommendations. his diagnosis consistent with vascular dementia and parkinsonism from vascular dementia. He does not require any medications and no changes in treatment required. he does require ongoing PT and placement will be ideal. Hence, consult wad discontinued and will continue to wait placement for rehab under [facility] care Past Medical History: Unchanged from Admission Objective Active Medications: Acetaminophen (Tylenol Tab*) 650 mg PO Q4H PRN PRN Reason: PAIN - MILD Chlorthalidone (Hygroton Tab*) 25 mg PO DAILY [facility] Last Admin: 10/18/19 08:42 Dose: 25 mg Ferrous Sulfate (Ferrous Sulfate Tab*) 325 mg PO DAILY [facility] Last Admin: 10/18/19 08:41 Dose: 325 mg Lactobacillus Rhamnosus (Lactobacillus Acidophilus*) 2 tab PO DAILY [facility] Last Admin: 10/18/19 11:21 Dose: 2 tab Losartan Potassium (Cozaar Tab*) [address] [facility] Last Admin: 10/18/19 08:40 Dose: 50 mg Metoprolol Succinate (Toprol Xl Tab*) [address] [facility] Last Admin: 10/18/19 08:39 Dose: 100 mg Pantoprazole Sodium (Protonix Tab*) [address] [facility] Last Admin: 10/18/19 08:40 Dose: 40 mg Vital Signs - 8 hr 10/18/19 10/18/19 07:54 08:00 Temperature 98.1 F Pulse Rate 63 Respiratory 23 18 Rate Blood Pressure 118/64 (mmHg) O2 Sat by Pulse 97 97 Oximetry Oxygen Devices in Use Now: None Appearance: awake, alert no distress. pleasant doing well. Neck: NL Appearance and Movements; NL JVP, Trachea Midline Respiratory: Symmetrical Chest Expansion and Respiratory Effort, Clear to Auscultation Cardiovascular: NL Sounds; No Murmurs; No JVD, No Edema Extremities: No Edema Result Diagrams: 10/15/19 13:39 10/15/19 13:39 Microbiology and Other Data: Microbiology 10/15/19 13:39 Aerobic Blood Culture - Preliminary Blood Venous No Growth Day 1 Anaerobic Blood Culture - Preliminary No Growth Day 1 10/15/19 13:39 Aerobic Blood Culture - Preliminary Blood Venous No Growth Day 1 Anaerobic Blood Culture - Preliminary No Growth Day 1 Assess/Plan/Problems-Billing Assessment: 74 y/o male admitted for increase weakness and difficulty caring for self and difficulty at home with his . He does have a history of dementia and vascular parkinsonism - Patient Problems (1) Weakness Current Visit: No Status: Acute Code(s): R53.1 - WEAKNESS SNOMED Code(s): 02105788 Comment: - He has not been able to use his walker for weeks to months as per his daughter - I reviewed records from 2018 and he has not seen neurology as outpatient due to difficulty getting him to his appointment. He had a working differential diagnosis of possible dementia and vascular parkinsonism. - I did ask Dr. Patel to re-evaluate him for further stratification of his cognitive and neurlogical weakness. I revisist his course with Dr Patel and reviewed his course from 2018. He did not recommend any oral treatment as his diagnosis consistent with vascular dementia and parkinsonism from vascular dementia. He does not require any medications and no changes in treatment required. Hence, consult was discontinued and will continue to wait placement for rehab under [facility] care. - He is not on aspirin as her home meds. Given MRI from 2018 - PT/OT has been ordered and awating placement (2) History of CVA (cerebrovascular accident) Current Visit: No Status: Acute Code(s): Z86.73 - PRSNL HX OF TIA (TIA), AND CEREB INFRC W/O RESID DEFICITS SNOMED Code(s): 760528746 (3) Hematuria Current Visit: Yes Status: Acute Code(s): R31.9 - HEMATURIA, UNSPECIFIED SNOMED Code(s): 86109305 Comment: - S/p TURP (02/10/19), with urinary incontinence - f/u urology outpatient - Developed hematuria after attempt for thompson cath in the ER for UA sample. It has resolved since. Will repeat UA now if able to obtain one (4) BPH (benign prostatic hyperplasia) Current Visit: No Status: Acute Code(s): N40.0 - BENIGN PROSTATIC HYPERPLASIA WITHOUT LOWER URINRY TRACT SYMP SNOMED Code(s): 498863769 Comment: - S/p TURP (02/10/19), with urinary incontinence - f/u urology outpatient - Developed hematuria after attempt for thompson cath in the ER for UA sample. It has resolved since. Will repeat UA now if able to obtain one. He did not recieve any antibiotics. (5) GERD (gastroesophageal reflux disease) Current Visit: No Status: Acute Code(s): K21.9 - GASTRO-ESOPHAGEAL REFLUX DISEASE WITHOUT ESOPHAGITIS SNOMED Code(s): 728933690 Comment: -Continue Pantoprazole 40 mg am (6) HTN (hypertension) Current Visit: No Status: Acute Code(s): I10 - ESSENTIAL (PRIMARY) HYPERTENSION SNOMED Code(s): 43528737 Comment: - Continue metoprolol 100 mg AM and losartan 50 mg pm and chrolthalidone 25 mg daily (7) DVT prophylaxis Current Visit: No Status: Acute Code(s): KAE3167 - SNOMED Code(s): 005717761 Comment: - SCD given his hematuria. Will reassess in am
[2019-10-19] MEDS: Chlorthalidone TAB* 50 MG PO SCH (09:28)
[2019-10-19] MEDS: Lactobacillus Acidophilus* 1 TAB PO SCH (09:29)
[2019-10-19] MEDS: Pantoprazole TAB * 40 MG TAB PO SCH (09:30)
[2019-10-19] MEDS: Losartan TAB* 25 MG PO SCH (09:30)
[2019-10-19] MEDS: Metoprolol Succinate XL TAB* 100 MG PO SCH (09:30)
[2019-10-19] MEDS: Ferrous Sulfate TAB* 325 MG PO SCH (09:31)
--- NOTE | 2019-10-19 17:32 | CONSULT ---
Subjective Date of Service: 10/19/19 Interval History: Mr. Lopez is a 74 yo male with PMH significant for anemia, CAD, HTN, asthma, MORIS , pulmonary HTN, GERD, IBS, CKD, BPH, sciatica, CVA, Pakinson's disease, and dementia; who presented to the hospital with complaints of generalized weakness. He was admitted for genralized weakness and hematuria after a traumatic thompson insertion. He was noted while in the hospital to have an open area to his buttocks, this was first documented this morning by [facility] staff. [facility] staff has been using barrier cream on the area. Patient seen and examined at bedside. Verbal consent for wound consultation and photograph. Family History: Unchanged from Admission Social History: Unchanged from Admission Past Medical History: Unchanged from Admission Review of Systems - Measurements Intake and Output: Intake and Output Last 24 Hours 10/17/19 10/18/19 10/19/19 10/20/19 06:59 06:59 06:59 06:59 Intake Total 3640 1130 2510 1360 Output Total 80 Balance 3560 1130 2510 1360 Weight 240 lb Intake: IV Fluids 1000 NS (0.9%) 1000 Oral 2640 1130 2510 1360 Output: Urine 80 Other: Estimated Void Medium Large Large Medium # Bowel Movements 1 1 1 Estimated Stool Amount Medium Small Large Large # Voids 4 1 2 2 - Review of Systems Constitutional Symptoms: Negative: Fever, Other - Chills Dermatology: Positive: Other - Open area to buttocks Objective Active Medications: Acetaminophen (Tylenol Tab*) 650 mg PO Q4H PRN Reason: PAIN - MILD Chlorthalidone (Hygroton Tab*) 25 mg PO DAILY [facility] Ferrous Sulfate (Ferrous Sulfate Tab*) 325 mg PO DAILY [facility] Lactobacillus Rhamnosus (Lactobacillus Acidophilus*) 2 tab PO DAILY [facility] Losartan Potassium (Cozaar Tab*) 50 mg PO QAM [facility] Metoprolol Succinate (Toprol Xl Tab*) 100 mg PO QAM [facility] Pantoprazole Sodium (Protonix Tab*) 40 mg PO QAM [facility] Vital Signs 10/19/19 08:03 Temperature 97.7 F Pulse Rate 66 Respiratory 18 Rate Blood Pressure 123/72 (mmHg) Blood Pressure 89 Mean O2 Sat by Pulse 98 Oximetry Patient on Room Yes Air Oxygen Devices in Use Now: None Appearance: NAD, laying in bed Ears/Nose/Mouth/Throat: Mucous Membranes Moist Respiratory: Symmetrical Chest Expansion and Respiratory Effort Skin: - - See skin note below Neurological: Alert and Oriented x 3 Result Diagrams: 10/15/19 13:39 10/15/19 13:39 Additional Lab and Data: Laboratory Tests 10/15/19 10/15/19 13:39 13:39 WBC 8.5 Hgb 13.3 L Hct 39 L Plt Count 199 Sodium 138 Potassium 3.9 Chloride 101 Carbon Dioxide 30 BUN 39 H Creatinine 1.45 H Glucose 108 H Total Protein 7.7 Albumin 3.8 Skin Deviation Note - Skin Deviation Findings Emerita cleft - Open area measures, 2 cm x 0.3 cm x 0.1 cm. The wound base is 100 % red epithelial tissue. There is scant serous drainage. The surrounding skin is intact with blanchable erythema. Wound Problem/Plan Assessment: Mr. Lopez is a 74 yo male with PMH significant for anemia, CAD, HTN, asthma, MORIS , pulmonary HTN, GERD, IBS, CKD, BPH, sciatica, CVA, Pakinson's disease, and dementia; who presented to the hospital with complaints of generalized weakness. He was admitted for genralized weakness and hematuria after a traumatic thompson insertion. He was noted while in the hospital to have an open area to his buttocks. 1. Open wound to the cleft, suspect this is secondary to pressure (stage 2 ), trauma (pulling on buttocks with repositioning), and moisture. Recommend providing incontinence care as needed. Frequent turning and repositioning. Apply barrier cream (orange top) to the area as needed. Use a friction reduction device to move in bed. Consider obtaining a pre-albumin if the wound doesn't healing as expected. 2. Parkinson's disease. Presented to the hospital with generalized weakness. 3. Nutrition. Recommend meeting minimal nutrition requirements to assist with wound healing (Protein 1.3-1.5 gram/kg per daily and calories 30-35 kcal/kg per day). Regular diet. 4. Code status. Full Code Status. 5. Disposition. Inpatient, disposition per primary medicine team. TIME SPENt: Time for this wound consultation was 20 minutes and 10 minutes was spent with the patient discussing past medical history; assessing, measuring, and photographing the wound; and repositioning the patient. Is Patient a Wound Clinic Patient: No Attending: Ann Salter
[2019-10-20 09:03] VITALS: BP 128/62
[2019-10-20] MEDS ORDERED: Amoxicillin/Clavulanate TAB* 500 MG PO SCH (10:00)
[2019-10-20] MEDS: Losartan TAB* 25 MG PO SCH (10:14)
[2019-10-20] MEDS: Metoprolol Succinate XL TAB* 100 MG PO SCH (10:14)
[2019-10-20] MEDS: Pantoprazole TAB * 40 MG TAB PO SCH (10:15)
[2019-10-20] MEDS: Ferrous Sulfate TAB* 325 MG PO SCH (10:15)
[2019-10-20] MEDS: Chlorthalidone TAB* 50 MG PO SCH (10:15)
[2019-10-20] MEDS: Lactobacillus Acidophilus* 1 TAB PO SCH (10:15)
--- NOTE | 2019-10-20 12:14 | DS ---
CC: Dr. Michael Webster; Dr. Chon Carrasco DATE OF ADMISSION: 10/15/2019. DATE OF DISCHARGE: 10/20/2019. DISCHARGE DIAGNOSES: 1. Physical deconditioning. 2. Traumatic hematuria. 3. ESBL klebsiella pneumoniae UTI versus colonization. SECONDARY DIAGNOSES: 1. Coronary artery disease. 2. Hypertension. 3. Asthma. 4. Sleep apnea. 5. Pulmonary hypertension. 6. GERD. 7. Irritable bowel syndrome. 8. CKD stage 3. 9. BPH, status post TURP. 10. Nephrolithiasis. 11. History of CVA. 12. Vascular dementia with Parkinsonism. MEDICATIONS: 1. Acetaminophen 650 mg p.o. q.4 hours prn pain or fever. 2. Vitamin C 500 mg p.o. daily. 3. Chlorthalidone 25 mg p.o. daily. 4. Ferrous Sulfate 325 mg p.o. daily. 5. Floranex two capsules p.o. daily. 6. Losartan 50 mg p.o. daily. 7. Metoprolol Succinate 100 mg p.o. daily. 8. Pantoprazole 40 mg p.o. daily. 9. Metamucil plus calcium one tablet p.o. daily. New Medications: Augmentin 500 mg p.o. b.i.d. for 7 days. HOSPITAL COURSE: Mr. Lopez is a 74-year-old male with a past medical history as stated above who pre sented to the emergency room brought in by EMS because the patient's was unable to care for him anymore. As per the report, the patient was deemed to be unsafe by home physical therapy as he is no t able to walk and he was brought in because, as per , the patient needed [facility] placement. He was admitted as nursing home care and for more details, I refer you to his history and physical dic tated by Dr. Beach. While in the emergency room, the patient developed hematuria when a straight cath was attempted. Alt len he had an initially abnormal urinalysis, the impression was that this was secondary to the trau ma from the straight cath. While in the hospital, the patient did not have any significant complaint s. His case was discussed with Neurology and the impression is that he has vascular dementia with [place] sonism and as per Dr. Patel, he did not require any medications or changes to treatment. The recom mendation was to continue PT and OT. The patient was offered a bed at [facility] and his family has accepted. On the day of discharge, the laboratory called that his urine culture grew ESBL klebsiella pneumoniae greater than 100,000 coloni es. The patient was seen by Infectious Disease (Dr. Carrasco) and it is unclear if this represents c olonization or a true urinary tract infection. If this is a UTI, this was present on admission and i s not Begum catheter related, but the patient has no urinary symptoms and no other evidence of infect ion. After reviewing the case, Dr. Carrasco recommended Augmentin 500 mg twice a day for seven days. The patient's hematuria has cleared and he would benefit from outpatient follow-up with Urology (Dr Christin Cee) when he is done with his rehabilitation process, as well as with Dr. Carrasco. The patient was also found to have a stage 2 pressure ulcer in the cleft. The recommendation is for incontinence care, frequent turning and positioning, barrier cream to the area as needed, and to use a friction reduction device to move in bed. If the wound fails to heal, prealbumin level should be checked as an outpatient. This pressure ulcer was not present on admission. The patient is medically stable to go to [facility] for rehab. A bladder scan was checked and the patient had no urinary retention while in the hospital. PHYSICAL EXAMINATION: General: The patient is a pleasant, elderly gentleman, sitting up in bed in n o acute distress. Vital Signs: Temperature 97.4, heart rate 64, respiratory rate 18, oxygen saturat ion 96 percent on room air, blood pressure 128/62. CVS: Normal S1, S2. Regular rate and rhythm. C hest: Breath sounds present bilaterally with no added sounds. Abdomen: Soft, nontender, nondistend ed. Bowel sounds are present. Extremities: No edema. Neuro: He is alert and oriented times two to self and place. Able to move all four extremities. DIET: Regular diet. ACTIVITY: Continue PT/OT as tolerated. DISPOSITION: To [facility]. STATUS WHILE IN THE HOSPITAL: Inpatient, nursing home. CONDITION ON DISCHARGE: Fair. Please keep in mind this is a summarized version of this patient's hospital stay. If you need more in formation, please feel free to call me at or please obtain the full medical records. TIME SPENT: Approximately 45 minutes were spent to complete this discharge. [id number]/[facility] #: [id number]
--- NOTE | 2019-10-20 12:39 | CONS ---
CONSULTATION REPORT: DATE OF CONSULT: 10/20/19 REQUESTING PHYSICIAN: Dr. Mcbride. CONSULTING SERVICE: Infectious Disease. REASON FOR CONSULT: Positive urine culture. IMPRESSION: 1. About 4 to 6 weeks of progressive weakness after hospitalization for pneumonia in the setting of urethral stricture and positive urine culture, extended-spectrum beta-lactamase producing Klebsiella pneumoniae which is greater than 100,000 colonies. He has no fevers, chills, sweats, anorexia; pelvi c, flank, or back pain; no dysuria. I think he has at least cystitis due to possible mild retention. He has a grossly abnormal urinalysis in the setting of traumatic Begum placement initially done to obtain a urine sample. 2. History of benign prostatic hypertrophy, transurethral resection of the prostate, some symptoms s uggestive of mild retention currently. 3. Parkinson disease. 4. Coronary artery disease. 5. History of stroke. RECOMMENDATIONS: Start Augmentin 500 mg by mouth twice a day and check a postvoid residual. Proceed with rehabilitation. HISTORY OF PRESENT ILLNESS: This is a 74-year-old male with Parkinson disease and a history of strok e, who was brought to the hospital with weakness and falls. He reportedly was treated for pneumonia in June 2019 and since that time has been quite weak with falls, and over the week, he had fallen twice. He was brought by his via EMS to the hospital on 10/15/19. He has had no fevers, chill s, or sweats. His appetite has been good. He has been eating here. He has been more mobile with ph ysical therapy. He has had no frequency or dysuria. He has had no fevers here and no leukocytosis. His urinalysis which was obtained from traumatic Fole y placement showed blood and white cells along with leukocyte esterase, nitrites, bacteria, and yeast . PAST MEDICAL HISTORY: 1. Parkinson disease. 2. Dementia. 3. Anemia. 4. Coronary artery disease. 5. Hypertension. 6. Asthma. 7. Pneumonia. 8. Sleep apnea. 9. Pulmonary hypertension. 10. Gastroesophageal reflux disease. 11. Irritable bowel syndrome. 12. Chronic kidney disease. 13. Benign prostatic hypertrophy, status post transurethral resection of the prostate. 14. Nephrolithiasis. 15. Sciatica. 16. Cataract. 17. Stroke. PAST SURGICAL HISTORY: Status post tonsillectomy. MEDICATIONS: 1. Tylenol. 2. Chlorthalidone. 3. Ferrous sulfate. 4. Lactobacillus. 5. Losartan. 6. Metoprolol. 7. Pantoprazole. ALLERGIES: AMLODIPINE, SINGULAIR, FORMOTEROL, LISINOPRIL, IRBESARTAN, ERYTHROMYCIN. FAMILY HISTORY: Hypertension and diabetes. SOCIAL HISTORY: Lives with his in [place]. He is a nonsmoker. REVIEW OF SYSTEMS: All negative except as noted above to 12-point review of systems. PHYSICAL EXAM: Vital Signs: Temperature 36.3, heart rate 65, respiratory rate 20, blood pressure 12 9/69, oxygen saturation 96% on room air. General: He is awake, not in distress. Neurologic: He is oriented x3. Follows all commands. HEENT: There is no conjunctival hemorrhage. Oropharynx without lesions. Neck is supple without mass. Heart is regular rate and rhythm without murmurs, rubs, or g allops. Lungs are clear to auscultation bilaterally. Abdomen: Soft, nontender, nondistended. There is no flank tenderness to palpation. There is no suprapubic tenderness. Skin: There is no rash or splinter hemorrhage. Musculoskeletal: No spine tenderness to palpation. LABORATORY DATA: White blood cell count 8, hemoglobin 13, platelets 199. Creatinine is 1.4. Please see impression and recommendations outlined above. Thanks for asking me to see Mr. Lopez in consultation. [id number]/[facility] #: [id number]
== END 2019-10-20 13:05 | DRG 699 ==
LOC: ED 12:45 → MED 15:48
PROVIDERS: ADMIT Internal Medicine; ATTEND Internal Medicine
DX: T83.83XA Hemorrhage due to genitourinary prosthetic devices, implants and grafts, initial encounter (principal); N39.0 Urinary tract infection, site not specified; I25.10 Atherosclerotic heart disease of native coronary artery without angina pectoris; J45.909 Unspecified asthma, uncomplicated; G47.33 Obstructive sleep apnea (adult) (pediatric); I27.20 Pulmonary hypertension, unspecified; K21.9 Gastro-esophageal reflux disease without esophagitis; K58.9 Irritable bowel syndrome, unspecified; N18.9 Chronic kidney disease, unspecified; N40.0 Benign prostatic hyperplasia without lower urinary tract symptoms; G20 Parkinson's disease; F02.80 Dementia in other diseases classified elsewhere, unspecified severity, without behavioral disturbance, psychotic disturbance, mood disturbance, and anxiety; I12.9 Hypertensive chronic kidney disease with stage 1 through stage 4 chronic kidney disease, or unspecified chronic kidney disease; N40.1 Benign prostatic hyperplasia with lower urinary tract symptoms; R33.8 Other retention of urine; G47.30 Sleep apnea, unspecified; R31.9 Hematuria, unspecified; Y73.1 Therapeutic (nonsurgical) and rehabilitative gastroenterology and urology devices associated with adverse incidents; Y92.238 Other place in hospital as the place of occurrence of the external cause; F01.50 Vascular dementia, unspecified severity, without behavioral disturbance, psychotic disturbance, mood disturbance, and anxiety; L89.892 Pressure ulcer of other site, stage 2; K57.90 Diverticulosis of intestine, part unspecified, without perforation or abscess without bleeding; F32.9 Major depressive disorder, single episode, unspecified; M54.30 Sciatica, unspecified side; B96.1 Klebsiella pneumoniae [K. pneumoniae] as the cause of diseases classified elsewhere; N18.3 Chronic kidney disease, stage 3 (moderate); N20.0 Calculus of kidney; Z79.899 Other long term (current) drug therapy; Z86.73 Personal history of transient ischemic attack (TIA), and cerebral infarction without residual deficits; Z88.8 Allergy status to other drugs, medicaments and biological substances; Z88.1 Allergy status to other antibiotic agents; Z87.891 Personal history of nicotine dependence
CPT/HCPCS: 36415; 71045; 80053; 81003; 81015; 82607; 82746; 83605; 84443; 84484; 85025; 85610; 85730; 86780; 87040; 87077; 87086; 87184; 87186; 90686; 90732; 99284; A9270-GY; J1940

== ENCOUNTER 2019-11-24 03:14 | Inpatient (IN) | payer MEDICARE ==
--- NOTE | 2019-11-24 03:28 | ED ---
Complex/Multi-Sys Presentation - HPI Summary HPI Summary: 74 y/o M brought in by EMS from [facility] to [facility] c/o altered mental status x1 day. He is usually talkative. Had TURP done recently. [facility] staff noticed patient bleeding from urethra and called EMS. Patient hypotensive for [facility] staff and EMS. No fever. Hx stroke, renal failure, cardiac disease, HTN, CAD, asthma, sleep apnea, GERD, TIA, Parkinson's, vascular dementia. Last seen here and was admitted for weakness. Seen here 3-4 weeks ago before this for the same complaint. Brought in by his last time. Had gross hematuria at that time as well. Seen recently outpatient for anemia. Medications reviewed. Allergies noted. - History Of Current Complaint Hx Obtained From: EMS, Other: - [facility] staff Onset/Duration: Lasting Days - 1, Still Present Timing: Constant Aggravating Factor(s): Nothing Alleviating Factor(s): Nothing - Allergies/Home Medications Allergies/Adverse Reactions: Allergies Allergy/AdvReac Type Severity Reaction Status Date / Time amlodipine Allergy Unknown Unknown Verified 07/22/19 13:56 Reaction Details montelukast [From Singulair] Allergy Unknown Unknown Verified 07/22/19 13:56 Reaction Details formoterol Allergy Unknown Verified 07/22/19 13:56 [From Foradil Aerolizer] Reaction Details irbesartan Allergy Unknown Verified 07/22/19 13:56 Reaction Details lisinopril Allergy Dizziness Verified 07/22/19 13:56 erythromycin base AdvReac Severe Diarrhea Verified 07/22/19 13:56 Home Medications: Home Medications Pantoprazole TAB * [Protonix TAB*] 40 mg PO QAM 11/28/18 [History Confirmed ] Losartan TAB* [Cozaar TAB*] 50 mg PO QAM 01/06/19 [History Confirmed 10/15/19] Metoprolol Succinate XL TAB* [Toprol XL TAB*] 100 mg PO QAM 01/06/19 [History Confirmed 10/15/19] Ascorbic Acid [Vitamin C] 500 mg PO QAM 02/03/19 [History Confirmed 10/15/19] L. Acidophilus/L.bulgaricus [Floranex Tablet] 2 cap PO DAILY 02/03/19 [History Confirmed 10/15/19] Psyllium Husk/Calcium Carb [Metamucil Plus Calcium Capsule] 1 tab PO DAILY 02/03 [History Confirmed 10/15/19] Ferrous Sulfate TAB* 325 mg PO DAILY #30 tab 02/12/19 [Rx Confirmed 10/15/19] Chlorthalidone 25 mg PO DAILY 06/03/19 [History Confirmed 10/15/19] Acetaminophen TAB* [Tylenol TAB*] 650 mg PO Q4H PRN tab 10/20/19 [Rx] Amoxicillin/Clavulanate TAB* [Augmentin TAB 500 mg*] 500 mg PO BID #14 tab 10/19 [Rx] PMH/Surg Hx/FS Hx/Imm Hx Endocrine/Hematology History: Reports: Hx Anemia - Chronic Denies: Hx Anticoagulant Therapy, Hx Diabetes, Hx Thyroid Disease, Hx Unexplained Bleeding Cardiovascular History: Reports: Hx Coronary Artery Disease - Atherosclerosis, Hx Hypertension - on medication, Other Cardiovascular Problems/Disorders - retinal occlusion left eye Denies: Hx Aneurysm, Hx Angina, Hx Angioplasty, Hx Auto Implanted Cardiovert Defib, Hx Cardiac Arrest, Hx Cardiomegaly, Hx Congenital Heart Disease, Hx Congestive Heart Failure, Hx Deep Vein Thrombosis, Hx Embolism, Hx Hypercholesterolemia, Hx Hypotension, Hx Myocardial Infarction, Hx Pacemaker/ICD , Hx Peripheral Vascular Disease, Hx Rheumatic Fever, Hx Syncope, Hx Valvular Heart Disease Respiratory History: Reports: Hx Asthma - had accupuncture, Hx Pneumonia, Hx Sleep Apnea, Other Respiratory Problems/Disorders - 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 Denies: Hx Chronic Bronchitis, Hx Chronic Obstructive Pulmonary Disease (COPD ), Hx Cystic Fibrosis, Hx Lung Cancer, Hx Pleural Effusion, Hx Pulmonary Edema, Hx Pulmonary Embolism, Hx Seasonal Allergies GI History: Reports: Hx Diverticulosis, Hx Gastroesophageal Reflux Disease - on medication, Hx Irritable Bowel - Diarrhea, Hx Ulcer, Other GI Disorders - Diverticulitis, left inguinal hernia Denies: Hx Cirrhosis, Hx Crohn's Disease, Hx Gall Bladder Disease, Hx Gastrointestinal Bleed, Hx Hiatal Hernia, Hx Jaundice, Hx Ileostomy, Hx Pyloric Stenosis History: Reports: Hx Chronic Renal Failure - stage 2-3, Hx Kidney Stones - Left stones-ureteral stent-thompson catheter in place, Other Problems/Disorders - BPH Denies: Hx Dialysis Musculoskeletal History: Reports: Other Musculoskeletal History - Sciatica, mod- severe compression fx T12 Sensory History: Reports: Hx Cataracts - developing, Hx Contacts or Glasses - Glasses Denies: Hx Eye Injury, Hx Eye Prosthesis, Hx Legally Blind, Hx Macular Degeneration, Hx Vision Problem, Hx Deafness, Hx Hearing Aid, Hx Hearing Problem Opthamlomology History: Reports: Hx Cataracts - developing, Hx Contacts or Glasses - Glasses Denies: Hx Eye Injury, Hx Eye Prosthesis, Hx Legally Blind, Hx Macular Degeneration, Hx Vision Problem Neurological History: Reports: Hx CVA, Hx Transient Ischemic Attacks (TIA), Other Neuro Impairments/Disorders - vascular alzheimer and parkinsons Denies: Hx Dementia, Hx Developmental Delay, Hx Headaches, Hx Migraine, Hx Nerve Disease, Hx Seizures, Hx Spinal Cord Injury Psychiatric History: Reports: Hx Depression - history of, a few years ago Denies: Hx Panic Disorder - Cancer History Hx Chemotherapy: No - Surgical History Surgery Procedure, Year, and Place: Diverticulitis surgery 2017 or 2018- [place]. Tonsillectomy as a child. 09/04/18- Cystoscopy, left retrograde, Lithotripsy Left Stent Insertion. ureteral stent 11/2018, [facility] [place]. TURP 2019 Hx Anesthesia Reactions: No - Immunization History Date of Tetanus Vaccine: 2012 Date of Influenza Vaccine: none Infectious Disease History: Denies: Hx Clostridium Difficile, Hx Hepatitis, Hx Human Immunodeficiency Virus (HIV), Hx of Known/Suspected MRSA, Hx Shingles, Hx Tuberculosis, Hx Known/ Suspected VRE, Hx Known/Suspected VRSA, History Other Infectious Disease - Family History Known Family History: Positive: Hypertension, Diabetes - Social History Alcohol Use: None Hx Substance Use: No Substance Use Type: Reports: None Hx Tobacco Use: Yes Smoking Status (MU): Former Smoker Amount Used/How Often: as a teen x 2 yrs Have You Smoked in the Last Year: No - Additional Comments History Additional Comments: Hx stroke, renal failure, cardiac disease, HTN, CAD, asthma, sleep apnea, GERD, TIA, Parkinson's, vascular dementia Review of Systems - ROS Summary Review of Systems Summary: Home Medications Medication Instructions Recorded Confirmed Type Pantoprazole TAB * [Protonix TAB*] 40 mg PO QAM 11/28/18 10/15/19 History Losartan TAB* [Cozaar TAB*] 50 mg PO QAM 01/06/19 10/15/19 History Metoprolol Succinate XL TAB* 100 mg PO QAM 01/06/19 10/15/19 History [Toprol XL TAB*] Ascorbic Acid [Vitamin C] 500 mg PO QAM 02/03/19 10/15/19 History L. Acidophilus/L.bulgaricus 2 cap PO DAILY 02/03/19 10/15/19 History [Floranex Tablet] Psyllium Husk/Calcium Carb 1 tab PO DAILY 02/03/19 10/15/19 History [Metamucil Plus Calcium Capsule] Ferrous Sulfate TAB* 325 mg PO DAILY #30 tab 02/12/19 10/15/19 Rx Chlorthalidone 25 mg PO DAILY 06/03/19 10/15/19 History Acetaminophen TAB* [Tylenol TAB*] 650 mg PO Q4H PRN tab 10/20/19 Rx Amoxicillin/Clavulanate TAB* 500 mg PO BID #14 tab 10/20/19 Rx [Augmentin TAB 500 mg*] Negative: Fever Positive: hematuria Neurological/Mental Status: Other - AMS All Other Systems Reviewed And Are Negative: Yes Physical Exam - Summary Physical Exam Summary: General: Obese, elderly MALE. he is lethargic. He is responsive to pain. He does not follow commands. HEENT: Normocephalic, Atraumatic. Eyes: Conjuctiva normal, PERRL. Oropharynx: Clear, mucous membranes moist, (-) exudates. Neck: Soft, FROM, (-) lymphadenopathy, (-) thyromegaly, (-) JVD. Cardiovascular: Normal sinus rhythm, (-) murmur. Lungs: Decreased breath sounds bilaterally, fair air exchange. (-) wheezes, (-) rales, (-) rhonchi. Abdomen: Soft, non-tender, non-distended, (-) organomegaly, normal bowel sounds. Back: (-) CVA tenderness Extremities: Trace edema. Skin: Warm, dry, (-) rash. Neuro: Unable to assess but he moves all extremities. GCS Psychiatric: Unable to assess. Triage Information Reviewed: Yes Vital Signs Reviewed: Yes Procedures - Sedation Patient Received Moderate/Deep Sedation with Procedure: No Diagnostics - Laboratory Result Diagrams: 11/24/19 03:45 11/24/19 04:40 Lab Statement: Any lab studies that have been ordered have been reviewed, and results considered in the medical decision making process. - Radiology CXR Radiology Interpretation Completed By: ED Physician - No infiltrate. No pleural effusion. Pending official report. - CT BRAIN CT Interpretation Completed By: Radiologist - IMPRESSION: 1. Moderate volume loss and small vessel ischemic changes. 2. No acute intracranial abnormality. ED physician has reviewed this report. - EKG 0331 Summary of EKG Findings: EKG at 0331 reveals normal sinus rhythm with rate of 92 BPM, no acute changes, no ischemic changes. This EKG was reviewed and interpreted by Dr. Conde. Re-Evaluation - Re-Evaluation First Eval Re-Evaluation Time: 04:20 - aware of troponin 3.2 Second Eval Re-Evaluation Time: 04:58 - notified Third Eval Re-Evaluation Time: 05:26 - at bedside Complex Multi-Symp Course/Dx Course Of Treatment: 74-year-old male brought from [facility] to the emergency room for decreased alertness today. Report given to EMS was that patient had been less responsive today. En route he was hypotensive. Upon arrival to the hospital he is hypotensive, lethargic. Not following commands. Initially was not responsive. Shortly after being in the emergency room he started answering some questions. Following some commands. According to his she has been talking to him every day on the phone. He had not complained of any fevers. No chest pain, cough, shortness of breath. She does smoke with him this morning. He has however had a multitude of problems over the last few months. He had a TURP procedure. Has a urethral stricture. At catheterized at some point and had urinary tract infection afterwards. He also has had pneumonia which did not heal well. After multiple visits to the emergency room he was finally admitted to [facility]. Upon arrival patient is ordered for sepsis protocol with aggressive IV hydration and Zosyn and Vanco. Patient is unable to give any history. Physical exam demonstrates decreased breath sounds bilaterally no obvious rhonchi. Chest x-ray shows no obvious acute process. EKG shows ischemic changes. Blood work demonstrates an elevated CBC, elevated lactic, elevated troponin. At this point was contacted again. N discussed patient's wishes. Patient was DNR according to paperwork in his charts last September. states he started feeling a little better in August and decided to revoke his DNR upon admission to [facility]. She states he was feeling better. Decided he wanted to live. After thorough discussion with the and the patient's condition she was allowed to visit him in the emergency room as his condition is terminal. He does recognize her on arrival. IV fluids have improved his blood pressure saw him. After thorough conversation fills out new most form. He will be DNR and DNI with limited medical intervention as outlined in paper. Patient is referred to hospitalist for admission at that time. In the ED course, patient was given fluids, vancomycin, Zosyn, aspirin. - Diagnoses Provider Diagnoses: Change in mental status, Hypotension, Elevated troponin, Sepsis - Physician Notifications Discussed Care Of Patient With: Yasmin Bocanegra - Will admit Time Discussed With Above Provider: 05:13 Discharge ED - Sign-Out/Discharge Documenting (check all that apply): Patient Departure - Discharge Plan Condition: Stable Disposition: ADMITTED TO [facility] - Billing Disposition and Condition Condition: STABLE Disposition: Admitted to [facility] - Attestation Statements Document Initiated by Waltibe: Yes Documenting Scribe: Itzel Guan Provider For Whom Lisae is Documenting (Include Credential): Mary Conde MD Scribe Attestation: Itzel Smith, scribed for Mary Conde MD on 11/24/19 at 0643. Scribe Documentation Reviewed: Yes Provider Attestation: The documentation as recorded by the Itzel langston accurately reflects the service I personally performed and the decisions made by , Mary Conde MD Status of Scribe Document: Viewed
[2019-11-24] MEDS: NS 0.9% 1000 ML** 1,000 ML IV ONE ×2 (03:32→04:03)
[2019-11-24] MEDS ORDERED: NS 0.9% 1000 ML** 1,000 ML IV ONE ×2 (03:32→14:38)
[2019-11-24] MEDS ORDERED: NS 0.9% 1000 ML** 1,000 ML IV.FLUID IV ONE (03:47)
[2019-11-24] MEDS ORDERED: Piperacillin/Tazobac ADVAN(*) 3.375 GM in NS 0.9% 100 ML* 100 ML IVPB ONE (03:47)
[2019-11-24 03:52] LABS: Hematocrit 43 % (42-52); Hemoglobin 13.1 g/dL (14.0-18.0); Mean Corpuscular HGB Conc 31 g/dL (31-36); Mean Corpuscular Hemoglobin 30 pg (27-31); Mean Corpuscular Volume 97 fL (80-94); Platelet Count 110 10^3/uL (150-450); Red Cell Distribution Width 18 % (10-15); White Blood Count 16.5 10^3/uL (3.5-10.8)
[2019-11-24] MEDS ORDERED: Piperacillin/Tazobac (*) 3.375 GM BAG ONE (03:53)
[2019-11-24 03:56] LABS: INR 1.22 (0.82-1.09)
[2019-11-24] MEDS ORDERED: Vancomycin(*) 1,000 MG VIAL IVPB SCH (04:00)
[2019-11-24 04:28] LABS: ABS Lymphocytes 0.6 10^3/ul (1.0-4.8); ABS Monocytes 1.2 10^3/ul (0-0.8); ABS Neutrophils 14.7 10^3/ul (1.5-7.7); ABS Nucleated RBC 0.1 10^3/ul; Eosinophil % 0.1 %; Lymphocyte % 3.8 %; Nucleated Red Blood Cells % 0.3
[2019-11-24] MEDS ORDERED: Aspirin 81 mg CHEW TAB* 81 MG TAB.CHEW PO ONE (04:50)
[2019-11-24 04:59] LABS: Albumin 2.8 g/dL (3.2-5.2); Calcium 8.6 mg/dL (8.6-10.3); Magnesium 1.8 mg/dL (1.9-2.7); Potassium 4.4 mmol/L (3.5-5.0); Total Bilirubin 0.8 mg/dL (0.2-1.0)
[2019-11-24] MEDS ORDERED: Vancomycin(*) 2,000 MG in NS 0.9% 500 ML* 500 ML IVPB ONE (05:00)
[2019-11-24 05:05] LABS: Albumin/Globulin Ratio 0.9 (1-3); BUN/Creatinine Ratio 12.9 (8-20); C Reactive Protein 124.91 mg/L (<8.01); EGFR African American 21.1 (>60); EGFR Non-African American 17.4 (>60); Globulin 3.2 g/dL (2-4)
--- OUTSIDE RECORDS SUMMARY | 2019-11-24 05:10 | XMS REPORT | Continuity of Care Document ---
:1945 External Reference #:[id number] Author Name Elvis Beach M.D. (transmitted by agent of provider Marlena Prieto) Address [address] [address] Care Team Providers Name Role Phone Fuad Hooper MD - Orthopaedic Surgery Care Team Information Receptionist Secretary [phone] Problems Active Problems Provider Date Allergic asthma without status Stephen Mercer M.D.,FACP Onset: 07/08/2007 asthmaticus Hyperlipidemia Stephen Mercer M.D.,FACP Onset: 07/08/2007 Benign essential hypertension Stephen Mercer M.D.,FACP Onset: 07/08/2007 Central sleep apnea syndrome Stephen Mercer M.D.,FACP Onset: 07/08/2007 Atopic dermatitis Stephen Mercer M.D.,FACP Onset: 07/08/2007 Mixed hyperlipidemia Stephen Mercer M.D.,FACP Onset: 10/06/2007 Impotence of organic origin Stephen Mercer M.D.,FACP Onset: 04/12/2009 Liver function tests abnormal Viniat Lozano NP Onset: 07/03/2018 History of polyp of colon Vinita Lozano NP Onset: 07/03/2018 Diverticulitis of colon Vinita Lozano NP Onset: 07/03/2018 Anemia Vinita Lozano NP Onset: 07/03/2018 Social History Type Date Description Comments Sex Unknown Tobacco Use Start: Unknown End: Former Cigarette Smoker 1 for 3 yrs Unknown Pack Daily Cigarette Use Pack Years - 03 ETOH Use Rarely consumes alcohol Recreational Drug Use Denies Drug Use Tobacco Use Start: Unknown End: Patient is a former smoker Unknown Smoking Status Reviewed: 08/24/18 Patient is a former smoker Exercise Type/Frequency Exercises regularly Body blade Allergies, Adverse Reactions, Alerts Active Allergies Reaction Severity Comments Date Singulair 07/08/2007 Foradil Aerolizer 07/08/2007 Lisinopril 07/08/2007 Erythromycin diarheea 02/13/2018 Irbesartan 02/13/2018 Amlodipine 02/13/2018 Medications Active Medications SIG Qnty Indications Ordering Date Provider Suprep Bowel Prep Kit Take according to 354units Fred Burgos 07/24/2018 your physician's MD Robert 17.5-3.13-1.6GM/177ML instructions the Solution day before your procedure. Split the dose as directed. Losartan Potassium 1 by mouth every 90tabs Wayne Ferguson 03/03/2018 50mg day Estes, DO Tablets FACC Chlorthalidone take 1 tablet by 30tabs I10 Wayne Ferguson 02/13/2018 25mg mouth every day Estes, DO Tablets FACC Metoprolol Succinate take 2 tablet po Unknown ER daily 50mg Tablets ER 24HR Tamsulosin HCL 1 cap po daily Michael Webster 0.4mg MD Sintia Capsules Aspirin take 1 by mouth Unknown 325mg Tablets daily DR Covarrubias take 2 tablets by Unknown 625mg Tablets mouth two times daily or as directed Immunizations Description No Information Available Vital Signs [...] % BMI (Body Mass Index) 28.0 kg/m2 Results Description No Information Available Procedures Date Code Description Status 09/05/2017 [id number] Colonoscopy Completed 09/04/2017 [id number] Colonoscopy Completed 12/16/2003 [id number] Colonoscopy Completed Medical Devices Description No Information Available Encounters Type Date Location Provider Dx Diagnosis Office Visit 10/18/2019 [place] jenise Parada R53.1 Weakness 10:46a [place] M.D. K21.9 Gastro-esophageal reflux disease without esophagitis I10 Essential (primary) hypertension Z86.73 Prsnl hx of TIA (TIA), and cereb infrc w/o resid deficits Office Visit 10/17/2019 10:31a [facility] Elvis Beach R53.1 Weakness jenise Richardson M.D. Hospitalists K21.9 Gastro-esophageal reflux disease without esophagitis I10 Essential (primary) hypertension Z86.73 Prsnl hx of TIA (TIA), and cereb infrc w/o resid deficits Office Visit 10/16/2019 10:30a [facility] Elvis Beach R53.1 Weakness jenise Richardson M.D. Hospitalists K21.9 Gastro-esophageal reflux disease without esophagitis I10 Essential (primary) hypertension Z86.73 Prsnl hx of TIA (TIA), and cereb infrc w/o resid deficits Office Visit 10/15/2019 10:29a [facility] Elvis Beach R53.1 jenise Pineda M.D. Hospitalists R53.81 Other malaise G20 Parkinson's disease F03.90 Unspecified dementia without behavioral disturbance T83.098A [facility] compl of other urinary catheter, initial encounter R31.9 Hematuria, unspecified I10 Essential (primary) hypertension K21.9 Gastro-esophageal reflux disease without esophagitis Assessments Date Code Description Provider 10/20/2019 R53.81 Other malaise Marci Skinner M.D. 10/20/2019 T83.83xA Hemorrhage due to genitourinary Marci Skinner M.D. prosthetic devices, implants and grafts, initial encounter 10/20/2019 N39.0 Urinary tract infection, site not Marci Skinner M.D. specified 10/20/2019 I25.10 Atherosclerotic heart disease of Marci Skinner M.D. jackson coronary artery without angina pectoris 10/20/2019 I10 Essential (primary) hypertension Marci Skinner M.D. 10/20/2019 J45.909 Unspecified asthma, uncomplicated Marci Skinner M.D. 10/20/2019 G47.30 Sleep apnea, unspecified Marci Skinner M.D. 10/20/2019 I27.20 Pulmonary hypertension, unspecified Marci Skinner M.D. 10/20/2019 K21.9 Gastro-esophageal reflux disease Marci Skinner M.D. without esophagitis 10/20/2019 K58.9 Irritable bowel syndrome without Marci Skinner M.D. 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 10/18/2019 K21.9 Gastro-esophageal reflux disease Elvis Beach M.D. without esophagitis 10/18/2019 I10 Essential (primary) hypertension Elvis Beach M.D. 10/18/2019 Z86.73 Personal history of transient Elvis Beach MChristinDChristin ischemic attack (TIA), and cerebral infarction without residual deficits 10/17/2019 R53.1 Weakness Elvis Beach M.D. 10/17/2019 K21.9 Gastro-esophageal reflux disease Elvis Beach M.D. without esophagitis 10/17/2019 I10 Essential (primary) hypertension Elvis Beach M.D. 10/17/2019 Z86.73 Personal history of transient Elvis Beach M.DChristin ischemic attack (TIA), and cerebral infarction without residual deficits 10/16/2019 R53.1 Weakness Elvis Beach M.D. 10/16/2019 K21.9 Gastro-esophageal reflux disease Elvis Beach M.D. without esophagitis 10/16/2019 I10 Essential (primary) hypertension Elvis Beach M.D. 10/16/2019 Z86.73 Personal history of transient Elviswaqar Boggsem, M.DChristin ischemic attack (TIA), and cerebral infarction without residual deficits 10/15/2019 R53.1 Weakness Elvis Beach M.D. 10/15/2019 R53.81 Other malaise Elvis Beach M.D. 10/15/2019 G20 Parkinson's disease Elvis Beach M.D. 10/15/2019 F03.90 Unspecified dementia without Elvis Beach M.D. behavioral disturbance 10/15/2019 T83.098A Other mechanical complication of Elvis Beach M.D. other urinary catheter, initial encounter 10/15/2019 R31.9 Hematuria, unspecified Elvis Beach M.D. 10/15/2019 I10 Essential (primary) hypertension Elvis Beach M.D. 10/15/2019 K21.9 Gastro-esophageal reflux disease Elvis Beach M.D. without esophagitis Plan of Treatment No Information Available Functional Status Description No Information Available Mental Status Description No Information Available Referrals Description No Information Available
--- OUTSIDE RECORDS SUMMARY | 2019-11-24 05:10 | XMS REPORT | Continuity of Care Document ---
:1945 External Reference #:[id number] Author Name Marci Skinner M.D. (transmitted by agent of provider Marlena Prieto) Address [address] [place] [address] Care Team Providers Name Role Phone Fuad Hooper MD - Orthopaedic Surgery Care Team Information Lipstick Molder Problems Active Problems Provider Date Allergic asthma [...] M.D.,FACP Onset: 04/12/2009 Liver function tests abnormal Vinita Lozano NP Onset: 07/03/2018 History of polyp [...] Available Procedures Date Code Description Status 09/05/2017 [id number] Colonoscopy Completed 09/04/2017 [id number] Colonoscopy Completed 12/16/2003 [id number] Colonoscopy Completed Medical Devices Description No Information Available Encounters Type Date Location Provider Dx Diagnosis Office Visit 10/18/2019 [place] jenise Parada R53.1 Weakness 10:46a [place] Beach M.D. K21.9 Gastro-esophageal reflux disease without esophagitis I10 Essential (primary) hypertension Z86.73 Prsnl hx of TIA (TIA), and cereb infrc w/o resid deficits Office [facility]2019 [facility] Elvis [place] R53.1 Weakness jenise Richardson M.D. Hospitalists K21.9 Gastro-esophageal reflux disease without esophagitis I10 Essential (primary) hypertension Z86.73 Prsnl hx of TIA (TIA), and cereb infrc w/o resid deficits Office Visit 10/16/2019 10:[facility]a [facility] Elvis Beach R53.1 jenise Pineda M.D. Hospitalists K21.9 Gastro-esophageal reflux disease without esophagitis I10 Essential (primary) hypertension Z86.73 Prsnl hx of TIA (TIA), and cereb infrc w/o resid deficits Office Visit 10/15/2019 10:[facility]a [facility] Elvis [place] R53.1 jenise Pineda M.D. Hospitalists R53.81 Other malaise G20 Parkinson's disease F03.90 Unspecified dementia without behavioral disturbance T83.098A [facility] compl of other urinary catheter, initial encounter [...] Atherosclerotic heart disease of Marci Skinner M.D. 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 10/16/2019 Z86.73 Personal history of transient Elvis Beach [...]
--- OUTSIDE RECORDS SUMMARY | 2019-11-24 05:10 | XMS REPORT | Continuity of Care Document ---
:1945 External Reference #:[id number] Author Name Chon Hernandez M.D. 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 Problems Provider Date Allergic asthma [...] Available Procedures Date Code Description Status 09/05/2017 [id number] Colonoscopy Completed 09/04/2017 [id number] Colonoscopy Completed 12/16/2003 [id number] Colonoscopy Completed Medical Devices Description No Information Available Encounters Type Date Location Provider Dx Diagnosis Office Visit 10/20/2019 [facility] Chon Delatorre N39.0 Urinary tract 1:28p Infectious Diseases Jose Hernandez infection, site not specified B96.1 Klebsiella [facility] 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 Hospitalists K21.9 Gastro-esophageal reflux disease without esophagitis I10 Essential (primary) hypertension Z86.73 Prsnl hx of TIA (TIA), and cereb infrc w/o resid deficits Office [facility] 10/17[facility]2019 10[facility] Weakness jenise Richardson M.D. Hospitalists K21.9 Gastro-esophageal reflux disease without esophagitis I10 Essential (primary) hypertension Z86.73 Prsnl hx of TIA (TIA), and cereb infrc w/o resid deficits Office Visit 10/16/2019 10:30a [facility] R[facility] Weakness jenise Richardson M.D. Hospitalists K21.9 Gastro-esophageal reflux disease without esophagitis I10 Essential (primary) hypertension Z86.73 Prsnl hx of TIA (TIA), and cereb infrc w/o resid deficits Office [facility] 10/15[facility]2019 10[facility] Weakness jenise Richardson M.D. Hospitalists R53.81 Other malaise G20 Parkinson's disease F03.90 Unspecified dementia without behavioral disturbance T83.098A [facility] compl of other urinary catheter, initial encounter R31.9 Hematuria, unspecified I10 Essential (primary) hypertension K21.9 Gastro-esophageal reflux disease without esophagitis Assessments Date Code Description Provider 10/20/2019 N39.0 Urinary tract infection, site not Chonepi Hernandez M.D. specified 10/20/2019 R53.81 Other malaise Marci Skinner M.D. 10/20/2019 B96.1 Klebsiella pneumoniae [K. Chon Hernandez M.D. pneumoniae] as the cause of diseases classified elsewhere 10/20/2019 T83.83xA Hemorrhage due to genitourinary Marci Skinner M.D. prosthetic devices, implants and grafts, initial encounter 10/20/2019 Z16.12 Extended spectrum beta lactamase Chon Hernandez M.D. (Esbl) resistance 10/20/2019 N39.0 Urinary tract infection, site not Marci Skinner M.D. specified 10/20/2019 R33.9 Retention of urine, unspecified Chon Hernandez M.D. 10/20/2019 I25.10 Atherosclerotic heart disease of Marci Skinner M.D. [place] coronary artery without angina pectoris 10/20/2019 I10 [...] ulcer of sacral region, Ada Lala , DIRECTOR OF FOOD AND BEVERAGE SERVICES stage 2 10/18/2019 R53.1 Weakness Elvis Beach M.D. 10/18/2019 K21.9 Gastro-esophageal reflux disease Elvis Beach M.D. without esophagitis 10/18/2019 I10 Essential (primary) hypertension Elvis Beach M.D. 10/18/2019 Z86.73 Personal history of transient Elvis Beach M.D. ischemic attack (TIA), and cerebral infarction without residual deficits 10/17/2019 R53.1 Weakness Elvis Beach M.D. 10/17/2019 K21.9 Gastro-esophageal reflux disease Elvis Beach M.D. without esophagitis 10/17/2019 I10 Essential (primary) hypertension Elvis Beach M.D. 10/17/2019 Z86.73 Personal history of transient Elvis Beach M.D. ischemic attack (TIA), and cerebral infarction without residual deficits 10/16/2019 R53.1 Weakness Elvis Beach M.D. 10/16/2019 K21.9 Gastro-esophageal reflux disease Elvis Beach M.D. without esophagitis 10/16/2019 I10 Essential (primary) hypertension Elvis Beach M.D. 10/16/2019 Z86.73 Personal history of transient Elvis Beach M.D. ischemic attack (TIA), and cerebral infarction without [...]
--- OUTSIDE RECORDS SUMMARY | 2019-11-24 05:10 | XMS REPORT | Continuity of Care Document ---
:1945 External Reference #:[id number] Author Name Elvis Beach M.D. 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 K21.9 Gastro-esophageal reflux disease without esophagitis I10 Essential (primary) hypertension Z86.73 Prsnl hx of TIA (TIA), and cereb infrc w/o resid deficits Office Visit 10/17/2019 10:31a [facility] Elvis Beach R53.1 Weakness jenise Richardson M.D. Hospitalists K21.9 Gastro-esophageal reflux disease without esophagitis I10 Essential (primary) hypertension Z86.73 Prsnl hx of TIA (TIA), and cereb infrc w/o resid deficits Office Visit 10/16/2019 10:30a [facility] Elvis Beach R53.1 Weakness jenise Richardson M.D. Hospitalists K21.9 Gastro-esophageal reflux disease without esophagitis I10 Essential (primary) hypertension Z86.73 Prsnl hx of TIA (TIA), and cereb infrc w/o resid deficits Office Visit 10/15/2019 10:29a [facility] Elvis Beach R53.1 jenise Pineda M.D. Hospitalists R53.81 Other malaise G20 Parkinson's disease F03.90 Unspecified dementia without behavioral disturbance T83.098A [facility] compl of other urinary catheter, initial [...] Atherosclerotic heart disease of Marci Skinner M.D. [place] coronary artery without angina pectoris 10/20/2019 I10 [...] ulcer of sacral region, Ada Lala , WOOD HEEL FLAP RUBBER stage 2 10/18/2019 R53.1 Weakness Elvis Beach [...]
--- OUTSIDE RECORDS SUMMARY | 2019-11-24 05:10 | XMS REPORT | Continuity of Care Document ---
:1945 External Reference #:[id number] Author Name Elvis Beach M.D. 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 K21.9 Gastro-esophageal reflux disease without esophagitis I10 Essential (primary) hypertension Z86.73 Prsnl hx of TIA (TIA), and cereb infrc w/o resid deficits Office Visit 10/17/2019 10:31a [facility] Elvis Beach R53.1 Weakness jenise Richardson M.D. Hospitalists K21.9 Gastro-esophageal reflux disease without esophagitis I10 Essential (primary) hypertension Z86.73 Prsnl hx of TIA (TIA), and cereb infrc w/o resid deficits Office Visit 10/16/2019 10:30a [facility] Elvis Beach R53.1 Weakness jenise Richardson M.D. Hospitalists K21.9 Gastro-esophageal reflux disease without esophagitis I10 Essential (primary) hypertension Z86.73 Prsnl hx of TIA (TIA), and cereb infrc w/o resid deficits Office Visit 10/15/2019 10:29a [facility] Elvis Beach R53.1 jenise Pineda M.D. Hospitalists R53.81 Other malaise G20 Parkinson's disease F03.90 Unspecified dementia without behavioral disturbance T83.098A [facility] compl of other urinary catheter, initial encounter [...] Atherosclerotic heart disease of Marci Skinner M.D. [place] coronary artery without angina pectoris 10/20/2019 I10 [...] ulcer of sacral region, Ada Lala , LEGAL CONSULTANT stage 2 10/18/2019 R53.1 Weakness Elvis Beach [...]
--- OUTSIDE RECORDS SUMMARY | 2019-11-24 05:10 | XMS REPORT | Continuity of Care Document ---
:1945 External Reference #:[id number] Author Name Elvis Beach M.D. 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 K21.9 Gastro-esophageal reflux disease without esophagitis I10 Essential (primary) hypertension Z86.73 Prsnl hx of TIA (TIA), and cereb infrc w/o resid deficits Office Visit 10/17/2019 10:31a [facility] Elvis Beach R53.1 Weakness jenise Richardson M.D. Hospitalists K21.9 Gastro-esophageal reflux disease without esophagitis I10 Essential (primary) hypertension Z86.73 Prsnl hx of TIA (TIA), and cereb infrc w/o resid deficits Office Visit 10/16/2019 10:30a [facility] Elvis Beach R53.1 Weakness jenise Richardson M.D. Hospitalists K21.9 Gastro-esophageal reflux disease without esophagitis I10 Essential (primary) hypertension Z86.73 Prsnl hx of TIA (TIA), and cereb infrc w/o resid deficits Office Visit 10/15/2019 10:29a [facility] Elvis Beach R53.1 jenise Pineda M.D. Hospitalists R53.81 Other malaise G20 Parkinson's disease F03.90 Unspecified dementia without behavioral disturbance T83.098A [facility] compl of other urinary catheter, initial encounter [...] Atherosclerotic heart disease of Marci Skinner M.D. [place] coronary artery without angina pectoris 10/20/2019 I10 [...] ulcer of sacral region, Ada Lala , STAFF AUDITOR stage 2 10/18/2019 R53.1 Weakness Elvis Beach [...]
[2019-11-24] MEDS ORDERED: Al Hydrox/Mg Hydrox/Simet LIQ* 30 ML UDC PO PRN (05:53)
[2019-11-24] MEDS ORDERED: Acetaminophen TAB* 325 MG PO PRN (05:53)
[2019-11-24] MEDS ORDERED: Ondansetron INJ* 2 MG/ML VIAL IV PRN (05:53)
[2019-11-24] MEDS ORDERED: Zosyn per Pharmacy* NOTE FOLLOW UP SCH (06:00)
[2019-11-24] MEDS ORDERED: Heparin VIAL(*) 5000 UNITS/ML VIAL (FIVE THOUSAND) SUBCUT SCH (06:00)
[2019-11-24] MEDS ORDERED: Heparin DRIP 25,000 UNITS(*) 25,000 UNITS/500 ML BAG IV SCH (06:15)
[2019-11-24] MEDS ORDERED: Sodium Bicarbonate 8.4% IV* 150 MEQ in D5W 1000 ML BAG* 850 ML IV SCH (07:00)
[2019-11-24] MEDS ORDERED: Heparin VIAL(*) 5000 UNITS/ML VIAL (FIVE THOUSAND) IV SCH (07:00)
[2019-11-24] MEDS ORDERED: ZOSYN 3.375 GM Q12H per EXTENDED INFUSION IVPB SCH ×2 (08:00)
[2019-11-24] MEDS ORDERED: Heparin DRIP 25,000 UNITS(*) 25,000 UNITS/500 ML BAG ONE (08:01)
[2019-11-24] MEDS ORDERED: Heparin VIAL(*) 5000 UNITS/ML VIAL (FIVE THOUSAND) ONE (08:02)
[2019-11-24 08:12] LABS: Activated Partial Thrombo Time 36.9 seconds (26.0-38.0)
--- NOTE | 2019-11-24 08:46 | HP ---
CC: Dr. Dangelo Case* HISTORY AND PHYSICAL: DATE OF ADMISSION: 11/24/19 TIME OF EVALUATION: 0600. PRIMARY CARE PHYSICIAN: Dr. Dangelo Case. CHIEF COMPLAINT: Altered mental status. HISTORY OF PRESENT ILLNESS: This is a 74-year-old male with a past medical history of dementia, recurrent UTI, and coronary artery disease, who presented to the emergency room from [facility] for altered mental status and hypotension. The patient is alert, but unable to provide a history. His is at the bedside. The patient had a recent TURP with significant bleeding secondary to the procedure. According to the , she states she has been talking to him on a daily basis and he was fine on the phone yesterday morning. Normally, he calls her in the afternoon and he did not, which was unusual for him and then [facility] called said that they tried to put a catheter in, but could not and after that he had a fever and got worse in terms of his mental status. She states that he has been in [facility] since 10/20/19 and had been doing well and there was plan for anticipation of discharge home eventually. She has not seen him since the coronavirus pandemic started, but otherwise there were no concerns regarding him on the phone with him this morning. On my encounter, the patient does awake to voice. He is complaining of chest pain, no shortness of breath; no nausea, vomiting, or abdominal pain; no urinary symptoms. Review of systems is limited due to the patient's critical illness. In the emergency room, the patient had labs and imaging, was given 325 mg of aspirin, 3 liters of normal saline, Zosyn, 2 g of vanco and was referred to the hospitalist service for further evaluation. Based on his labs and how critically ill he is, there was a concern of his full code status and a poor outcome. The was able to come in to talk to the patient and the medical staff and the decision was to make him a DNR/DNI, but she would like to have antibiotics and vasopressors to try to improve his clinical status. PAST MEDICAL HISTORY: 1. Recent admission from 10/15/19 to 10/20/19 for ESBL Klebsiella pneumoniae. 2. History of coronary artery disease. 3. Hypertension. 4. Asthma. 5. Sleep apnea. 7. Pulmonary hypertension. 8. GERD. 9. Irritable bowel syndrome. 10. CKD stage III. 11. History of BPH, status post TURP. 12. Nephrolithiasis. 13. History of CVA. 14. Vascular dementia with parkinsonism. MEDICATIONS: 1. Losartan 50 mg p.o. daily. 2. Chlorthalidone 25 mg daily. 3. Pantoprazole 40 mg daily. 4. Metoprolol succinate 100 mg daily. 5. Floranex 1 million cell tablet 2 capsules daily. 6. Metamucil 0.52 g daily in morning. 7. Ferrous sulfate 325 mg p.o. daily. 8. Tylenol 500 mg 2 tabs every 12 hours as needed. ALLERGIES: AMLODIPINE, MONTELUKAST, FORMOTEROL, IRBESARTAN, LISINOPRIL, ERYTHROMYCIN BASE. FAMILY HISTORY: Reviewed and noncontributory. SOCIAL HISTORY: The patient resides at [facility], ambulates with a walker. Normally, he is alert and oriented x3. His , Nicole Lopez, is the healthcare proxy and secondary is his son MARII. MOLST form was completed this evening as DNR/DNI. REVIEW OF SYSTEMS: As mentioned in the HPI and limited due to the patient's critical illness. PHYSICAL EXAMINATION GENERAL: The patient is sleeping, in no acute distress and wakes to voice. is at the bedside. VITAL SIGNS: Temperature 97.6, pulse rate 94, respiratory rate is 16, oxygen saturation is 96% on 2 liters, blood pressure is 88/53. HEENT: Head normocephalic. Pupils are equal and reactive. Anicteric. Oropharynx: Mucous membranes moist. NECK: Supple. RESPIRATORY: Diminished breath sounds. No wheezing, rhonchi, or rales. CARDIAC: Tachycardia, soft systolic murmur. ABDOMEN: Positive bowel sounds, soft, nontender, and nondistended. EXTREMITIES: Trace edema with chronic hemosiderin changes bilaterally. Lower extremities: [place] catheter in place. NEUROLOGIC: The patient is alert and oriented x1, oriented to self. He does awake and moves all extremities spontaneously. DIAGNOSTIC STUDIES/LAB DATA: White count 16.5, hemoglobin 13.1, hematocrit 43 , platelets 110. INR 1.22. Sodium 140, potassium 4.4, chloride 106, bicarb 11 , BUN 45, creatinine 3.48, lactic at 9.2 , mag is 1.8 AST is 75, CRP is 124. Chest x-ray: No significant change. EKG: Normal sinus rhythm. Head CT: Moderate volume loss, small vessel ischemic change, no acute intracranial abnormality. ASSESSMENT: This is a 74-year-old male with a past medical history of coronary artery disease, hypertension, chronic kidney disease stage III, and dementia, who presents from [facility] with hypotension and altered mental status. 1. Hypotension and altered mental status. Assessment: The patient is meeting criteria for sepsis with multiorgan failure. I suspect source is the urine, although we do not have urine sample on him yet. He has 45 ml on the bladder scan. He has [place] catheter in and concern with his history of doing any type of straight cath or Begum catheter insertion. No other findings of infection on exam. He has metabolic acidosis with worsening renal failure and lactic acidosis and his LFTs are elevated, as well as an elevated troponin in setting of chest pain. Plan: We will continue him on Zosyn for now. He got 2 g of vancomycin which should cover him for at least the next 24 hours; we will hold off on that. He is currently getting 3 liters of normal saline, SPP 88 and mentating. May need to start levophed. Will repeat labs and lactic acid at 9 am. 2. Lactic acidosis with bicarb of 11 as well with worsening renal function. We will also place him on a sodium bicarb drip. Repeat labs 3. Elevated troponin. The patient with chest pain as well, could be demand ischemia in setting of sepsis. We will for now place him on a heparin drip, trend his troponin and we will order an echocardiogram, discuss possible cardiology consultation and continue him on aspirin. 4. Chronic medical problems. We will continue on the pantoprazole. We will hold the rest of his oral agents for now. 5. FEN. We will keep him n.p.o. now with his altered mental status. 6. DVT prophylaxis: The patient scores high risk. He is on a heparin drip. 7. Code status: The patient is DNR/DNI. understands he is critically ill and has a poor prognosis. PATIENT TIME: Greater than 50 minutes was spent doing the history and physical , more than half that time spent in direct patient contact and critical care time. [id number]/[facility] #: [id number] [facility] MED[facility] CENTEROusmane
[2019-11-24] MEDS ORDERED: Pantoprazole TAB * 40 MG TAB PO SCH (09:00)
[2019-11-24] MEDS ORDERED: Perflutren Lipid Microsphere* 3 ML VIAL ONE (09:24)
[2019-11-24] MEDS: Sodium Bicarbonate 8.4% IV* 150 MEQ in D5W 1000 ML BAG* 850 ML IV SCH ×2 (09:28→23:03)
--- NOTE | 2019-11-24 11:18 | ECHO ---
*[facility]* [place] [address] Fax #: [phone] Transthoracic Echocardiogram Patient: Isaiah Lopez V : 1945 Study Date: 11/24/2019 Age: 74 Gender: M HR: 101 bpm Height: 72 in /182.9 cm BSA: 2.26 m^2 Weight: 229.5 lb /104.3 kg BMI: 31.2 kg/m^2 *Director Banking: * Miley Killian [facility] *Referring Physician: * Yasmin Bocanegra *Reading Physician: * Oliva Garcia MD Indications: Myocardial Infarction. History: PHTN. Coronary artery disease. Risk factors: Former tobacco use. Hypertension. Dyslipidemia. Conclusions Summary: - Procedure narrative: Image quality was poor and essentially nondiagnostic even with the use of ultrasound contrast. - Left ventricle: Systolic function is normal. The estimated ejection fraction is 50-55%. Regional wall motion abnormality is identified, but with severe limitations in image quality risk of error: With contrast on 4 chamber view, base of the anterior and lateral de la cruz appears akinetic. - Right ventricle: Systolic function is normal. - All valves show grossly normal function. - Pericardium, extracardiac: A trace pericardial effusion is identified. There is a left pleural effusion. - Compared with prior echocardiogram of 04/15/18, ejection fraction previously 60-65% with mild left ventricular hypertrophy. Borderline seen with mean gradient 9 mmHg. Study data: Transthoracic echocardiogram. Procedure: Transthoracic echocardiography was performed. Image quality was poor and essentially nondiagnostic even with the use of ultrasound contrast. Intravenous Definity , 2 mls was administered. Complete 2D, spectral Doppler, and color flow Doppler. Location: Emergency department. Patient status: Outpatient. Patient room number: 11. Rhythm: Tachycardia. Findings Left ventricle: Not well visualized. Systolic function is normal. The estimated ejection fraction is 50-55%. Regional wall motion abnormality is identified, but with severe limitations in image quality risk of error: With contrast on 4 chamber view, base of the anterior and lateral de [place] cruz appears akinetic. Left ventricular diastolic function parameters are indeterminate. Right ventricle: The cavity size is dilated. Systolic function is normal. Left atrium: Not well visualized. The atrium is normal in size. Right atrium: Not well visualized. The atrium is mildly dilated. Mitral valve: Not well visualized. The Mitral valve annulus appears calcified. Theere is no evidence of leaflet thickening. There is no evidence of stenosis. There is no significant regurgitation. Aortic valve: Not well visualized. There is no evidence of stenosis. There is no significant regurgitation. Tricuspid valve: Not well visualized. There is no evidence of thickening. There is no significant regurgitation. Pulmonic valve: Not well visualized. Aorta: Aortic root: The aortic root is poorly visualized. Aortic arch: The aortic arch is appears normal. Pericardium: A trace pericardial effusion is identified. There is a left pleural effusion. Systemic veins: Inferior vena cava: The vessel is normal in size. There is (< 50%) respiratory change in the IVC dimension. Measurements Left ventricle Value Ref Aortic valve Value Ref E', med ed, TDI (L) 4.9 cm/sec >=7.0 Peak v, S 1.3 m/sec ---- E/e', med ed, TDI 10 --------- VTI, S 20.3 cm ---- Mean grad, S 4.0 mm Hg ---- LVOT Value Ref Peak grad, S 7.0 mm Hg ---- Peak harika, S 0.92 m/sec --------- Mean grad, S 2 mm Hg --------- Mitral valve Value Ref Peak E 0.5 m/sec ---- Right ventricle Value Ref Peak A 0.77 m/sec ---- ALBERTA minor ax, A4C mid (H) 3.8 cm 1.9 - 3.5 Decel time 102 ms ---- Peak E/A ratio 0.6 ---- Left atrium Value Ref ML dim, A4C 4.1 cm --------- Aortic arch Value Ref SI dim, A4C 5.8 cm --------- Arch diam 2.9 cm ---- Vol/bsa, ES, 1-p A4C 31 ml/m^2 12 - 37 Arch diam/bsa 1.3 cm/m^2 ---- Right atrium Value Ref Decending aorta Value Ref SI dim, ES (H) 5.8 cm 3.4 - 5.3 Chris peak harika 0.38 m/sec ---- ML dim, ES, A4C 4.3 cm 2.6 - 4.4 Estimated RAP 8 mm Hg --------- Inferior vena cava Value Ref Diam 1.6 cm ---- Legend: (L) and (H) yara values outside specified reference range. Prepared and electronically signed by Oliva Garcia MD 11/24/2019 11:17
[2019-11-24] MEDS ORDERED: Norepinephrine 16MCG/ML IVPRE* 4,000 MCG/250 ML BAG IV ONE (11:58)
[2019-11-24] MEDS: Norepinephrine 16MCG/ML IVPRE* 4,000 MCG/250 ML BAG IV SCH ×4 (12:00→20:06)
[2019-11-24] MEDS ORDERED: Magnesium Sulfate 2 GM IV* 2 GM/50 ML BAG IVPB ONE (12:03)
[2019-11-24 12:59] LABS: ALT 40 U/L (7-52); AST 109 U/L (13-39); Albumin 2.8 g/dL (3.2-5.2); Albumin/Globulin Ratio 0.9 (1-3); Alkaline Phosphatase 52 U/L (34-104); Anion Gap 18 mmol/L (2-11); BUN/Creatinine Ratio 13.9 (8-20); Blood Urea Nitrogen 55 mg/dL (6-24); CO2 Carbon Dioxide 17 mmol/L (22-32); Chloride 106 mmol/L (101-111); EGFR African American 18.2 (>60); Globulin 3.1 g/dL (2-4); Glucose 135 mg/dL (70-100); Potassium 3.5 mmol/L (3.5-5.0); Sodium 141 mmol/L (135-145); Total Protein 5.9 g/dL (6.4-8.9)
[2019-11-24] MEDS ORDERED: Meropenem 1 GM PREMIX(*) 1 GM/50 ML BAG IV SCH (13:00)
[2019-11-24 13:03] LABS: Troponin I 4.19 ng/mL (<0.03)
[2019-11-24] MEDS ORDERED: Vasopressin* 100 UNITS in D5W 250 ML BAG* 245 ML IV SCH (14:45)
--- NOTE | 2019-11-24 18:25 | PN ---
Progress Note - Progress Note Date of Service: 11/24/19 Note: Brief Critical Care Follow Up to Admission: Patient brought in from ER to ICU profoundly hypotensive. Discussion with family (, son and daughter) regarding goals of care. Family is willing to have pressors and HFNC. They do not want intubation or CPR. Right subclavian line placed, levophed started with minimal response at max dose. Vasopressin started and additional fluid bolus given after CXR and ECHO evaluated - no pulm edema, EF preserved @50-55%. Initial blood culture showing gram pos cocci and gram negative bacilli. Await full report micro report. Patient tolerating high flow without issue. MAPS currently adequate >63. Troponin continues to rise. Discussed case with Dr. Garcia, who has seen the patient. Recommending starting on statin and risk-benefit analysis of continuing heparin. If we need to reinsert thompson, risk of bleeding is high and will discontinue. Plan to restart BB after critical septicemia is resolved and patient off pressors. No plans for cath or stress. No previous documented history of CAD as per cardiology's records. Patient's updated via telephone. Diagnoses: 1. Septic Shock, with Bacteremia, source likely urine with oliguria 2. Troponinemia 3. Hx of Pulmonary HTN 4. Hx of HTN 5. MORIS 6. Recent TURP
[2019-11-24 18:58] LABS: Troponin I 5.25 ng/mL (<0.03)
--- NOTE | 2019-11-24 19:59 | CONS ---
CC: Dr. Wayne Estes; Dr. Michael Webster; Hospitalist* CONSULTATION REPORT: DATE OF CONSULT: 11/24/19 REASON FOR CONSULT: Elevated troponins and hypotension. HISTORY OF PRESENT ILLNESS: Mr. Lopez is a 74-year-old gentleman with no prior documented history of coronary disease. The patient had been seen by Dr. Estes in 2018 for hypertensive heart disease. On this admission, the patient was admitted from [facility] due to presumed urosepsis with hypotension, systolic blood pressure 76 on transfer, change in mentation with diaphoresis and confusion. On arrival to the emergency room, he remained hypotensive. Per verbal report, he has a history of highly resistant bacteria in the urine and he underwent a TURP recently as well, records not available. Troponins were mildly elevated and rising. An echo showed possible new wall motion abnormality and I was asked to see the patient. At the time I saw the patient, he was getting fluid, on pressors and on high- flow nasal cannula and appeared ill, but he was able to communicate. Although he had some chest pain intermittently on admission, he denied having any chest pain now. He was tachypneic, breathing rapidly, but said his breathing had improved. He was sick enough that it made difficult to have a comprehensive discussion. PAST MEDICAL HISTORY: The patient has a past medical history of: 1. ESBL Klebsiella pneumoniae, admitted on 10/15/19. 2. Urinary retention. 3. Renal calculi. 4. Hypertension. 5. Obstructive sleep apnea, history of nonadherence to CPAP. 6. Asthma. 7. Reflux. 8. Chronic kidney disease, stage 3. 9. Benign prostatic hypertrophy, post TURP. 10. Stroke. 11. Vascular dementia with parkinsonism. 12. History of pulmonary hypertension based on Dr. Estes's notes. 13. Reports of coronary artery disease in multiple history and physicals; however, no cardiac catheterization or stress test identified. MEDICATIONS: Current inpatient medications include: 1. Tylenol p.r.n. 2. Maalox p.r.n. 3. Aspirin 81 mg a day. 4. Heparin drip. 5. Lactated Ringer's. 6. Meropenem 1 g q.12 hours. 7. Levophed drip. 8. Zofran p.r.n. 9. Protonix 40 mg p.o. daily. 10. Zosyn p.r.n. 11. Sodium bicarbonate. 12. Vasopressin drip. He had had one-time of magnesium, piperacillin-tazobactam, vancomycin, and received sodium chloride. ALLERGIES: Include AMLODIPINE, MONTELUKAST, FORMOTEROL, IRBESARTAN, LISINOPRIL , ERYTHROMYCIN. FAMILY HISTORY: Significant that his father had diabetes and of complications. His mother had a history of rheumatoid arthritis and coronary artery disease. SOCIAL HISTORY: The patient is currently a resident of [facility] following his TURP. He is . At baseline, he is awake, alert, oriented. He smoked for just 3 years distantly. No history of recreational drug use. REVIEW OF SYSTEMS: Unable to be obtained due to the patient's severe tachypnea and acute illness. PHYSICAL EXAM: The patient weighs 230 pounds. Blood pressure at the time I saw him was 83/69; sinus tachycardia at 104; respiratory rate 26 to 30, on high- flow nasal cannula; most recent temperature was 101.4 degrees Fahrenheit. General Appearance: Overweight, older gentleman, appears acutely ill, tachypneic, in distress, working hard to breathe. Psychologically, appears appropriately concerned and ill, but tries to cooperate. Neurologically, awake , alert, and oriented to person and place. I did not evaluate for time. He tries to answer questions. Speech is articulate. He follows commands. Skin: Warm and dry. Lower extremities show brawny and violaceous discoloration up to the mid portion of the lower leg bilaterally consistent with chronic venous stasis. No other rashes or discoloration noted. Neck: Thick, but no appreciable increase in JVP or thyromegaly. Pulmonary Exam: Tachypneic, but on anterior and lateral exam, no appreciable wheezing, rales, or rhonchi. He is not coughing. Coronary: S1, S2, regular, tachycardic without murmurs appreciated. Abdomen: Overweight, but otherwise nondistended, soft. Positive bowel sounds. Lower extremities showed mild edema, lack of hair, discoloration as above, and warm. DIAGNOSTIC STUDIES/LAB DATA: Chest x-ray on 11/24/19 confirmed line placement. Earlier chest x-ray at 3:30 this morning showed COPD, possible pulmonary artery hypertension with new diffuse patchy reticular infiltrates, possible pneumonia. A 12-lead ECG done at 3:30 this morning shows normal sinus rhythm at 92 beats per minute, QRS axis 0, normal AV and IV conduction times, some flattened T- waves, and when compared with the outpatient EKG available to me on 02/13/18 in the office, the T-wave flattening is new. When compared with his EKG from 09/06 at [facility], T-wave flattening is new, otherwise not significantly changed. Brain CT on 11/24/19 shows moderate volume loss of the small vessels. No acute abnormality. Echocardiogram from 11/24/19 showed poor image quality, ejection fraction 50% to 55% with an area at the base of the anterolateral wall that appears severely hypo to akinetic, normal right ventricular function, trace pericardial effusion , left pleural effusion. Echocardiogram from 04/15/18 showed an ejection fraction of 60% to 65%, normal right ventricular function, mild aortic stenosis, mean gradient 9 mmHg, aorta mildly dilated at 3.8 cm. Labs: White count 16.5, hemoglobin 13, hematocrit 43, mean cell volume 97, platelets 110. INR 1.22, PTT 37 and then increased to 140, on heparin. ABG; pH 7.36, pCO2 of 25, pO2 of 71, HCO3 of 17.4. Sodium 141; potassium 3.5; chloride 106; bicarb 17, improved from 11; BUN 55; creatinine 3.96 (in September, it was 1.45 and in 2018, 1.27); lactic acid 9.6; calcium 8.0; magnesium 1.8. Total bili 1.2, AST 109, ALT 40. Troponin #1 3.20 , troponin #2 4.20. Albumin 2.8, total protein 5.9. TSH 2.3. Urinalysis from today not available; from 10/16/19, positive protein, positive blood, positive white cells, bacteria. Microbiology from 10/16/19 had Klebsiella pneumoniae as above and on 01/06/19, urine culture, Enterococcus faecium. Lipid panel from shows LDL cholesterol 114, HDL cholesterol 33, triglycerides 167, and total cholesterol 181. IMPRESSION AND PLAN: In summary, Isaiah Lopez is a 74-year-old gentleman presenting with a septic picture with fevers, elevated white count, profound hypotension, change in mentation, and at [facility] diaphoresis, with mild bump in troponins, an EKG with subtle nonspecific changes, and an echo of poor quality showing possible focal wall motion abnormality. The patient needs to be treated for his sepsis first to help optimally perfuse the blood vessels supplying the heart. Based on his presentation and lack of typical ischemic EKG changes, this could represent demand ischemia. There is no evidence based on his echo that an ischemic cardiomyopathy is leading to the hypotension. Supportive care is going to be most important and he is not a candidate for cardiac catheterization or stress test at this time. In terms of optimizing medical management, currently he is not a candidate for beta- blockers. Heparin is reasonable as long as the risk-benefit is weighed carefully. Agree with aspirin unless felt to be contraindicated with his acute on chronic renal insufficiency. You could consider addition of a statin empirically for elevated troponins and wall motion noted on echo. Optimization of acid-base status and electrolytes will also be important. Additional recommendations will be made pending his clinical course and response to aggressive management of sepsis. He is a very high risk patient. I would reintroduce his outpatient metoprolol first when blood pressure tolerates and would follow troponins and EKGs serially. Thank you for allowing me to assist in this nice gentleman's care. [id number]/[facility] #: [id number] RANDELL
[2019-11-24] MEDS ORDERED: Lactated Ringers 1000 ML Bag* 1,000 ML IV SCH (21:01)
[2019-11-24] MEDS ORDERED: NS 0.9% IV SCH (22:00)
[2019-11-24] MEDS ORDERED: Morphine INJ* 2 MG/ML 1 ML SYRINGE (TWO MG - NEW SYRINGE VERSION) IV ONE (22:00)
[2019-11-24] MEDS ORDERED: NOREPINEPHRINE IV SCH (22:00)
[2019-11-24] MEDS ORDERED: Morphine INJ* 2 MG/ML 1 ML SYRINGE (TWO MG - NEW SYRINGE VERSION) ONE (22:03)
[2019-11-24] MEDS ORDERED: Morphine INJ* 2 MG/ML 1 ML SYRINGE (TWO MG - NEW SYRINGE VERSION) IV PRN (22:33)
--- NOTE | 2019-11-24 23:12 | PN ---
Progress Note - Progress Note Date of Service: 11/24/19 Note: Patient became hypoxic with agonal breathing. Was able to get in touch with the daughter. Spoke that there was no more benefit to adding more vasopressor agents for his persistent hypotension despite being on two vasopressors and that patient was actively dying. She was going to try and get in touch with her mother and brother so they could come in to see him if able to.
[2019-11-25] MEDS: Morphine INJ* 2 MG/ML 1 ML SYRINGE (TWO MG - NEW SYRINGE VERSION) IV PRN ×4 (00:44→04:18)
[2019-11-25 04:47] VITALS: BP 53/35
--- NOTE | 2019-11-25 05:08 | PN ---
Progress Note - Progress Note Date of Service: 11/25/19 Note: Patient at 4:46 AM No spontaneous breath sounds or heart sounds and daugther at the bedside Questions answered
--- NOTE | 2019-11-25 06:28 | DS ---
CC: Dr. Dangelo Case* DISCHARGE SUMMARY: DATE OF ADMISSION: 11/24/19 DATE OF : 11/25/19 TIME OF : 4:46. PRIMARY CARE PHYSICIAN: Dangelo Case MD CAUSE OF : Sepsis secondary to urinary tract infection with multiorgan failure. SECONDARY DIAGNOSES: 1. Asthma. 2. History of coronary artery disease. 3. Deconditioning secondary to prolonged hospitalization for urinary tract infection. HOSPITAL COURSE: In summary, this was a 74-year-old male with multiple comorbidities who presented to [facility] on 11/24/19 for hypotension and altered mental status. The patient was found to be in sepsis secondary to presumed urinary tract infection. He was also found to have multiorgan failure with worsening renal failure, elevated troponins, and a lactic acidosis. The patient's agreed to make the patient DNR/DNI, but she wanted to do a trial of IV fluids, antibiotics, and pressors and he was on 2 pressors throughout the day with IV fluids and antibiotics and then in the evening last night, he began having agonal respirations with hypoxia, not responding to max settings of Vapotherm. At that point, the decision was to make him comfortable. His family arrived, his and his daughter were at the bedside. We started him on morphine and switched him over to a nasal cannula. He was comfortable and was passing with the time of at 4:46 a.m. [id number]/[facility] #: [id number] MTDOusmane
[2019-11-25] MEDS ORDERED: Aspirin 81 mg CHEW TAB* 81 MG TAB.CHEW PO SCH (09:00)
--- NOTE | 2019-11-26 07:17 | OP ---
Operative Report - Blank - Operative Report Date of Operation: 11/24/19 Note: PRE-OP DX: Septic shock POST-OP DX: Same PROCEDURE: Placement of right subclavian central line PERFORMED BY: Terese Lugo MD INDICATION: Isaiah Lopez Sr is a 74 year-old man who was admitted with septic shock likely due to urinary infection. He received adequate intravenous hydration but remained severely hypotensive. Central line was discussed with his who is his healthcare proxy, and she consented to the procedure. DESCRIPTION: The patient was placed in Trendelenburg position. A time out was called confirming the patients name, date of , and procedure. The right chest and neck were prepped and draped in the usual sterile fashion. The right subclavian vein was accessed with the needle while aspirating. Once there was venous blood return, the wire was advanced through the needle, however there was resistance. The needle and wire were removed. I accessed the right subclavian vein again, and advanced the wire. This time the wire could be advanced easily. Using Seldinger technique, the triple lumen catheter was placed into the vein and advanced to 16 cm at the skin. Blood was drawn back from all ports, and all ports were flushed easily. The catheter was sutured in place. A Biopatch was placed at the insertion site, and a sterile dressing was placed. The patient tolerated the procedure well. Chest xray confirmed the tip was in the superior vena cava, and there were no complications.
== END 2019-11-25 04:46 | disposition expired | DRG 871 ==
LOC: ED 03:14 → ICU 05:53
PROVIDERS: ADMIT Pediatrics; ATTEND Pediatrics
PROC: 02HV33Z Insertion of Infusion Device into Superior Vena Cava, Percutaneous Approach (ICD-10-PCS; principal; 2019-11-24)
PROC: 3E033XZ Introduction of Vasopressor into Peripheral Vein, Percutaneous Approach (ICD-10-PCS; 2019-11-24)
DX: A41.9 Sepsis, unspecified organism (principal); R65.21 Severe sepsis with septic shock; N39.0 Urinary tract infection, site not specified; E87.2 Acidosis; Z66 Do not resuscitate; I25.10 Atherosclerotic heart disease of native coronary artery without angina pectoris; R79.89 Other specified abnormal findings of blood chemistry; R09.02 Hypoxemia; K21.9 Gastro-esophageal reflux disease without esophagitis; G20 Parkinson's disease; I27.20 Pulmonary hypertension, unspecified; K57.90 Diverticulosis of intestine, part unspecified, without perforation or abscess without bleeding; K58.9 Irritable bowel syndrome, unspecified; K40.90 Unilateral inguinal hernia, without obstruction or gangrene, not specified as recurrent; I12.9 Hypertensive chronic kidney disease with stage 1 through stage 4 chronic kidney disease, or unspecified chronic kidney disease; D63.1 Anemia in chronic kidney disease; M54.30 Sciatica, unspecified side; F32.9 Major depressive disorder, single episode, unspecified; F01.50 Vascular dementia, unspecified severity, without behavioral disturbance, psychotic disturbance, mood disturbance, and anxiety; E66.9 Obesity, unspecified; N18.3 Chronic kidney disease, stage 3 (moderate); B96.89 Other specified bacterial agents as the cause of diseases classified elsewhere; G47.33 Obstructive sleep apnea (adult) (pediatric); I87.8 Other specified disorders of veins; J45.909 Unspecified asthma, uncomplicated; Z90.79 Acquired absence of other genital organ(s); Z86.73 Personal history of transient ischemic attack (TIA), and cerebral infarction without residual deficits; Z88.8 Allergy status to other drugs, medicaments and biological substances; Z88.1 Allergy status to other antibiotic agents; Z87.01 Personal history of pneumonia (recurrent); Z87.442 Personal history of urinary calculi; Z87.891 Personal history of nicotine dependence; Z68.30 Body mass index [BMI] 30.0-30.9, adult; Z87.440 Personal history of urinary (tract) infections
CPT/HCPCS: 36415; 36600; 70450; 71045; 80053; 82803; 83605; 83735; 84443; 84484; 85025; 85610; 85730; 86140; 87040; 87077; 87150; 87186; 87205; 93005; 93306; 99285; A9270-GY; C8929; J1644; J2185; J2270; J2543; J3370; J3475; J7060